=== PATIENT | female | born 1990 | race Caucasian/White ===

== ENCOUNTER 2016-10-10 16:04 | Emergency (ER) | payer SELFPAY ==
[~2016-10-10] VITALS: Ht 167.6 cm; Wt 72.6 kg
[~2016-10-10 16:04] MED LIST: ALBU17AE23 IH; ALBU8.5H2 IH; ALBU8.5H4 IH; AMOX500C2; AMX250CIP; AZTH250C PO; BUSP5TAB59; BUTA1CAP45 PO; CEFA500C82 PO; CEFD300C3 PO; CITA20TA7 PO; CLIN300C3 PO; CODE-54 PO; CPR500T PO; DCS100C PO; HYDR-3454 PO; HYDR-3720 PO; IBP600T1; Ibuprofen PO; LEVO75TA6 PO; NAPR-243 PO; NAPR500T3 PO; NITR-65 PO; NITR100C44 PO; ONDA-42 SL; ONDA4TAB8 PO; ONDA8TAB13 PO; ONDA8TAB9 PO; PHEN200T27 PO; PNV51CAP PO; PRCD5U; PRD50T PO; PREN1TAB19 PO; PRM25T PO; SULF-222 PO; TRAM-21 PO; TRAM50TA2 PO; TRM50T PO; [UNRECOGNIZED DRUG - REMARK]
--- OUTSIDE RECORDS SUMMARY | 2016-10-10 16:10 | XMS REPORT | Continuity of Care Document ---
Author Author [facility] Organization [facility] Address Unknown Phone Unavailable Care Team Providers Care V Belt Builder Name Role Phone [facility] PCP Insurance Providers Payer Name Policy Number Subscriber Name Relationship [facility] [id number] Makayla Ramon 18 Self / Same As Patient Advance Directives Directive Response Recorded Date/Time Advance Directives No 06/01/16 4:53am Health Care Power of Maintenance Of Way Foreman No 06/01/16 4:53am Organ Donor No 06/01/16 4:53am Resuscitation Status Full Code 06/01/16 4:53am Chief Complaint and Reason for Visit Chief Complaint Eye Problems Reason for Visit [id number] Problems Active Problems Medical Problem Onset Date Status Abdominal pain Unknown Acute Abdominal pain in Unknown Acute Abdominal wall pain Unknown Acute Acute sinusitis Unknown Acute Corneal abrasion Unknown Acute Corneal abrasion, left Unknown Acute Flank pain Unknown Acute Headache Unknown Acute Impacted tooth Unknown Acute Impacted tooth Unknown Acute Ovarian cyst Unknown Acute Pain, dental Unknown Acute Pleuritic chest pain Unknown Acute Urinary tract infection Unknown Acute Urinary tract infection Unknown Acute Urinary tract infection Unknown Acute Urinary tract infectious disease Unknown Acute hyperemesis gravidarum Unknown Acute Medications Current Home Medications Medication Dose Units Route Directions Days/Qty Instructions Start Date Levothyroxine Sodium 75 Mcg 75 Mcg Oral Daily 06/01/16 Citalopram Hydrobromide 20 Mg 20 Mg Oral Daily 06/01/16 Past Home Medications Medication Directions Ordered Status Albuterol 17 Gm Aerosol, 2 Puff Inhalation As Needed 03/02/09 Discontinued Amoxicillin 500 Mg Capsule, 03/02/09 Discontinued Ibuprofen 600 Mg Tab, 03/02/09 Discontinued Ciprofloxacin 500 Mg Tablet, 1 Tab Oral Twice A Day 03/03/09 Discontinued Albuterol 8.5 Gm Hfa.aer.ad, 8.5 Gm Inhalation Every 4HRS as needed 02/16/10 Discontinued Prednisone 50 Mg Tab, 50 Mg Oral Daily 02/16/10 Discontinued Naproxen 500 Mg Tablet, 1 Each Oral Three Times A Day And Prn 10/23/11 Discontinued Cefaclor 500 Mg Capsule, 1 Each Oral Three Times A Day 03/29/12 Discontinued Azithromycin 250 Mg Tablet, 250 Mg Oral Daily 11/25/12 Discontinued Promethazine/Codeine 5 Ml Syrp, 5 Ml Every 6 Hours as needed 11/25/12 Discontinued Naproxen 500 Mg Tablet, 1 Each Oral Three Times A Day And Prn 11/25/12 Discontinued Tramadol Hcl 50 Mg Tab, 50 Mg Oral Q4-6HOURS as needed 11/25/12 Discontinued Ondansetron 4 Mg/Udtablet Tab.rapdis, 4 Mg Oral As Needed 08/23/13 Discontinued Pnv51/Iron Fum/Fa/Om-3/Dha/Epa 1 Each Capsule, 1 Each Oral Daily 08/23/13 Discontinued Acetaminophen/Codeine Phosphate 1 Tab Tablet, 1-2 Tab Oral Q 4-6 Hours as needed for Pain 08/23/13 Discontinued Nitrofurantoin Macrocrystals 100 Mg Capsule, 1 Each Oral Twice A Day Discontinued Ondansetron Hcl 4 Mg Tab, 4 Mg Sublingual Every 4HRS as needed for Nausea/ Vomiting 10/03/13 Discontinued Promethazine Hcl 25 Mg Tab, 1 Tab Oral Every 6 Hours as needed for Nausea/ Vomiting 10/03/13 Discontinued Nitrofurantoin Macrocrystals 100 Mg Capsule, 1 Each Oral Twice A Day Discontinued Vit/Fe Fumarate/Fa 1 Each Tablet, 1 Each Oral Daily 11/04/13 Discontinued Ondansetron Hcl 8 Mg/Tab Tab.rapdis, 8 Mg Oral Q4-6 Hours for Nausea Discontinued Albuterol 8.5 Gm Hfa.aer.ad, 2 Puff Inhalation Daily for Shortness Of Breath 11/04/13 Discontinued Nitrofurantoin/Nitrofuran Mac 100 Mg Capsule, 100 Mg Oral Daily 03/07/14 Discontinued [Ibuprofen] 800 Mg Tab, 800 Mg Oral Every 6 Hours 03/15/14 Discontinued Docusate Sodium 100 Mg Capsule, 1 Cap Oral Daily as needed for Constipation 03/15/14 Discontinued Acetaminophen/Hydrocodone Bitart ([place]) 1 Each Tablet, 1-2 Tab Oral Every 3 Hours as needed for Pain 03/15/14 Discontinued Phenazopyridine Hcl 200 Mg Tablet, 1 Each Oral Three Times A Day And Prn as needed for Pain 12/04/14 Discontinued Nitrofurantoin Macrocrystals 100 Mg Capsule, 1 Each Oral Twice A Day Discontinued Ondansetron 8 Mg Tab.rapdis, 8 Mg Oral Every 6 Hours as needed for Nausea/ Vomiting 12/04/14 Discontinued Tramadol Hcl 50 Mg Tablet, 50 Mg Oral Every 4HRS as needed for Pain 12/04/14 Discontinued Naproxen 500 Mg Tablet, 1 Each Oral Twice A Day as needed for Pain 01/27/15 Discontinued Trimethoprim/Sulfamethoxazole 1 Ea Tablet, 1 Ea Oral Twice A Day 01/27/15 Discontinued Clindamycin Hcl 300 Mg Capsule, 1 Each Oral Four Times Daily 03/09/15 Discontinued Tramadol Hcl 50 Mg Tablet, 50 Mg Oral Every 4HRS as needed for Pain 03/09/15 Discontinued [?Eye Ointment] , Every 4HRS 07/12/15 Discontinued Hydrocodone/Acetaminophen 1 Each Tablet, 1 Each Oral Every 4HRS as needed for Pain 07/12/15 Discontinued Cefdinir (Omnicef) 300 Mg Capsule, 300 Mg Oral Twice A Day for For Infection 07/20/15 Discontinued Naproxen 500 Mg Tablet, 500 Mg Oral Twice A Day 07/20/15 Discontinued Butalb/Acetaminophen/Caffeine 1 Each Capsule, 1-2 Each Oral Every 6 Hours as needed for Headache 07/20/15 Discontinued Buspirone Hcl 5 Mg Tablet, 04/09/16 Discontinued Levothyroxine Sodium 75 Mcg Tablet, 75 Mcg Oral 06/01/16 Discontinued Social History Social History Problem Response Recorded Date/Time Alcohol Use Occasionally Uses 01/05/2016 12:58am Recreational Drug Use No 01/05/2016 12:58am Recent Foreign Travel No 04/01/2014 10:46pm Recent Infectious Disease Exposure No 04/01/2014 10:46pm Hospitalization with Isolation Denies 04/01/2014 10:46pm Smoking Status Never a Smoker 06/01/2016 4:53am Do you dip or chew tobacco? No 01/05/2016 12:58am Recent Hopitalizations No 06/01/2016 4:53am Hospitalization with Isolation Denies 04/01/2014 10:46pm Query Response Start Date Stop Date Smoking Status Never a Smoker Hospital Discharge Instructions No hospital discharge instructions. Plan of Care Discharge Date 06/01/16 5:32am Disposition 01 HOME, SELF-CARE Condition at Discharge Improved Instructions/Education Provided Corneal Abrasion (ED) Prescriptions See Medication Section Referrals [facility] - Primary Care Physician Additional Instructions/Education Use the gentamicin ointment 1/2 inch ribbon placed on the inner lower eyelid every 6-8 hours. Keep your appointment with the eye doctor later today. All discharge instructions reviewed with patient and/or family. Voiced understanding. Functional Status No functional status results. Allergies, Adverse Reactions, Alerts Allergen Type Severity Reaction Status Last Updated Penicillins ([id number]) Allergy Unknown Active 12/04/14 Immunizations No immunization records. Vital Signs Acute Vital Signs Vital Response Date/Time Temperature (Fahrenheit) 97.6 degrees F (97.6 - 99.5) 06/01/2016 4:53am Temperature (Calculated Celsius) 36.95836 degrees C (36.4 - 37.5) 06/01/2016 4:53am Temperature Source Temporal 06/01/2016 4:53am Pulse Rate (adult) 76 bpm (60 - 90) 06/01/2016 4:53am Respiratory Rate 16 bpm (12 - 24) 06/01/2016 4:53am O2 Sat by Pulse Oximetry 96 % (88 - 100) 06/01/2016 4:53am Blood Pressure 117/70 mm Hg 06/01/2016 4:53am Blood Pressure Mean 86 mm Hg 06/01/2016 4:53am Pain Numeric Pain Scale 10-Worst Possible Pain 06/01/2016 4:53am Height (Feet) 5 feet 06/01/2016 4:53am Height (Inches) 6 inches 06/01/2016 4:53am Height (Calculated Centimeters) 167.871850 cm 06/01/2016 4:53am Weight (Pounds) 145 pounds 06/01/2016 4:53am Weight (Calculated Kilograms) 65.388954 kilograms 06/01/2016 4:53am Capillary Refill Capillary Refill Less Than 3 Seconds 06/01/2016 4:53am Height 5 ft 6 in Weight 145 lb Body Mass Index 23.4 kg/m^2 Results No known relevant diagnostic tests, laboratory data and/or discharge summary. Procedures No known history of procedures. Encounters Encounter Location Arrival/Admit Date Discharge/Depart Date Attending Provider Departed Emergency Room [facility] 06/01/16 4:47am 06/01 5:32am ARIK KELLY MD Recent Diagnosis
[2016-10-10 17:05] LABS: BASOPHILS % (AUTO) 0 % (0-10); EOSINOPHILS # (AUTO) 0.1 10^3/uL (0.0-0.3); EOSINOPHILS % (AUTO) 2 % (0-10); LYMPHOCYTES # (AUTO) 1.6 X 10^3 (1.0-4.0); LYMPHOCYTES % (AUTO) 20 % (12-44); MEAN CORPUSCULAR HEMOGLOBIN 30 PG (25-34); MEAN CORPUSCULAR HGB CONC 35 G/DL (32-36); MEAN CORPUSCULAR VOLUME 87 FL (80-99); MEAN PLATELET VOLUME 11.3 FL (7.4-10.4); MONOCYTES # (AUTO) 0.4 X 10^3 (0.0-1.0); MONOCYTES % (AUTO) 5 % (0-12); NEUTROPHILS # (AUTO) 5.9 X 10^3 (1.8-7.8); NEUTROPHILS % (AUTO) 73 % (42-75); PLATELET COUNT 196 10^3/uL (130-400); RED BLOOD COUNT 4.36 10^6/uL (4.35-5.85); RED CELL DISTRIBUTION WIDTH 12.3 % (10.0-14.5)
--- NOTE | 2016-10-10 17:23 | Diagnostic Imaging Report ---
Indication: Severe anterior chest pain for 3 days, worsening today. Discussion: Two views of the chest were obtained, comparison 03/02/2010. No adverse interval change. The heart and lungs remain normal. No osseous abnormality. Impression: Stable negative chest. Dictated by: Dictated on workstation # [id number]
--- NOTE | 2016-10-10 17:34 | ED Chest Pain ---
General Chief Complaint: Respiratory Problems Stated Complaint: SOB/CHEST PAIN Nursing Triage Note: PT STATES SHE HAS BEEN SOA SINCE MONDAY, STATES MIDSTERNAL CHEST PAIN. INTERMITTENT COUGH. Nursing Sepsis Screen: No Definite Risk Source: patient Exam Limitations: no limitations History of Present Illness Time seen by provider: 17:32 Initial Comments To ER with reports of central chest pain described as a heaviness worsened with deep breathing and laying flat. This is been present for 3 days. No fevers. Intermittent and inconsistent nonproductive cough. She has taken her inhaler at home without any improvement in symptoms. She has not tried any other medications. Timing/Duration: 2-3 days Severity/Quality: dull Location: central Radiation: no radiation Activities at Onset: none ASA po DESIGN STUDIO CONSULTANT: No NTG SL DESIGN STUDIO CONSULTANT: No Associated Symptoms: No fatigue, No fever/chills, No heartburn, No nausea/ vomiting Allergies and Home Medications Allergies Coded Allergies: Penicillins (Unverified Allergy, Unknown, 12/04/14) Home Medications Citalopram Hydrobromide 20 Mg Tablet 20 MG PO DAILY (Reported) Levothyroxine Sodium 75 Mcg Tablet 75 MCG PO DAILY (Reported) Review of Systems Constitutional: see HPI EENTM: No Symptoms Reported Respiratory: See HPI Cough Cardiovascular: See HPI Chest Pain Gastrointestinal: No Symptoms Reported Genitourinary: No Symptoms Reported Musculoskeletal: no symptoms reported Skin: no symptoms reported Psychiatric/Neurological: No Symptoms Reported Endocrine: No Symptoms Reported Hematologic/Lymphatic: No Symptoms Reported Past Jwsqsaa-Gjjrgx-Jqesje Hx Patient Social History Alcohol Use: Denies Use Recreational Drug Use: No Smoking Status: Never a Smoker 2nd Hand Smoke Exposure: No Recent Foreign Travel: No Contact w/Someone Who Travel: No Recent Infectious Disease Expo: No Recent Hopitalizations: No Immunizations Up To Date Tetanus Booster (TDap): Less than 5yrs Date of Influenza Vaccine: May 21, 2016 Seasonal Allergies Seasonal Allergies: No Surgeries HX Surgeries: Yes (LITHOTRIPSY AND STONE BASKET REMOVAL) Surgeries: Section, Renal Respiratory Hx Respiratory Disorders: Yes Respiratory Disorders: Asthma Cardiovascular Hx Cardiac Disorders: No Neurological Hx Neurological Disorders: No Reproductive System Hx Reproductive Disorders: No Female Reproductive Disorders: Denies Genitourinary Hx Genitourinary Disorders: Yes Genitourinary Disorders: Kidney Stones Gastrointestinal Hx Gastrointestinal Disorders: No Musculoskeletal Hx Musculoskeletal Disorders: No Endocrine Hx Endocrine Disorders: No HEENT HX ENT Disorders: No Cancer Hx Cancer: No Psychosocial Hx Psychiatric Problems: No Integumentary HX Skin/Integumentary Disorder: No Blood Transfusions Hx Blood Disorders: No Adverse Reaction to a Blood Tr: No Physical Exam Vital Signs Vital Sign - Last 12Hours 10/10/16 16:31 Temp 98.5 Pulse 89 Resp 18 B/P 123/69 Capillary Refill : Less Than 3 Seconds General Appearance: No Apparent Distress WD/WN HEENT: PERRL/EOMI TMs Normal Neck: Full Range of Motion Normal Inspection Respiratory: Chest Non Tender Lungs Clear Normal Breath Sounds No Accessory Muscle Use No Respiratory Distress Cardiovascular: Regular Rate, Rhythm No Edema Normal Peripheral Pulses Gastrointestinal: Non Tender Soft Extremity: Normal Capillary Refill Normal Inspection Neurologic/Psychiatric: Alert Oriented x3 No Motor/Sensory Deficits Skin: Normal Color Warm/Dry Progress/Results/Core Measures Results/Orders Lab Results Laboratory Tests Test 10/10/16 16:56 Range/Units Basophils # (Auto) 0.0 0.0-0.1 10^3/uL Basophils (%) (Auto) 0 0-10 % D-Dimer 0.39 0.00-0.49 UG/ML Eosinophils # (Auto) 0.1 0.0-0.3 10^3/uL Eosinophils (%) (Auto) 2 0-10 % Hematocrit 38 35-52 % Hemoglobin 13.1 11.5-16.0 G/DL Lymphocytes # (Auto) 1.6 1.0-4.0 X 10^3 Lymphocytes (%) (Auto) 20 12-44 % Mean Corpuscular Hemoglobin 30 25-34 PG Mean Corpuscular Hemoglobin Concent 35 32-36 G/DL Mean Corpuscular Volume 87 80-99 FL Mean Platelet Volume 11.3 H 7.4-10.4 FL Monocytes # (Auto) 0.4 0.0-1.0 X 10^3 Monocytes (%) (Auto) 5 0-12 % Neutrophils # (Auto) 5.9 1.8-7.8 X 10^3 Neutrophils (%) (Auto) 73 42-75 % Platelet Count 196 130-400 10^3/uL Red Blood Count 4.36 4.35-5.85 10^6/uL Red Cell Distribution Width 12.3 10.0-14.5 % White Blood Count 8.0 4.3-11.0 10^3/uL My Orders Orders-FABIO PENDLETON APRN Cbc With Automated Diff (10/10/16 16:35) Fibrin Degradation Products (10/10/16 16:35) Chest Pa/Lat (2 View) (10/10/16 16:35) Ekg Tracing (10/10/16 16:35) Vital Signs/I&O Vital Sign - Last 12Hours 10/10/16 16:31 Temp 98.5 Pulse 89 Resp 18 B/P 123/69 Blood Pressure Mean: 87 Departure Impression Impression: Primary Impression: Pleuritic chest pain Disposition: HOME, SELF-CARE Condition: Stable Departure-Patient Inst. Decision time for Depature: 17:50 Referrals: [facility] (PCP/Family) Primary Care Physician Patient Instructions: Pleuritic Chest Pain Add. Discharge Instructions: 1. Tylenol and Motrin for pain 2. Return to ER for any concerns 3. All discharge instructions reviewed with patient and/or family. Voiced understanding. FABIO PENDLETON APRN Oct 10, 2016 17:33
[2016-10-10 17:57] VITALS: BP 129/67
== END 2016-10-10 17:59 | disposition home or self-care (01) ==
LOC: EDUNIT# 16:04 → ER 16:06
DX: R07.81 Pleurodynia (principal)
CPT/HCPCS: 36415; 71020; 85025; 85379; 93005

== ENCOUNTER 2017-03-13 05:29 | Outpatient (CLI) | payer OTHER ==
[~2017-03-13] VITALS: Ht 167.6 cm; Wt 72.6 kg
[2017-03-13] MEDS ORDERED: BUPR300T43 PO (15:09)
== END 2017-03-13 15:13 ==
LOC: PREOP 05:29
PROVIDERS: ATTEND Obstetrics & Gynecology
DX: Z01.818 Encounter for other preprocedural examination (principal); N93.8 Other specified abnormal uterine and vaginal bleeding; R10.2 Pelvic and perineal pain

== ENCOUNTER 2017-03-17 10:40 | Day surgery (SDC) | payer OTHER ==
[~2017-03-17] VITALS: Ht 167.6 cm; Wt 72.6 kg
[~2017-03-17 10:40] MED LIST changes: +BUPR300T43 PO
--- OUTSIDE RECORDS SUMMARY | 2017-03-17 10:44 | XMS REPORT ---
Author HAYLIE Pitt Organization [employer] Address Unknown Phone Unavailable Care Team Providers Care Clipper Operator Name Role Phone HAYLIE BELCHER CP Unavailable Allergies, Adverse Reactions, Alerts Substance Reaction Event Type Amoxicillin Info Not Available Drug Allergy Problems Problem Type Condition Code Onset Dates Condition Status Problem Acute pharyngitis 462 Active Problem examination or test, positive result V72.42 Active Problem Supervision of normal first V22.0 Active Problem Dysuria 788.1 Active Problem Flank pain, acute 789.09 Active Problem Counseling for control, oral contraceptives V25.01 Active Problem Postnasal drip 784.91 Active Problem Other bursitis disorders 727.3 Active Problem Pure hyperglyceridemia 272.1 Active Problem Family history of diabetes mellitus V18.0 Active Assessment Serous otitis media H65.90 Active Problem Pain in joint, lower leg 719.46 Active Problem Acute upper respiratory infections of unspecified site 465.9 Active Assessment Dizziness R42 Active Problem Need for prophylactic vaccination and inoculation, Influenza V04.81 Active Medications Medication Code System Code Instructions Start Date End Date Status Dosage Zyrtec Allergy [facility] [address]-55 10 MG Orally Aug 24, 2015 as directed Meclizine HCl [facility] [address]-90 25 MG Orally 3 times a day Aug 24, 2015 1 tablet as needed Ortho-Cyclen (28) [facility] [address]-77 0.25-35 MG-MCG Orally Once a day May 04, 2015 1 tablet Procedures Procedure Coding System Code Date Office Visit, Est Pt., Level 3 CPT-4 98942 Aug 24, 2015 Vital Signs Date/Time: Aug 24, 2015 Temperature 96.3 F Weight 136.3 lbs Height 65 in BMI 22.68 Index Blood Pressure Diastolic 60 mmHg Blood Pressure Systolic 110 mmHg Cardiac Monitoring Heart Rate 72 bpm Results No Known Results Summary Purpose [employer] Submission
--- OUTSIDE RECORDS SUMMARY | 2017-03-17 10:45 | XMS REPORT ---
Author HAYLIE Pitt [facility] [employer] Address Unknown Phone Unavailable Care Team Providers Care Manual Arts Teacher Name Role Phone HAYLIE BELCHER CP Unavailable Allergies No Known Allergies Problems Problem Type Condition Code Onset Dates Condition Status Problem Counseling for control, oral contraceptives V25.01 Active Medications No Known Medications Results No Known Results Summary Purpose [employer] Submission
[2017-03-17] MEDS ORDERED: BUP/EPI 0.5% 1:200,000 (MARCAINE) 10ML VIAL IJ ONE (11:12)
[2017-03-17] MEDS ORDERED: ATRACURIUM 50 MG/5 ML (TRACRIUM) IV ONE (11:15)
[2017-03-17 11:20] LABS: BASOPHILS % (AUTO) 0 % (0-10); EOSINOPHILS # (AUTO) 0.1 10^3/uL (0.0-0.3); EOSINOPHILS % (AUTO) 1 % (0-10); LYMPHOCYTES # (AUTO) 1.4 X 10^3 (1.0-4.0); LYMPHOCYTES % (AUTO) 24 % (12-44); MEAN CORPUSCULAR HEMOGLOBIN 29 PG (25-34); MEAN CORPUSCULAR HGB CONC 34 G/DL (32-36); MEAN CORPUSCULAR VOLUME 86 FL (80-99); MEAN PLATELET VOLUME 11.6 FL (7.4-10.4); MONOCYTES # (AUTO) 0.3 X 10^3 (0.0-1.0); MONOCYTES % (AUTO) 6 % (0-12); NEUTROPHILS # (AUTO) 3.9 X 10^3 (1.8-7.8); NEUTROPHILS % (AUTO) 69 % (42-75); PLATELET COUNT 197 10^3/uL (130-400); RED BLOOD COUNT 4.94 10^6/uL (4.35-5.85); WHITE BLOOD COUNT 5.6 10^3/uL (4.3-11.0)
[2017-03-17] MEDS ORDERED: proPOfol 200 MG/20 ML (DIPRIVAN) VIAL IV ONE (11:20)
[2017-03-17] MEDS ORDERED: LIDOCAINE PF 2% 5 ML (XYLOCAINE) VIAL ONE (11:20)
[2017-03-17] MEDS ORDERED: LACTATED RINGERS 1,000 ML IV ONE (11:20)
[2017-03-17] MEDS ORDERED: SEVOFLURANE (ULTANE) 15 ML INHAL SOLN ONE ×8 (11:20→15:07)
[2017-03-17] MEDS ORDERED: DEXAMETHASONE PF 10 MG/ML (DECADRON) VIAL ONE (11:20)
[2017-03-17] MEDS ORDERED: HURRICAINE EXT TUBE (BENZOCAINE) ONE (11:20)
[2017-03-17] MEDS ORDERED: fentaNYL INJECTION 100 MCG/2 ML AMP ONE ×2 (11:21→14:57)
[2017-03-17] MEDS ORDERED: MIDAZOLAM 2 MG/2 ML (VERSED) VIAL ONE (11:21)
[2017-03-17 11:24] VITALS: BP 110/83
[2017-03-17] MEDS: LACTATED RINGERS 1,000 ML IV PRN ×2 (11:33→14:20)
[2017-03-17] MEDS ORDERED: ceFAZolin 1,000 MG (ANCEF) VIAL ONE (12:44)
[2017-03-17] MEDS ORDERED: NS (IVPB) 50 ML ONE (12:45)
[2017-03-17] MEDS ORDERED: ceFAZolin 1 GM/NS 50 ML IVPB IV ONE ×2 (13:00)
--- NOTE | 2017-03-17 13:01 | Progress Note-Pre Operative ---
Pre-Operative Progress Note H&P Reviewed The H&P was reviewed, patient examined and no changes noted. Date Seen by Provider: Mar 17, 2017 Time Seen by Provider: 13:00 Date H&P Reviewed: Mar 17, 2017 Time H&P Reviewed: 13:00 Pre-Operative Diagnosis: CPP/DUB/Menorrhagia/Dysmenorrhea JAXON DUNLAP MD Mar 17, 2017 1:01 pm
[2017-03-17] MEDS ORDERED: D5 LR IV SOLUTION 1,000 ML IV SCH (13:02)
--- NOTE | 2017-03-17 13:02 | Progress Note-Post Operative ---
Post-Operative Progess Note Surgeon (s)/Contact Lens Polisher (s) Surgeon JAXON DUNLAP MD Contact Lens Polisher: Mignon Sanchez Pre-Operative Diagnosis CPP/DUB/Menorrhagia/Dysmenorrhea Post-Operative Diagnosis same with endometriosis and with likely appendicitis and with pathology pending Procedure & Operative Findings Date of Procedure 03/17/17 Procedure Performed/Findings hysteroscopy with directed biopsy and D&C Operative laparoscopy with destruction of endometriosis ovarian cyst aspiration bilaterally, and appendectomy Anesthesia Type GETA Estimated Blood Loss Estimated blood loss (mL): minimal Specimens/Packing Specimens Removed endometrial curettings Packing: none JAXON DUNLAP MD Mar 17, 2017 13:02
[2017-03-17] MEDS ORDERED: OXYC-202 PO (13:04)
--- NOTE | 2017-03-17 13:06 | Discharge Instructions ---
Discharge Instructions Discharge Medications New, Converted or Re-Newed RX: RX on Chart Patient Instructions Patient Instructions: as directed Return to The Hospital For: as directed Activity & Diet Discharge Diet: No Restrictions Activity as Tolerated: No Orders-Post D/C & Referrals Follow Up Appt: return to clinic 1 week for suture removal. Activity: Rest for 24 hours, than as tolerated. Wound Care: May remove Band-Aid tomorrow. Replace as desired. Keep incisions clean and dry. Wash daily with soap and water. Diet: As tolerated-Clear Liquids only if nauseated. Tomorrow, may shower or tub bathe as desired. No driving for 24 hours, no alcoholic beverages for 24 hours, and nothing per vagina (no tampons, douching, or intercourse) for 2 weeks. Patient to return to the clinic as soon as possible for: Temperature greater than 101F, Severe Pain, Foul discharge from incision or vagina, Excessive Bleeding (more than a period). JAXON DUNLAP MD Mar 17, 2017 1:06 pm
[2017-03-17] MEDS ORDERED: ESTROGENS CONJ IV 25 MG/5 ML (PREMARIN) VIAL IVP ONE (13:15)
[2017-03-17] MEDS ORDERED: KETOROLAC 30 MG/ML VIAL IVP ONE ×2 (13:15→15:30)
[2017-03-17] MEDS ORDERED: oxyCODONE/APAP 10/325MG (PERCOCET 10) TABLET PO PRN (13:15)
[2017-03-17] MEDS ORDERED: PROMETHAZINE INJ 25 MG/ML (PHENERGAN) AMP IM ONE (13:15)
[2017-03-17] MEDS ORDERED: ONDANSETRON 4 MG/2 ML (SDV) Z0FRAN IVP PRN ×2 (13:15→15:30)
[2017-03-17] MEDS ORDERED: MEPERIDINE (DEMEROL) INJ 100 MG/ML IM ONE (13:15)
[2017-03-17] MEDS: METHYLENE BLUE 1% INJ 1 ML AMP ONE ×2 (13:30→14:30)
[2017-03-17] MEDS ORDERED: WATER (STERILE) FOR INJECTION 10 ML ONE (14:22)
[2017-03-17] MEDS ORDERED: morphine INJ 10 MG/ML 1ML (SYR OR VIAL) ONE (14:22)
[2017-03-17] MEDS ORDERED: ESTROGENS CONJ IV 25 MG/5 ML (PREMARIN) VIAL ONE (14:23)
[2017-03-17] MEDS ORDERED: NEOSTIGMINE (BLOXIVERZ ) 1 MG/1ML 10 ML VIAL ONE (15:08)
[2017-03-17] MEDS ORDERED: ONDANSETRON 4 MG/2 ML (SDV) Z0FRAN ONE (15:08)
[2017-03-17] MEDS ORDERED: GLYCOPYRROLATE 0.2 MG/ML (ROBINUL) 2 ML VIAL ONE (15:08)
[2017-03-17] MEDS ORDERED: HYDROmorphone (DILAUDID) 2 MG/ML VIAL IVP PRN (15:30)
[2017-03-17] MEDS: morphine INJ 10 MG/ML 1ML (SYR OR VIAL) IVP PRN ×2 (15:35→15:40)
[2017-03-17 16:05] VITALS: BP 117/79
[2017-03-17 16:35] VITALS: BP 118/75
[2017-03-17 17:05] VITALS: BP 113/71
[2017-03-17 18:05] VITALS: BP 118/74
[2017-03-17 18:30] VITALS: BP 118/74
--- NOTE | 2017-03-18 02:51 | OPERATIVE REPORT ---
DATE OF SERVICE: 03/17/2017 PREOPERATIVE DIAGNOSES: Chronic pelvic pain, dysfunctional uterine bleeding, menorrhagia, and dysmenorrhea. POSTOPERATIVE DIAGNOSES: [place] endometrial polyp with pathology pending as well as extensive abdominopelvic adhesions, endometriosis, multiple ovarian cysts, appendiceal adhesions and likely appendicitis with pathology pending. OPERATIVE PROCEDURES: Hysteroscopy with directed biopsy and D and C followed by a laparoscopy for extensive adhesiolysis, aspiration of multiple ovarian cysts, destruction of endometriosis implants, and laparoscopic appendectomy as well as chromopertubation. OPERATIVE DESCRIPTION: With the patient in the supine position under satisfactory general anesthesia, she was repositioned in the dorsal lithotomy position in the [facility] and prepped and draped in the usual fashion for abdominal and vaginal surgery. Urinary bladder was drained with the straight catheter. A weighted speculum was placed in the posterior fornix of the vagina and the cervix exposed and grasped anteriorly with single tooth tenaculum. The uterus was sounded to 9 cm with a uterine sound. The cervix was then serially dilated with Juan Alberto dilators to accommodate a hysteroscope, which was introduced and the endometrial cavity was examined. There were polypoid masses emanating primarily from the posterior surface. A airport representative biopsy was taken and then the endometrial cavity was sharply curettaged in all four quadrants to a good uterine cry, removing notable amount of endometrial tissue as well as more polypoid appearing tissue. A uterine manipulator was then placed and the bulb filled with 4 mL of saline. Patient was brought in low dorsal lithotomy position after the speculum and tenaculum were removed. A 5 mm incision was made in the patient's left upper quadrant and a stab wound at the Urbano's point. Veress needle was placed through the stab wound and into the abdominal cavity. Correct placement was confirmed with a water drop test. The abdomen was insufflated with 2.4 liters of carbon dioxide. Then, the Veress needle was removed and a 5 mm Optiview laparoscopic port placed through the left upper quadrant incision. Patient was placed in Trendelenburg allowing the bowel to spill up out of the pelvis. The bowel remained partially in the pelvis particularly due to the adhesions on the left side of the pelvis. The abdominal wall was transilluminated. A 12 mm port was placed through an incision of that size in the umbilicus and a 5 mm port placed on the surface of the Pfannenstiel incisional scar in the midline. All three incision sites have been infiltrated with 0.25% Marcaine with epinephrine prior to the incision. The pelvis was examined. Both ovaries were densely adherent to the ovarian fossae. Both ovaries were densely involved in filmy fibrotic adhesions. There were adhesions from the bowel to the lower uterine segment obliterating most of the cul-de-sac. There was an Hosea-Masters window in the right cul-de-sac. The anterior lower uterine segment of the peritoneum showed a scar from the previous . The ovaries were not fully examined until this point due to the adhesions. Both fallopian tubes were adherent over the ovaries and into the cul-de-sac, neither fimbriated end could be identified. There were adhesions of the sigmoid to the left pelvic brim. Some of these were dense and fibrotic adhesions. Laparoscope was rotated. The appendix was seen with some difficulty, was semi-retrocecal. The terminal ileum was indurated and erythematous and injected, consistent with some degree of infection. There were extensive adhesions along the appendix. The laparoscope was brought back to the pelvis. The adhesions of the ovaries to the ovarian fossae on each side were very carefully and meticulously dissected free to allow the ovary to resume a normal freedom and mobility and position in the pelvis. With that done and both ovarian fossae implants, those implants were destroyed with electrocautery. Both ovaries had numerous follicular cysts. These follicular cysts were drilled with electrocautery to allow release of straw-colored fluid, which was aspirated out. The fallopian tubes were dissected free. When that was done, the fimbriated end actually looked more normal. The right fallopian tube appeared to have some degree of hydrosalpinx in its distal third, but this was resolved after dissecting the tube free and allowing fluid to spill. The endometriosis implants and adhesions in the cul-de-sac were destroyed. The adhesions of the sigmoid to the left pelvic brim and left pericolic gutter were taken free allowing the sigmoid free mobility and allowing it up out of the way to accomplish the dissection that had been performed now on the left. Both ureters were seen to peristalse before and during and after all the dissections were well out of the way. The pelvis was irrigated and examined for hemostasis which was complete and with all the pathology of the adhesions and the cysts and the endometriosis dealt with, the attention was then turned to the appendix. The appendix was mobilized by rotating the cecum, grasping the appendix, and working along its length to examine it. The distal third was indurated and injected again consistent with some degree of infection or inflammation, the distal end was very firm and nodular. The base of the appendix was elevated. The mesoappendix was perforated with electrocautery and then Endo SISI was placed across the base of the appendix and fired. The mesoappendix was then dissected free starting from the base and continuing to approximately the middle third and then from the distally and back to the middle third, where an Endo SISI was then placed across the balance of the mesoappendix and fired the appendix from its attachment. The appendix was placed in an endobag and brought out through the umbilical incision. The stump of the appendix was copiously irrigated and then treated with several drops of Betadine solution. There was no bleeding from this area. The pelvis was irrigated again, examined for hemostasis, which was complete. There was no further abnormal pathology remaining. The uterus was free and mobile as were the fallopian tubes and ovaries. The all irrigant was aspirated out. Chromopertubation was performed by placing the dilute solution of methylene blue and saline through the fallopian tubes, easy spill was noted bilaterally. With the procedure complete, again, all irrigant was aspirated out. There was no bleeding. There was no remaining abnormal pathology. The procedure was terminated. The operative instruments were removed under direct vision as were the ports. There was no bleeding from the port sites and the abdomen was evacuated of the insufflating gas in the process of removing the ports. The skin incisions were closed with nylon sutures. The fascia at the umbilical incision was closed with [id number] suture of 2-0 Vicryl. The uterine manipulator was drained. It was removed from the uterus and then speculum replaced in the vagina. The cervix was examined. There was some bleeding from one of puncture sites from the tenaculum. This was touched with silver nitrate to affect hemostasis. There was minimal oozing from the cervical os. Sponge and needle counts were correct at the end of the procedure. Estimated blood loss for the procedure was minimal. The patient tolerated the procedure well and was uneventfully awakened from the general anesthesia and transferred to the recovery room in stable condition. Job ID: [id number] DocumentID: [id number] Dictated Date: 03/17/2017 15:59:12 Shield Operator Date: 03/17/2017 18:40:34 Dictated By: JAXON DUNLAP MD
== END 2017-03-17 18:35 | disposition home or self-care (01) ==
LOC: SDC 10:40
PROVIDERS: ATTEND Obstetrics & Gynecology
DX: R10.2 Pelvic and perineal pain (principal); N93.8 Other specified abnormal uterine and vaginal bleeding; N92.0 Excessive and frequent menstruation with regular cycle; N94.6 Dysmenorrhea, unspecified; N73.6 Female pelvic peritoneal adhesions (postinfective); N84.0 Polyp of corpus uteri; N83.8 Other noninflammatory disorders of ovary, fallopian tube and broad ligament; N83.01 Follicular cyst of right ovary; N83.02 Follicular cyst of left ovary; N70.11 Chronic salpingitis; N80.3 Endometriosis of pelvic peritoneum; K38.8 Other specified diseases of appendix
CPT/HCPCS: 36415; 84703; 85025; 87081

== ENCOUNTER → 2017-07-28 | Outpatient (CLI) | payer OTHER ==
[~2017-07-28] MED LIST changes: +CATHETER FLUSH 10 ML SYR IV PRN; +IOHEXOL 350 MG/ML 100 ML (OMNIPAQUE 350) VIAL IV ONE; -NAPR500T3 PO; +NAPR500T4 PO; +NS 100 ML (IVPB) BAG IV ONE; +OXYC-202 PO
--- NOTE | 2017-07-28 11:25 | Diagnostic Imaging Report ---
PROCEDURE: CT head with and without contrast. TECHNIQUE: Multiple contiguous axial images were obtained through the brain before and after the administration of intravenous contrast. INDICATION: New onset of seizures. Headache. 80 mL of Omnipaque 350 is administered intravenously FINDINGS: There is no intracranial hemorrhage, edema or mass effect. The brain parenchyma and sow-white matter differentiation appear preserved. Postcontrast images demonstrate no enhancing mass. No hydrocephalus. No extra-axial fluid collection is seen. The calvarium, the paranasal sinuses and orbits appear grossly unremarkable. IMPRESSION: Unremarkable exam. No enhancing mass. If symptoms persist, consider evaluation with MRI Dictated by: Dictated on workstation # [id number]
[2017-07-28 11:33] LABS: ALANINE AMINOTRANSFERASE 16 U/L (0-55); ALBUMIN 4.4 GM/DL (3.2-4.5); ANION GAP 10 MMOL/L (5-14); ASPARTATE AMINO TRANSFERASE 17 U/L (5-34); BILIRUBIN,TOTAL 0.6 MG/DL (0.1-1.0); BLOOD UREA NITROGEN 12 MG/DL (7-18); BUN/CREATININE RATIO 16; CALCIUM 9.3 MG/DL (8.5-10.1); CARBON DIOXIDE 25 MMOL/L (21-32); CHLORIDE 107 MMOL/L (98-107); CREATININE SERUM 0.73 MG/DL (0.60-1.30); GFR ESTIMATED > 60; GLUCOSE 73 MG/DL (70-105); POTASSIUM 3.6 MMOL/L (3.6-5.0); SODIUM 142 MMOL/L (135-145); TOTAL PROTEIN 6.7 GM/DL (6.4-8.2)
== END ==
LOC: RAD 10:48
PROVIDERS: ATTEND Internal Medicine
DX: R56.9 Unspecified convulsions (principal); R51 Headache
CPT/HCPCS: 36415; 70470; 80053

== ENCOUNTER 2017-10-18 20:09 | Emergency (ER) | payer OTHER ==
[~2017-10-18] VITALS: Ht 167.6 cm; Wt 71.7 kg
[~2017-10-18 20:09] MED LIST changes: -CATHETER FLUSH 10 ML SYR IV PRN; -IOHEXOL 350 MG/ML 100 ML (OMNIPAQUE 350) VIAL IV ONE; +NAPR-915 PO; -NAPR500T4 PO; -NS 100 ML (IVPB) BAG IV ONE
--- NOTE | 2017-10-18 20:50 | Diagnostic Imaging Report ---
INDICATION: [place] a pop in the right knee yesterday while bending down at work, right knee pain. FINDINGS: 3 views of the right knee demonstrate normal ossification. No fracture, dislocation or joint effusion is seen. IMPRESSION: Normal right knee. Dictated by: Dictated on workstation # [id number]
--- NOTE | 2017-10-18 21:09 | ED Lower Extremity ---
General Chief Complaint: Lower Extremity Stated Complaint: RIGHT KNEE PAIN Nursing Triage Note: Pt presents to ED after she heard her right knee pop yesterday while bending down at work. Nursing Sepsis Screen: No Definite Risk Source: patient Exam Limitations: no limitations History of Present Illness Date Seen by Provider: Oct 18, 2017 Time Seen by Provider: 21:09 Initial Comments 27-year-old female patient presents to the emergency department complains of right knee pain after feeling a pop in the knee yesterday when she was bending down at work. Patient now reports swelling and pain to the right knee. Location Injury Occurred: work Onset: yesterday Pain/Injury Location: right knee Method of Injury: other (kneeling down at work) Modifying Factors: Worse With Movement, Worse With Other (worse with palpation and ambulation) Allergies and Home Medications Allergies Coded Allergies: Penicillins (Unverified Allergy, Unknown, 12/04/14) Home Medications Bupropion HCl 300 Mg Tab.er.24h, 300 MG PO DAILY, (Reported) Oxycodone HCl/Acetaminophen 1 Each Tablet, 1-2 TAB PO Q4H PRN for PAIN Prescribed by: JAXON HARDY on 03/17/17 1304 Constitutional: no symptoms reported Musculoskeletal: see HPI, joint pain (right knee pain), joint swelling (right knee swelling) Skin: No change in color, No lumps Psychiatric/Neurological: Denies Numbness, Denies Paresthesia, Denies Tingling , Denies Weakness All Other Systems Reviewed Negative Unless Noted: Yes (Negative excepted noted.) Past Laqnzlk-Bnmcdr-Lgezia Hx Patient Social History Alcohol Use: Occasionally Uses Number of Drinks Today: AA Alcohol Beverage of Choice: Beer Recreational Drug Use: No Smoking Status: Never a Smoker 2nd Hand Smoke Exposure: No Recent Foreign Travel: No Contact w/Someone Who Travel: No Recent Infectious Disease Expo: No Recent Hopitalizations: No Physical Abuse: No Sexual Abuse: No Mistreated: No Fear: No Immunizations Up To Date Tetanus Booster (TDap): Less than 5yrs Date of Influenza Vaccine: May 21, 2016 Seasonal Allergies Seasonal Allergies: Yes Surgeries History of Surgeries: Yes (LITHOTRIPSY AND STONE BASKET REMOVAL) Surgeries: Section, Renal Respiratory History of Respiratory Disorde: Yes Respiratory Disorders: Asthma Currently Using CPAP: No Currently Using BIPAP: No Cardiovascular History of Cardiac Disorders: No Neurological History of Neurological Disord: No Reproductive System Hx Reproductive Disorders: Yes (DUB) Female Reproductive Disorders: Denies Genitourinary Genitourinary Disorders: Kidney Stones Gastrointestinal History of Gastrointestinal Di: No Musculoskeletal History of Musculoskeletal Dis: No Endocrine History of Endocrine Disorders: No HEENT Loss of Vision: Denies Hearing Impairment: Denies Cancer History of Cancer: No Psychosocial History of Psychiatric Problem: Yes Behavioral Health Disorders: Depression Suicide Risk Score: 1 Integumentary History of Skin or Integumenta: No Blood Transfusions History of Blood Disorders: No Adverse Reaction to a Blood Tr: No Reviewed Nursing Assessment Reviewed/Agree w Nursing PMH: Yes Family Medical History Significant Family History: No Pertinent Family Hx Family Medial History: Physical Exam Vital Signs Vital Signs - First Documented 10/18/17 20:10 Temp 97.0 Pulse 77 Resp 18 B/P (MAP) 116/71 (86) Pulse Ox 97 O2 Delivery Room Air Capillary Refill : Less Than 3 Seconds General Appearance: WD/WN, no apparent distress Cardiovascular: normal peripheral pulses, no edema Hips: bilateral hip non-tender, bilateral hip normal inspection, bilateral hip normal range of motion, bilateral hip no evidence of injury Legs: left leg non-tender, bilateral leg normal inspection, bilateral leg normal range of motion, bilateral leg no evidence of injury, right leg soft tissue tenderness (right quadricep tenderness) Knees: left knee non-tender, left knee normal inspection, left knee normal range of motion, bilateral knee no evidence of injury, right knee bone tenderness (anterior right knee tenderness to palpation), right knee joint effusion, right knee pain, right knee soft tissue tenderness, right knee swelling (mild generalized knee swelling) Ankles: bilateral ankle non-tender, bilateral ankle normal inspection, bilateral ankle normal range of motion, bilateral ankle no evidence of injury Feet: bilateral foot non-tender, bilateral foot normal inspection, bilateral foot normal range of motion, bilateral foot no evidence of injury Neurologic/Tendon: normal sensation, normal motor functions, normal tendon functions, responds to pain, no evidence tendon injury Neurologic/Psychiatric: no motor/sensory deficits, alert, normal mood/affect, oriented x 3 Skin: normal color, warm/dry, No ecchymosis Progress/Results/Core Measures Results/Orders My Orders Orders - SCAR CORDERO Knee, Right, 3 Views (10/18/17 20:13) Knee Immobilizer (10/18/17 21:31) Hydrocodone/Apap 5/325 Tablet (Lortab 5 (10/18/17 21:32) Vital Signs/I&O Vital Sign - Last 12Hours 10/18/17 20:10 Temp 97.0 Pulse 77 Resp 18 B/P (MAP) 116/71 (86) Pulse Ox 97 O2 Delivery Room Air Blood Pressure Mean: 86 Diagnostic Imaging Diagonstic Imaging: Xray Plain Films/CT/US/NM/MRI: knee Comments INDICATION: [place] a pop in the right knee yesterday while bending down at work, right knee pain. FINDINGS: 3 views of the right knee demonstrate normal ossification. No fracture, dislocation or joint effusion is seen. IMPRESSION: Normal right knee. Dictated by: Dictated on workstation # [id number] Reviewed: Reviewed by Me (radiology report reviewed by me) Departure Impression Impression: Primary Impression: Strain of right quadriceps muscle Additional Impression: Right knee pain Disposition: 01 HOME, SELF-CARE Condition: Improved Departure-Patient Inst. Decision time for Depature: 21:43 Referrals: [facility] (PCP/Family) Primary Care Physician Patient Instructions: Knee Pain (DC) Add. Discharge Instructions: All discharge instructions reviewed with patient and/or family. Voiced understanding. Medications as directed. Tylenol over the counter as directed for pain. Elevate the right knee on pillows. Ice pack for 20 minute intervals for 2-3 days to help with pain and swelling. Knee immobilizer as instructed. Avoid bending, squatting, and stairs for 5-7 days. Follow-up with Dr. Story as an outpatient for a recheck and possible need for outpatient MRI of the right knee. Call for appointment time. Return to the emergency department for worsened symptoms or any other concerns. Scripts Meloxicam (Meloxicam) 15 Mg Tablet 15 MG PO DAILY Y for pain, #14 TAB 0 Refills Prov: SCAR CORDERO 10/18/17 SCAR CORDERO Oct 18, 2017 21:09
--- OUTSIDE RECORDS SUMMARY | 2017-10-18 21:12 | XMS REPORT ---
Author Author HAYLIE BELCHER [facility] Address [address] [place] [address] Care Team Providers Care Natural Resource Technician Name Role Phone HAYLIE BELCHER Unavailable PROBLEMS Type Condition ICD9-CM Code [id number] Code Onset Dates Condition Status SNOMED Code Problem Counseling for control, oral contraceptives V25.01 Active [id number] ALLERGIES No Information SOCIAL HISTORY Never Assessed PLAN OF CARE VITAL SIGNS MEDICATIONS No Known Medications RESULTS No Results PROCEDURES No Known procedures IMMUNIZATIONS No Known Immunizations MEDICAL (GENERAL) HISTORY Type Description Date Medical History kidney stones Medical History asthma Surgical History lithotripsy 2006 Surgical History Hospitalization History surgery
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
[2017-10-18] MEDS ORDERED: HYDROcodone/APAP 5 MG/325 MG (LORTAB) TAB PO STA (21:32)
[2017-10-18] MEDS ORDERED: MELO15TA39 PO (21:46)
[2017-10-18 22:10] VITALS: BP 111/68
== END 2017-10-18 22:10 | disposition home or self-care (01) ==
LOC: EDUNIT# 20:09 → ER 20:10
DX: S76.111A Strain of right quadriceps muscle, fascia and tendon, initial encounter (principal); J45.909 Unspecified asthma, uncomplicated; F32.9 Major depressive disorder, single episode, unspecified; Z88.0 Allergy status to penicillin; Z87.442 Personal history of urinary calculi; Z87.59 Personal history of other complications of pregnancy, childbirth and the puerperium; X50.0XXA Overexertion from strenuous movement or load, initial encounter; Y92.89 Other specified places as the place of occurrence of the external cause
CPT/HCPCS: 73562

== ENCOUNTER 2017-11-11 11:36 | Emergency (ER) | payer OTHER ==
[~2017-11-11] VITALS: Ht 167.6 cm; Wt 72.6 kg
[~2017-11-11 11:36] MED LIST changes: +MELO15TA39 PO
--- OUTSIDE RECORDS SUMMARY | 2017-11-11 11:44 | XMS REPORT | Continuity of Care Document ---
Author Author [facility] Address Unknown Phone Unavailable Allergies Active Description Code Type Severity Reaction Onset Reported/Identified Relationship to Patient Clinical Status Yes Penicillins Drug Allergy 11/01/2010 Yes Penicillins Drug Allergy N/A N/A 11/01/2010 Yes Amoxicillin Drug Allergy N/A N/A 03/13/2013 Yes amoxicillin [id number] Drug Allergy Unknown N/A 12/04/2014 Yes Penicillins [id number] Drug Allergy Unknown N/A 12/04/2014 Medications There [...] ACUTE 11/24/2012 462 PHARYNGITIS ACUTE 11/24/2012 GARY FARIAS MD 462 PHARYNGITIS ACUTE 11/25/2012 Ot 520.6 [...] STREPTOCOCCUS 03/15/2014 JAXON DUNLAP MD, Ot V06.1 [id number]-[id number]-MGNPTPUAL, COMBINED [ 03/15/2014 JAXON DUNLAP MD, Ot V27.0 DELIVER-SINGLE LIVEBORN 04/02/2014 ROBIN NOBLES, AIRK Anthony Ot 648.94 OTH CURR COND- 04/02/2014 ROBIN NOBLES, ARIK Anthony Ot 789.00 ABDOMINAL PAIN, UNSPECIFIED SITE 12/04/2014 DARLEEN MONTEZ BANKING OFFICER Ot 649.53 12/04/2014 DARLEEN MONTEZ APRN Ot [...] JAXON Johnson Ot V72.84 01/27/2015 FABIO PENDLETON BANKING OFFICER Ot 599.0 URIN TRACT INFECTION NOS 01/27/2015 FABIO PENDLETON BANKING OFFICER Ot 786.50 CHEST PAIN NOS 01/27/2015 FABIO PENDLETON BANKING OFFICER Ot 786.52 PAINFUL RESPIRATION 01/27/2015 DARLEEN MONTEZ BANKING OFFICER Ot 649.53 01/27/2015 DARLEEN MONTEZ BANKING OFFICER Ot V89.03 01/27/2015 FABI NOBLES, JAXON Johnson [...] V72.84 EXAM PRE-OPERATIVE NOS 01/05/2016 YOSEPH NOBLES, INKOLE Cox Ot R51 HEADACHE 01/07/2016 YOSEPH NOBLES, [...] KELLY MD Ot Y92.[address] IN [facility] (PRIVATE 06/01/2016 ARIK KELLY MD Ot Y93.83 [...] OTHER EXTERNAL CAUSE STATUS 10/10/2016 FABIO PENDLETON BANKING OFFICER Ot R06.02 SHORTNESS OF BREATH 10/10/2016 FABIO PENDLETON BANKING OFFICER Ot R07.81 PLEURODYNIA 10/11/2016 FABIO PENDLETON BANKING OFFICER Ot R06.02 SHORTNESS OF BREATH 10/11/2016 FABIO PENDLETON BANKING OFFICER Ot R07.81 PLEURODYNIA 10/13/2016 FABIO PENDLETON BANKING OFFICER Ot R06.02 SHORTNESS OF BREATH 10/13/2016 FABIO PENDLETON BANKING OFFICER Ot R07.81 PLEURODYNIA 03/13/2017 JAXON DUNLAP MD, [...] PELVIC AND PERINEAL PAIN 08/01/2017 TRISTA MARTINS MD Ot R51 HEADACHE 08/01/2017 TRISTA MARTINS MD Ot R56.9 UNSPECIFIED CONVULSIONS 08/10/2017 TRISTA MARTINS MD Ot R51 HEADACHE 08/10/2017 TRISTA MARTINS MD Ot R56.9 UNSPECIFIED CONVULSIONS 10/18/2017 SCAR MEMBRENO Ot F32.9 MAJOR DEPRESSIVE DISORDER, SINGLE EPISOD 10/18/2017 SCAR MEMBRENO Ot J45.909 UNSPECIFIED ASTHMA, UNCOMPLICATED 10/18/2017 SCAR MEMBRENO Ot M25.561 PAIN IN RIGHT KNEE 10/18/2017 SCAR MEMBRENO Ot S76.111A STRAIN OF RIGHT QUADRICEPS MUSCLE, FASCI 10/18/2017 SCAR MEMBRENO Ot X50.0XXA OVEREXERTION FROM STRENUOUS MOVEMENT OR 10/18/2017 SCAR MEMBRENO Ot Y92.[address] OF OCCURRENCE OF 10/18/2017 SCAR MEMBRENO Ot Z87.442 PERSONAL HISTORY OF URINARY CALCULI 10/18/2017 SCAR MEMBRENO Ot Z87.59 PERSONAL HISTORY OF COMP OF PREG, CHLDBR 10/18/2017 SCAR MEMBRENO Ot Z88.0 ALLERGY STATUS TO PENICILLIN 10/20/2017 SCAR MEMBRENO Ot F32.9 MAJOR DEPRESSIVE DISORDER, SINGLE EPISOD 10/20/2017 SCAR MEMBRENO Ot J45.909 UNSPECIFIED ASTHMA, UNCOMPLICATED 10/20/2017 SCAR MEMBRENO Ot M25.561 PAIN IN RIGHT KNEE 10/20/2017 SCAR MEMBRENO Ot S76.111A STRAIN OF RIGHT QUADRICEPS MUSCLE, FASCI 10/20/2017 SCAR MEMBRENO Ot X50.0XXA OVEREXERTION FROM STRENUOUS MOVEMENT OR 10/20/2017 SCAR MEMBRENO Ot Y92.[address] OF OCCURRENCE OF 10/20/2017 SCAR MEMBRENO Ot Z87.442 PERSONAL HISTORY OF URINARY CALCULI 10/20/2017 SCAR MEMBRENO Ot Z87.59 PERSONAL HISTORY OF COMP OF PREG, CHLDBR 10/20/2017 SCAR MEMBRENO Ot Z88.0 ALLERGY STATUS TO PENICILLIN 10/24/2017 SCAR MEMBRENO Ot F32.9 MAJOR DEPRESSIVE DISORDER, SINGLE EPISOD 10/24/2017 SCAR MEMBRENO Ot J45.909 UNSPECIFIED ASTHMA, UNCOMPLICATED 10/24/2017 SCAR MEMBRENO Ot M25.561 PAIN IN RIGHT KNEE 10/24/2017 SCAR MEMBRENO Ot S76.111A STRAIN OF RIGHT QUADRICEPS MUSCLE, FASCI 10/24/2017 SCAR MEMBRENO Ot X50.0XXA OVEREXERTION FROM STRENUOUS MOVEMENT OR 10/24/2017 SCAR MEMBRENO Ot Y92.[address] OF OCCURRENCE OF 10/24/2017 SCAR MEMBRENO Ot Z87.442 PERSONAL HISTORY OF URINARY CALCULI 10/24/2017 SCAR MEMBRENO Ot Z87.59 PERSONAL HISTORY OF COMP OF PREG, CHLDBR 10/24/2017 SCAR MEMBRENO Ot Z88.0 ALLERGY STATUS TO PENICILLIN Procedures Code [place] [address] TRIGGER POINT INJ/1-2 MUS 06/06/2012 71685 STREP A (IN-HOUSE) 11/24/2012 82609 URINE TEST (IN- HOUSE) 07/25/2013 14903 OB - EARLY <14 WEEKS 08/01/2013 45656 PERTUSSIS-STATE LAB 09/05/2013 72.9 03/13/2014 74.1 03/13/2014 [...] resistant Staphylococcus aureus (MRSA) screening culture NEG [facility] Complete blood count (CBC) with automated white [...] human chorionic gonadotropin (hCG) measurement NEGATIVE NEGATIVE CULTURE, GENITAL - 07/18/17 09:58 CULTURE, GENITAL SEE NOTE [facility] Comprehensive metabolic panel - 07/28/17 11:07 Serum [...] Status Pt. Type Provider Facility Loc./Unit Complaint [id number] 09/05/2013 14:05:00 09/05/2013 23:59:59 CLS Outpatient GARY FARIAS MD [id number] 08/01/2013 06:22:00 08/01/2013 23:59:59 CLS Outpatient [id number] 06/11/2013 09:48:00 06/11/2013 23:59:59 CLS Outpatient ARYAN CLAYTON APRN [id number] 06/06/2012 15:57:00 06/06/2012 23:59:59 CLS Outpatient TRISTA MARTINS MD [id number] 11/24/2012 12:41:00 Document Registration [id number] 10/18/2017 20:10:00 10/18/2017 22:10:00 DIS Emergency SCAR MEMBRENO Via [facility] ER RIGHT KNEE PAIN [id number] 07/28/2017 10:48:00 07/28/2017 23:59:59 CLS Outpatient TRISTA MARTINS MD Via [facility] RAD NEW ONSET SEIZURE [id number] 03/17/2017 10:40:00 03/17/2017 18:35:00 DIS Outpatient JAXON DUNLAP MD Via [facility] SDC DYSFUNCTIONAL UTERINE BLEEDING, CHRONIC PELVIC RYAN [id number] 03/13/2017 05:29:00 03/13/2017 15:13:00 DIS Outpatient JAXON DUNLAP MD Via [facility] PREOP DYSFUNCTIONAL UTERINE BLEEDING, CHRONIC PELVIC RYAN [id number] 10/10/2016 16:06:00 10/10/2016 17:59:00 DIS Emergency FABIO PENDLETON APRN Via [facility] ER SOB/CHEST PAIN [id number] 06/01/2016 04:47:00 06/01/2016 05:32:00 DIS Emergency ROBIN NOBLES, ARIK Anthony Via [facility] ER LEFT EYE INJURY [id number] 04/09/2016 00:16:00 04/09/2016 01:10:00 DIS Emergency ROSIE REAGAN DO [facility] ER RT HAND PAIN [id number] 01/05/2016 00:56:00 01/05/2016 01:44:00 DIS Emergency NIKLOE HAMEED MD [facility] ER MIGRAINE [id number] 07/20/2015 06:12:00 07/20/2015 07:15:00 DIS Emergency JENNIFER COLLINS DO Via [facility] ER [id number] 07/12/2015 14:13:00 07/12/2015 15:26:00 DIS Emergency SOWMYA SCHNEIDER MD [facility] ER [id number] 07/11/2015 17:35:00 07/11/2015 18:03:00 DIS Emergency JENNIFER COLLINS DO Via [facility] ER [id number] 03/09/2015 18:33:00 03/09/2015 19:05:00 DIS Emergency ARIK KELLY MD [facility] ER [id number] 01/27/2015 20:45:00 01/27/2015 21:39:00 DIS Emergency FABIO PENDLETON APRN [facility] ER [id number] 12/04/2014 14:22:00 12/04/2014 17:26:00 DIS Emergency SCAR MEMBRENO Via [facility] ER [id number] 04/01/2014 22:28:00 04/02/2014 00:09:00 DIS Emergency ROBIN NOBLES, ARIK Anthony [facility] ER [id number] 03/13/2014 10:09:00 03/15/2014 13:20:00 DIS Inpatient JAXON DUNLAP MD Via [facility] [id number] 03/07/2014 10:46:00 03/07/2014 23:59:59 CLS Outpatient JAXON DUNLAP MD [facility] PREOP [id number] 11/04/2013 15:04:00 11/04/2013 17:51:00 DIS Outpatient JAXON DUNLAP MD Via [facility] [id number] 10/03/2013 15:15:00 10/03/2013 18:00:00 DIS Outpatient JAXON DUNLAP MD Via [facility] [id number] 10/03/2013 02:10:00 10/03/2013 04:15:00 DIS Emergency ARIK KELLY MD [facility] ER [id number] 08/23/2013 18:32:00 08/23/2013 20:54:00 DIS Emergency FABIO PENDLETON APRN [facility] ER [id number] 08/14/2013 13:48:00 08/14/2013 23:59:59 CLS Outpatient DARLEEN MONTEZ APRN [facility] RAD [id number] 08/05/2013 13:38:00 08/05/2013 23:59:59 CLS Outpatient DARLEEN MONTEZ APRN [facility] RAD [id number] 11/11/2017 11:38:00 ACT Emergency ROBIN NOBLES, ARIK Anthony Via [facility] ER ABD PAIN,SPOTTING [id number] 06/05/2015 09:14:00 Document Registration [id number] 06/05/2015 09:14:00 Document Registration [id number] 06/05/2015 09:14:00 Document Registration [id number] 06/05/2015 09:14:00 Document Registration [id number] 06/05/2015 09:14:00 Document Registration [id number] 06/05/2015 09:14:00 Document Registration [id number] 06/05/2015 09:14:00 Document Registration [id number] 06/05/2015 09:14:00 Document Registration [id number] 06/05/2015 09:14:00 Document Registration [id number] 11/25/2012 11:03:00 Document Registration [id number] 03/29/2012 02:54:00 Document Registration [id number] 10/23/2011 22:38:00 Document Registration [id number] 03/02/2010 17:41:00 Document Registration [id number] 03/02/2010 17:36:00 Document Registration [id number] 02/16/2010 12:32:00 Document Registration [id number] 10/13/2006 12:26:00 Document Registration [id number] 10/23/2017 13:20:00 10/23/2017 23:59:59 CLS Outpatient [facility]AKSHMI NOBLES[facility] [id number] 07/18/2017 16:40:00 Document Registration
[2017-11-11 11:58] LABS: BILIRUBIN,URINE NEGATIVE (NEGATIVE); CLARITY,URINE CLEAR; COLOR,URINE YELLOW; GLUCOSE, URINE (UA) NEGATIVE (NEGATIVE); KETONES,URINE NEGATIVE (NEGATIVE); LEUKOCYTE ESTERASE ,URINE 1+ (NEGATIVE); NITRITE,URINE NEGATIVE (NEGATIVE); PH,URINE 6 (5-9); PROTEIN,URINE NEGATIVE (NEGATIVE); UROBILINOGEN,URINE NORMAL (NORMAL)
[2017-11-11 12:07] LABS: BASOPHILS % (AUTO) 0 % (0-10); EOSINOPHILS # (AUTO) 0.2 10^3/uL (0.0-0.3); EOSINOPHILS % (AUTO) 2 % (0-10); HEMATOCRIT 37 % (35-52); HEMOGLOBIN 12.8 G/DL (11.5-16.0); LYMPHOCYTES # (AUTO) 1.8 X 10^3 (1.0-4.0); LYMPHOCYTES % (AUTO) 20 % (12-44); MEAN CORPUSCULAR HEMOGLOBIN 30 PG (25-34); MEAN CORPUSCULAR HGB CONC 35 G/DL (32-36); MEAN CORPUSCULAR VOLUME 88 FL (80-99); MEAN PLATELET VOLUME 10.8 FL (7.4-10.4); MONOCYTES # (AUTO) 0.4 X 10^3 (0.0-1.0); MONOCYTES % (AUTO) 5 % (0-12); NEUTROPHILS # (AUTO) 6.7 X 10^3 (1.8-7.8); NEUTROPHILS % (AUTO) 73 % (42-75); PLATELET COUNT 251 10^3/uL (130-400); RED BLOOD COUNT 4.23 10^6/uL (4.35-5.85); RED CELL DISTRIBUTION WIDTH 11.8 % (10.0-14.5); WHITE BLOOD COUNT 9.1 10^3/uL (4.3-11.0)
[2017-11-11 12:12] LABS: BACTERIA,URINE MODERATE /HPF
--- NOTE | 2017-11-11 12:32 | ED GU-Female ---
General Chief Complaint: -Female Stated Complaint: ABD PAIN,SPOTTING Nursing Triage Note: Patient advises she has been experiencing abdominal pain with cramping and back pain. She advises she had a positive test and has begun to experience light spotting. Nursing Sepsis Screen: No Definite Risk Source: patient Exam Limitations: no limitations History of Present Illness Date Seen by Provider: Nov 11, 2017 Time Seen by Provider: 12:32 Initial Comments 27-year-old female patient presents to the emergency department complaints of vaginal spotting and lower abdominal cramping x2 days. Patient reports her LMP was September 15, 2017, but states she can't remember if she had a period in October. Timing/Duration: intermittent Severity/Quality: cramping Location: suprapubic Radiation: back Activities at Onset: none Prior Genitourinary Problems: none Sexual [place] History: less than 2 months ago, single partner Allergies and Home Medications Allergies Coded Allergies: Penicillins (Unverified Allergy, Unknown, 11/11/17) Home Medications Bupropion HCl 300 Mg Tab.er.24h, 300 MG PO DAILY, (Reported) Meloxicam 15 Mg Tablet, 15 MG PO DAILY PRN for pain Prescribed by: SCAR CORDERO on 10/18/17 2146 Nitrofurantoin Monohyd/M-Cryst 100 Mg Capsule, 1 CAP PO BID Prescribed by: SCAR CORDERO on 11/11/17 1309 Oxycodone HCl/Acetaminophen 1 Each Tablet, 1-2 TAB PO Q4H PRN for PAIN Prescribed by: JAXON HARDY on 03/17/17 1304 Patient Home Medication List Home Medication List Reviewed: Yes Review of Systems Constitutional: no symptoms reported EENTM: no symptoms reported Respiratory: No cough, No phlegm, No short of breath Cardiovascular: No chest pain, No edema, No palpitations, No syncope Gastrointestinal: see HPI, abdominal pain (suprapubic cramping), No constipation, No diarrhea, No loss of appetite, No nausea, No vomiting Genitourinary: see HPI, denies dysuria, denies frequency, denies flank pain : Yes Expected Date of Delivery: Jun 22, 2018 LMP: Sep 15, 2017 Musculoskeletal: see HPI, back pain (mild low back pain) Skin: no symptoms reported Psychiatric/Neurological: No Symptoms Reported All Other Systemes Reviewed Negative Unless Noted: Yes (Negative excepted noted.) Past Dechyyj-Fshhdb-Vvbuni Hx Patient Social History Alcohol Use: Denies Use Number of Drinks Today: AA Alcohol Beverage of Choice: Beer Recreational Drug Use: No Smoking Status: Never a Smoker 2nd Hand Smoke Exposure: No Recent Foreign Travel: No Contact w/Someone Who Travel: No Recent Infectious Disease Expo: No Recent Hopitalizations: No Physical Abuse: No Sexual Abuse: No Immunizations Up To Date Tetanus Booster (TDap): Less than 5yrs Date of Influenza Vaccine: May 21, 2016 Seasonal Allergies Seasonal Allergies: Yes Past Medical History Surgeries: Yes (LITHOTRIPSY AND STONE BASKET REMOVAL) Section, Renal Respiratory: Yes Asthma Currently Using CPAP: No Currently Using BIPAP: No Cardiac: No Neurological: No : Yes Expected Date of Delivery: Jun 22, 2018 Last Menstrual Period: Sep 15, 2017 Hx : 2 Hx Para: 1 Hx Total # of Abortions (Sp): 0 Reproductive Disorders: Yes (DUB ) Female Reproductive Disorders: Endometriosis, Polycystic Ovarian Dis Genitourinary: No Kidney Stones Gastrointestinal: No Musculoskeletal: No Endocrine: No Loss of Vision: Denies Hearing Impairment: Denies Cancer: No Psychosocial: Yes Depression Nursing Suicide Risk Score: 0 Integumentary: No Blood Disorders: No Adverse Reaction/Blood Tranf: No Family Medical History Reviewed and Corrections made No Pertinent Family Hx Physical Exam Vital Signs Vital Signs - First Documented 11/11/17 11:59 Temp 98.6 Pulse 80 Resp 14 B/P (MAP) 122/74 (90) Pulse Ox 98 O2 Delivery Room Air Capillary Refill : Less Than 3 Seconds General Appearance: WD/WN, no apparent distress HEENT: PERRL/EOMI, pharynx normal Neck: supple, normal inspection Cardiovascular: normal peripheral pulses, regular rate, rhythm, no edema, no murmur Respiratory: lungs clear, normal breath sounds, no respiratory distress, no accessory muscle use Gastrointestinal: normal bowel sounds, non tender, soft, no organomegaly, No distended Back: normal inspection, no CVA tenderness Extremities: no pedal edema, no calf tenderness, normal capillary refill Neurologic/Psychiatric: alert, normal mood/affect, oriented x 3 Skin: normal color, warm/dry Progress/Results/Core Measures Suspected Sepsis Recent Fever Within 48 Hours: No Infection Criteria Present: None New/Unexplained Altered Menta: No Sepsis Screen: No Definite Risk Sepsis Diagnosis: SIRS Temperature:98.6 Pulse: 80 Respiratory Rate: 14 Laboratory Tests 11/11/17 12:00: White Blood Count 9.1 Blood Pressure 122 /74 Mean: 90 Laboratory Tests 11/11/17 12:00: Platelet Count 251 Results/Orders Lab Results Laboratory Tests Test 11/11/17 11:40 11/11/17 12:00 Range/Units Urine Color YELLOW Urine Clarity CLEAR Urine pH 6 5-9 Urine Specific [place] 1.025 H 1.016-1.022 Urine Protein NEGATIVE NEGATIVE Urine Glucose (UA) NEGATIVE NEGATIVE Urine Ketones NEGATIVE NEGATIVE Urine Nitrite NEGATIVE NEGATIVE Urine Bilirubin NEGATIVE NEGATIVE Urine Urobilinogen NORMAL NORMAL MG/DL Urine Leukocyte Esterase 1+ H NEGATIVE Urine RBC (Auto) NEGATIVE NEGATIVE Urine RBC NONE /HPF Urine WBC NONE /HPF Urine Squamous Epithelial Cells 2-5 /HPF Urine Crystals NONE /LPF Urine Bacteria MODERATE H /HPF Urine Casts NONE /LPF Urine Mucus NEGATIVE /LPF Urine Culture Indicated NO White Blood Count 9.1 4.3-11.0 10^3/uL Red Blood Count 4.23 L 4.35-5.85 10^6/uL Hemoglobin 12.8 11.5-16.0 G/DL Hematocrit 37 35-52 % Mean Corpuscular Volume 88 80-99 FL Mean Corpuscular Hemoglobin 30 25-34 PG Mean Corpuscular Hemoglobin Concent 35 32-36 G/DL Red Cell Distribution Width 11.8 10.0-14.5 % Platelet Count 251 130-400 10^3/uL Mean Platelet Volume 10.8 H 7.4-10.4 FL Neutrophils (%) (Auto) 73 42-75 % Lymphocytes (%) (Auto) 20 12-44 % Monocytes (%) (Auto) 5 0-12 % Eosinophils (%) (Auto) 2 0-10 % Basophils (%) (Auto) 0 0-10 % Neutrophils # (Auto) 6.7 1.8-7.8 X 10^3 Lymphocytes # (Auto) 1.8 1.0-4.0 X 10^3 Monocytes # (Auto) 0.4 0.0-1.0 X 10^3 Eosinophils # (Auto) 0.2 0.0-0.3 10^3/uL Basophils # (Auto) 0.0 0.0-0.1 10^3/uL Human Chorionic Gonadotropin, Quant 338 H <5 MIU/ML My Orders Orders - SCAR CORDERO Cbc With Automated Diff (11/11/17 11:49) Hcg,Quantitative (11/11/17 11:49) Ua Culture If Indicated (11/11/17 11:49) Urine Bedside (11/11/17 11:49) Us Ob<14 Wks Sngle W/Transvag (11/11/17 11:49) Vital Signs/I&O 11/11/17 11:59 Temp 98.6 Pulse 80 Resp 14 B/P (MAP) 122/74 (90) Pulse Ox 98 O2 Delivery Room Air Capillary Refill : Less Than 3 Seconds Blood Pressure Mean: 90 Point of Care Testing Urine -Bedside: Positive Diagnostic Imaging Diagonstic Imaging: Ultrasound Plain Films/CT/US/NM/MRI: pelvis Comments FINDINGS: There is thickening demonstrated of the endometrium but there is no sonographic demonstration of intrauterine gestational sac or intrauterine . The right ovary contains a apparent involuting corpus luteal cyst. This has some slight irregularity along its margins but is centrally anechoic with no surrounding hypervascularity. There is appropriate Doppler flow within the right ovary. The left ovary demonstrates small follicles and is unremarkable. No extrauterine gestation or free fluid evident. IMPRESSION: 1. There is no sonographic demonstration of an intrauterine or an extrauterine gestation. This may reflect a missed spontaneous though early , and ectopic are not yet excluded. Continued correlation with serial quantitative beta hCGs is recommended. Repeat ultrasound imaging can also be performed as clinically warranted. Dictated by: Dictated on workstation # [id number] Reviewed: Reviewed by Me (radiology report reviewed by me) Departure Communication (Admissions) Laboratory and diagnostic findings discussed with the patient. Patient again states she is not sure if she had a period in October, but may have. HCG level and ultrasound findings may be related to a very early . Patient instructed to follow-up with Dr. Peraza or [facility] for rec[facility]ck, repeat labs, and scheduling a repeat outpatient ultrasound. Patient to repeat HCG Quant in 3 days (11/14/17). Patient case discussed with Dr. Matt. Impression Primary Impression: Threatened miscarriage in early Disposition: HOME, SELF-CARE Condition: Improved Departure-Patient Inst. Decision time for Depature: 13:05 Referrals: [facility] (PCP/Family) Primary Care Physician JAXON PERAZA MD Patient Instructions: Bleeding With (DC), Threatened Miscarriage (DC) Add. Discharge Instructions: All discharge instructions reviewed with patient and/or family. Voiced understanding. Medications as directed. Tylenol over the counter for pain if needed. No intercourse, strenuous activities, tampons, or douching. Follow-up with Dr. Peraza recheck this week, call first thing Monday morning for appointment time. Return to the emergency department for worsened symptoms, pain, vaginal bleeding greater than 2 pads per hour for greater than 2 hours, vaginal discharge, fever, or any other concerns. Scripts Nitrofurantoin Monohyd/M-Cryst (Macrobid 100 mg Capsule) 100 Mg Capsule 1 CAP PO BID, #10 CAP 0 Refills Prov: SCAR CORDERO 11/11/17 SCAR CORDERO Nov 11, 2017 12:32
--- NOTE | 2017-11-11 12:39 | Diagnostic Imaging Report ---
EXAMINATION: Obstetrical sonogram INDICATION: Positive test, cramping. FINDINGS: There is thickening demonstrated of the endometrium but there is no sonographic demonstration of intrauterine gestational sac or intrauterine . The right ovary contains a apparent involuting corpus luteal cyst. This has some slight irregularity along its margins but is centrally anechoic with no surrounding hypervascularity. There is appropriate Doppler flow within the right ovary. The left ovary demonstrates small follicles and is unremarkable. No extrauterine gestation or free fluid evident. IMPRESSION: 1. There is no sonographic demonstration of an intrauterine or an extrauterine gestation. This may reflect a missed spontaneous though early , and ectopic are not yet excluded. Continued correlation with serial quantitative beta hCGs is recommended. Repeat ultrasound imaging can also be performed as clinically warranted. Dictated by: Dictated on workstation # [id number]
[2017-11-11] MEDS ORDERED: NITR-65 PO (13:09)
[2017-11-11 13:26] VITALS: BP 122/74
== END 2017-11-11 13:25 | disposition home or self-care (01) ==
LOC: EDUNIT# 11:36 → ER 11:38
DX: O20.0 Threatened abortion (principal); O99.341 Other mental disorders complicating pregnancy, first trimester; F32.9 Major depressive disorder, single episode, unspecified; O99.511 Diseases of the respiratory system complicating pregnancy, first trimester; J45.909 Unspecified asthma, uncomplicated; Z87.442 Personal history of urinary calculi; Z87.42 Personal history of other diseases of the female genital tract; Z87.59 Personal history of other complications of pregnancy, childbirth and the puerperium; Z88.0 Allergy status to penicillin; Z3A.00 Weeks of gestation of pregnancy not specified
CPT/HCPCS: 36415; 76801; 76817; 81000; 84702; 84703; 85025

== ENCOUNTER 2018-02-22 10:16 | Emergency (ER) | payer SELFPAY ==
[~2018-02-22] VITALS: Ht 167.6 cm; Wt 73.5 kg
[~2018-02-22 10:16] MED LIST changes: -CITA20TA7 PO; +CITA20TA9 PO
[2018-02-22 10:40] LABS: BILIRUBIN,URINE NEGATIVE (NEGATIVE); CLARITY,URINE CLEAR; COLOR,URINE YELLOW; GLUCOSE, URINE (UA) NEGATIVE (NEGATIVE); KETONES,URINE NEGATIVE (NEGATIVE); LEUKOCYTE ESTERASE ,URINE 3+ (NEGATIVE); NITRITE,URINE NEGATIVE (NEGATIVE); PH,URINE 6 (5-9); PROTEIN,URINE NEGATIVE (NEGATIVE); UROBILINOGEN,URINE NORMAL (NORMAL)
[2018-02-22 10:50] LABS: BACTERIA,URINE FEW /HPF; SQUAMOUS EPITHELIAL CELL,UR 25-50 /HPF
[2018-02-22 10:51] LABS: YEAST,URINE FEW /HPF
--- NOTE | 2018-02-22 10:55 | ED GU-Female ---
General Chief Complaint: -Female Stated Complaint: ABD CRAMPING,19 WEEKS PG Nursing Triage Note: PATIENT STATES THAT SHE IS HERE FOR ABDOMINAL CRAMPING X2 DAYS. SHE IS 19 WEEKS AND HAS NOT CONTACTED HER OB BECAUSE PATIENT HAS "BEEN BUSY." SHE DENIES ANY ABNORMAL BLEEDING. SHE STATES SHE HAS HAD SOME LIGHTHEADEDNESS WITH THE CRAMPING. PATIENT ALSO STATES THAT SHE HAD AN US 3 WEEKS AGO IN [facility] SHE WAS TOLD HER HAD A CYST ON HER LEFT OVARY WHICH IS ALSO WHERE SHE IS FEELING THE PAIN. Nursing Sepsis Screen: No Definite Risk Source: patient Exam Limitations: no limitations History of Present Illness Date Seen by Provider: Feb 22, 2018 Time Seen by Provider: 10:50 Initial Comments to ER with reports of left lower abdominal cramping for the pas 2 days. She is about 19 weeks . Denies any vaginal bleeding or vaginal discharge. No bowel changes. She was here on December 05 and had a outpatient ultrasound done showing a single live intrauterine at 7 weeks 6 days and a 2.5 cm right ovarian cyst, (not left-sided as she believed). She has not contacted primary care for the symptoms. Timing/Duration: yesterday Severity/Quality: moderate Location: LLQ Radiation: none Activities at Onset: none Prior Genitourinary Problems: none Associated Symptoms: denies symptoms Allergies and Home Medications Allergies Coded Allergies: Penicillins (Unverified Allergy, Unknown, 11/11/17) Home Medications Bupropion HCl 300 Mg Tab.er.24h, 300 MG PO DAILY, (Reported) Cephalexin 500 Mg Capsule, 500 MG PO TID Prescribed by: FABIO PENDLETON on 02/22/18 1057 Meloxicam 15 Mg Tablet, 15 MG PO DAILY PRN for pain Prescribed by: SCAR CORDERO on 10/18/17 2146 Nitrofurantoin Monohyd/M-Cryst 100 Mg Capsule, 1 CAP PO BID Prescribed by: SCAR CORDERO on 11/11/17 1309 Oxycodone HCl/Acetaminophen 1 Each Tablet, 1-2 TAB PO Q4H PRN for PAIN Prescribed by: JAXON HARDY on 03/17/17 1304 Patient Home Medication List Home Medication List Reviewed: Yes Review of Systems Constitutional: see HPI EENTM: see HPI Respiratory: no symptoms reported Cardiovascular: no symptoms reported Gastrointestinal: abdominal pain Genitourinary: no symptoms reported Musculoskeletal: no symptoms reported Skin: no symptoms reported Psychiatric/Neurological: No Symptoms Reported Endocrine: No Symptoms Reported Past Ogcxofj-Ulshiu-Jcfzsa Hx Patient Social History Alcohol Use: Denies Use Number of Drinks Today: AA Alcohol Beverage of Choice: Beer Recreational Drug Use: No Smoking Status: Never a Smoker 2nd Hand Smoke Exposure: No Recent Foreign Travel: No Contact w/Someone Who Travel: No Recent Infectious Disease Expo: No Recent Hopitalizations: No Physical Abuse: No Sexual Abuse: No Immunizations Up To Date Tetanus Booster (TDap): Less than 5yrs Date of Influenza Vaccine: May 21, 2016 Seasonal Allergies Seasonal Allergies: Yes Past Medical History Surgeries: Yes (LITHOTRIPSY AND STONE BASKET REMOVAL) Section, Renal Respiratory: Yes Asthma Currently Using CPAP: No Currently Using BIPAP: No Cardiac: No Neurological: No Reproductive Disorders: Yes (DUB ) Female Reproductive Disorders: Endometriosis, Polycystic Ovarian Dis Genitourinary: No Kidney Stones Gastrointestinal: No Musculoskeletal: No Endocrine: No Loss of Vision: Denies Hearing Impairment: Denies Cancer: No Psychosocial: Yes Depression Nursing Suicide Risk Score: 0 Integumentary: No Blood Disorders: No Adverse Reaction/Blood Tranf: No Family Medical History No Pertinent Family Hx Physical Exam Vital Signs Vital Signs - First Documented 02/22/18 10:35 Temp 97.9 Pulse 90 Resp 18 B/P (MAP) 106/71 (83) Pulse Ox 97 Capillary Refill : Less Than 3 Seconds Height, Weight, BMI Height: 5'6.00" Weight: 162lbs. 0oz. 73.321060la; 25.8 BMI Method:Stated General Appearance: WD/WN, no apparent distress HEENT: PERRL/EOMI, normal ENT inspection Cardiovascular: regular rate, rhythm, no murmur Respiratory: normal breath sounds, no respiratory distress, no accessory muscle use Gastrointestinal: normal bowel sounds, tenderness (left lower quadrant) Extremities: normal range of motion, non-tender Neurologic/Psychiatric: alert, normal mood/affect, oriented x 3 Skin: normal color, warm/dry Progress/Results/Core Measures Suspected Sepsis Recent Fever Within 48 Hours: No Infection Criteria Present: None New/Unexplained Altered Menta: No Sepsis Screen: No Definite Risk SIRS Temperature:97.9 Pulse: 90 Respiratory Rate: 18 Laboratory Tests 02/22/18 11:05: White Blood Count 10.7 Blood Pressure 106 /71 Mean: 83 Laboratory Tests 02/22/18 11:05: Creatinine 0.60, Platelet Count 179, Total Bilirubin 0.5 Results/Orders Lab Results Laboratory Tests Test 02/22/18 10:30 02/22/18 11:05 Range/Units Urine Color YELLOW Urine Clarity CLEAR Urine pH 6 5-9 Urine Specific [place] 1.015 L 1.016-1.022 Urine Protein NEGATIVE NEGATIVE Urine Glucose (UA) NEGATIVE NEGATIVE Urine Ketones NEGATIVE NEGATIVE Urine Nitrite NEGATIVE NEGATIVE Urine Bilirubin NEGATIVE NEGATIVE Urine Urobilinogen NORMAL NORMAL MG/DL Urine Leukocyte Esterase 3+ H NEGATIVE Urine RBC (Auto) NEGATIVE NEGATIVE Urine RBC 2-5 H /HPF Urine WBC 10-25 H /HPF Urine Squamous Epithelial Cells 25-50 H /HPF Urine Crystals NONE /LPF Urine Bacteria FEW H /HPF Urine Casts NONE /LPF Urine Mucus NEGATIVE /LPF Urine Yeast FEW H /HPF Urine Culture Indicated YES White Blood Count 10.7 4.3-11.0 10^3/uL Red Blood Count 3.53 L 4.35-5.85 10^6/uL Hemoglobin 10.6 L 11.5-16.0 G/DL Hematocrit 31 L 35-52 % Mean Corpuscular Volume 87 80-99 FL Mean Corpuscular Hemoglobin 30 25-34 PG Mean Corpuscular Hemoglobin Concent 34 32-36 G/DL Red Cell Distribution Width 12.4 10.0-14.5 % Platelet Count 179 130-400 10^3/uL Mean Platelet Volume 10.7 H 7.4-10.4 FL Neutrophils (%) (Auto) 82 H 42-75 % Lymphocytes (%) (Auto) 14 12-44 % Monocytes (%) (Auto) 4 0-12 % Eosinophils (%) (Auto) 1 0-10 % Basophils (%) (Auto) 0 0-10 % Neutrophils # (Auto) 8.8 H 1.8-7.8 X 10^3 Lymphocytes # (Auto) 1.5 1.0-4.0 X 10^3 Monocytes # (Auto) 0.4 0.0-1.0 X 10^3 Eosinophils # (Auto) 0.1 0.0-0.3 10^3/uL Basophils # (Auto) 0.0 0.0-0.1 10^3/uL Sodium Level 136 135-145 MMOL/L Potassium Level 3.6 3.6-5.0 MMOL/L Chloride Level 108 H 98-107 MMOL/L Carbon Dioxide Level 23 21-32 MMOL/L Anion Gap 5 5-14 MMOL/L Blood Urea Nitrogen 5 L 7-18 MG/DL Creatinine 0.60 0.60-1.30 MG/DL Estimat Glomerular Filtration Rate > 60 BUN/Creatinine Ratio 8 Glucose Level 81 70-105 MG/DL Calcium Level 8.9 8.5-10.1 MG/DL Total Bilirubin 0.5 0.1-1.0 MG/DL Aspartate Amino Transf (AST/SGOT) 14 5-34 U/L Alanine Aminotransferase (ALT/SGPT) 11 0-55 U/L Alkaline Phosphatase 65 40-136 U/L Total Protein 6.2 L 6.4-8.2 GM/DL Albumin 3.7 3.2-4.5 GM/DL My Orders Orders - FABIO PENDLETON APRN Cbc With Automated Diff (02/22/18 10:45) Comprehensive Metabolic Panel (02/22/18 10:45) Limited [id number] (02/22/18 10:50) Vital Signs/I&O 02/22/18 10:35 Temp 97.9 Pulse 90 Resp 18 B/P (MAP) 106/71 (83) Pulse Ox 97 Capillary Refill : Less Than 3 Seconds Blood Pressure Mean: 83 Departure Impression Primary Impression: Abdominal pain in Additional Impression: Urinary tract infectious disease Disposition: 01 HOME, SELF-CARE Condition: Stable Departure-Patient Inst. Decision time for Depature: 10:53 Referrals: GARY FARIAS MD (PCP/Family) Primary Care Physician Patient Instructions: Acute Abdomen (Belly Pain), Adult (DC), Urinary Tract Infection, Adult (DC) Add. Discharge Instructions: 1. Follow up with Dr Farias later this week or next week 2. Tylenol for the pain 3. Antibiotics as directed All discharge instructions reviewed with patient and/or family. Voiced understanding. Scripts Cephalexin (Keflex) 500 Mg Capsule 500 MG PO TID, #15 CAP Prov: FABIO PENDLETON APRN 02/22/18 Work/School Note: Work Release Form Date Seen in the Emergency Department: Feb 22, 2018 Return to Work: Feb 24, 2018 FABIO PENDLETON APRN Feb 22, 2018 10:55
[2018-02-22] MEDS ORDERED: CEPH-507 PO (10:57)
[2018-02-22 11:12] LABS: BASOPHILS % (AUTO) 0 % (0-10); EOSINOPHILS # (AUTO) 0.1 10^3/uL (0.0-0.3); EOSINOPHILS % (AUTO) 1 % (0-10); HEMATOCRIT 31 % (35-52); HEMOGLOBIN 10.6 G/DL (11.5-16.0); LYMPHOCYTES # (AUTO) 1.5 X 10^3 (1.0-4.0); LYMPHOCYTES % (AUTO) 14 % (12-44); MEAN CORPUSCULAR HEMOGLOBIN 30 PG (25-34); MEAN CORPUSCULAR HGB CONC 34 G/DL (32-36); MEAN CORPUSCULAR VOLUME 87 FL (80-99); MEAN PLATELET VOLUME 10.7 FL (7.4-10.4); MONOCYTES # (AUTO) 0.4 X 10^3 (0.0-1.0); MONOCYTES % (AUTO) 4 % (0-12); NEUTROPHILS # (AUTO) 8.8 X 10^3 (1.8-7.8); NEUTROPHILS % (AUTO) 82 % (42-75); PLATELET COUNT 179 10^3/uL (130-400); RED BLOOD COUNT 3.53 10^6/uL (4.35-5.85); RED CELL DISTRIBUTION WIDTH 12.4 % (10.0-14.5); WHITE BLOOD COUNT 10.7 10^3/uL (4.3-11.0)
[2018-02-22 11:29] LABS: ALANINE AMINOTRANSFERASE 11 U/L (0-55); ALBUMIN 3.7 GM/DL (3.2-4.5); ALKALINE PHOSPHATASE 65 U/L (40-136); BILIRUBIN,TOTAL 0.5 MG/DL (0.1-1.0); BUN/CREATININE RATIO 8; CALCIUM 8.9 MG/DL (8.5-10.1); CARBON DIOXIDE 23 MMOL/L (21-32); CHLORIDE 108 MMOL/L (98-107); GFR ESTIMATED > 60; GLUCOSE 81 MG/DL (70-105); POTASSIUM 3.6 MMOL/L (3.6-5.0); SODIUM 136 MMOL/L (135-145); TOTAL PROTEIN 6.2 GM/DL (6.4-8.2)
--- NOTE | 2018-02-22 11:39 | Diagnostic Imaging Report ---
Indication: Left-sided abdominal cramping. There is a single live fetus in a variable presentation. heart rate was recorded at 149 beats per minute. The placenta is anterior and low lying. No retroplacental fluid collection or evidence of abruption is seen. Amniotic fluid alignment appears appropriate. The left adnexa was evaluated. No abnormality is seen. Impression: Unremarkable limited obstetrical ultrasound. No complicating features are detected. Dictated by: Dictated on workstation # [id number]
[2018-02-22 11:41] VITALS: BP 106/71
== END 2018-02-22 11:50 | disposition home or self-care (01) ==
LOC: EDUNIT# 10:16 → ER 10:18
DX: O23.42 Unspecified infection of urinary tract in pregnancy, second trimester (principal); O99.512 Diseases of the respiratory system complicating pregnancy, second trimester; J45.909 Unspecified asthma, uncomplicated; O99.342 Other mental disorders complicating pregnancy, second trimester; F32.9 Major depressive disorder, single episode, unspecified; Z87.448 Personal history of other diseases of urinary system; Z87.442 Personal history of urinary calculi; Z3A.19 19 weeks gestation of pregnancy; Z88.0 Allergy status to penicillin; Z87.59 Personal history of other complications of pregnancy, childbirth and the puerperium
CPT/HCPCS: 36415; 76815; 80053; 81000; 85025; 87088

== ENCOUNTER → 2018-03-16 | Outpatient (CLI) | payer MEDICAID ==
[~2018-03-16] MED LIST changes: +CEPH-507 PO
--- NOTE | 2018-03-16 14:34 | Diagnostic Imaging Report ---
INDICATION: survey. TECHNIQUE: Multiple real-time grayscale images were obtained over the gravid uterus. COMPARISON: 02/22/2018. FINDINGS: There is a single live fetus in a cephalic presentation. heart rate was recorded at 138 beats per minute. The placenta is anterior. The amniotic fluid volume is normal. survey demonstrates kidneys, bladder and stomach to be unremarkable apart from very slight prominence of the renal pelves bilaterally. The brain is unremarkable. There is a four-chamber heart. There is a three-vessel cord with normal insertion. The spine is unremarkable. Biometrical measurements are as follows: Biparietal 5.17 cm, age 21 weeks 5 days. Head circumference 19.66 cm, age 21 weeks 6 days. Abdominal circumference 16.85 cm, age 21 weeks 6 days. Femur length 3.76 cm, age 22 weeks 1 days. Sonographic estimate age: 22 weeks 0 days. Sonographic estimated date of delivery: 07/20/18. Estimated Weight: 460 gm (+/- 67 gm). LMP percentile: 26%. heart rate: 138 beats per minute. number: 1 of 1. IMPRESSION: Single live IUP approximately 22 weeks gestational age demonstrating normal interval growth when compared with prior ultrasounds. No complicating features are seen. Dictated by: Dictated on workstation # [id number]
== END ==
LOC: RAD 11:57
PROVIDERS: ATTEND Family Medicine
DX: Z36.89 Encounter for other specified antenatal screening (principal); Z3A.22 22 weeks gestation of pregnancy
CPT/HCPCS: 76805

== ENCOUNTER 2018-04-09 06:20 | Emergency (ER) | payer MEDICAID ==
[~2018-04-09] VITALS: Ht 167.6 cm; Wt 78.0 kg
[~2018-04-09 06:20] MED LIST changes: -OXYC-202 PO; +OXYC1TAB12 PO
--- OUTSIDE RECORDS SUMMARY | 2018-04-09 06:25 | XMS REPORT ---
Author Author GARY FARIAS [facility] Address [address] [place] [address] Care Team Providers Care Quality Assurance Analyst Name Role Phone JARRETTAGUSTINA HARTHANY Unavailable PROBLEMS Type Condition ICD9-CM Code [id number] Code Onset Dates Condition Status SNOMED Code Problem Second trimester Z34.92 Active 16227177 Problem Endometriosis N80.9 Active 975439481 Problem Anxiety F41.9 Active 59492631 Problem Recurrent major depressive disorder, in full remission F33.42 Active 769713661 Problem Missed period N92.6 Active [id number] ALLERGIES No Information ENCOUNTERS Encounter Location Date Diagnosis [place] [id number] [place] [address] 39027- 7394 Apr, [place] [id number] [place] [address] 45524- 7661 Mar, Second trimester Z34.92 and 22 weeks gestation of Z3A.22 [place] [id number] [place] [address] 71424- 2408 Feb, care, subsequent in second trimester Z34.82 [place] [id number] [place] [address] 74229- 7911 Feb, [place] [id number] [place] [address] 18436- 3780 Feb, [place] [id number] [place] [address] 34009- 6763 Feb, Second trimester Z33.1 and 17 weeks gestation of Z3A.17 [place] [id number] [place] [address] 95549- 5861 05 Feb, 2018 care, subsequent in second trimester Z34.82 [place] [id number] [address] 15 Jan, 2018 [facility] [id number] [place] [address] 66191- 1229 Jan, [facility] [id number] [place] [address] 47683- 6620 Jan, 12 weeks gestation of Z3A.12 and care, subsequent in first trimester Z34.81 [facility] [id number] [place] [address] 11574- 9185 Jan, [facility] [id number] [place] [address] 27049- 6303 December, [facility] [id number] [place] [address] 54458- 7418 December, Dysuria R30.0 [facility] [id number] [place] [address] 66072- 0395 December, [facility] [id number] [place] [address] 65983- 8014 Nov, care, subsequent in first trimester Z34.81 ; 6 weeks gestation of Z3A.01 and Recurrent major depressive disorder, in full remission F33.42 [facility] [id number] [place] [address] 97442- 6677 Nov, [facility] [id number] [place] [address] 89605- 9447 Nov, [facility] [id number] [place] [address] 10814 -0208 Nov, Missed period N92.6 [facility] [id number] [place] [address] 26241- 5208 Oct, Acute pain of right knee M25.561 and Anxiety F41.9 [facility] [id number] [place] [address] 95268- 6496 Aug, [facility] [id number] [place] [address] 19977- 3680 Jul, Anxiety F41.9 [facility] [address] [address]33- 9221 Jul, New onset seizure R56.9 [facility] [address] 28448- 7993 Jul, Pelvic pain R10.2 [facility] [address] 15801- 0019 Apr, Dental abscess K04.7 [place] [address] 01493- 7307 Oct, [facility] [address] 35807- 9553 Nov, [facility] [address] 70808- 3711 Oct, Knee pain M25.569 and Nausea & vomiting R11.2 [facility] [address] 59569- 7364 Aug, Serous otitis media H65.90 and Dizziness R42 [facility] [id number] [place] [address] 01514- 4402 Apr, Counseling for control, oral contraceptives V25.01 [facility] [address] 99507- 4550 Mar, Dysuria 788.1 and Flank pain, acute 789.09 [facility] [address] 31580- 4375 14 Nov, 2014 [facility] [address] 50249- 1889 Nov, [facility] [address] 53352- 8723 Aug, [facility] [address] [place] [address] 5379 Aug, [facility] [address] [id number] [place] [address] 1175 Aug, [facility] [address] [id number] [place] [address]- 1059 Sep, [facility] [address] [id number] [place] [address]- 0285 Sep, [facility] [place] [facility] [address] [id number] [place] [address]- 9101 Aug, [facility] [address] [id number] [place] [address]- 3785 Aug, [facility] [address] [id number] [place] [address]- 3157 Aug, [facility] [address] [id number] [place] [address]- 3057 Aug, [facility] [address] [id number] [place] [address]- 8145 Aug, [facility] [place] [facility] [address] [id number] [place] [address]- 8998 Aug, [facility] [address] [id number] [place] [address]- 5799 Aug, [facility] [address] [id number] [place] [address]- 9097 Aug, [facility] [place] [place] [facility] [address] [id number] [place] [address]- 1319 Jul, [facility] [place] [facility] [address] [id number] [place] [address]- 8228 Jul, [facility] [place] [facility] [address] [id number] [place] [address]- 7941 Jul, [facility] [place] [facility] [address] [id number] [place] [address]- 8905 Jul, [facility] [place] [facility] [address] [id number] [place] [address]- 1920 Jun, [facility] [place] [facility] [address] [id number] [place] [address]- 8638 Jun, [facility] [place] [facility] [address] [id number] [place] [address]- 0637 Jun, [facility] [place] [facility] [address] [id number] [place] [address]- 0159 Jun, [facility] [place] [facility] [address] [id number] [place] [address]- 6839 Mar, [facility] [place] [facility] [address] [id number] [place] [address]- 2195 Nov, [facility] [place] [facility] [address] [id number] [place] [address]- 3362 Jun, [facility] [place] [facility] [address] [id number] [place] [address]- 6661 Jun, [facility] [place] [facility] [address] [id number] [place] [address]- 2311 May, [facility] [place] [facility] [address] [id number] [place] [address]- 3337 May, [facility] [place] [facility] [address] [id number] [place] [address]- 8031 May, [facility] [place] [facility] [address] [id number] [address] 7051 May, [facility] [place] [facility] [address] [id number] [place] [address] May, [facility] [place] [facility] [address] [id number] [place] [address] May, [facility] [place] [facility] [address] [id number] [place] [address]- 1282 16 May, 2012 [facility] [place] [facility] [address] [id number] [address]- 2546 May, IMMUNIZATIONS No Known Immunizations SOCIAL HISTORY Never Assessed REASON FOR VISIT PLAN OF CARE VITAL SIGNS MEDICATIONS Unknown Medications RESULTS No Results PROCEDURES No Known procedures INSTRUCTIONS MEDICATIONS ADMINISTERED No Known Medications MEDICAL (GENERAL) HISTORY Type Description Date Medical History Kidney Stones Medical History Asthma Medical History Endometriosis Medical History PCOS Surgical History lithotripsy 2006 Surgical History 2013 Surgical History laparotomy with appendectomy & dilatation and curettage 03/17 Hospitalization History surgery Hospitalization History childbirth
--- OUTSIDE RECORDS SUMMARY | 2018-04-09 06:25 | XMS REPORT ---
Author Author GARY FARIAS [facility] Address [address] [place] [address] Care Team Providers Care Backup Engineer Name Role Phone JARRETTAGUSTINA HARTHANY Unavailable PROBLEMS Type Condition ICD9-CM Code AOS83-IO Code Onset Dates Condition Status SNOMED Code Problem Second trimester Z34.92 Active 54427606 Problem Endometriosis N80.9 Active 971437692 Problem Anxiety F41.9 Active 60456227 Problem Recurrent major depressive disorder, in full remission F33.42 Active 845448817 Problem Missed period N92.6 Active 59072683 ALLERGIES Substance Reaction Event Type Date Status Tramadol HCl seizure Drug Allergy Jan, Active Penicillin V Potassium anaphylaxis Drug Allergy Jan, Active ENCOUNTERS Encounter Location Date Diagnosis [place] [id number] [place] [address] 08583- 9965 Apr, [place] [address] 82004- 5918 Mar, Second trimester Z34.92 and 22 weeks gestation of Z3A.22 [place] [id number] [place] [address] 14191- 1290 Feb, care, subsequent in second trimester Z34.82 [place] [id number] [place] [address] 81434- 2452 Feb, [place] [id number] [place] [address] 93622- 9633 Feb, [place] [id number] [place] [address] 53554- 7965 Feb, Second trimester Z33.1 and 17 weeks gestation of Z3A.17 [place] [id number] [place] [address] 52310- 6018 Feb, care, subsequent in second trimester Z34.82 [facility] [address] [address] 6810 Jan, [facility] [id number] [place] [address] 60501- 3564 Jan, [facility] [address] [place] [address] 47168- 4794 Jan, 12 weeks gestation of Z3A.12 and care, subsequent in first trimester Z34.81 [facility] [id number] [address]- 7282 Jan, [facility] [id number] [place] [address] 37051- 9754 December, [facility] [id number] [place] [address] 86945- 9749 December, Dysuria R30.0 [facility] [id number] [place] [address] 66074- 1490 December, [facility] [id number] [place] [address] 82309- 3882 Nov, care, subsequent in first trimester Z34.81 ; 6 weeks gestation of Z3A.01 and Recurrent major depressive disorder, in full remission F33.42 [facility] [address] [address]- 1674 Nov, [facility] [address] [place] [address] 90470- 0052 Nov, [facility] [address] [place] [address] 43330 -9748 Nov, Missed period N92.6 [facility] [address] [address]- 3554 Oct, Acute pain of right knee M25.561 and Anxiety F41.9 [facility] [id number] [place] [address] 44407- 7933 Aug, [facility] [address] 41815- 1539 Jul, Anxiety F41.9 [facility] [address] 56483- 3907 Jul, New onset seizure R56.9 [facility] [address] 70292- 7049 Jul, Pelvic pain R10.2 [place] [address] 91052- 0432 29 Apr, 2017 Dental abscess K04.7 [place] [address] 11575- 4605 Oct, [place] [address] 12270- 3994 Nov, [place] [address] 25929- 5683 Oct, Knee pain M25.569 and Nausea & vomiting R11.2 [place] [address] 80521- 7208 Aug, Serous otitis media H65.90 and Dizziness R42 [place] [address] 42685- 5504 28 Apr, 2015 Counseling for control, oral contraceptives V25.01 [place] [address] 37750- 8100 Mar, Dysuria 788.1 and Flank pain, acute 789.09 [place] [address] 74484- 1189 14 Nov, 2014 [place] [address] 83368- 7191 13 Nov, 2014 [place] [address] 60010- 4517 Aug, [facility] [address] [id number] [place] [address]- 3180 Aug, [facility] [place] [facility] [address] [id number] [place] [address]- 7328 Aug, [facility] [address] [id number] [place] [address]- 7789 14 Sep, 2013 [facility] [place] [facility] [address] [id number] [place] [address]- 9636 Sep, [facility] [place] [facility] [address] [id number] [place] [address]- 3629 Aug, [facility] [place] [facility] [address] [id number] [place] [address]- 4677 Aug, [facility] [address] [id number] [place] [address]- 8912 Aug, [facility] [place] [facility] [address] [id number] [place] [address]- 2803 Aug, [facility] [place] [facility] [address] [id number] [place] [address]- 4743 Aug, [facility] [place] [facility] [address] [id number] [place] [address]- 5270 Aug, [facility] [place] [facility] [address] [id number] [place] [address]- 3604 Aug, [facility] [place] [facility] [address] [id number] [place] [address]- 9599 Aug, [facility] [place] [facility] [address] [id number] [place] [address]- 4058 Jul, [facility] [place] [facility] [address] [id number] [place] [address]- 5169 Jul, [facility] [place] [facility] [address] [id number] [place] [address]- 5045 Jul, [facility] [place] [facility] [address] [id number] [place] [address]- 7756 Jul, [facility] [place] [facility] [address] [id number] [place] 2827 Jun, [facility] [place] [facility] [address] [id number] [place] [address]- 3051 Jun, [facility] [place] [facility] [address] [id number] [place] [address]- 5646 Jun, [facility] [place] [facility] [address] [id number] [place] [address]- 4437 Jun, [facility] [place] [facility] [address] [id number] [place] [address]- 2313 Mar, [facility] [place] [facility] [address] [id number] [place] [address]- 6670 Nov, [facility] [place] [facility] [address] [id number] [place] [address]- 7873 Jun, [facility] [place] [facility] [address] [id number] [place] [address]- 7991 Jun, [facility] [place] [facility] [address] [id number] [place] [address]- 9938 May, [facility] [place] [facility] [address] [id number] [place] [address]- 6634 31 May, 2012 [facility] [place] [facility] [address] [id number] [place] [address]- 2093 May, [facility] [place] [facility] [address] [id number] [place] 0364 May, [facility] [place] [facility] [address] [id number] [place] [address]- 6870 May, [facility] [place] [facility] [address] [id number] [place] [address]- 6438 17 May, 2012 [facility] [place] [facility] [address] [id number] [place] [address]- 7289 May, [facility] [address] [facility] [id number] [place] [address]- 3680 May, IMMUNIZATIONS No Known Immunizations SOCIAL HISTORY Never Assessed REASON FOR VISIT OB 4 WK F/U--tcuppettRN, --Pt is having migraine headaches daily. Has tried tylenol with no relief. PLAN OF CARE Activity Details Follow Up 4 Weeks, 4 Weeks Reason: VITAL SIGNS Height 65 in 2018-01-09 Weight 161.5 lbs 2018-01-09 Temperature 98.3 degrees Fahrenheit 2018-01-09 Heart Rate 84 bpm 2018-01-09 Respiratory Rate 20 2018-01-09 BMI 26.875 kg/m2 2018-01-09 Blood pressure systolic 104 mmHg 2018-01-09 Blood pressure diastolic 68 mmHg 2018-01-09 MEDICATIONS Medication Instructions Dosage Frequency Start Date End Date Duration Status tylenol Active Diclegis 10-10 MG Orally Once a day 2 tablets at bedtime on an empty stomach 24h December, 30 day(s) Not-Taking Vitamins - (Dis) Active RESULTS Name Result Date Reference Range UA OB DIP (IN HOUSE) 2018-01-09 Glucose negatve Protein trace PROCEDURES Procedure Date Ordered Result Body Site URINE-NO MICRO January 09, 2018 INSTRUCTIONS MEDICATIONS ADMINISTERED No Known Medications MEDICAL (GENERAL) HISTORY Type Description Date Medical History Kidney Stones Medical History Asthma Medical History Endometriosis Medical History PCOS Surgical History lithotripsy 2006 Surgical History 2013 Surgical History laparotomy with appendectomy & dilatation and curettage 03/17 Hospitalization History surgery Hospitalization History childbirth
--- OUTSIDE RECORDS SUMMARY | 2018-04-09 06:25 | XMS REPORT ---
Author Author GARY FARIAS [facility] Address [address] [place] [address] Care Team Providers Care Checkroom Chief Name Role Phone JARRETTAGUSTINA HARTHANY Unavailable PROBLEMS Type Condition ICD9-CM Code OIJ81-NB Code Onset Dates Condition Status SNOMED Code Problem Second trimester Z34.92 Active 62317938 Problem Endometriosis N80.9 Active 483168262 Problem Anxiety F41.9 Active 05867789 Problem Recurrent major depressive disorder, in full remission F33.42 Active 431072031 Problem Missed period N92.6 Active 07144495 ALLERGIES No Information ENCOUNTERS Encounter Location Date Diagnosis [place] [id number] [place] [address] 62105- 1419 Apr, [place] [id number] [place] [address] 03895- 0341 Mar, Second trimester Z34.92 and 22 weeks gestation of Z3A.22 [place] [id number] [place] [address] 50881- 1032 Feb, care, subsequent in second trimester Z34.82 [place] [id number] [place] [address] 65488- 4120 Feb, [place] [id number] [place] [address] 20825- 9047 Feb, [place] [id number] [place] [address] 05097- 1186 Feb, Second trimester Z33.1 and 17 weeks gestation of Z3A.17 [place] [id number] [place] [address] 97502- 1450 05 Feb, 2018 care, subsequent in second trimester Z34.82 [place] [id number] [address]- 3323 15 Jan, 2018 [facility] [id number] [place] [address] 74011- 3437 Jan, [facility] [id number] [place] [address] 23612- 4800 Jan, 12 weeks gestation of Z3A.12 and care, subsequent in first trimester Z34.81 [facility] [id number] [place] [address] 74807- 2316 Jan, [facility] [id number] [place] [address] 17559- 9501 December, [facility] [id number] [place] [address] 14492- 7620 December, Dysuria R30.0 [facility] [id number] [place] [address] 71122- 4351 December, [facility] [id number] [place] [address] 02003- 3350 Nov, care, subsequent in first trimester Z34.81 ; 6 weeks gestation of Z3A.01 and Recurrent major depressive disorder, in full remission F33.42 [facility] [id number] [place] [address] 06621- 8476 Nov, [facility] [id number] [place] [address] 81605- 0935 Nov, [facility] [address] [place] [address] 96105 -1196 Nov, Missed period N92.6 [facility] [id number] [place] [address] 82526- 5400 Oct, Acute pain of right knee M25.561 and Anxiety F41.9 [facility] [id number] [place] [address] 95965- 3517 Aug, [facility] [id number] [place] [address] 17461- 8325 Jul, Anxiety F41.9 [facility] [address] 78089- 7348 Jul, New onset seizure R56.9 [facility] [address] 26151- 8827 Jul, Pelvic pain R10.2 [facility] [address] 49189- 9496 Apr, Dental abscess K04.7 [place] [address] 53900- 7546 Oct, [facility] [address] 73564- 2677 Nov, [facility] [address] 21472- 1819 Oct, Knee pain M25.569 and Nausea & vomiting R11.2 [facility] [address] 76240- 8990 Aug, Serous otitis media H65.90 and Dizziness R42 [facility] [id number] [place] [address] 50443- 6883 Apr, Counseling for control, oral contraceptives V25.01 [facility] [address] 47753- 1446 Mar, Dysuria 788.1 and Flank pain, acute 789.09 [facility] [address] 05395- 3943 14 Nov, 2014 [facility] [address] 62521- 8360 Nov, [facility] [address] 24396- 6037 Aug, [facility] [address] [place] [address]- 5890 Aug, [facility] [address] [id number] [place] [address]- 4486 Aug, [facility] [address] [id number] [place] [address]- 6663 Sep, [facility] [address] [id number] [place] [address]- 5972 Sep, [facility] [place] [facility] [address] [id number] [place] [address]- 2852 Aug, [facility] [address] [id number] [place] [address]- 4212 Aug, [facility] [address] [id number] [place] [address]- 3064 Aug, [facility] [address] [id number] [place] [address]- 2972 Aug, [facility] [address] [id number] [place] [address]- 8243 Aug, [facility] [place] [facility] [address] [id number] [place] [address]- 2420 Aug, [facility] [address] [id number] [place] [address]- 7915 Aug, [facility] [address] [id number] [place] [address]- 5162 Aug, [facility] [place] [facility] [address] [id number] [place] [address]- 8645 Jul, [facility] [place] [facility] [address] [id number] [place] [address]- 7079 Jul, [facility] [place] [facility] [address] [id number] [place] [address]- 9803 Jul, [facility] [place] [facility] [address] [id number] [place] [address]- 1228 Jul, [facility] [place] [facility] [address] [id number] [place] [address]- 2115 Jun, [facility] [place] [facility] [address] [id number] [place] [address]- 9099 Jun, [facility] [place] [facility] [address] [id number] [place] [address]- 0551 Jun, [facility] [place] [facility] [address] [id number] [place] [address]- 7451 Jun, [facility] [place] [facility] [address] [id number] [place] [address]- 4038 Mar, [facility] [place] [facility] [address] [id number] [place] [address]- 6024 Nov, [facility] [place] [facility] [address] [id number] [place] [address]- 6664 Jun, [facility] [place] [facility] [address] [id number] [place] [address]- 7969 Jun, [facility] [place] [facility] [address] [id number] [place] [address]- 5327 May, [facility] [place] [facility] [address] [id number] [place] [address]- 3320 May, [facility] [place] [facility] [address] [id number] [place] [address]- 0194 May, [facility] [place] [facility] [address] [id number] [address]- 0155 May, [facility] [place] [facility] [address] [id number] [place] 3453 May, [facility] [place] [facility] [address] [id number] [place] 5310 May, [facility] [place] [facility] [address] [id number] [place] [address]- 9572 16 May, 2012 [facility] [place] [facility] [address] [id number] [address]- 2546 May, IMMUNIZATIONS No Known Immunizations SOCIAL HISTORY Never Assessed REASON FOR VISIT Returned call PLAN OF CARE VITAL SIGNS MEDICATIONS Unknown [...]
--- OUTSIDE RECORDS SUMMARY | 2018-04-09 06:25 | XMS REPORT ---
Author Author GARY FARIAS [facility] Address [address] [place] [address] Care Team Providers Care Telescope Operator Name Role Phone JARRETTAGUSTINA HARTHANY Unavailable PROBLEMS Type Condition ICD9-CM Code NFA69-YQ Code Onset Dates Condition Status SNOMED Code Problem Second trimester Z34.92 Active 08213814 Problem Endometriosis N80.9 Active 436282884 Problem Anxiety F41.9 Active 65672926 Problem Recurrent major depressive disorder, in full remission F33.42 Active 391294075 Problem Missed period N92.6 Active 33608957 ALLERGIES No Information ENCOUNTERS Encounter Location Date Diagnosis [place] [id number] [place] [address] 22360- 7710 Apr, [place] [id number] [place] [address] 68768- 2265 Mar, Second trimester Z34.92 and 22 weeks gestation of Z3A.22 [place] [id number] [place] [address] 44441- 0418 Feb, care, subsequent in second trimester Z34.82 [place] [id number] [place] [address] 58360- 9312 Feb, [place] [id number] [place] [address] 17057- 6919 Feb, [place] [id number] [place] [address] 76337- 8249 Feb, Second trimester Z33.1 and 17 weeks gestation of Z3A.17 [place] [id number] [place] [address] 58837- 2784 05 Feb, 2018 care, subsequent in second trimester Z34.82 [place] [id number] [address]- 0819 15 Jan, 2018 [facility] [id number] [place] [address] 54510- 5014 Jan, [facility] [id number] [place] [address] 40315- 7947 Jan, 12 weeks gestation of Z3A.12 and care, subsequent in first trimester Z34.81 [facility] [id number] [place] [address] 84044- 2567 Jan, [facility] [id number] [place] [address] 39101- 6569 December, [facility] [id number] [place] [address] 58868- 6817 December, Dysuria R30.0 [facility] [id number] [place] [address] 82538- 6164 December, [facility] [id number] [place] [address] 27470- 9786 Nov, care, subsequent in first trimester Z34.81 ; 6 weeks gestation of Z3A.01 and Recurrent major depressive disorder, in full remission F33.42 [facility] [id number] [place] [address] 79020- 0424 Nov, [facility] [id number] [place] [address] 15647- 1614 Nov, [facility] [address] [place] [address] 71115 -8638 Nov, Missed period N92.6 [facility] [id number] [place] [address] 56227- 3704 Oct, Acute pain of right knee M25.561 and Anxiety F41.9 [facility] [id number] [place] [address] 08331- 9015 Aug, [facility] [id number] [place] [address] 02375- 5588 Jul, Anxiety F41.9 [facility] [address] 43554- 6327 Jul, New onset seizure R56.9 [facility] [address] 78729- 3044 Jul, Pelvic pain R10.2 [facility] [address] 60346- 3131 Apr, Dental abscess K04.7 [place] [address] 56858- 7936 Oct, [facility] [address] 23511- 9826 Nov, [facility] [address] 70946- 9968 Oct, Knee pain M25.569 and Nausea & vomiting R11.2 [facility] [address] 77901- 6249 Aug, Serous otitis media H65.90 and Dizziness R42 [facility] [id number] [place] [address] 35952- 8809 Apr, Counseling for control, oral contraceptives V25.01 [facility] [address] 23975- 7409 Mar, Dysuria 788.1 and Flank pain, acute 789.09 [facility] [address] 29674- 9899 14 Nov, 2014 [facility] [address] 57233- 9443 Nov, [facility] [address] 65860- 9639 Aug, [facility] [address] [place] [address]- 3109 Aug, [facility] [address] [id number] [place] [address]- 7630 Aug, [facility] [address] [id number] [place] [address]- 6660 Sep, [facility] [address] [id number] [place] [address]- 1238 Sep, [facility] [place] [facility] [address] [id number] [place] [address] Aug, [facility] [address] [id number] [place] [address] Aug, [facility] [address] [id number] [place] [address] Aug, [facility] [address] [id number] [place] [address] Aug, [facility] [address] [id number] [place] [address] Aug, [facility] [place] [facility] [address] [id number] [place] [address] Aug, [facility] [address] [id number] [place] [address] Aug, [facility] [address] [id number] [place] [address] Aug, [facility] [place] [facility] [address] [id number] [place] [address] Jul, [facility] [place] [facility] [address] [id number] [place] [address] Jul, [facility] [place] [facility] [address] [id number] [place] [address] Jul, [facility] [place] [facility] [address] [id number] [place] [address] Jul, [facility] [place] [facility] [address] [id number] [place] [address] Jun, [facility] [place] [facility] [address] [id number] [place] [address] Jun, [facility] [place] [facility] [address] [id number] [place] [address] Jun, [facility] [place] [facility] [address] [id number] [place] [address] Jun, [facility] [place] [facility] [address] [id number] [place] [address] Mar, [facility] [place] [facility] [address] [id number] [place] [address] Nov, [facility] [place] [facility] [address] [id number] [place] [address] Jun, [facility] [place] [facility] [address] [id number] [place] [address] Jun, [facility] [place] [facility] [address] [id number] [place] [address] May, [facility] [place] [facility] [address] [id number] [place] [address] May, [facility] [place] [facility] [address] [id number] [place] [address] May, [facility] [place] [facility] [address] [id number] [address] May, [facility] [place] [facility] [address] [id number] [place] [address] [address] May, [facility] [place] [facility] [address] [id number] [place] [address] May, [facility] [place] [facility] [address] [id number] [place] [address] May, 2012 [facility] [place] [facility] [address] [id number], [place] [address] May, IMMUNIZATIONS No Known Immunizations SOCIAL HISTORY Never Assessed REASON FOR VISIT Patient call PLAN OF CARE VITAL SIGNS MEDICATIONS [...]
--- OUTSIDE RECORDS SUMMARY | 2018-04-09 06:25 | XMS REPORT ---
Author Author GARY FARIAS [facility] Address [address] [place] [address] Care Team Providers Care Cumulative Effects Analyst Name Role Phone JARRETTAGUSTINA HARTHANY Unavailable PROBLEMS Type Condition ICD9-CM Code VSM23-RO Code Onset Dates Condition Status SNOMED Code Problem Second trimester Z34.92 Active 68189262 Problem Endometriosis N80.9 Active 995750793 Problem Anxiety F41.9 Active 64606825 Problem Recurrent major depressive disorder, in full remission F33.42 Active 184936907 Problem Missed period N92.6 Active 23968084 ALLERGIES No Information ENCOUNTERS Encounter Location Date Diagnosis [place] [id number] [place] [address] 40074- 4532 Apr, [place] [id number] [place] [address] 10128- 9266 Mar, Second trimester Z34.92 and 22 weeks gestation of Z3A.22 [place] [id number] [place] [address] 72299- 8920 Feb, care, subsequent in second trimester Z34.82 [place] [id number] [place] [address] 60043- 7702 Feb, [place] [id number] [place] [address] 76228- 9606 Feb, [place] [id number] [place] [address] 52928- 8501 Feb, Second trimester Z33.1 and 17 weeks gestation of Z3A.17 [place] [id number] [place] [address] 26934- 1575 05 Feb, 2018 care, subsequent in second trimester Z34.82 [place] [id number] [address] 9233 15 Jan, 2018 [facility] [id number] [place] [address] 02295- 4989 Jan, [facility] [id number] [place] [address] 75820- 6065 Jan, 12 weeks gestation of Z3A.12 and care, subsequent in first trimester Z34.81 [facility] [id number] [place] [address] 31043- 7523 Jan, [facility] [id number] [place] [address] 87835- 0005 December, [facility] [id number] [place] [address] 08277- 4948 December, Dysuria R30.0 [facility] [id number] [place] [address] 21845- 3775 December, [facility] [id number] [place] [address] 16616- 2292 Nov, care, subsequent in first trimester Z34.81 ; 6 weeks gestation of Z3A.01 and Recurrent major depressive disorder, in full remission F33.42 [facility] [id number] [place] [address] 04713- 7434 Nov, [facility] [id number] [place] [address] 76051- 6221 Nov, [facility] [id number] [place] [address] 23764 -9926 Nov, Missed period N92.6 [facility] [id number] [place] [address] 11563- 1525 Oct, Acute pain of right knee M25.561 and Anxiety F41.9 [facility] [id number] [place] [address] 63816- 9541 Aug, [facility] [id number] [place] [address] 27825- 5714 Jul, Anxiety F41.9 [facility] [address] 66851- 4589 Jul, New onset seizure R56.9 [facility] [address] 95448- 8443 Jul, Pelvic pain R10.2 [facility] [address] 07329- 8816 Apr, Dental abscess K04.7 [place] [address] 48965- 7190 Oct, [facility] [address] 24872- 1930 Nov, [facility] [address] 07884- 3791 Oct, Knee pain M25.569 and Nausea & vomiting R11.2 [facility] [address] 61030- 5314 Aug, Serous otitis media H65.90 and Dizziness R42 [facility] [id number] [place] [address] 83122- 5621 Apr, Counseling for control, oral contraceptives V25.01 [facility] [address] 89014- 0521 Mar, Dysuria 788.1 and Flank pain, acute 789.09 [facility] [address] 80493- 1630 14 Nov, 2014 [facility] [address] 02676- 0169 Nov, [facility] [address] 82098- 6131 Aug, [facility] [address] [place] [address]- 6080 Aug, [facility] [address] [id number] [place] [address]- 8222 Aug, [facility] [address] [id number] [place] [address]- 4099 Sep, [facility] [address] [id number] [place] [address]- 5696 Sep, [facility] [place] [facility] [address] [id number] [place] [address]- 4720 Aug, [facility] [address] [id number] [place] [address]- 1619 Aug, [facility] [address] [id number] [place] [address]- 5380 Aug, [facility] [address] [id number] [place] [address]- 3773 Aug, [facility] [address] [id number] [place] [address]- 8223 Aug, [facility] [place] [facility] [address] [id number] [place] [address]- 4508 Aug, [facility] [address] [id number] [place] [address]- 5649 Aug, [facility] [address] [id number] [place] [address]- 0696 Aug, [facility] [place] [facility] [address] [id number] [place] [address]- 8554 Jul, [facility] [place] [facility] [address] [id number] [place] [address]- 2142 Jul, [facility] [place] [facility] [address] [id number] [place] [address]- 5583 Jul, [facility] [place] [facility] [address] [id number] [place] [address]- 9276 Jul, [facility] [place] [facility] [address] [id number] [place] [address]- 5664 Jun, [facility] [place] [facility] [address] [id number] [place] [address]- 7305 Jun, [facility] [place] [facility] [address] [id number] [place] [address]- 7661 Jun, [facility] [place] [facility] [address] [id number] [place] [address]- 4551 Jun, [facility] [place] [facility] [address] [id number] [place] [address]- 2574 Mar, [facility] [place] [facility] [address] [id number] [place] [address]- 4633 Nov, [facility] [place] [facility] [address] [id number] [place] [address]- 3279 Jun, [facility] [place] [facility] [address] [id number] [place] [address]- 8687 Jun, [facility] [place] [facility] [address] [id number] [place] [address]- 9879 May, [facility] [place] [facility] [address] [id number] [place] [address]- 4494 May, [facility] [place] [facility] [address] [id number] [place] [address]- 7798 May, [facility] [place] [facility] [address] [id number], [place] [address]- 9749 May, [facility] [place] [facility] [address] [id number] [place] 1964 May, [facility] [place] [facility] [address] [id number] [place] 1683 May, [facility] [place] [facility] [address] [id number] [place] [address]- 1802 16 May, 2012 [facility] [place] [facility] [address] [id number], [place] [address]- 9426 May, IMMUNIZATIONS No Known Immunizations SOCIAL HISTORY Never Assessed REASON FOR VISIT Lab (walk-in)--tcuppettRN PLAN OF CARE VITAL SIGNS MEDICATIONS Unknown Medications RESULTS No Results PROCEDURES Procedure Date Ordered Result Body Site URINALYSIS, AUTO, W/O SCOPE December 28, 2017 URINE CULTURE/COLONY COUNT December 28, 2017 INSTRUCTIONS MEDICATIONS ADMINISTERED No Known Medications MEDICAL (GENERAL) HISTORY Type Description Date Medical History Kidney Stones Medical History Asthma Medical History Endometriosis Medical History PCOS Surgical History lithotripsy 2006 Surgical History 2013 Surgical History laparotomy with appendectomy & dilatation and curettage 03/17 Hospitalization History surgery Hospitalization History childbirth
--- OUTSIDE RECORDS SUMMARY | 2018-04-09 06:26 | XMS REPORT ---
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 Name Role Phone JARRETTAGUSTINA HARTHANY Unavailable PROBLEMS Type Condition ICD9-CM Code IBE80-PP Code Onset Dates Condition Status SNOMED Code Problem Endometriosis N80.9 Active 000456528 Problem Recurrent major depressive disorder, in full remission F33.42 Active 615005562 Problem Missed period N92.6 Active 95774499 Problem Anxiety F41.9 Active 03036194 ALLERGIES No Information ENCOUNTERS Encounter Location Date Diagnosis [place] [id number] [place] [address] 11511- 3203 Mar, [place] [id number] [place] [address] 97325- 7632 Feb, care, subsequent in second trimester Z34.82 [place] [id number] [place] [address] 88270- 1801 Feb, [place] [id number] [place] [address] 21517- 4346 Feb, [place] [id number] [place] [address] 58785- 0800 Feb, Second trimester Z33.1 and 17 weeks gestation of Z3A.17 [place] [address] 53975- 7171 Feb, care, subsequent in second trimester Z34.82 [facility] [id number] [place] [address] 41742- 1931 Jan, [place] [address] 48430- 0212 Jan, [place] [address] [address]- 2077 Jan, 12 weeks gestation of Z3A.12 and care, subsequent in first trimester Z34.81 [facility] [address] [address]- 4634 Jan, [facility] [id number] [place] [address] 66755- 9181 December, [facility] [id number] [place] [address] 41921- 8913 December, Dysuria R30.0 [facility] [id number] [place] [address] 96314- 9255 December, [facility] [id number] [place] [address] 02424- 0802 Nov, care, subsequent in first trimester Z34.81 ; 6 weeks gestation of Z3A.01 and Recurrent major depressive disorder, in full remission F33.42 [facility] [id number] [place] [address] 52404- 0928 Nov, [facility] [id number] [place] [address] 75082- 3355 Nov, [facility] [id number] [place] [address] 89505 -9123 Nov, Missed period N92.6 [facility] [id number] [place] [address] 91478- 0512 Oct, Acute pain of right knee M25.561 and Anxiety F41.9 [facility] [id number] [place] [address] 85334- 8610 Aug, [facility] [id number] [place] [address] 00567- 0939 Jul, Anxiety F41.9 [facility] [id number] [place] [address] 30885- 2267 Jul, New onset seizure R56.9 [facility] [id number] [place] [address] 08021- 4142 Jul, Pelvic pain R10.2 [facility] [id number] [place] [address] 18758- 8120 Apr, Dental abscess K04.7 [facility] [address] 86695- 0316 Oct, [facility] [address] 85678- 3558 Nov, [facility] [address] 13740- 1111 Oct, Knee pain M25.569 and Nausea & vomiting R11.2 [place] [address] 97684- 3037 Aug, Serous otitis media H65.90 and Dizziness R42 [facility] [id number] [place] [address] 82612- 2853 Apr, Counseling for control, oral contraceptives V25.01 [facility] [id number] [place] [address] 83154- 1303 Mar, Dysuria 788.1 and Flank pain, acute 789.09 [place] [id number] [place] [address] 78684- 4908 Nov, [facility] [address] 02122- 1973 Nov, [facility] [id number] [place] [address] 84150- 6697 Aug, [facility] [id number] [place] [address] 37950- 9832 Aug, [facility] [id number] [place] [address] 18008- 4401 Aug, [facility] [id number] [place] [address]- 5007 14 Sep, 2013 [facility] [address] [id number] [place] [address]- 7053 14 Sep, 2013 [facility] [address] [id number] [place] [address]- 0684 Aug, [facility] [address] [id number] [place] [address]- 6847 Aug, [facility] [address] [id number] [place] [address]- 2121 Aug, [facility] [address] [id number] [place] [address]- 0629 Aug, [facility] [address] [id number] [place] [address]- 5720 Aug, [facility] [address] [id number] [place] [address]- 3230 Aug, [facility] [address] [id number] [place] [address]- 6798 Aug, [facility] [address] [id number] [place] [address]- 3152 Aug, [facility] [address] [id number] [place] [address]- 6548 Jul, [facility] [address] [id number] [place] [address]- 2843 Jul, [facility] [address] [id number] [place] [address]- 0962 Jul, [facility] [place] [facility] [address] [id number] [place] [address]- 6179 Jul, [facility] [address] [id number] [place] [address]- 6512 Jun, [facility] [address] [id number] [place] 8363 Jun, [facility] [address] [place] [address]- 1187 Jun, [facility] [address] [place] [address]- 9565 Jun, [facility] [address] [place] [address]- 6169 Mar, [facility] [address] [place] [address]- 1522 Nov, [facility] [address] [place] [address]- 1470 Jun, [facility] [address] [place] [address] 62405- 0699 Jun, [facility] [address], [place] [address]- 5578 May, [facility] [address] [place] [address]- 7985 May, [facility] [address] [place] [address]- 0043 May, [facility] [address] [place] [address]- 6712 May, [facility] [address] [place] [address]- 2753 May, [facility] [address] [place] [address]- 7557 May, [facility] [id number] [address]- 8389 May, [facility] [address] [place] [address]- 2160 May, IMMUNIZATIONS No Known Immunizations SOCIAL HISTORY Never Assessed REASON FOR VISIT Medication concerns PLAN OF CARE VITAL SIGNS MEDICATIONS Unknown [...]
--- OUTSIDE RECORDS SUMMARY | 2018-04-09 06:26 | XMS REPORT ---
Author Author JARRETT GAYR [facility] Address [address] [place] [address] Care Team Providers Care Home Attendant Name Role Phone GARY FARIAS Unavailable PROBLEMS Type Condition ICD9-CM Code [id number] Code Onset Dates Condition Status SNOMED Code Problem Endometriosis N80.9 Active 435168066 Problem Recurrent major depressive disorder, in full remission F33.42 Active 158469470 Problem Missed period N92.6 Active 75418783 Problem Anxiety F41.9 Active 84574763 ALLERGIES Substance Reaction Event Type Date Status Tramadol HCl seizure Drug Allergy Nov, Active Penicillin V Potassium anaphylaxis Drug Allergy Nov, Active ENCOUNTERS Encounter Location Date Diagnosis [place] [id number] [place] [address] 22321- 6879 Mar, [place] [address] [place] [id number] [place] [address] 71063- 8343 Feb, care, subsequent in second trimester Z34.82 [place] [id number] [place] [address] 46350- 9148 Feb, [place] [id number] [place] [address] 27750- 9085 Feb, [place] [address] [place] [id number] [place] [address] 78562- 8780 Feb, Second trimester Z33.1 and 17 weeks gestation of Z3A.17 [place] [address] [place] [id number] [place] [address] 24112- 6337 Feb, care, subsequent in second trimester Z34.82 [place] [address] [place] [address] [id number] [place] [address] 80594- 7123 Jan, [place] [address] [id number] [address] 6533 Jan, [facility] [id number] [place] [address] 99380- 5959 Jan, 12 weeks gestation of Z3A.12 and care, subsequent in first trimester Z34.81 [facility] [id number] [place] [address] 45667- 2566 Jan, [facility] [address] [place] [address] [id number] [place] [address] 27184- 6388 December, [facility] [address] [id number] [place] [address] 49555- 0779 December, Dysuria R30.0 [facility] [address] [place] [id number] [place] [address] 53096- 4259 December, [facility] [address] [place] [id number] [place] [address] 21737- 9009 Nov, care, subsequent in first trimester Z34.81 ; 6 weeks gestation of Z3A.01 and Recurrent major depressive disorder, in full remission F33.42 [facility] [address] [place] [id number] [place] [address] 56997- 7375 Nov, [facility] [id number] [place] [address] 32329- 5146 Nov, [facility] [id number] [place] [address] 71757 -1553 Nov, Missed period N92.6 [facility] [address] [place] [address] [id number] [place] [address] 02376- 5890 Oct, Acute pain of right knee M25.561 and Anxiety F41.9 [facility] [address] [place] [address] 74932- 8305 Aug, [facility] [id number] [place] [address] 53908- 7343 Jul, Anxiety F41.9 [facility] [address] [place] [address] [id number] [place] [address] 05438- 2065 Jul, New onset seizure R56.9 [facility] [address] [place] [address] [id number] [place] [address] 24177- 8418 Jul, Pelvic pain R10.2 [facility] [address] [place] [address] [id number] [place] [address] 66875- 8109 29 Apr, 2017 Dental abscess K04.7 [facility] [address] 38455- 0282 Oct, [facility] [address] 42339- 3382 Nov, [facility] [address] 75832- 0705 Oct, Knee pain M25.569 and Nausea & vomiting R11.2 [facility] [address] 23551- 0153 Aug, Serous otitis media H65.90 and Dizziness R42 [facility] [address] [place] [id number] [place] [address] 96934- 8576 Apr, Counseling for control, oral contraceptives V25.01 [facility] [address] [place] [id number] [place] [address] 68974- 0510 Mar, Dysuria 788.1 and Flank pain, acute 789.09 [facility] [address] [place] [id number] [place] [address] 53606- 4177 14 Nov, 2014 [facility] [address] [place] [id number] [place] [address] 90166- 3652 Nov, [facility] [address] [place] [id number] [place] [address] 17968- 3444 Aug, [facility] [address] [place] [address] [id number] [place] [address] 58829- 0305 Aug, [facility] [address] 46671- 2680 Aug, [facility] [address] [id number] [place] [address]- 4965 Sep, [facility] [place] [facility] [address] [id number] [place] [address]- 1002 Sep, [facility] [place] [facility] [address] [id number] [place] [address]- 4123 Aug, [facility] [place] [facility] [address] [id number] [place] [address]- 7684 Aug, [facility] [address] [id number] [place] [address]- 1038 Aug, [facility] [place] [facility] [address] [id number] [place] [address]- 5500 Aug, [facility] [address] [id number] [place] [address]- 5611 Aug, [facility] [place] [facility] [address] [id number] [place] [address]- 5267 Aug, [facility] [address] [id number] [place] [address]- 8440 Aug, [facility] [address] [facility] [id number] [place] [address]- 7797 Aug, [facility] [place] [facility] [address] [id number] [place] [address]- 3118 Jul, [facility] [place] [facility] [address] [id number] [address]- 3885 Jul, [facility] [place] [facility] [address] [id number] [place] [address]- 2883 Jul, [facility] [place] [facility] [address] [id number] [place] [address]- 7222 Jul, [facility] [place] [facility] [address] [id number] [place] [address]- 8691 Jun, [facility] [place] [facility] [address] [id number] [address]- 6459 Jun, [facility] [address] [id number] [place] [address]68 Jun, [facility] [address] [facility] [id number] [place] [address]- 6076 Jun, [facility] [address] [facility] [id number] [place] Mar, [facility] [address] [id number] [place] [address]- 1973 Nov, [facility] [address] [facility] [id number] [place] [address]- 9994 Jun, [facility] [address] [facility] [id number] [place] [address]- 8717 Jun, [facility] [address] [facility] [id number] [address]- 0604 May, [facility] [address] [facility] [id number] [address]- 3450 May, [facility] [address] [facility] [id number] [address]- 5557 May, [facility] [address] [facility] [id number] [address]- 6786 May, [facility] [address] [facility] [id number] [address]- 3837 May, [facility] [address] [facility] [id number] [place] 0626 May, [facility] [address] [facility] [id number] [place] [address] May, [facility] [address] [facility] [id number] [place] [address]657 May, IMMUNIZATIONS No Known Immunizations SOCIAL HISTORY Never Assessed REASON FOR VISIT OB-intake PLAN OF CARE Activity Details Follow Up 4W, 4 Weeks Reason: VITAL SIGNS Height 65 in 2017-11-30 Weight 148.0 lbs 2017-11-30 Temperature 98.7 degrees Fahrenheit 2017-11-30 BMI 24.628 kg/m2 2017-11-30 Blood pressure systolic 112 mmHg 2017-11-30 Blood pressure diastolic 68 mmHg 2017-11-30 MEDICATIONS Medication Instructions Dosage Frequency Start Date End Date Duration Status Vitamins - (Dis) Active RESULTS No Results PROCEDURES Procedure Date Ordered Result Body Site RUBELLA ANTIBODY November 30, 2017 VENIPUNCT, ROUTINE* November 30, 2017 No Charge November 30, 2017 URINALYSIS, AUTO, W/O SCOPE November 30, 2017 TRICHOMONAS ASSAY W/OPTIC November 30, 2017 CULTURE, BACTERIA, OTHER November 30, 2017 COMPLETE CBC W/AUTO DIFF WBC November 30, 2017 ASSAY THYROID STIM HORMONE November 30, 2017 URINE CULTURE/COLONY COUNT November 30, 2017 RBC ANTIBODY SCREEN November 30, 2017 BLOOD TYPING, ABO November 30, 2017 BLOOD TYPING, RH (D) November 30, 2017 INSTRUCTIONS MEDICATIONS ADMINISTERED No Known Medications MEDICAL (GENERAL) HISTORY Type Description Date Medical History Kidney Stones Medical History Asthma Medical History Endometriosis Medical History PCOS Surgical History lithotripsy 2006 Surgical History 2013 Surgical History laparotomy with appendectomy & dilatation and curettage 03/17 Hospitalization History surgery Hospitalization History childbirth
--- OUTSIDE RECORDS SUMMARY | 2018-04-09 06:26 | XMS REPORT ---
Author Author GARY FARIAS [facility] Address [address] [place] [address] Care Team Providers Care Biometric Technician Name Role Phone JARRETTAGUSTINA HARTHANY Unavailable PROBLEMS Type Condition ICD9-CM Code [id number] Code Onset Dates Condition Status SNOMED Code Problem Second trimester Z34.92 Active 80554575 Problem Endometriosis N80.9 Active 439021403 Problem Anxiety F41.9 Active 44618410 Problem Recurrent major depressive disorder, in full remission F33.42 Active 244435548 Problem Missed period N92.6 Active 86488795 ALLERGIES No Information ENCOUNTERS Encounter Location Date Diagnosis [place] [address] [place] [id number] [place] [address] 01769- 6244 Apr, [place] [address] [place] [id number] [place] [address] 64289- 9553 Mar, Second trimester Z34.92 and 22 weeks gestation of Z3A.22 [place] [address] [place] [id number] [place] [address] 21986- 7700 Feb, care, subsequent in second trimester Z34.82 [place] [address] [place] [id number] [place] [address] 15500- 0453 Feb, [place] [address] [place] [id number] [place] [address] 00602- 9963 Feb, [place] [address] [place] [id number] [place] [address] 12640- 0830 Feb, Second trimester Z33.1 and 17 weeks gestation of Z3A.17 [place] [address] [place] [id number] [place] [address] 68046- 8728 05 Feb, 2018 care, subsequent in second trimester Z34.82 [place] [address] [id number] [address]- 5264 15 Jan, 2018 [facility] [address] [place] [id number] [place] [address] 21931- 5318 Jan, [facility] [address] [place] [id number] [place] [address] 02756- 7390 Jan, 12 weeks gestation of Z3A.12 and care, subsequent in first trimester Z34.81 [facility] [address] [place] [id number] [place] [address] 47404- 8324 Jan, [facility] [address] [place] [id number] [place] [address] 16161- 6946 December, [facility] [address] [place] [id number] [place] [address] 09903- 1403 December, Dysuria R30.0 [facility] [address] [place] [id number] [place] [address] 74023- 8433 December, [facility] [address] [place] [id number] [place] [address] 31201- 3368 Nov, care, subsequent in first trimester Z34.81 ; 6 weeks gestation of Z3A.01 and Recurrent major depressive disorder, in full remission F33.42 [facility] [address] [place] [id number] [place] [address] 17946- 2229 Nov, [facility] [address] [place] [id number] [place] [address] 93357- 0240 Nov, [facility] [id number] [place] [address] 86240 -0114 Nov, Missed period N92.6 [facility] [address] [place] [id number] [place] [address] 39445- 0179 Oct, Acute pain of right knee M25.561 and Anxiety F41.9 [facility] [address] [place] [id number] [place] [address] 37799- 8493 Aug, [facility] [address] [place] [id number] [place] [address] 89603- 1632 Jul, Anxiety F41.9 [facility] [address] 16429- 7774 Jul, New onset seizure R56.9 [facility] [address] 43818- 8861 Jul, Pelvic pain R10.2 [facility] [address] 37141- 9305 Apr, Dental abscess K04.7 [place] [address] 12173- 7441 Oct, [facility] [address] 57708- 1819 Nov, [facility] [address] 56702- 4287 Oct, Knee pain M25.569 and Nausea & vomiting R11.2 [facility] [address] 81436- 7104 Aug, Serous otitis media H65.90 and Dizziness R42 [facility] [address] [place] [id number] [place] [address] 02911- 3447 Apr, Counseling for control, oral contraceptives V25.01 [facility] [address] 03534- 4457 Mar, Dysuria 788.1 and Flank pain, acute 789.09 [facility] [address] 92090- 2324 14 Nov, 2014 [facility] [address] 71775- 8701 Nov, [facility] [address] 77258- 9898 Aug, [facility] [address] [place] [address]- 2802 Aug, [facility] [address] [id number] [place] [address]- 7891 Aug, [facility] [address] [id number] [place] [address]- 0231 Sep, [facility] [address] [id number] [place] [address]- 1260 Sep, [facility] [place] [facility] [address] [id number] [place] [address]- 8688 Aug, [facility] [address] [id number] [place] [address]- 0526 Aug, [facility] [address] [id number] [place] [address]- 4217 Aug, [facility] [address] [id number] [place] [address]- 7984 Aug, [facility] [address] [id number] [place] [address]- 6122 Aug, [facility] [place] [facility] [address] [id number] [place] [address]- 6861 Aug, [facility] [address] [id number] [place] [address]- 1307 Aug, [facility] [address] [id number] [place] [address]- 8755 Aug, [facility] [place] [facility] [address] [id number] [place] [address]- 0063 Jul, [facility] [place] [facility] [address] [id number] [place] [address]- 6422 Jul, [facility] [place] [facility] [address] [id number] [place] [address]- 8286 Jul, [facility] [place] [facility] [address] [id number] [place] [address]- 0861 Jul, [facility] [place] [facility] [address] [id number] [place] [address]- 7564 Jun, [facility] [place] [facility] [address] [id number] [place] [address]- 1778 Jun, [facility] [place] [facility] [address] [id number] [place] [address]- 2692 Jun, [facility] [place] [facility] [address] [id number] [place] [address]- 8621 Jun, [facility] [place] [facility] [address] [id number] [place] [address]- 2497 Mar, [facility] [place] [facility] [address] [id number] [place] [address]- 6071 Nov, [facility] [place] [facility] [address] [id number] [place] [address]- 4747 Jun, [facility] [place] [facility] [address] [id number] [place] [address]- 2415 Jun, [facility] [place] [facility] [address] [id number] [place] [address]- 5323 May, [facility] [place] [facility] [address] [id number] [place] [address]- 9173 May, [facility] [place] [facility] [address] [id number] [place] [address]- 1528 May, [facility] [place] [facility] [address] [id number] [address]- 5149 May, [facility] [place] [facility] [address] [id number] [place] 1783 May, [facility] [place] [facility] [address] [id number] [place] 6451 May, [facility] [place] [facility] [address] [id number] [place] [address]- 7538 16 May, 2012 [facility] [place] [facility] [address] [id number], [place] [address]- 2546 May, IMMUNIZATIONS No Known Immunizations SOCIAL [...]
--- OUTSIDE RECORDS SUMMARY | 2018-04-09 06:26 | XMS REPORT ---
Author Author JARRETT GARY [facility] Address [address] [place] [address] Care Team Providers Care Car Spotter Name Role Phone GARY FARIAS Unavailable PROBLEMS Type Condition ICD9-CM Code CKY03-LY Code Onset Dates Condition Status SNOMED Code Problem Endometriosis N80.9 Active 282514187 Problem Recurrent major depressive disorder, in full remission F33.42 Active 732737111 Problem Missed period N92.6 Active 45135408 Problem Anxiety F41.9 Active 56241843 ALLERGIES Substance Reaction Event Type Date Status Tramadol HCl seizure Drug Allergy Nov, Active Penicillin V Potassium anaphylaxis Drug Allergy Nov, Active ENCOUNTERS Encounter Location Date Diagnosis [place] [id number] [place] [address] 47493- 8060 Mar, [place] [address] [place] [id number] [place] [address] 14457- 8903 Feb, care, subsequent in second trimester Z34.82 [place] [id number] [place] [address] 45401- 6240 Feb, [place] [address] [place] [address] 16718- 3436 Feb, [place] [address] [place] [id number] [place] [address] 81035- 6649 Feb, Second trimester Z33.1 and 17 weeks gestation of Z3A.17 [place] [address] [place] [id number] [place] [address] 29186- 5212 05 Feb, 2018 care, subsequent in second trimester Z34.82 [place] [address] [place] [id number] [place] [address] 02589- 8860 Jan, [place] [address] [place] [id number] [address] 2841 Jan, [facility] [address] [place] [address] 18465- 4880 Jan, 12 weeks gestation of Z3A.12 and care, subsequent in first trimester Z34.81 [facility] [address] [place] [address] 50232- 1875 Jan, [facility] [address] [id number] [place] [address] 72143- 8827 December, [facility] [address] [address] [id number] [place] [address] 84804- 2607 December, Dysuria R30.0 [facility] [address] [place] [address] [id number] [place] [address] 56285- 5250 December, [facility] [address] [place] [address] [id number] [place] [address] 83552- 0763 Nov, care, subsequent in first trimester Z34.81 ; 6 weeks gestation of Z3A.01 and Recurrent major depressive disorder, in full remission F33.42 [facility] [address] [address] [id number] [place] [address] 37540- 3975 Nov, [facility] [address] [place] [address] 42839- 5052 Nov, [facility] [address] [place] [address] 58816 -4921 Nov, Missed period N92.6 [facility] [address] [place] [address] [id number] [place] [address] 78941- 0402 Oct, Acute pain of right knee M25.561 and Anxiety F41.9 [facility] [address] [place] [address] 88451- 5003 Aug, [facility] [address] [place] [address] 94901- 3464 Jul, Anxiety F41.9 [facility] [address] [id number] [place] [address] 38326- 7222 Jul, New onset seizure R56.9 [facility] [address] [id number] [place] [address] 97362- 1040 Jul, Pelvic pain R10.2 [facility] [address] [place] [address] [id number] [place] [address] 68869- 1785 29 Apr, 2017 Dental abscess K04.7 [facility] [address] 55511- 8686 Oct, [facility] [address] 56063- 8421 Nov, [facility] [address] 78657- 8375 Oct, Knee pain M25.569 and Nausea & vomiting R11.2 [facility] [address] 61669- 2157 Aug, Serous otitis media H65.90 and Dizziness R42 [facility] [address] [place] [id number] [place] [address] 55785- 1036 Apr, Counseling for control, oral contraceptives V25.01 [facility] [address] [place] [address] [id number] [place] [address] 38700- 7592 Mar, Dysuria 788.1 and Flank pain, acute 789.09 [facility] [address] [place] [id number] [place] [address] 98548- 4302 14 Nov, 2014 [facility] [address] [place] [address] [id number] [place] [address] 05965- 8075 Nov, [facility] [address] [address] [id number] [place] [address] 68311- 5227 Aug, [facility] [address] [address] [id number] [place] [address] 21201- 6412 Aug, [facility] [address] 23432- 9021 Aug, [facility] [address] [id number] [place] [address]- 1425 Sep, [facility] [place] [facility] [address] [id number] [place] [address]- 2791 Sep, [facility] [place] [facility] [address] [id number] [place] [address]- 4597 Aug, [facility] [place] [facility] [address] [id number] [place] [address]- 2713 Aug, [facility] [address] [id number] [place] [address]- 5081 Aug, [facility] [place] [facility] [address] [id number] [place] [address]- 1740 Aug, [facility] [address] [id number] [place] [address]- 7791 Aug, [facility] [place] [facility] [address] [id number] [place] [address]- 1497 Aug, [facility] [address] [id number] [place] [address]- 4749 Aug, [facility] [address] [facility] [id number] [place] [address]- 2035 Aug, [facility] [place] [facility] [address] [id number] [place] [address]- 8518 Jul, [facility] [place] [facility] [address] [id number], [place] [address]- 1266 Jul, [facility] [place] [facility] [address] [id number] [place] [address]- 1811 Jul, [facility] [place] [facility] [address] [id number] [place] [address]- 5857 Jul, [facility] [place] [facility] [address] [id number] [place] [address]- 0272 Jun, [facility] [place] [facility] [address] [facility] [id number], [place] [address]- 4608 Jun, [facility] [address] [facility] [id number] 7633 Jun, [facility] [address] [facility] [id number], [place] [address]- 7961 Jun, [facility] [address] [facility] [id number] [place] [address] 42542- 6577 Mar, [facility] [address] [facility] [id number], [place] [address]- 4794 Nov, [facility] [address] [facility] [id number] [place] [address] 64076- 3111 Jun, [facility] [address] [facility] [id number], [place] [address]- 4589 Jun, [facility] [address] [address]- 8278 May, [facility] [address] [address]- 3802 May, [facility] [address] [address]- 1428 May, [facility] [address], [place] [address]- 3872 May, [facility] [address], [place] [address]- 7619 May, [facility] [address] [place] [id number] 9469 May, [facility] [address] 7867 May, [facility] [address] [facility] [id number] 3847 May, IMMUNIZATIONS No Known Immunizations SOCIAL HISTORY Never Assessed REASON FOR VISIT OB Flowsheet PLAN OF CARE VITAL SIGNS MEDICATIONS Medication Instructions Dosage Frequency Start Date End Date Duration Status Naprosyn 500 mg Orally 2 times a day, pc 1 tab 28 Oct, 2015 Not- Taking BusPIRone HCl 10 mg Orally Twice a day 1 tablet 12h Jul, 21 days Not-Taking Tramadol HCl 50 MG Orally every 6 hrs 1 tablet as needed 6h Not- Taking Complete 14-0.4 MG Orally Once a day 1 tablet 24h Active BuPROPion HCl 75 MG Orally twice a day 1 tablet 12h Oct, 30 day (s) Not-Taking RESULTS No Results PROCEDURES No Known procedures INSTRUCTIONS MEDICATIONS ADMINISTERED No Known Medications MEDICAL (GENERAL) HISTORY Type Description Date Medical History Kidney Stones Medical History Asthma Medical History Endometriosis Medical History PCOS Surgical History lithotripsy 2006 Surgical History 2013 Surgical History laparotomy with appendectomy & dilatation and curettage 03/17 Hospitalization History surgery Hospitalization History childbirth
--- OUTSIDE RECORDS SUMMARY | 2018-04-09 06:26 | XMS REPORT ---
Author Author TRISTA MARTINS [facility] Address [address] [place] [address] Care Team Providers Care Equipment Maintenance Tech Name Role Phone TRISTA MARTINS Unavailable PROBLEMS Type Condition ICD9-CM Code XHR63-KE Code Onset Dates Condition Status SNOMED Code Problem Endometriosis N80.9 Active 088336878 Problem Recurrent major depressive disorder, in full remission F33.42 Active 379325239 Problem Missed period N92.6 Active 64058342 Problem Anxiety F41.9 Active 91127140 ALLERGIES Substance Reaction Event Type Date Status Tramadol HCl seizer Drug Allergy Oct, Active Penicillin V Potassium anaphylaxis Drug Allergy Oct, Active Amoxicillin anaphylaxis Drug Allergy Oct, Active ENCOUNTERS Encounter Location Date Diagnosis [place] [address] [place] [address] 45830- 9794 Mar, [place] [address] [place] [id number] [place] [address] 58204- 8316 Feb, Second trimester Z33.1 and 17 weeks gestation of Z3A.17 [place] [address] [place] [id number] [place] [address] 64941- 1401 Feb, care, subsequent in second trimester Z34.82 [place] [address] [place] [address] 63405- 7057 Jan, [place] [address] [place] [id number] [place] [address] 22599- 7115 Jan, [place] [address] [place] [id number] [place] [address] 32394- 7670 Jan, 12 weeks gestation of Z3A.12 and care, subsequent in first trimester Z34.81 [place] [address] [place] [id number] [place] [address] 46812- 3889 Jan, [facility] [address] [place] [id number] [place] [address] 93979- 0199 December, [facility] [address] [place] [id number] [place] [address] 18750- 2690 December, Dysuria R30.0 [facility] [address] [place] [id number] [place] [address] 59437- 4519 December, [facility] [address] 12438- 3737 Nov, care, subsequent in first trimester Z34.81 ; 6 weeks gestation of Z3A.01 and Recurrent major depressive disorder, in full remission F33.42 [facility] [address] [place] [id number] [place] [address] 42005- 7988 Nov, [facility] [address] [place] [id number] [place] [address] 68838- 7828 Nov, [facility] [address] [place] [id number] [place] [address] 72439 -7692 Nov, Missed period N92.6 [facility] [address] [place] [id number] [place] [address] 47894- 3813 Oct, Acute pain of right knee M25.561 and Anxiety F41.9 [facility] [address] [place] [id number] [place] [address] 31624- 3729 Aug, [facility] [address] [place] [id number] [place] [address] 04893- 7923 Jul, Anxiety F41.9 [facility] [address] [place] [id number] [place] [address] 61173- 1197 Jul, New onset seizure R56.9 [facility] [address] [place] [id number] [place] [address] 34160- 5746 Jul, Pelvic pain R10.2 [facility] [address] [place] [id number] [place] [address] 28744- 2418 Apr, Dental abscess K04.7 [facility] [address] [place] [id number] [place] [address] 51640- 4422 Oct, [facility] [address] [place] [id number] [place] [address] 87852- 4932 Nov, [facility] [address] [place] [id number] [place] [address] 07272- 6462 Oct, Knee pain M25.569 and Nausea & vomiting R11.2 [facility] [address] [place] [id number] [place] [address] 78186- 9210 18 Aug, 2015 Serous otitis media H65.90 and Dizziness R42 [facility] [address] [place] [id number] [place] [address] 44884- 6874 Apr, Counseling for control, oral contraceptives V25.01 [facility] [address] [place] [id number] [place] [address] 87094- 1856 Mar, Dysuria 788.1 and Flank pain, acute 789.09 [facility] [address] [place] [id number] [place] [address] 42538- 1001 Nov, [facility] [address] [place] [id number] [place] [address] 57251- 8313 Nov, [facility] [address] [place] [id number] [place] [address] 34403- 5448 Aug, [facility] [address] [place] [id number] [place] [address] 77023- 7918 Aug, [facility] [address] [place] [id number] [place] [address] 90429- 6809 Aug, [facility] [address] [place] [id number] [place] [address] 88601- 4248 Sep, [facility] [address] [place] [id number] [place] [address] 604715- 2207 Sep, [facility] [address] [place] [id number] [place] [address] 85779- 5183 Aug, [facility] [place] [facility] [address] [id number] [place] [address]- 5520 Aug, [facility] [place] [facility] [address] [id number] [place] [address]- 8261 Aug, [facility] [place] [facility] [address] [id number] [place] [address]- 5436 Aug, [facility] [place] [facility] [address] [id number] [place] [address]- 3720 Aug, [facility] [place] [facility] [address] [id number] [place] [address]- 7260 Aug, [facility] [place] [facility] [address] [id number] [place] [address]- 3882 Aug, [facility] [place] [facility] [address] [id number] [place] [address]- 1735 Aug, [facility] [place] [facility] [address] [id number] [place] [address]- 2691 Jul, [facility] [place] [facility] [address] [id number] [place] [address]- 8157 Jul, [facility] [place] [facility] [address] [id number] [place] [address]- 0484 Jul, [facility] [place] [facility] [address] [id number] [place] [address]- 2712 Jul, [facility] [place] [facility] [address] [id number], [place] [address]- 7214 Jun, [facility] [place] [facility] [address] [id number] [place] [address]- 7805 Jun, [facility] [place] [facility] [address] [id number] [place] [address]- 3726 Jun, [facility] [place] [facility] [address] [id number] [place] [address]- 1853 Jun, [facility] [place] [facility] [address] [address]- 6753 Mar, [facility] [address] 5872 Nov, [facility] [address]- 5491 Jun, [facility] [address] [address]- 1789 Jun, [facility] [address] [facility] [id number] 7556 May, [facility] [address] [place] [id number] [place] [address] 772932- 1149 May, [facility] [address] [place] [address] 141073- 8761 May, [facility] [address] [place] [id number] [place] [address] 524019- 6658 May, [facility] [address] [place] [address] 13808- 6627 May, [facility] [address] 7516 May, [facility] [address] 2831 May, [facility] [address] [address]- 6308 May, IMMUNIZATIONS No Known Immunizations SOCIAL HISTORY Never Assessed REASON FOR VISIT Knee pain/ requesting xray/MRI. PT hasa right knee pain with no direct injury, just pain-[place] JOAQUIM, PT was seen in the ER last week possible the PLAN OF CARE Activity Details Follow Up prn Reason: VITAL SIGNS Height 65 in 2017-10-23 Weight 157.9 lbs 2017-10-23 Temperature 98.7 degrees Fahrenheit 2017-10-23 Heart Rate 78 bpm 2017-10-23 Respiratory Rate 18 2017-10-23 BMI 26.27 kg/m2 2017-10-23 Blood pressure systolic 108 mmHg 2017-10-23 Blood pressure diastolic 68 mmHg 2017-10-23 MEDICATIONS Medication Instructions Dosage Frequency Start Date End Date Duration Status BusPIRone HCl 10 mg Orally Twice a day 1 tablet 12h Jul, 21 days Not-Taking Tramadol HCl 50 MG Orally every 6 hrs 1 tablet as needed 6h Not- Taking Naprosyn 500 mg Orally 2 times a day, pc 1 tab Oct, Active BuPROPion HCl 75 MG Orally twice a day 1 tablet 12h Oct, 30 day (s) Active RESULTS No Results PROCEDURES No Known procedures INSTRUCTIONS MEDICATIONS ADMINISTERED No Known Medications MEDICAL (GENERAL) HISTORY Type Description Date Medical History Kidney Stones Medical History Asthma Medical History Endometriosis Medical History PCOS Surgical History lithotripsy 2006 Surgical History 2013 Surgical History laparotomy with appendectomy & dilatation and curettage 03/17 Hospitalization History surgery Hospitalization History childbirth
--- OUTSIDE RECORDS SUMMARY | 2018-04-09 06:26 | XMS REPORT ---
Author Author NATE AVILA [facility] Address [address] [place] [address] Care Team Providers Care Beef Grinder Name Role Phone AVILANATE Unavailable PROBLEMS Type Condition ICD9-CM Code [id number] Code Onset Dates Condition Status SNOMED Code Problem Endometriosis N80.9 Active 853584891 Problem Recurrent major depressive disorder, in full remission F33.42 Active 187003899 Problem Missed period N92.6 Active 20595626 Problem Anxiety F41.9 Active 03839082 ALLERGIES Substance Reaction Event Type Date Status Tramadol HCl seizer Drug Allergy Nov, Active Penicillin V Potassium anaphylaxis Drug Allergy Nov, Active ENCOUNTERS Encounter Location Date Diagnosis [place] [id number] [place] [address] 75982- 0489 Mar, [place] [id number] [place] [address] 07577- 5531 Feb, care, subsequent in second trimester Z34.82 [place] [id number] [place] [address] 47339- 9704 Feb, [place] [id number] [place] [address] 83077- 1380 Feb, [place] [id number] [place] [address] 38113- 5678 Feb, Second trimester Z33.1 and 17 weeks gestation of Z3A.17 [place] [id number] [place] [address] 64839- 1417 Feb, care, subsequent in second trimester Z34.82 [place] [id number] [place] [address] 66083- 6969 Jan, [place] [address] [place] [address]- 2837 Jan, [facility] [address], [place] [address] 23[address] Jan, 12 weeks gestation of Z3A.12 and care, subsequent in first trimester Z34.81 [facility] [address], [place] [address] 2849 Jan, [facility] [id number] [place] [address] 32058- 0793 December, [facility] [id number] [place] [address] 74525- 5582 December, Dysuria R30.0 [facility] [id number] [place] [address] 42554- 5886 December, [facility] [id number] [place] [address] 11472- 7003 Nov, care, subsequent in first trimester Z34.81 ; 6 weeks gestation of Z3A.01 and Recurrent major depressive disorder, in full remission F33.42 [facility] [id number] [place] [address] 88413- 2601 Nov, [facility] [id number] [place] [address] 59001- 0971 Nov, [facility] [id number] [place] [address] 39202 -5091 Nov, Missed period N92.6 [facility] [id number] [place] [address] 22856- 8946 Oct, Acute pain of right knee M25.561 and Anxiety F41.9 [facility] [id number] [place] [address] 77717- 1565 Aug, [facility] [id number] [place] [address] 65335- 5449 Jul, Anxiety F41.9 [facility] [id number] [place] [address] 39025- 8468 Jul, New onset seizure R56.9 [facility] [address] 43459- 5683 Jul, Pelvic pain R10.2 [facility] [address] 83200- 9403 Apr, Dental abscess K04.7 [facility] [address] 00194- 7293 Oct, [facility] [address] 67828- 2303 Nov, [facility] [address] 30723- 2445 Oct, Knee pain M25.569 and Nausea & vomiting R11.2 [facility] [address] 01516- 9904 Aug, Serous otitis media H65.90 and Dizziness R42 [facility] [id number] [place] [address] 13006- 6151 Apr, Counseling for control, oral contraceptives V25.01 [facility] [id number] [place] [address] 94424- 9375 Mar, Dysuria 788.1 and Flank pain, acute 789.09 [facility] [id number] [place] [address] 51051- 9681 14 Nov, 2014 [facility] [id number] [place] [address] 36900- 8910 Nov, [facility] [address] 38956- 4552 Aug, [facility] [id number] [place] [address] 06847- 4746 Aug, [facility] [address] 74854- 7544 Aug, [facility] [address] [id number] [place] [address]- 1021 Sep, [facility] [place] [facility] [address] [id number] [place] [address]- 8961 Sep, [facility] [place] [facility] [address] [id number] [place] [address]- 9935 Aug, [facility] [place] [facility] [address] [id number] [place] [address]- 8688 Aug, [facility] [place] [facility] [address] [id number] [place] [address]- 4954 Aug, [facility] [place] [facility] [address] [id number] [place] [address]- 4715 Aug, [facility] [place] [facility] [address] [id number] [place] [address]- 5602 Aug, [facility] [place] [facility] [address] [id number] [place] [address]- 4017 Aug, [facility] [place] [facility] [address] [id number] [place] [address]- 6445 Aug, [facility] [place] [facility] [address] [id number] [place] [address]- 7675 Aug, [facility] [place] [facility] [address] [id number], [place] [address]- 4913 Jul, [facility] [place] [facility] [address] [id number], [place] [address]- 2872 Jul, [facility] [place] [facility] [address] [id number] [place] [address]- 7965 Jul, [facility] [place] [facility] [address] [id number] [place] [address]- 6516 Jul, [facility] [place] [facility] [address] [id number] [place] [address]- 6170 Jun, [facility] [place] [facility] [address] [facility] [id number] [place] [address]- 0586 Jun, [facility] [address] [facility] [id number] 6478 Jun, [facility] [address] [facility] [id number] [place] [address]- 7556 Jun, [facility] [address] [facility] [id number], [place] [address]- 3523 Mar, [facility] [address] [facility] [id number] [place] [address]- 0439 Nov, [facility] [address] [facility] [id number] [place] [address]- 1128 Jun, [facility] [address] [facility] [id number], [place] [address]- 5627 Jun, [facility] [address], [place] [address]- 4577 May, [facility] [address] [facility] [id number], [place] [address]- 8292 May, [facility] [address], [place] [address]- 4757 May, [facility] [id number], [place] [address]- 9561 May, [facility] [address], [place] [address]- 6325 May, [facility] [address] [facility] [id number] 7891 May, [facility] [address] 1573 May, [facility] [address] [facility] [id number] 0604 May, IMMUNIZATIONS No Known Immunizations SOCIAL HISTORY Never Assessed REASON FOR VISIT test per pts request. karie, last menses began 09/15/2017. EDC would be 06/21/2018. , pt wants to go to dr markham PLAN OF CARE VITAL SIGNS MEDICATIONS Medication Instructions Dosage Frequency Start Date End Date Duration Status Naprosyn 500 mg Orally 2 times a day, pc 1 tab 28 Oct, 2015 Not- Taking Tramadol HCl 50 MG Orally every 6 hrs 1 tablet as needed 6h Not- Taking BusPIRone HCl 10 mg Orally Twice a day 1 tablet 12h Jul, 21 days Not-Taking BuPROPion HCl 75 MG Orally twice a day 1 tablet 12h Oct, 30 day (s) Active RESULTS Name Result Date Reference Range TEST, URINE (IN HOUSE) 2017-11-10 RESULTS positive Lot # [id number] Control + Exp date 2018 PROCEDURES Procedure Date Ordered Result Body Site URINE TEST November 10, 2017 INSTRUCTIONS MEDICATIONS ADMINISTERED No Known Medications MEDICAL (GENERAL) HISTORY Type Description Date Medical History Kidney Stones Medical History Asthma Medical History Endometriosis Medical History PCOS Surgical History lithotripsy 2006 Surgical History 2013 Surgical History laparotomy with appendectomy & dilatation and curettage 03/17 Hospitalization History surgery Hospitalization History childbirth
--- OUTSIDE RECORDS SUMMARY | 2018-04-09 06:27 | XMS REPORT ---
Author Author HAYLIE Malloy Organization [facility] Address [address] [place] [address] Care Team Providers Care School Speech Language Pathologist Name Role Phone HAYLIE Malloy Unavailable PROBLEMS Type Condition ICD9-CM Code [id number] Code Onset Dates Condition Status SNOMED Code Problem Endometriosis N80.9 Active 054973534 Problem Recurrent major depressive disorder, in full remission F33.42 Active 288154988 Problem Missed period N92.6 Active 57109334 Problem Anxiety F41.9 Active 90864299 ALLERGIES No Information ENCOUNTERS Encounter Location Date Diagnosis [place] [id number] [place] [address] 29489- 2126 Feb, [facility] [id number] [place] [address] 62005- 6677 Jan, [facility] [address] 53197- 2830 Jan, [facility] [id number] [place] [address] 54330- 6599 Jan, 12 weeks gestation of Z3A.12 and care, subsequent in first trimester Z34.81 [facility] [id number] [place] [address] 06111- 4749 Jan, [facility] [id number] [place] [address] 47997- 1384 December, [facility] [id number] [place] [address] 36962- 4670 December, Dysuria R30.0 [facility] [id number] [place] [address] 72331- 1433 December, [facility] [id number] [place] [address] 63910- 6624 Nov, care, subsequent in first trimester Z34.81 ; 6 weeks gestation of Z3A.01 and Recurrent major depressive disorder, in full remission F33.42 [facility] [id number] [place] [address] 73516- 0812 Nov, [facility] [id number] [place] [address] 86090- 6724 Nov, [facility] [id number] [place] [address] 72798 -1579 Nov, Missed period N92.6 [place] [address] 95891- 9799 Oct, Acute pain of right knee M25.561 and Anxiety F41.9 [place] [id number] [place] [address] 64519- 5110 Aug, [facility] [id number] [place] [address] 89439- 7792 Jul, Anxiety F41.9 [place] [address] 13835- 0950 Jul, New onset seizure R56.9 [place] [id number] [place] [address] 22528- 7397 Jul, Pelvic pain R10.2 [place] [id number] [place] [address] 87913- 9436 Apr, Dental abscess K04.7 [place] [id number] [place] [address] 34019- 4363 Oct, [place] [address] 84494- 7447 Nov, [facility] [id number] [place] [address] 98235- 1889 Oct, Knee pain M25.569 and Nausea & vomiting R11.2 [facility] [id number] [address]- 6825 18 Aug, 2015 Serous otitis media H65.90 and Dizziness R42 [facility] [id number] [place] [address] 27442- 5499 28 Apr, 2015 Counseling for control, oral contraceptives V25.01 [facility] [id number] [place] [address] 77072- 5601 Mar, Dysuria 788.1 and Flank pain, acute 789.09 [facility] [id number] [place] [address] 56867- 8683 Nov, [facility] [id number] [place] [address] 79797- 8490 Nov, [facility] [id number] [place] [address] 72181- 2133 Aug, [facility] [id number] [place] [address] 35259- 0682 Aug, [facility] [id number] [place] [address] 19768- 5519 Aug, [facility] [id number] [place] [address] 09633- 0473 Sep, [facility] [address] [place] [address] 00432- 7559 Sep, [facility] [id number] [place] [address] 11309- 2948 Aug, [facility] [address] [place] [address] 16564- 1447 Aug, [facility] [id number] [place] [address] 83452- 2606 Aug, [facility] [address] [address]- 2446 Aug, [facility] [id number] [place] [address]- 9958 Aug, [facility] [address] [id number] [place] [address]- 9807 Aug, [facility] [address] [id number] [place] [address]- 0841 Aug, [facility] [address] [id number] [place] [address]- 4568 Aug, [facility] [address] [id number] [place] [address]- 7928 Jul, [facility] [address] [id number] [place] [address]- 3588 Jul, [facility] [address] [id number] [place] [address]- 6399 Jul, [facility] [address] [id number] [place] [address]- 1446 Jul, [facility] [address] [id number] [place] [address]- 1448 Jun, [facility] [address] [id number] [place] [address]- 0515 Jun, [facility] [address] [id number] [place] [address]- 6435 Jun, [facility] [address] [id number] [place] [address]- 2321 Jun, [facility] [address] [id number] [place] [address]- 4232 Mar, [facility] [address] [id number] [place] [address]- 7160 Nov, [facility] [address] [id number] [place] [address]- 5971 Jun, [facility] [address] [id number] [place] [address]- 8681 Jun, [facility] [address] [address]- 2940 May, [facility] [address] [address]- 2666 May, [facility] [address] [address]- 5333 May, [facility] [address] [place] [address] 48027- 2546 May, [facility] [address] [address]- 7989 May, [facility] [address] [address]- 0349 May, [facility] [address] [address]- 7047 May, [facility] [address] [address]- 9709 May, IMMUNIZATIONS No Known Immunizations SOCIAL HISTORY Never Assessed REASON FOR VISIT inadequate sample PLAN OF CARE VITAL SIGNS MEDICATIONS Unknown Medications RESULTS No Results PROCEDURES No Known procedures INSTRUCTIONS MEDICATIONS ADMINISTERED No Known Medications MEDICAL (GENERAL) HISTORY Type Description Date Medical History Kidney Stones Medical History Asthma Medical History Endometriosis Medical History PCOS Surgical History lithotripsy 2006 Surgical History 2014 Surgical History laparotomy with appendectomy & dilatation and curettage 03/17 Hospitalization History surgery Hospitalization History childbirth
--- OUTSIDE RECORDS SUMMARY | 2018-04-09 06:27 | XMS REPORT ---
Author Author TRISTA MARTINS [facility] Address [address] [place] [address] Care Team Providers Care Income Tax Adjuster Name Role Phone TRISTA MARTINS Unavailable PROBLEMS Type Condition ICD9-CM Code [id number] Code Onset Dates Condition Status SNOMED Code Problem Endometriosis N80.9 Active 787469090 Problem Recurrent major depressive disorder, in full remission F33.42 Active 268013482 Problem Missed period N92.6 Active 34555177 Problem Anxiety F41.9 Active 14906051 ALLERGIES No Information ENCOUNTERS Encounter Location Date Diagnosis [place] [id number] [place] [address] 79768- 7929 Feb, [place] [id number] [place] [address] 15379- 2225 Jan, [facility] [place] [address] [address]- 5794 Jan, 12 weeks gestation of Z3A.12 and care, subsequent in first trimester Z34.81 [place] [id number] [place] [address] 18399- 3694 Jan, [place] [id number] [place] [address] 02285- 4169 December, [place] [id number] [place] [address] 28659- 5565 December, Dysuria R30.0 [place] [address] 11206- 6940 December, [place] [id number] [place] [address] 36915- 2273 Nov, care, subsequent in first trimester Z34.81 ; 6 weeks gestation of Z3A.01 and Recurrent major depressive disorder, in full remission F33.42 [facility] [place] [address] 10264- 7381 Nov, [facility] [place] [address] 96642- 3273 Nov, [facility] [address] 38318 -9646 Nov, Missed period N92.6 [facility] [place] [address] 70339- 7563 Oct, Acute pain of right knee M25.561 and Anxiety F41.9 [place] [address] 64562- 1459 Aug, [place] [address] 84987- 1063 Jul, Anxiety F41.9 [facility] [place] [address] 39247- 7926 Jul, New onset seizure R56.9 [place] [address] 34504- 9207 Jul, Pelvic pain R10.2 [place] [address] 79273- 3173 Apr, Dental abscess K04.7 [place] [address] 07216- 9398 Oct, [facility] [place] [address] 99922- 8440 Nov, [facility] [place] [address] 69281- 4066 Oct, Knee pain M25.569 and Nausea & vomiting R11.2 [facility] [place] [address] 71319- 5516 Aug, Serous otitis media H65.90 and Dizziness R42 [facility] [place] [address], [place] [address] 9300 Apr, Counseling for control, oral contraceptives V25.01 [facility] [place] [id number] [place] [address] 94314- 8630 Mar, Dysuria 788.1 and Flank pain, acute 789.09 [facility] [place] [address] 41094- 8981 Nov, [facility] [place] [id number] [place] [address] 79814- 4737 Nov, [facility] [place] [id number] [place] [address] 05592- 2760 Aug, [facility] [place] [id number] [place] [address] 40109- 5665 Aug, [facility] [place] [id number] [place] [address] 39292- 2310 Aug, [facility] [place] [id number] [place] [address] 04593- 2938 Sep, [facility] [place] [id number] [place] [address] 78586- 8626 Sep, [facility] [place] [id number] [place] [address] 53589- 5776 Aug, [facility] [place] [id number] [place] [address] 81899- 8360 Aug, [facility] [place] [id number] [place] [address] 90865- 9163 Aug, [facility] [place] [id number] [place] [address] 16355- 5370 Aug, [facility] [place] [id number] [place] [address] 726276- 4519 Aug, [facility] [place] [id number] [place] [address] 86669- 6090 Aug, [facility] [address] [id number] [place] [address]- 6102 Aug, [facility] [place] [facility] [address] [id number] [place] [address]781 Aug, [facility] [place] [facility] [address] [id number] [place] [address]- 0793 Jul, [facility] [place] [facility] [address] [id number] [place] [address]- 7081 Jul, [facility] [place] [facility] [address] [id number] [place] [address]- 2021 Jul, [facility] [place] [facility] [address] [id number] [place] [address]- 4680 Jul, [facility] [place] [facility] [address] [id number] [place] [address]- 8857 Jun, [facility] [place] [facility] [address] [id number] [place] [address]- 9721 Jun, [facility] [place] [facility] [address] [id number] [place] [address]- 1849 Jun, [facility] [place] [facility] [address] [id number] [place] [address]- 0553 Jun, [facility] [place] [facility] [address] [id number], [place] [address]- 6162 Mar, [facility] [place] [facility] [address] [id number], [place] [address]- 7885 Nov, [facility] [place] [facility] [address] [id number] [place] [address]- 8656 Jun, [facility] [place] [facility] [address] [id number] [place] [address]- 3397 Jun, [facility] [place] [facility] [address] [id number] [place] [address]- 8965 May, [facility] [place] [facility] [address] [facility] [id number], [place] [address]- 6187 May, [facility] [place] [id number] 3244 May, [facility] [place] [id number], [place] [address]- 9474 May, [facility] [place] [id number], [place] [address]- 9334 May, [facility] [place] [address] 1261 May, [facility] [place] [id number] 3577 May, [facility] [place] [id number], [place] [address]- 9803 May, IMMUNIZATIONS No Known Immunizations SOCIAL HISTORY Never Assessed REASON FOR VISIT Requests return call PLAN OF CARE VITAL SIGNS MEDICATIONS Medication Instructions Dosage Frequency Start Date End Date Duration Status BusPIRone HCl 10 mg Orally Twice a day 1 tablet 12h Jul, 21 days Active RESULTS No Results PROCEDURES No Known procedures INSTRUCTIONS MEDICATIONS ADMINISTERED No Known Medications MEDICAL (GENERAL) HISTORY Type Description Date Medical History Kidney Stones Medical History Asthma Medical History Endometriosis Medical History PCOS Surgical History lithotripsy 2006 Surgical History 2013 Surgical History laparotomy with appendectomy & dilatation and curettage 03/17 Hospitalization History surgery Hospitalization History childbirth
--- OUTSIDE RECORDS SUMMARY | 2018-04-09 06:27 | XMS REPORT ---
Author Author TRISTA MARTINS [facility] Address [address] [place] [address] Care Team Providers Care Photo Cartographer Name Role Phone TRISTA MARTINS Unavailable PROBLEMS Type Condition ICD9-CM Code PNO30-IE Code Onset Dates Condition Status SNOMED Code Problem Endometriosis N80.9 Active 109612315 Problem Recurrent major depressive disorder, in full remission F33.42 Active 203039839 Problem Missed period N92.6 Active 41933986 Problem Anxiety F41.9 Active 67671554 ALLERGIES Substance Reaction Event Type Date Status Penicillin V Potassium anaphylaxis Drug Allergy Jul, Active Amoxicillin anaphylaxis Drug Allergy Jul, Active ENCOUNTERS Encounter Location Date Diagnosis [place] [id number] [place] [address] 54403- 4867 Feb, [place] [address] 05636- 3250 Jan, [place] [address] 95982- 6938 Jan, 12 weeks gestation of Z3A.12 and care, subsequent in first trimester Z34.81 [place] [id number] [place] [address] 27673- 0488 Jan, [facility] [id number] [place] [address] 09943- 9909 December, [facility] [address] 08643- 5658 December, Dysuria R30.0 [facility] [id number] [place] [address] 63328- 7306 December, [facility] [id number] [place] [address] 94376- 1975 Nov, care, subsequent in first trimester Z34.81 ; 6 weeks gestation of Z3A.01 and Recurrent major depressive disorder, in full remission F33.42 [facility] [address] 29517- 7803 Nov, [facility] [address] 28744- 0228 Nov, [facility] [address] 37515 -9205 Nov, Missed period N92.6 [facility] [address] 64713- 4199 Oct, Acute pain of right knee M25.561 and Anxiety F41.9 [facility] [address] 66661- 2520 Aug, [facility] [address] 49818- 9337 Jul, Anxiety F41.9 [facility] [address] 59247- 9335 Jul, New onset seizure R56.9 [facility] [address] 31911- 8981 Jul, Pelvic pain R10.2 [place] [address] 49397- 8261 Apr, Dental abscess K04.7 [facility] [id number] [place] [address] 58527- 9926 Oct, [facility] [address] 77408- 4283 Nov, [facility] [address] 80066- 2656 28 Oct, 2015 Knee pain M25.569 and Nausea & vomiting R11.2 [facility] [address] [place] [address]- 1049 18 Aug, 2015 Serous otitis media H65.90 and Dizziness R42 [facility] [id number] [place] [address] 835505- 1164 Apr, Counseling for control, oral contraceptives V25.01 [facility] [id number] [place] [address] 15129- 4650 Mar, Dysuria 788.1 and Flank pain, acute 789.09 [facility] [id number] [place] [address] 05942- 8707 Nov, [facility] [address] 661349- 5795 Nov, [facility] [id number] [place] [address] 34428- 2734 Aug, [facility] [address] 93628- 2234 Aug, [facility] [id number] [place] [address] 89416- 6939 Aug, [facility] [id number] [place] [address] 28070- 3102 Sep, [facility] [id number] [place] [address] 00016- 8038 Sep, [facility] [id number] [place] [address] 34897- 2237 Aug, [facility] [id number] [place] [address] 64390- 9941 Aug, [facility] [id number] [place] [address] 60246- 7383 Aug, [facility] [id number] [place] [address] 495680- 2508 Aug, [facility] [id number] [place] [address] 42079- 6997 Aug, [facility] [place] [facility] [address] [id number] [place] [address]- 1857 Aug, [facility] [place] [facility] [address] [id number] [place] [address]- 1380 Aug, [facility] [place] [facility] [address] [id number] [place] [address]- 0341 Aug, [facility] [place] [facility] [address] [id number] [place] [address]- 2722 Jul, [facility] [place] [facility] [address] [id number] [place] [address]- 5030 Jul, [facility] [place] [facility] [address] [id number] [place] [address]- 9668 Jul, [facility] [place] [facility] [address] [id number] [place] [address]- 4925 Jul, [facility] [place] [facility] [address] [id number] [place] [address]- 0315 Jun, [facility] [place] [facility] [address] [id number] [place] [address]- 1302 Jun, [facility] [place] [facility] [address] [id number] [place] [address]- 7974 Jun, [facility] [place] [facility] [address] [id number] [place] [address]- 7040 Jun, [facility] [place] [facility] [address] [id number] [place] [address]- 1799 Mar, [facility] [place] [facility] [address] [id number] [place] [address]- 6590 Nov, [facility] [place] [facility] [address] [id number] [place] [address]- 4997 Jun, [facility] [place] [facility] [address] [id number] [place] 2004 Jun, [facility] [place] [facility] [address] [id number], [place] [address]- 8012 May, [facility] [address], [place] [address]- 1615 May, [facility] [address], [place] [address]- 4280 May, [facility] [address] [place] [address]- 8236 May, [facility] [id number] 6839 May, [facility] [id number] [place] [address] 949856- 4327 May, [facility] [address] [place] [address]- 4238 May, [facility] [address], [place] [address]- 8785 May, IMMUNIZATIONS No Known Immunizations SOCIAL HISTORY Never Assessed REASON FOR VISIT Establish Care----DBennettRN, seizure for the first time yesterday PLAN OF CARE Activity Details Follow Up 3 Weeks Reason: Pending Test CT Scan : Brain w/ Contrast VITAL SIGNS Height 65 in 2017-07-28 Weight 157 lbs 2017-07-28 Temperature 98.8 degrees Fahrenheit 2017-07-28 Heart Rate 80 bpm 2017-07-28 Respiratory Rate 20 2017-07-28 BMI 26.12 kg/m2 2017-07-28 Blood pressure systolic 124 mmHg 2017-07-28 Blood pressure diastolic 80 mmHg 2017-07-28 MEDICATIONS Medication Instructions Dosage Frequency Start Date End Date Duration Status Meclizine HCl 25 MG Orally 3 times a day 1 tablet as needed 8h Aug, 30 day(s) Not-Taking Zofran 4 MG Orally 3 times a day 1 tablet 8h Oct, 05 days Not- Taking Zyrtec Allergy 10 MG as directed Aug, Not-Taking Knee Brace/Hinged L/XL 1 as directed Oct, Not-Taking Tramadol HCl 50 MG Orally every 6 hrs 1 tablet as needed 6h Active Naprosyn 500 mg Orally every 12 hrs 1 tablet with food or milk as needed 12h 12 Jul, 2017 Not-Taking Naprosyn 500 MG Orally every 12 hrs 1 tablet as needed 12h 28 Oct, 2015 Not-Taking Ortho-Cyclen (28) 0.25-35 MG-MCG Orally Once a day 1 tablet 24h 28 Not-Taking RESULTS Name Result Date Reference Range CMP (OUTSIDE LAB) PROCEDURES No Known procedures INSTRUCTIONS MEDICATIONS ADMINISTERED No Known Medications MEDICAL (GENERAL) HISTORY Type Description Date Medical History Kidney Stones Medical History Asthma Medical History Endometriosis Medical History PCOS Surgical History lithotripsy 2006 Surgical History 2013 Surgical History laparotomy with appendectomy & dilatation and curettage 03/17 Hospitalization History surgery Hospitalization History childbirth
--- OUTSIDE RECORDS SUMMARY | 2018-04-09 06:27 | XMS REPORT ---
Author Author HAYLIE Malloy Organization [facility] Address [address] [place] [address] Care Team Providers Care Tariff Compiling Clerk Name Role Phone HYALIE Malloy Unavailable PROBLEMS Type Condition ICD9-CM Code [id number] Code Onset Dates Condition Status SNOMED Code Problem Endometriosis N80.9 Active 163760451 Problem Recurrent major depressive disorder, in full remission F33.42 Active 396733117 Problem Missed period N92.6 Active 68826994 Problem Anxiety F41.9 Active 17391798 ALLERGIES Substance Reaction Event Type Date Status Penicillin V Potassium anaphylaxis Drug Allergy Jul, Active Amoxicillin anaphylaxis Drug Allergy Jul, Active ENCOUNTERS Encounter Location Date Diagnosis [place] [id number] [place] [address] 24562- 3262 Mar, [place] [id number] [place] [address] 13924- 4068 Feb, Second trimester Z33.1 and 17 weeks gestation of Z3A.17 [place] [id number] [place] [address] 48284- 4035 Feb, care, subsequent in second trimester Z34.82 [place] [id number] [place] [address] 85388- 7320 Jan, [place] [id number] [place] [address] 08402- 5986 Jan, [place] [id number] [place] [address] 69710- 8553 Jan, 12 weeks gestation of Z3A.12 and care, subsequent in first trimester Z34.81 [place] [id number] [place] [address] 25287- 2039 Jan, [facility] [id number] [place] [address] 91488- 7745 December, [facility] [id number] [place] [address] 68216- 1004 December, Dysuria R30.0 [facility] [id number] [place] [address] 64166- 1441 December, [facility] [id number] [place] [address] 41533- 4038 Nov, care, subsequent in first trimester Z34.81 ; 6 weeks gestation of Z3A.01 and Recurrent major depressive disorder, in full remission F33.42 [facility] [id number] [place] [address] 04048- 9195 Nov, [facility] [id number] [place] [address] 61787- 1187 Nov, [facility] [id number] [place] [address] 35669 -4472 Nov, Missed period N92.6 [facility] [id number] [place] [address] 08177- 4301 Oct, Acute pain of right knee M25.561 and Anxiety F41.9 [facility] [id number] [place] [address] 42680- 6040 Aug, [facility] [id number] [place] [address] 58156- 4805 Jul, Anxiety F41.9 [facility] [id number] [place] [address] 19206- 0921 Jul, New onset seizure R56.9 [facility] [id number] [place] [address] 32320- 0727 Jul, Pelvic pain R10.2 [facility] [id number] [place] [address] 83303- 9944 Apr, Dental abscess K04.7 [facility] [id number] [place] [address] 80751- 3436 Oct, [facility] [id number] [place] [address] 19616- 0076 Nov, [facility] [address] 22234- 8002 Oct, Knee pain M25.569 and Nausea & vomiting R11.2 [facility] [address] 83477- 6917 18 Aug, 2015 Serous otitis media H65.90 and Dizziness R42 [facility] [address] 64398- 9282 Apr, Counseling for control, oral contraceptives V25.01 [facility] [address] 20804- 5862 Mar, Dysuria 788.1 and Flank pain, acute 789.09 [facility] [id number] [place] [address] 54920- 6930 Nov, [facility] [id number] [place] [address] 37391- 5661 Nov, [facility] [id number] [place] [address] 09241- 8595 Aug, [facility] [id number] [place] [address] 42320- 4520 Aug, [facility] [id number] [place] [address] 04277- 1141 Aug, [facility] [address] 53661- 8878 Sep, [facility] [id number] [place] [address] 59563- 0004 14 Sep, 2013 [facility] [address] 24346- 9006 Aug, [facility] [place] [facility] [address] [id number] [place] [address]- 1687 Aug, [facility] [place] [facility] [address] [id number] [place] [address]- 9327 Aug, [facility] [place] [facility] [address] [id number] [place] [address]- 0971 Aug, [facility] [place] [facility] [address] [id number] [place] [address]- 7563 Aug, [facility] [place] [facility] [address] [id number] [place] [address]- 0325 Aug, [facility] [place] [facility] [address] [id number] [place] [address]- 7652 Aug, [facility] [place] [facility] [address] [id number] [place] [address]- 9808 Aug, [facility] [place] [facility] [address] [id number] [place] [address]- 8979 Jul, [facility] [place] [facility] [address] [id number] [place] [address]- 0240 Jul, [facility] [place] [facility] [address] [id number] [place] [address]- 5951 Jul, [facility] [place] [facility] [address] [id number] [address]- 4180 Jul, [facility] [place] [facility] [address] [id number] [address]- 4846 Jun, [facility] [place] [facility] [address] [id number] [place] [address]- 6192 Jun, [facility] [place] [facility] [address] [id number] [place] [address]- 0038 Jun, [facility] [place] [facility] [address] [id number] [place] [address]- 4126 Jun, [facility] [place] [facility] [address] [address]- 0834 Mar, [facility] [address] 5003 Nov, [facility] [address] [address] 9266 Jun, [facility] [address] 5103 Jun, [facility] [id number] [place] [address] 485307- 7869 May, [facility] [id number] [place] [address] 696238- 9367 May, [facility] [id number] [place] [address] 368803- 6881 May, [facility] [id number] [place] [address] 586324- 2703 May, [facility] [address] [address]- 8262 May, [facility] [id number] 3402 May, [facility] [address] [address]- 6028 May, [facility] [address] 7730 May, IMMUNIZATIONS No Known Immunizations SOCIAL HISTORY Never Assessed REASON FOR VISIT pelvic pain , back pain , nausea x since last week -- jalen vidal PLAN OF CARE Activity Details Follow Up 2 - 3 Days, prn Reason: VITAL SIGNS Height 65 in 2017-07-18 Weight 157.0 lbs 2017-07-18 Temperature 97.0 degrees Fahrenheit 2017-07-18 BMI 26.12 kg/m2 2017-07-18 Blood pressure systolic 116 mmHg 2017-07-18 Blood pressure diastolic 68 mmHg 2017-07-18 MEDICATIONS Medication Instructions Dosage Frequency Start Date End Date Duration Status Knee Brace/Hinged L/XL 1 as directed Oct, Not-Taking Naprosyn 500 MG Orally every 12 hrs 1 tablet as needed 12h Oct, Not-Taking Naprosyn 500 mg Orally every 12 hrs 1 tablet with food or milk as needed 12h Jul, Active Zofran 4 MG Orally 3 times a day 1 tablet 8h 28 Oct, 2015 05 days Not- Taking Meclizine HCl 25 MG Orally 3 times a day 1 tablet as needed 8h Aug, 30 day(s) Not-Taking Zyrtec Allergy 10 MG as directed Aug, Not-Taking Ortho-Cyclen (28) 0.25-35 MG-MCG Orally Once a day 1 tablet 24h 28 Not-Taking RESULTS No Results PROCEDURES Procedure Date Ordered Result Body Site URINALYSIS, AUTO, W/O SCOPE Jul 18, 2017 CULTURE, BACTERIA, OTHER Jul 18, 2017 Bacterial Vaginosis In House Jul 18, 2017 TRICHOMONAS ASSAY W/OPTIC Jul 18, 2017 No Charge Jul 18, 2017 INSTRUCTIONS MEDICATIONS ADMINISTERED No Known Medications MEDICAL (GENERAL) HISTORY Type Description Date Medical History Kidney Stones Medical History Asthma Medical History Endometriosis Medical History PCOS Surgical History lithotripsy 2006 Surgical History 2013 Surgical History laparotomy with appendectomy & dilatation and curettage 03/17 Hospitalization History surgery Hospitalization History childbirth
--- OUTSIDE RECORDS SUMMARY | 2018-04-09 06:27 | XMS REPORT ---
Author Author JARRETT GARY [facility] Address [address] [place] [address] Care Team Providers Care Coil Assembler Name Role Phone GARY FARIAS Unavailable PROBLEMS Type Condition ICD9-CM Code [id number] Code Onset Dates Condition Status SNOMED Code Problem Endometriosis N80.9 Active 374468560 Problem Recurrent major depressive disorder, in full remission F33.42 Active 418431967 Problem New onset seizure R56.9 Active 72806804 Problem Missed period N92.6 Active 73350696 Problem Anxiety F41.9 Active 24737594 ALLERGIES Substance Reaction Event Type Date Status Penicillin V Potassium anaphylaxis Drug Allergy Apr, Active Amoxicillin anaphylaxis Drug Allergy Apr, Active ENCOUNTERS Encounter Location Date Diagnosis [facility] [id number] [place] [address] 63175- 5409 December, [facility] [address] 53395- 4029 December, [facility] [id number] [place] [address] 06453- 7020 Nov, care, subsequent in first trimester Z34.81 ; 6 weeks gestation of Z3A.01 and Recurrent major depressive disorder, in full remission F33.42 [facility] [id number] [place] [address] 29444- 2829 Nov, [facility] [address] 49972- 0952 Nov, [facility] [id number] [place] [address] 37271 -5429 Nov, Missed period N92.6 [facility] [id number] [place] [address] 50336- 4585 Oct, Acute pain of right knee M25.561 and Anxiety F41.9 [facility] [id number] [place] [address] 39018- 8829 Aug, [facility] [address] 39970- 5330 Jul, Anxiety F41.9 [facility] [address] 58183- 3216 Jul, New onset seizure R56.9 [facility] [address] 53657- 2801 Jul, Pelvic pain R10.2 [place] [address] 38605- 3166 Apr, Dental abscess K04.7 [place] [address] 51932- 9071 Oct, [facility] [address] 08420- 6436 Nov, [facility] [address] 62623- 3805 Oct, Knee pain M25.569 and Nausea & vomiting R11.2 [place] [address] 11718- 1988 18 Aug, 2015 Serous otitis media H65.90 and Dizziness R42 [facility] [address] 85965- 8107 28 Apr, 2015 Counseling for control, oral contraceptives V25.01 [place] [address] 92958- 9381 12 Mar, 2015 Dysuria 788.1 and Flank pain, acute 789.09 [facility] [address] 56466- 5729 14 Nov, 2014 [facility] [address] 56351- 0875 Nov, [facility] [address] [id number] [place] [address]- 7169 Aug, [facility] [place] [facility] [address] [id number] [place] [address]- 8925 Aug, [facility] [place] [facility] [address] [id number] [place] [address]- 3519 Aug, [facility] [place] [facility] [address] [id number] [place] [address]- 6837 Sep, [facility] [place] [facility] [address] [id number] [place] [address]- 7200 Sep, [facility] [place] [facility] [address] [id number] [place] [address]- 8102 Aug, [facility] [place] [facility] [address] [id number] [place] [address]- 8877 Aug, [facility] [place] [facility] [address] [id number] [place] [address]- 5425 Aug, [facility] [place] [facility] [address] [id number] [place] [address]- 3060 Aug, [facility] [place] [facility] [address] [id number] [place] [address]- 6610 Aug, [facility] [place] [facility] [address] [id number] [address]- 8514 Aug, [facility] [place] [facility] [address] [id number] [place] [address]- 8783 Aug, [facility] [place] [facility] [address] [id number] [place] [address]- 3006 Aug, [facility] [place] [facility] [address] [id number] [place] [address]- 0290 Jul, [facility] [place] [facility] [address] [id number] [place] [address]- 7354 Jul, [facility] [place] [facility] [address] [id number] [place] [address]- 1193 Jul, [facility] [address] [id number] [place] [address]- 9256 Jul, [facility] [place] [facility] [address] [id number] [place] [address]- 6627 Jun, [facility] [address] [id number] [place] [address]- 3708 Jun, [facility] [place] [facility] [address] [id number] [place] [address]- 9645 Jun, [facility] [id number] [place] [address], [place] [address]- 7855 Jun, [facility] [address] [id number] [place] [address]- 3972 Mar, [facility] [address] [id number] [place] [address]- 7822 Nov, [facility] [address] [id number] [place] [address]- 9273 Jun, [facility] [address] [id number] [place] [address]- 1936 Jun, [facility] [address] [facility] [id number] [place] [address]- 2517 May, [facility] [place] [facility] [address] [id number] [place] [address]- 2320 31 May, 2012 [facility] [address] [id number] [place] [address]- 5764 May, [facility] [place] [facility] [address] [id number] [place] [address]- 0492 May, [facility] [place] [facility] [address] [facility] [id number] [place] [address]- 6796 May, [facility] [place] [facility] [address] [facility] [id number] [place] 1911 May, [facility] [address] [facility] [id number] [place] 5845 May, [facility] [address] [facility] [id number] [place] [address]- 7628 May, IMMUNIZATIONS No Known Immunizations SOCIAL HISTORY Never Assessed REASON FOR VISIT Pain (acute)mouth--tcuppettRN, -Pt has appt with a dental clinic Monday at 3, but she is having severe pain. Possible tooth infection PLAN OF CARE Activity Details Follow Up prn (keep dental appointment) Reason: VITAL SIGNS Height 65 in 2017-05-05 Weight 157 lbs 2017-05-05 Temperature 98.2 degrees Fahrenheit 2017-05-05 Heart Rate 76 bpm 2017-05-05 Respiratory Rate 20 2017-05-05 BMI 26.12 kg/m2 2017-05-05 Blood pressure systolic 104 mmHg 2017-05-05 Blood pressure diastolic 70 mmHg 2017-05-05 MEDICATIONS Medication Instructions Dosage Frequency Start Date End Date Duration Status Clindamycin HCl 300 MG Orally every 8 hrs 1 capsule 8h Apr,May 07 days Active RESULTS No Results PROCEDURES No [...]
[2018-04-09] MEDS ORDERED: LIDOCAINE 2% VISCOUS 15 ML UDC PO ONE (06:30)
--- OUTSIDE RECORDS SUMMARY | 2018-04-09 06:31 | XMS REPORT | Continuity of Care Document ---
Author Author [facility] Address Unknown Phone Unavailable Allergies Active Description Code Type Severity Reaction Onset Reported/Identified Relationship to Patient Clinical Status Yes Penicillins Drug Allergy 11/01/2010 Yes Penicillins Drug Allergy N/A N/A 11/01/2010 Yes Amoxicillin Drug Allergy N/A N/A 03/13/2013 Yes amoxicillin [id number] Drug Allergy Unknown N/A 12/04/2014 Yes Penicillins [id number] Drug Allergy Unknown N/A 11/11/2017 Medications There is no data. Problems Date Dx Coded Attending Type Code Diagnosis Diagnosed By 02/14/2008 RTISTA MARTINS MD 599.0 URINARY TRACT INFECTION 02/14/2008 [...] STREPTOCOCCUS 03/15/2014 JAXON DUNLAP MD, Ot V06.1 [id number], COMBINED [ 03/15/2014 JAXON DUNLAP MD, Ot V27.0 DELIVER-SINGLE LIVEBORN 04/02/2014 ROBIN NOBLES, ARIK Anthony Ot 648.94 OTH CURR COND- 04/02/2014 ROBIN NOBLES, ARIK Anthony Ot 789.00 ABDOMINAL PAIN, UNSPECIFIED SITE 12/04/2014 DARLEEN MONTEZ TOLL TEST WORKER Ot 649.53 12/04/2014 DARLEEN MONTEZ APRN Ot [...] JAXON Johnson Ot V72.84 01/27/2015 FABIO PENDLETON TOLL TEST WORKER Ot 599.0 URIN TRACT INFECTION NOS 01/27/2015 FABIO PENDLETON TOLL TEST WORKER Ot 786.50 CHEST PAIN NOS 01/27/2015 FABIO PENDLETON TOLL TEST WORKER Ot 786.52 PAINFUL RESPIRATION 01/27/2015 DARLEEN MONTEZ TOLL TEST WORKER Ot 649.53 01/27/2015 DARLEEN MONTEZ TOLL TEST WORKER Ot V89.03 01/27/2015 FABI NOBLES, JAXON Johnson [...] KELLY MD Ot Y92.[address] IN [facility] (PRIVATE 06/01/2016 ARIK KELLY MD Ot [...] OTHER EXTERNAL CAUSE STATUS 10/10/2016 FABIO PENDLETON TOLL TEST WORKER Ot R06.02 SHORTNESS OF BREATH 10/10/2016 FABIO PENDLETON TOLL TEST WORKER Ot R07.81 PLEURODYNIA 10/11/2016 FABIO PENDLETON TOLL TEST WORKER Ot R06.02 SHORTNESS OF BREATH 10/11/2016 FABIO PENDLETON TOLL TEST WORKER Ot R07.81 PLEURODYNIA 10/13/2016 FABIO PENDLETON TOLL TEST WORKER Ot R06.02 SHORTNESS OF BREATH 10/13/2016 FABIO PENDLETON TOLL TEST WORKER Ot R07.81 PLEURODYNIA 03/13/2017 JAXON DUNLAP MD, Ot N93.8 OTHER SPECIFIED ABNORMAL UTERINE AND VAG 03/13/2017 JAXON DUNLAP MD Ot R10.2 PELVIC AND PERINEAL PAIN 03/13/2017 JAXON DUNLAP MD, Ot Z01.818 ENCOUNTER FOR OTHER PREPROCEDURAL EXAMIN 03/14/2017 JAXON DUNLPA MD, Ot N93.8 OTHER SPECIFIED ABNORMAL UTERINE [...] SPECIFIED ABNORMAL UTERINE AND VAG 03/22/2017 JAXON DULNAP MD, Ot N94.6 DYSMENORRHEA, UNSPECIFIED 03/22/2017 JAXON [...] COMP OF PREG, CHLDBR 10/24/2017 SCAR MEMBRENO L Ot Z88.0 ALLERGY STATUS TO PENICILLIN 11/13/2017 SCAR EMMBRENO Ot F32.9 MAJOR DEPRESSIVE DISORDER, SINGLE EPISOD 11/13/2017 SCAR MEMBRENO Ot J45.909 UNSPECIFIED ASTHMA, UNCOMPLICATED 11/13/2017 SCAR MEMBRENO Ot O20.0 THREATENED 11/13/2017 SCAR MEMBRENO Ot O99.341 OTH MENTAL DISORDERS COMPLICATING PREGNA 11/13/2017 SCAR MEMBRENO Ot O99.511 DISEASES OF THE RESP SYS COMP , 11/13/2017 SCAR MEMBRENO Ot R10.30 LOWER ABDOMINAL PAIN, UNSPECIFIED 11/13/2017 SCAR MEMBRENO Ot Z3A.00 WEEKS OF GESTATION OF NOT SPEC 11/13/2017 SCAR MEMBRENO Ot Z87.42 PERSONAL HISTORY OF OTH DISEASES OF THE 11/13/2017 SCAR MEMBRENO Ot Z87.442 PERSONAL HISTORY OF URINARY CALCULI 11/13/2017 SCAR MEMBRENO Ot Z87.59 PERSONAL HISTORY OF COMP OF PREG, CHLDBR 11/13/2017 SCAR MEMBRENO Ot Z88.0 ALLERGY STATUS TO PENICILLIN 11/17/2017 SCAR MEMBERNO Ot F32.9 MAJOR DEPRESSIVE DISORDER, SINGLE EPISOD 11/17/2017 SCAR MEMBRENO Ot J45.909 UNSPECIFIED ASTHMA, UNCOMPLICATED 11/17/2017 SCAR MEMBRENO Ot O20.0 THREATENED 11/17/2017 SCAR MEMBRENO Ot O99.341 OTH MENTAL DISORDERS COMPLICATING PREGNA 11/17/2017 SCAR MEMBRENO Ot O99.511 DISEASES OF THE RESP SYS COMP , 11/17/2017 SCAR MEMBRENO Ot R10.30 LOWER ABDOMINAL PAIN, UNSPECIFIED 11/17/2017 SCAR MEMBRENO Ot Z3A.00 WEEKS OF GESTATION OF NOT SPEC 11/17/2017 SCAR MEMBRENO Ot Z87.42 PERSONAL HISTORY OF OTH DISEASES OF THE 11/17/2017 SCAR MEMBRENO Ot Z87.442 PERSONAL HISTORY OF URINARY CALCULI 11/17/2017 SCAR MEMBRENO Ot Z87.59 PERSONAL HISTORY OF COMP OF PREG, CHLDBR 11/17/2017 SCAR MEMBRENO Ot Z88.0 ALLERGY STATUS TO PENICILLIN 12/06/2017 GARY FARIAS MD Ot Z34.81 ENCOUNTER FOR SUPRVSN OF NORMAL PREGNANC 12/06/2017 GARY FARIAS MD Ot Z3A.01 LESS THAN 8 WEEKS GESTATION OF 12/21/2017 GARY FARIAS MD Ot Z34.81 ENCOUNTER FOR SUPRVSN OF NORMAL PREGNANC 12/21/2017 GARY FARIAS MD Ot Z3A.01 LESS THAN 8 WEEKS GESTATION OF 02/26/2018 FABIO PENDLETON APRN Ot F32.9 MAJOR DEPRESSIVE DISORDER, SINGLE EPISOD 02/26/2018 FABIO PENDLETON APRN Ot J45.909 UNSPECIFIED ASTHMA, UNCOMPLICATED 02/26/2018 FABIO PENDLETON APRN Ot O23.42 UNSP INFCT OF URINARY TRACT IN 02/26/2018 FABIO PENDLETON APRN Ot O99.342 OTH MENTAL DISORDERS COMP , SEC 02/26/2018 FABIO PENDLETON APRN Ot O99.512 DISEASES OF THE RESP SYS COMP , 02/26/2018 FABIO PENDLETON APRN Ot O99.89 OTH DISEASES AND CONDITIONS COMPL PREG/C 02/26/2018 FABIO PENDLETON APRN Ot Z3A.19 19 WEEKS GESTATION OF 02/26/2018 FABIO PENDLETON APRN Ot Z87.442 PERSONAL HISTORY OF URINARY CALCULI 02/26/2018 FABIO PENDLETON APRN Ot Z87.448 PERSONAL HISTORY OF OTHER DISEASES OF UR 02/26/2018 FABIO PENDLETON APRN Ot Z87.59 PERSONAL HISTORY OF COMP OF PREG, CHLDBR 02/26/2018 FABIO PENDLETON APRN Ot Z88.0 ALLERGY STATUS TO PENICILLIN Procedures Code Description [place] [address] TRIGGER POINT INJ/1-2 MUS 06/06/2012 24366 STREP A (IN-HOUSE) 11/24/2012 52909 URINE TEST (IN- HOUSE) 07/25/2013 87202 US OB - EARLY <14 WEEKS 08/01/2013 86362 PERTUSSIS-STATE LAB 09/05/2013 72.9 03/13/2014 74.1 03/13/2014 [...] - 07/18/17 09:58 CULTURE, GENITAL SEE NOTE [facility] Comprehensive metabolic panel - 07/28/17 11:07 Serum [...] plasma albumin measurement (mass/volume) 4.4 g/dL 3.2-4.5 Complete urinalysis with reflex to culture - 11/11/17 11:40 Urine color determination YELLOW NRG Urine clarity determination CLEAR NRG Urine pH measurement by test strip 6 5-9 Specific gravity of urine by test strip 1.025 1.016- 1.022 Urine protein assay by test strip, semi-quantitative NEGATIVE NEGATIVE Urine glucose detection by automated test strip NEGATIVE NEGATIVE Erythrocytes detection in urine sediment by light microscopy NEGATIVE NEGATIVE Urine ketones detection by automated test strip NEGATIVE NEGATIVE Urine nitrite detection by test strip NEGATIVE NEGATIVE Urine total bilirubin detection by test strip NEGATIVE NEGATIVE Urine urobilinogen measurement by automated test strip (mass/volume) NORMAL NORMAL Urine leukocyte esterase detection by dipstick 1+ NEGATIVE Automated urine sediment erythrocyte count by microscopy (number/high power field) NONE NRG Automated urine sediment leukocyte count by microscopy (number/high power field ) NONE NRG Bacteria detection in urine sediment by light microscopy MODERATE NRG Squamous epithelial cells detection in urine sediment by light microscopy 2-5 NRG Crystals detection in urine sediment by light microscopy NONE NRG Casts detection in urine sediment by light microscopy NONE NRG Mucus detection in urine sediment by light microscopy NEGATIVE NRG Complete urinalysis with reflex to culture NO NRG Complete blood count (CBC) with automated white blood cell (WBC) differential - 11/11/17 12:00 Blood leukocytes automated count (number/volume) 9.1 10*3/uL 4.3-11.0 Blood erythrocytes automated count (number/volume) 4.23 10*6/uL 4.35-5.85 Venous blood hemoglobin measurement (mass/volume) 12.8 g/dL 11.5-16.0 Blood hematocrit (volume fraction) 37 % 35-52 Automated erythrocyte mean corpuscular volume 88 [foz_us] 80-99 Automated erythrocyte mean corpuscular hemoglobin (mass per erythrocyte) 30 pg 25-34 Automated erythrocyte mean corpuscular hemoglobin concentration measurement ( mass/volume) 35 g/dL 32-36 Automated erythrocyte distribution width ratio 11.8 % 10.0-14.5 Automated blood platelet count (count/volume) 251 10*3/uL 130-400 Automated blood platelet mean volume measurement 10.8 [foz_us] 7.4-10.4 Automated blood neutrophils/100 leukocytes 73 % 42-75 Automated blood lymphocytes/100 leukocytes 20 % 12-44 Blood monocytes/100 leukocytes 5 % 0-12 Automated blood eosinophils/100 leukocytes 2 % 0-10 Automated blood basophils/100 leukocytes 0 % 0-10 Blood neutrophils automated count (number/volume) 6.7 10*3 1.8-7.8 Blood lymphocytes automated count (number/volume) 1.8 10*3 1.0-4.0 Blood monocytes automated count (number/volume) 0.4 10*3 0.0-1.0 Automated eosinophil count 0.2 10*3/uL 0.0-0.3 Automated blood basophil count (count/volume) 0.0 10*3/uL 0.0-0.1 Serum or plasma choriogonadotropin measurement (units/volume) - 11/11/17 12:00 Serum or plasma choriogonadotropin measurement (units/volume) 338 m[ iU]/mL <5 CULTURE, URINE - 12/28/17 17:32 CULTURE, URINE, ROUTINE SEE NOTE NRG PENTA SCREEN - 02/13/18 14:31 Maternal Weight 163 lbs NRG Est'd Date of Delivery 07/20/2018 NRG ABDULLAHI Determined by LMP NRG Mother's Ethnic Origin NRG Number of Fetuses 1 NRG Insulin Depend Diabetic NO NRG Repeat Specimen NO NRG Hx Of Neural Tube Defects NO NRG Prev Down Synd NO NRG Donor Egg NO NRG Donor Age: Egg Retrieval NOT GIVEN NRG Cigarette smoker NOT GIVEN NRG INTERPRETATION: SEE NOTE NRG Risk for ONTD <1:5000 NRG Age Risk Down Syndrome 1:951 NRG TRAN Down Syndrome Risk <1:5000 <1:270 TRAN Trisomy 18 Risk <1:5000 <1:100 Calc'd Gestational Age 17.6 NRG AFP, Serum 35.5 ng/mL NRG AFP MoM 0.93 NRG hCG, Serum 32.5 IU/mL NRG hCG MoM 1.33 NRG Estriol, Free 1.45 ng/mL NRG Estriol MoM 1.33 NRG Inhibin A, Dimeric 100 pg/mL NRG Inhibin A MoM 0.63 NRG h-hCG, Serum 14.4 mcg/L NRG h-hCG MoM 0.70 NRG Date of 1990 NRG Collection Date 02/13/2018 NRG Complete urinalysis with reflex to culture - 02/22/18 10:30 Urine color determination YELLOW NRG Urine clarity determination CLEAR NRG Urine pH measurement by test strip 6 5-9 Specific gravity of urine by test strip 1.015 1.016- 1.022 Urine protein assay by test strip, semi-quantitative NEGATIVE NEGATIVE Urine glucose detection by automated test strip NEGATIVE NEGATIVE Erythrocytes detection in urine sediment by light microscopy NEGATIVE NEGATIVE Urine ketones detection by automated test strip NEGATIVE NEGATIVE Urine nitrite detection by test strip NEGATIVE NEGATIVE Urine total bilirubin detection by test strip NEGATIVE NEGATIVE Urine urobilinogen measurement by automated test strip (mass/volume) NORMAL NORMAL Urine leukocyte esterase detection by dipstick 3+ NEGATIVE Automated urine sediment erythrocyte count by microscopy (number/high power field) [HPF] NRG Automated urine sediment leukocyte count by microscopy (number/high power field ) [HPF] NRG Bacteria detection in urine sediment by light microscopy FEW NRG Squamous epithelial cells detection in urine sediment by light microscopy 25-50 NRG Crystals detection in urine sediment by light microscopy NONE NRG Casts detection in urine sediment by light microscopy NONE NRG Mucus detection in urine sediment by light microscopy NEGATIVE NRG Complete urinalysis with reflex to culture YES NRG Yeast detection in urine sediment by light microscopy FEW NRG Bacterial urine culture - 02/22/18 10:30 Bacterial urine culture SEE COMMEN NRG COLONY COUNT . NRG Complete blood count (CBC) with automated white blood cell (WBC) differential - 02/22/18 11:05 Blood leukocytes automated count (number/volume) 10.7 10*3/uL 4.3-11.0 Blood erythrocytes automated count (number/volume) 3.53 10*6/uL 4.35-5.85 Venous blood hemoglobin measurement (mass/volume) 10.6 g/dL 11.5-16.0 Blood hematocrit (volume fraction) 31 % 35-52 Automated erythrocyte mean corpuscular volume 87 [foz_us] 80-99 Automated erythrocyte mean corpuscular hemoglobin (mass per erythrocyte) 30 pg 25-34 Automated erythrocyte mean corpuscular hemoglobin concentration measurement ( mass/volume) 34 g/dL 32-36 Automated erythrocyte distribution width ratio 12.4 % 10.0-14.5 Automated blood platelet count (count/volume) 179 10*3/uL 130-400 Automated blood platelet mean volume measurement 10.7 [foz_us] 7.4-10.4 Automated blood neutrophils/100 leukocytes 82 % 42-75 Automated blood lymphocytes/100 leukocytes 14 % 12-44 Blood monocytes/100 leukocytes 4 % 0-12 Automated blood eosinophils/100 leukocytes 1 % 0-10 Automated blood basophils/100 leukocytes 0 % 0-10 Blood neutrophils automated count (number/volume) 8.8 10*3 1.8-7.8 Blood lymphocytes automated count (number/volume) 1.5 10*3 1.0-4.0 Blood monocytes automated count (number/volume) 0.4 10*3 0.0-1.0 Automated eosinophil count 0.1 10*3/uL 0.0-0.3 Automated blood basophil count (count/volume) 0.0 10*3/uL 0.0-0.1 Comprehensive metabolic panel - 02/22/18 11:05 Serum or plasma sodium measurement (moles/volume) 136 mmol/L 135-145 Serum or plasma potassium measurement (moles/volume) 3.6 mmol/L 3.6-5.0 Serum or plasma chloride measurement (moles/volume) 108 mmol/L 98-107 Carbon dioxide 23 mmol/L 21-32 Serum or plasma anion gap determination (moles/volume) 5 mmol/L 5-14 Serum or plasma urea nitrogen measurement (mass/volume) 5 mg/dL 7-18 Serum or plasma creatinine measurement (mass/volume) 0.60 mg/dL 0.60-1.30 Serum or plasma urea nitrogen/creatinine mass ratio 8 NRG Serum or plasma creatinine measurement with calculation of estimated glomerular filtration rate > NRG Serum or plasma glucose measurement (mass/volume) 81 mg/dL 70-105 Serum or plasma calcium measurement (mass/volume) 8.9 mg/dL 8.5-10.1 Serum or plasma total bilirubin measurement (mass/volume) 0.5 mg/dL 0.1-1.0 Serum or plasma alkaline phosphatase measurement (enzymatic activity/volume) 65 U/L 40-136 Serum or plasma aspartate aminotransferase measurement (enzymatic activity/ volume) 14 U/L 5-34 Serum or plasma alanine aminotransferase measurement (enzymatic activity/volume ) 11 U/L 0-55 Serum or plasma protein measurement (mass/volume) 6.2 g/dL 6.4-8.2 Serum or plasma albumin measurement (mass/volume) 3.7 g/dL 3.2-4.5 Encounters ACCT No. Visit Date/Time Discharge Status Pt. Type Provider Facility Loc./Unit Complaint [id number] 09/05/2013 14:05:00 09/05/2013 23:59:59 CLS Outpatient GARY FARIAS MD [id number] 08/01/2013 06:22:00 08/01/2013 23:59:59 CLS Outpatient [id number] 06/11/2013 09:48:00 06/11/2013 23:59:59 CLS Outpatient ARYAN CLAYTON APRN [id number] 06/06/2012 15:57:00 06/06/2012 23:59:59 CLS Outpatient TRISTA MARTINS MD [id number] 11/24/2012 12:41:00 Document Registration [id number] 02/22/2018 10:18:00 02/22/2018 11:50:00 DIS Outpatient FABIO PENDLETON APRN [facility] ER ABD CRAMPING,19 WEEKS PG [id number] 12/05/2017 12:47:00 12/05/2017 23:59:59 CLS Outpatient GARY FARIAS MD [facility] RAD Z34.81 CARE, FIRST TIRMESTER [id number] 11/11/2017 11:38:00 11/11/2017 13:25:00 DIS Outpatient SCAR MEMBRENO [facility] ER ABD PAIN,SPOTTING [id number] 10/18/2017 20:10:00 10/18/2017 22:10:00 DIS Emergency SCAR MEMBRENO [facility] ER RIGHT KNEE PAIN [id number] 07/28/2017 10:48:00 07/28/2017 23:59:59 CLS Outpatient TRISTA MARTINS MD [facility] RAD NEW ONSET SEIZURE [id number] 03/17/2017 10:40:00 03/17/2017 18:35:00 DIS Outpatient JAXON DUNLAP MD [facility] SDC DYSFUNCTIONAL UTERINE BLEEDING, CHRONIC PELVIC RYAN [id number] 03/13/2017 05:29:00 03/13/2017 15:13:00 DIS Outpatient JAXON DUNLAP MD [facility] PREOP DYSFUNCTIONAL UTERINE BLEEDING, CHRONIC PELVIC RYAN [id number] 10/10/2016 16:06:00 10/10/2016 17:59:00 DIS Emergency FABIO PENDLETON APRN [facility] ER SOB/CHEST PAIN [id number] 06/01/2016 04:47:00 06/01/2016 05:32:00 DIS Emergency ARIK KELLY MD [facility] ER LEFT EYE INJURY [id number] 04/09/2016 00:16:00 04/09/2016 01:10:00 DIS Emergency ROSIE REAGAN DO [facility] ER RT HAND PAIN [id number] 01/05/2016 00:56:00 01/05/2016 01:44:00 DIS Emergency NIKOLE HAMEED MD [facility] ER MIGRAINE [id number] 07/20/2015 06:12:00 07/20/2015 07:15:00 DIS Emergency JENNIFER COLLINS DO [facility] ER [id number] 07/12/2015 14:13:00 07/12/2015 15:26:00 DIS Emergency WYATT NOBLES, SOWMYA Parisi [facility] ER [id number] 07/11/2015 17:35:00 07/11/2015 18:03:00 DIS Emergency JENNIFER COLLINS DO [facility] ER [id number] 03/09/2015 18:33:00 03/09/2015 19:05:00 DIS Emergency ARIK KELLY MD [facility] ER [id number] 01/27/2015 20:45:00 01/27/2015 21:39:00 DIS Emergency FABIO PENDLETON TOLL TEST WORKER [facility] ER [id number] 12/04/2014 14:22:00 12/04/2014 17:26:00 DIS Emergency SCAR MEMBRENO [facility] ER [id number] 04/01/2014 22:28:00 04/02/2014 00:09:00 DIS Emergency ARIK KELLY MD [facility] ER [id number] 03/13/2014 10:09:00 03/15/2014 13:20:00 DIS Inpatient JAXON DUNLAP MD [facility] LD [id number] 03/07/2014 10:46:00 03/07/2014 23:59:59 CLS Outpatient JAXON DUNLAP MD [facility] PREOP [id number] 11/04/2013 15:04:00 11/04/2013 17:51:00 DIS Outpatient JAXON DUNLAP MD [facility] [id number] 10/03/2013 15:15:00 10/03/2013 18:00:00 DIS Outpatient JAXON DUNLAP MD [facility] [id number] 10/03/2013 02:10:00 10/03/2013 04:15:00 DIS Emergency ARIK KELLY MD [facility] ER [id number] 08/23/2013 18:32:00 08/23/2013 20:54:00 DIS Emergency FABIO PENDLETON TOLL TEST WORKER [facility] ER [id number] 08/14/2013 13:48:00 08/14/2013 23:59:59 CLS Outpatient DARLEEN MONTEZ TOLL TEST WORKER [facility] RAD [id number] 08/05/2013 13:38:00 08/05/2013 23:59:59 CLS Outpatient DARLEEN MONTEZ TOLL TEST WORKER [facility] RAD [id number] 06/05/2015 09:14:00 Document Registration [id number] 06/05/2015 09:14:00 Document Registration [id number] 06/05/2015 09:14:00 Document Registration [id number] 06/05/2015 09:14:00 Document Registration [id number] 06/05/2015 09:14:00 Document Registration [id number] 06/05/2015 09:14:00 Document Registration [id number] 06/05/2015 09:14:00 Document Registration [id number] 06/05/2015 09:14:00 Document Registration [id number] 06/05/2015 09:14:00 Document Registration [id number] 11/25/2012 11:03:00 Document Registration [id number] 03/29/2012 02:54:00 Document Registration [id number] 10/23/2011 22:38:00 Document Registration [id number] 03/02/2010 17:41:00 Document Registration [id number] 03/02/2010 17:36:00 Document Registration [id number] 02/16/2010 12:32:00 Document Registration [id number] 10/13/2006 12:26:00 Document Registration [id number] 03/01/2018 15:40:00 03/01/2018 23:59:59 CLS Outpatient LAKSHMI NOBLES, TRISTA [facility] [id number] 02/13/2018 13:40:00 Document Registration [id number] 12/28/2017 14:40:00 Document Registration [id number] 07/18/2017 16:40:00 Document Registration
[2018-04-09] MEDS ORDERED: CLIN150C17 PO (06:36)
--- NOTE | 2018-04-09 06:37 | ED EENT ---
History of Present Illness General Chief Complaint: Dental Problems/Pain Stated Complaint: DENTAL PAIN X2 DAYS Source: patient, other Exam Limitations: no limitations History of Present Illness Date Seen by Provider: Apr 09, 2018 Time Seen by Provider: 06:25 Initial Comments Patient and significant other report to the ER by private conveyance with chief complaint that she has had tooth pain for the last 2 days. She's been using Orajel and Tylenol. She's and has allergy to penicillin. She has not been on antibiotics. She says in 2 days she has a scheduled extraction with the dentist on Monday. She is having no fevers chills nausea vomiting. Allergies and Home Medications Allergies Coded Allergies: Penicillins (Unverified Allergy, Unknown, 11/11/17) Home Medications Bupropion HCl 300 Mg Tab.er.24h, 300 MG PO DAILY, (Reported) Cephalexin 500 Mg Capsule, 500 MG PO TID Prescribed by: FABIO PENDLETON on 02/22/18 1057 Meloxicam 15 Mg Tablet, 15 MG PO DAILY PRN for pain Prescribed by: SCAR CORDERO on 10/18/17 2146 Nitrofurantoin Monohyd/M-Cryst 100 Mg Capsule, 1 CAP PO BID Prescribed by: SCAR CORDERO on 11/11/17 1309 Oxycodone HCl/Acetaminophen 1 Each Tablet, 1-2 TAB PO Q4H PRN for PAIN Prescribed by: JAXON HARDY on 03/17/17 1304 Patient Home Medication List Home Medication List Reviewed: Yes Review of Systems Review of Systems Constitutional: No chills, No diaphoresis Eyes: Denies Blindness, Denies Blurred Vision Ears: Denies Dizziness, Denies Pain Nose: denies congestion, denies epistaxis Mouth: see HPI, pain; denies swelling, denies bloody discharge, denies clear discharge Throat: denies pain, denies neck stiffness Past Rupczhx-Qihhab-Dmjaxf Hx Patient Social History Alcohol Use: Occasionally Uses Alcohol Beverage of Choice: Beer Recreational Drug Use: No Smoking Status: Never a Smoker 2nd Hand Smoke Exposure: No Recent Foreign Travel: No Contact w/Someone Who Travel: No Recent Hopitalizations: No Immunizations Up To Date Tetanus Booster (TDap): Less than 5yrs Date of Influenza Vaccine: May 21, 2016 Seasonal Allergies Seasonal Allergies: Yes Past Medical History Surgeries: Yes (LITHOTRIPSY AND STONE BASKET REMOVAL) Section, Renal Respiratory: Yes Asthma Currently Using CPAP: No Currently Using BIPAP: No Cardiac: No Neurological: No Reproductive Disorders: Yes (DUB ) Female Reproductive Disorders: Endometriosis, Polycystic Ovarian Dis Genitourinary: No Kidney Stones Gastrointestinal: No Musculoskeletal: No Endocrine: No Loss of Vision: Denies Hearing Impairment: Denies Cancer: No Psychosocial: Yes Depression Integumentary: No Blood Disorders: No Adverse Reaction/Blood Tranf: No Family Medical History No Pertinent Family Hx Physical Exam Height, Weight, BMI Height: 5'6.00" Weight: 162lbs. 0oz. 73.510100sq; 25.8 BMI Method:Stated General Appearance: WD/WN, no apparent distress Eyes: bilateral eye normal inspection, bilateral eye PERRL, bilateral eye EOMI Ears: bilateral ear auricle normal, bilateral ear canal normal, bilateral ear TM normal Nose: normal inspection; No active bleeding, No discharge Mouth/Throat: other (dental caries without overt abscess) Neck: full range of motion, normal inspection Progress/Results/Core Measures Results/Orders My Orders Orders - DYLAN CADET Lidocaine 2% Viscous 15 Ml (Xylocaine Vi (04/09/18 06:30) Progress Progress Note : Time: 06:33 Progress Note Tylenol, Viscous Lidocaine and clindamycin. Departure Impression Primary Impression: Dental abscess Disposition: 01 HOME, SELF-CARE Condition: Stable Departure-Patient Inst. Decision time for Depature: 06:34 Referrals: [facility] (PCP/Family) Primary Care Physician Patient Instructions: Dental Pain (DC) Add. Discharge Instructions: Tylenol 1000 mg every 8 hours. 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 Take the antibiotics with food. All discharge instructions reviewed with patient and/or family. Voiced understanding. Scripts Clindamycin HCl (Clindamycin HCl) 150 Mg Capsule 450 MG PO TID for 7 Days, #63 CAP 0 Refills Prov: DYLAN CADET 04/09/18 DYLAN CADET Apr 09, 2018 06:37
[2018-04-09 06:38] VITALS: BP 111/65
== END 2018-04-09 06:47 | disposition home or self-care (01) ==
LOC: EDUNIT# 06:20 → ER 06:21
DX: O99.89 Other specified diseases and conditions complicating pregnancy, childbirth and the puerperium (principal); K04.7 Periapical abscess without sinus; K08.89 Other specified disorders of teeth and supporting structures; O99.519 Diseases of the respiratory system complicating pregnancy, unspecified trimester; J45.909 Unspecified asthma, uncomplicated; O99.340 Other mental disorders complicating pregnancy, unspecified trimester; F32.9 Major depressive disorder, single episode, unspecified; Z87.442 Personal history of urinary calculi; Z88.0 Allergy status to penicillin; Z98.890 Other specified postprocedural states; Z3A.00 Weeks of gestation of pregnancy not specified
CPT/HCPCS: 99283

== ENCOUNTER 2018-06-03 20:22 | Outpatient (CLI) | payer MEDICAID ==
[~2018-06-03] VITALS: Ht 167.6 cm; Wt 83.6 kg
[~2018-06-03 20:22] MED LIST changes: +CLIN150C17 PO
[2018-06-03 20:35] VITALS: BP 123/71
[2018-06-03] MEDS ORDERED: PREN-53 PO (21:44)
[2018-06-04] MEDS ORDERED: FLU QUADRIvalent (5+ YOA) 2018-2019 (AFLURIA) 0.5 ML IM ONE (07:30)
== END 2018-06-03 21:52 | disposition home or self-care (01) ==
LOC: WSo 20:22 → LDRP 20:23 → WSo 21:52
PROVIDERS: ATTEND Obstetrics & Gynecology
DX: N85.9 Noninflammatory disorder of uterus, unspecified (principal); Z3A.33 33 weeks gestation of pregnancy
CPT/HCPCS: 99213

== ENCOUNTER 2018-06-22 13:03 | Outpatient (CLI) | payer MEDICAID ==
[~2018-06-22] VITALS: Ht 167.6 cm; Wt 84.6 kg
[2018-06-22 12:54] VITALS: BP 111/60
[~2018-06-22 13:03] MED LIST changes: +PREN-53 PO
[2018-06-22 13:20] LABS: BILIRUBIN,URINE NEGATIVE (NEGATIVE); CLARITY,URINE CLEAR; COLOR,URINE YELLOW; GLUCOSE, URINE (UA) NEGATIVE (NEGATIVE); KETONES,URINE NEGATIVE (NEGATIVE); LEUKOCYTE ESTERASE ,URINE NEGATIVE (NEGATIVE); NITRITE,URINE NEGATIVE (NEGATIVE); PH,URINE 7 (5-9); PROTEIN,URINE NEGATIVE (NEGATIVE); UROBILINOGEN,URINE NORMAL (NORMAL)
[2018-06-22] MEDS ORDERED: FLU QUADRIvalent (5+ YOA) 2018-2019 (AFLURIA) 0.5 ML IM ONE (13:45)
[2018-06-22 13:46] LABS: BACTERIA,URINE FEW /HPF
--- NOTE | 2018-06-25 19:52 | Physician Query-Final Dx ---
YVES ASTORGA 06/25/18 1952: Clinic Account Progress/Dx Physician Query: Please give diagnosis Date of Service Jun 22, 2018 at 13:03 JAXON DUNLAP MD 06/26/18 0800: Clinic Account Progress/Dx DIAGNOSIS: Diagnosis False labor at 36 weeks gestation YVES ASTORGA Jun 25, 2018 19:52 JAXON DUNLAP MD Jun 26, 2018 08:00
== END 2018-06-22 14:45 | disposition home or self-care (01) ==
LOC: WSo 13:03 → LDRP 13:04 → WSo 14:45
PROVIDERS: ATTEND Obstetrics & Gynecology
DX: O47.03 False labor before 37 completed weeks of gestation, third trimester (principal); Z3A.36 36 weeks gestation of pregnancy
CPT/HCPCS: 81000; 99213

== ENCOUNTER 2018-06-27 05:33 | Outpatient (CLI) | payer MEDICAID ==
[~2018-06-27] VITALS: Ht 167.6 cm; Wt 84.6 kg
== END 2018-06-27 09:39 | disposition home or self-care (01) ==
LOC: PREOP 05:33
PROVIDERS: ATTEND Obstetrics & Gynecology
DX: Z01.818 Encounter for other preprocedural examination (principal)

== ENCOUNTER 2018-06-29 07:02 | Inpatient (IN) | payer MEDICAID ==
[~2018-06-29] VITALS: Ht 167.6 cm; Wt 85.8 kg
[2018-06-29 07:20] VITALS: BP 133/77
--- OUTSIDE RECORDS SUMMARY | 2018-06-29 07:20 | XMS REPORT ---
Author Author JARRETT GARY [facility] Address [address] [place] [address] Care Team Providers Care Court Specialist Name Role Phone GARY FARIAS Unavailable PROBLEMS Type Condition ICD9-CM Code [id number] Code Onset Dates Condition Status SNOMED Code Problem Second trimester Z34.92 Active 28004707 Problem Endometriosis N80.9 Active 763706177 Problem Anxiety F41.9 Active 33818045 Problem Recurrent major depressive disorder, in full remission F33.42 Active 717448199 Problem Missed period N92.6 Active 39777289 ALLERGIES No Information ENCOUNTERS Encounter Location Date Diagnosis [place] [id number] [address]67- [address] May, [facility] [address] [place] [address] [id number] [place] [address] 81002- 7055 Apr, [place] [address] 20444- 8268 Mar, [facility] [address] [address] [id number] [place] [address] 16466- 6202 Mar, Second trimester Z34.92 and 22 weeks gestation of Z3A.22 [place] [address] [address] [id number] [place] [address] 64838- 2916 Feb, care, subsequent in second trimester Z34.82 [facility] [id number] [place] [address] 48889- 3928 Feb, [facility] [address] 28362- 4472 Feb, [place] [address] 73533- 0619 Feb, Second trimester Z33.1 and 17 weeks gestation of Z3A.17 [facility] [address], [place] [address] 0560 Feb, care, subsequent in second trimester Z34.82 [facility] [id number] [address]- 4372 Jan, [facility] [address] [id number] [place] [address] 24781- 1064 Jan, [facility] [id number] [address] 0576 Jan, 12 weeks gestation of Z3A.12 and care, subsequent in first trimester Z34.81 [facility] [id number] [address]- 7781 Jan, [facility] [address] [address] [id number] [place] [address] 12704- 3989 December, [facility] [id number] [address]- 5644 December, Dysuria R30.0 [facility] [address] [address] [id number] [place] [address] 92468- 7102 December, [facility] [id number] [place] [address] 13045- 4630 Nov, care, subsequent in first trimester Z34.81 ; 6 weeks gestation of Z3A.01 and Recurrent major depressive disorder, in full remission F33.42 [facility] [address], [place] [address]- 5295 Nov, [facility] [address] [address] [id number] [place] [address] 15634- 6038 Nov, [facility] [address], [place] [address] Nov, Missed period N92.6 [facility] [address] [id number] [place] [address] 68760- 7494 Oct, Acute pain of right knee M25.561 and Anxiety F41.9 [facility] [address] 51369- 1556 Aug, [facility] [address] 40502- 6564 Jul, Anxiety F41.9 [facility] [address] 91615- 6626 Jul, New onset seizure R56.9 [facility] [address] 24475- 5773 Jul, Pelvic pain R10.2 [place] [address] 74326- 6264 Apr, Dental abscess K04.7 [place] [address] 42574- 4840 Oct, [facility] [address] 54382- 0859 Nov, [place] [address] 21501- 0863 Oct, Knee pain M25.569 and Nausea & vomiting R11.2 [place] [address] 69732- 7470 Aug, Serous otitis media H65.90 and Dizziness R42 [place] [address] 19269- 2434 Apr, Counseling for control, oral contraceptives V25.01 [place] [address] 32383- 3516 Mar, Dysuria 788.1 and Flank pain, acute 789.09 [facility] [address] 64723- 9810 14 Nov, 2014 [place] [address] [place] [address]- 2306 Nov, [facility] [address] [id number] [place] [address]- 2330 Aug, [facility] [place] [facility] [address] [id number] [place] [address]- 9876 Aug, [facility] [address] [id number] [place] [address]- 2655 Aug, [facility] [place] [facility] [address] [id number] [place] [address]- 5579 Sep, [facility] [place] [facility] [address] [id number] [place] [address]- 7590 Sep, [facility] [place] [facility] [address] [id number] [place] [address]- 1982 Aug, [facility] [place] [facility] [address] [id number] [place] [address]- 3539 Aug, [facility] [place] [facility] [address] [id number] [place] [address]- 4790 Aug, [facility] [place] [facility] [address] [id number] [place] [address]- 3777 Aug, [facility] [place] [facility] [address] [id number] [place] [address]- 6438 Aug, [facility] [place] [facility] [address] [id number] [place] [address]- 6624 Aug, [facility] [place] [facility] [address] [id number] [place] [address]- 1473 Aug, [facility] [place] [facility] [address] [id number] [place] [address]- 6533 Aug, [facility] [place] [facility] [address] [id number] [place] [address]- 6459 Jul, [facility] [place] [facility] [address] [id number] [place] [address]- 1254 Jul, [facility] [place] [facility] [address] [id number] [place] [address]- 6417 Jul, [facility] [place] [facility] [address] [id number] [place]- 2998 Jul, [facility] [place] [facility] [address] [id number] [place] [address]- 4418 Jun, [facility] [place] [facility] [address] [id number] [place] [address]- 5013 Jun, [facility] [address] [id number] [place] [address]- 7219 Jun, [facility] [place] [facility] [address] [id number] [place] [address]- 9258 Jun, [facility] [address] [id number] [place] [address]- 8994 Mar, [facility] [address] [id number] [place] [address]- 8105 Nov, [facility] [place] [facility] [address] [id number] [place] [address]- 6274 Jun, [facility] [place] [facility] [address] [id number] [place] [address]- 1674 Jun, [facility] [place] [facility] [address] [id number] [place] [address]- 3284 May, [facility] [place] [facility] [address] [id number], [place] [address]- 4452 31 May, 2012 [facility] [place] [facility] [address] [id number] [place] [address] May, [facility] [place] [facility] [address] [id number] [place] 9787 May, [facility] [place] [facility] [address] [id number] [place] [address]- 7294 17 May, 2012 [facility] [place] [facility] [address] [id number], [place] [address]- 4156 May, [facility] [address] [facility] [id number] [place] [address]- 5016 May, [facility] [address] [facility] [id number] [place] [address]- 9666 May, IMMUNIZATIONS No Known Immunizations SOCIAL HISTORY Never Assessed REASON FOR VISIT Requesting medication PLAN OF CARE VITAL SIGNS MEDICATIONS Medication Instructions Dosage Frequency Start Date End Date Duration Status Diclegis 10-10 MG Orally Once a day 2 tablets at bedtime on an empty stomach 24h Mar, 30 day(s) Active RESULTS No Results PROCEDURES No Known procedures INSTRUCTIONS MEDICATIONS ADMINISTERED No Known Medications MEDICAL (GENERAL) HISTORY Type Description Date Medical History Kidney Stones Medical History Asthma Medical History Endometriosis Medical History PCOS Surgical History lithotripsy 2006 Surgical History 2013 Surgical History laparotomy with appendectomy & dilatation and curettage 03/17 Hospitalization History surgery Hospitalization History childbirth
--- OUTSIDE RECORDS SUMMARY | 2018-06-29 07:20 | XMS REPORT ---
Author Author JARRETT GARY [facility] Address [address] [place] [address] Care Team Providers Care Hoop Maker Helper Machine Name Role Phone GARY FARIAS Unavailable PROBLEMS Type Condition ICD9-CM Code OMF85-FW Code Onset Dates Condition Status SNOMED Code Problem Second trimester Z34.92 Active 37006111 Problem Endometriosis N80.9 Active 754013788 Problem Anxiety F41.9 Active 98839748 Problem Recurrent major depressive disorder, in full remission F33.42 Active 903296675 Problem Missed period N92.6 Active 55921758 ALLERGIES No Information ENCOUNTERS Encounter Location Date Diagnosis [place] [id number] [address]007- 8434 May, [facility] [id number] [place] [address] 72444- 0150 Apr, [place] [address] 12585- 4923 Mar, [facility] [address] [id number] [place] [address] 45540- 5406 Mar, Second trimester Z34.92 and 22 weeks gestation of Z3A.22 [place] [address] [id number] [place] [address] 76450- 9036 Feb, care, subsequent in second trimester Z34.82 [facility] [id number] [place] [address] 39265- 8034 Feb, [facility] [address] 26880- 9862 Feb, [place] [address] 34401- 5865 Feb, Second trimester Z33.1 and 17 weeks gestation of Z3A.17 [facility] [address], [place] [address]- 1230 Feb, care, subsequent in second trimester Z34.82 [facility] [address] [address] [id number] [address]- 6297 Jan, [facility] [address] [id number] [place] [address] 25702- 0589 Jan, [facility] [address] [place] [address] [id number] [address]- 2547 Jan, 12 weeks gestation of Z3A.12 and care, subsequent in first trimester Z34.81 [facility] [address] [id number] [address]- 7871 Jan, [facility] [address] [id number] [place] [address] 23342- 9757 December, [facility] [address] [place] [id number] [address]- 1549 December, Dysuria R30.0 [facility] [address] [id number] [place] [address] 52323- 7021 December, [facility] [address] [place] [address] 11439- 4450 Nov, care, subsequent in first trimester Z34.81 ; 6 weeks gestation of Z3A.01 and Recurrent major depressive disorder, in full remission F33.42 [facility] [address], [place] [address]- 6833 Nov, [facility] [address] [place] [id number] [place] [address] 32922- 0866 Nov, [facility] [address], [place] [address] -0252 Nov, Missed period N92.6 [facility] [id number] [place] [address] 36239- 7244 Oct, Acute pain of right knee M25.561 and Anxiety F41.9 [facility] [address] 57388- 6749 Aug, [facility] [address] 49209- 9606 Jul, Anxiety F41.9 [facility] [address] 47888- 3665 Jul, New onset seizure R56.9 [facility] [address] 93132- 6895 Jul, Pelvic pain R10.2 [place] [address] 92179- 0519 Apr, Dental abscess K04.7 [place] [address] 00007- 7477 Oct, [facility] [address] 46925- 3154 Nov, [place] [address] 34945- 1407 Oct, Knee pain M25.569 and Nausea & vomiting R11.2 [place] [address] 36011- 1741 Aug, Serous otitis media H65.90 and Dizziness R42 [place] [address] 98795- 1595 Apr, Counseling for control, oral contraceptives V25.01 [place] [address] 86043- 0210 Mar, Dysuria 788.1 and Flank pain, acute 789.09 [facility] [address] 75095- 6947 14 Nov, 2014 [place] [address] [place] [address]- 0929 Nov, [facility] [address] [id number] [place] [address]- 9300 Aug, [facility] [place] [facility] [address] [id number] [place] [address]- 8237 Aug, [facility] [address] [id number] [place] [address]- 8371 Aug, [facility] [place] [facility] [address] [id number] [place] [address]- 0628 Sep, [facility] [place] [facility] [address] [id number] [place] [address]- 9638 Sep, [facility] [place] [facility] [address] [id number] [place] [address]- 6308 Aug, [facility] [place] [facility] [address] [id number] [place] [address]- 1634 Aug, [facility] [place] [facility] [address] [id number] [place] [address]- 6080 Aug, [facility] [place] [facility] [address] [id number] [place] [address]- 6015 Aug, [facility] [place] [facility] [address] [id number] [place] [address]- 6436 Aug, [facility] [place] [facility] [address] [id number] [place] [address]- 6757 Aug, [facility] [place] [facility] [address] [id number] [place] [address]- 9765 Aug, [facility] [place] [facility] [address] [id number] [place] [address]- 6780 Aug, [facility] [place] [facility] [address] [id number] [place] [address]- 6093 Jul, [facility] [place] [facility] [address] [id number] [place] [address]- 2439 Jul, [facility] [place] [facility] [address] [id number] [place] [address]- 1459 Jul, [facility] [place] [facility] [address] [id number] [place] 7083 Jul, [facility] [place] [facility] [address] [id number] [place] [address]- 8460 Jun, [facility] [place] [facility] [address] [id number] [place] [address]- 9738 Jun, [facility] [address] [id number] [place] [address]- 4102 Jun, [facility] [place] [facility] [address] [id number] [place] [address]- 6104 Jun, [facility] [address] [id number] [place] [address]- 7932 Mar, [facility] [address] [id number] [place] [address]- 3498 Nov, [facility] [place] [facility] [address] [id number] [place] [address]- 8767 Jun, [facility] [place] [facility] [address] [id number] [place] [address]- 9283 Jun, [facility] [place] [facility] [address] [id number] [place] [address]- 0395 May, [facility] [place] [facility] [address] [id number], [place] [address]- 3298 31 May, 2012 [facility] [place] [facility] [address] [id number] [place] 2992 May, [facility] [place] [facility] [address] [id number] [place] 0755 May, [facility] [place] [facility] [address] [id number] [place] [address]- 5871 17 May, 2012 [facility] [place] [facility] [address] [id number], [place] [address]- 1607 May, [facility] [address] [facility] [id number] [place] [address]- 5989 May, [facility] [address] [facility] [id number] [place] [address]- 2950 May, IMMUNIZATIONS No Known Immunizations SOCIAL HISTORY Never Assessed REASON FOR VISIT Prior Authorization- Diclegis PLAN OF CARE VITAL SIGNS MEDICATIONS Unknown [...]
--- OUTSIDE RECORDS SUMMARY | 2018-06-29 07:21 | XMS REPORT ---
Author Author JARRETT GARY [facility] Address [address] [place] [address] Care Team Providers Care Label Operator Name Role Phone GARY FARIAS Unavailable PROBLEMS Type Condition ICD9-CM Code XTS62-WE Code Onset Dates Condition Status SNOMED Code Problem Second trimester Z34.92 Active 86519813 Problem Endometriosis N80.9 Active 687812340 Problem Anxiety F41.9 Active 73289767 Problem Recurrent major depressive disorder, in full remission F33.42 Active 215147682 Problem Missed period N92.6 Active 04958256 ALLERGIES No Information ENCOUNTERS Encounter Location Date Diagnosis [place] [address] [address]- 8156 Apr, [facility] [id number] [place] [address] 02770- 6677 Apr, [place] [address] 11687- 2296 Mar, [facility] [id number] [place] [address] 72606- 3186 Mar, Second trimester Z34.92 and 22 weeks gestation of Z3A.22 [place] [address] [id number] [place] [address] 68557- 4719 Feb, care, subsequent in second trimester Z34.82 [facility] [id number] [place] [address] 05335- 4200 Feb, [facility] [address] 24377- 5665 Feb, [place] [address] [address] [id number] [place] [address] 84054- 1426 Feb, Second trimester Z33.1 and 17 weeks gestation of Z3A.17 [facility] [address], [place] [address]- 4013 Feb, care, subsequent in second trimester Z34.82 [facility] [address] [address] [id number] [address]- 3482 Jan, [facility] [address] [id number] [place] [address] 39933- 2515 Jan, [facility] [address] [address] [id number] [address]- 1620 Jan, 12 weeks gestation of Z3A.12 and care, subsequent in first trimester Z34.81 [facility] [address] [place] [id number], [place] [address]- 9823 Jan, [facility] [id number] [place] [address] 61897- 5366 December, [facility] [address] [id number], [place] [address]- 6212 December, Dysuria R30.0 [facility] [address] [id number] [place] [address] 70070- 3353 December, [facility] [address] [place] [address] 80577- 5800 Nov, care, subsequent in first trimester Z34.81 ; 6 weeks gestation of Z3A.01 and Recurrent major depressive disorder, in full remission F33.42 [facility] [address], [place] [address]- 2186 Nov, [facility] [address] [address] [id number] [place] [address] 39805- 9008 Nov, [facility] [address], [place] [address] -2680 Nov, Missed period N92.6 [facility] [id number] [place] [address] 68188- 7143 Oct, Acute pain of right knee M25.561 and Anxiety F41.9 [facility] [address] 36861- 2989 Aug, [facility] [address] 57724- 7061 Jul, Anxiety F41.9 [facility] [address] 66469- 7003 Jul, New onset seizure R56.9 [facility] [address] 38998- 8940 Jul, Pelvic pain R10.2 [place] [address] 82261- 8692 Apr, Dental abscess K04.7 [place] [address] 89876- 0639 Oct, [facility] [address] 63783- 3407 Nov, [place] [address] 46032- 2134 Oct, Knee pain M25.569 and Nausea & vomiting R11.2 [place] [address] 48771- 8672 Aug, Serous otitis media H65.90 and Dizziness R42 [place] [address] 79593- 9561 Apr, Counseling for control, oral contraceptives V25.01 [place] [address] 56039- 1248 Mar, Dysuria 788.1 and Flank pain, acute 789.09 [facility] [address] 43380- 2390 14 Nov, 2014 [place] [address] [place] [address]- 6575 Nov, [facility] [address] [id number] [place] [address]- 9084 Aug, [facility] [place] [facility] [address] [id number] [place] [address]- 5737 Aug, [facility] [address] [id number] [place] [address]- 7937 Aug, [facility] [place] [facility] [address] [id number] [place] [address]- 7863 Sep, [facility] [place] [facility] [address] [id number] [place] [address]- 2178 Sep, [facility] [place] [facility] [address] [id number] [place] [address]- 0518 Aug, [facility] [place] [facility] [address] [id number] [place] [address]- 5454 Aug, [facility] [place] [facility] [address] [id number] [place] [address]- 1719 Aug, [facility] [place] [facility] [address] [id number] [place] [address] Aug, [facility] [place] [facility] [address] [id number] [place] [address] Aug, [facility] [place] [facility] [address] [id number] [place] [address] Aug, [facility] [place] [facility] [address] [id number] [place] [address] Aug, [facility] [place] [facility] [address] [id number] [place] [address] Aug, [facility] [place] [facility] [address] [id number] [place] [address] Jul, [facility] [place] [facility] [address] [id number] [place] [address] Jul, [facility] [place] [facility] [address] [id number] [place] [address] Jul, [facility] [place] [facility] [address] [id number] [place] [address] Jul, [facility] [place] [facility] [address] [id number] [place] [address] Jun, [facility] [place] [facility] [address] [id number] [place] [address] Jun, [facility] [address] [id number] [place] [address] Jun, [facility] [place] [facility] [address] [id number] [place] [address] Jun, [facility] [address] [id number] [place] [address] Mar, [facility] [address] [id number] [place] [address] Nov, [facility] [place] [facility] [address] [id number] [place] [address] Jun, [facility] [place] [facility] [address] [id number] [place] [address] Jun, [facility] [place] [facility] [address] [id number] [place] [address] May, [facility] [place] [facility] [address] [id number], [place] [address] 31 May, 2012 [facility] [place] [facility] [address] [id number] [place] [address] May, [facility] [place] [facility] [address] [id number] [place] [address] [address] May, [facility] [place] [facility] [address] [id number] [place] [address] 17 May, 2012 [facility] [place] [facility] [address] [id number], [place] [address] May, [facility] [address] [facility] [id number] [place] [address] May, [facility] [address] [facility] [id number] [place] [address] May, IMMUNIZATIONS No Known Immunizations SOCIAL HISTORY [...]
--- OUTSIDE RECORDS SUMMARY | 2018-06-29 07:21 | XMS REPORT ---
Author Author JARRETT GARY [facility] Address [address] [place] [address] Care Team Providers Care Correspondence School Instructor Name Role Phone GARY FARIAS Unavailable PROBLEMS Type Condition ICD9-CM Code QJG72-QT Code Onset Dates Condition Status SNOMED Code Problem Second trimester Z34.92 Active 50834726 Problem Endometriosis N80.9 Active 336202248 Problem Anxiety F41.9 Active 09917714 Problem Recurrent major depressive disorder, in full remission F33.42 Active 265720634 Problem Missed period N92.6 Active 60850407 ALLERGIES No Information ENCOUNTERS Encounter Location Date Diagnosis [place] [id number] [address]- [address] Apr, [facility] [address] [place] [id number] [place] [address] 30568- 6874 Apr, [place] [address] [address]- 1938 Mar, [facility] [address] [id number] [place] [address] 74187- 1442 Mar, Second trimester Z34.92 and 22 weeks gestation of Z3A.22 [facility] [address] [place] [address] [id number] [place] [address] 66526- 7898 Feb, care, subsequent in second trimester Z34.82 [facility] [id number] [place] [address] 76991- 4301 Feb, [facility] [address] [address]- 5589 Feb, [place] [address] [place] [id number] [place] [address] 45932- 6654 Feb, Second trimester Z33.1 and 17 weeks gestation of Z3A.17 [facility] [address] [address] 46[address] Feb, care, subsequent in second trimester Z34.82 [facility] [id number] [address] 0[address] Jan, [facility] [address] [place] [id number] [place] [address] 05083- 1548 Jan, [facility] [id number] [address] 21[address] Jan, 12 weeks gestation of Z3A.12 and care, subsequent in first trimester Z34.81 [facility] [id number] [address] 1695 Jan, [facility] [address] [place] [address] [id number] [place] [address] 68824- 1198 December, [facility] [id number] [address] 1774 December, Dysuria R30.0 [facility] [address] [place] [id number] [place] [address] 71323- 1274 December, [facility] [id number] [place] [address] 43939- 7037 Nov, care, subsequent in first trimester Z34.81 ; 6 weeks gestation of Z3A.01 and Recurrent major depressive disorder, in full remission F33.42 [facility] [address], [place] [address] 2838 Nov, [facility] [address] [place] [id number] [place] [address] 57421- 4836 Nov, [facility] [address] [address] Nov, Missed period N92.6 [facility] [address] [place] [address] [id number] [place] [address] 86115- 0388 Oct, Acute pain of right knee M25.561 and Anxiety F41.9 [facility] [address] 19292- 7604 Aug, [facility] [address] 38900- 7100 Jul, Anxiety F41.9 [facility] [address] 31367- 1762 Jul, New onset seizure R56.9 [facility] [address] 17651- 0405 Jul, Pelvic pain R10.2 [place] [address] 15843- 3800 Apr, Dental abscess K04.7 [place] [address] 24635- 5013 Oct, [facility] [address] 51215- 8616 Nov, [place] [address] 04089- 7354 Oct, Knee pain M25.569 and Nausea & vomiting R11.2 [place] [address] 82632- 0228 Aug, Serous otitis media H65.90 and Dizziness R42 [place] [address] 30555- 4171 Apr, Counseling for control, oral contraceptives V25.01 [place] [address] 68101- 0390 Mar, Dysuria 788.1 and Flank pain, acute 789.09 [facility] [address] [address]- 1965 14 Nov, 2014 [place] [address] [place] [address] 7910 Nov, [facility] [address] [id number] [place] [address]- 2742 Aug, [facility] [place] [facility] [address] [id number] [place] [address]- 6728 Aug, [facility] [address] [id number] [place] [address]- 1330 Aug, [facility] [place] [facility] [address] [id number] [place] [address]- 5150 Sep, [facility] [place] [facility] [address] [id number] [place] [address]- 9211 Sep, [facility] [place] [facility] [address] [id number] [place] [address]- 6704 Aug, [facility] [place] [facility] [address] [id number] [place] [address]- 6584 Aug, [facility] [place] [facility] [address] [id number] [place] [address]- 5541 Aug, [facility] [place] [facility] [address] [id number] [place] [address]- 1710 Aug, [facility] [place] [facility] [address] [id number] [place] [address]- 7152 Aug, [facility] [place] [facility] [address] [id number] [place] [address]- 9201 Aug, [facility] [place] [facility] [address] [id number] [place] [address]- 7486 Aug, [facility] [place] [facility] [address] [id number] [place] [address]- 6619 Aug, [facility] [place] [facility] [address] [id number] [place] [address]- 9372 Jul, [facility] [place] [facility] [address] [id number] [place] [address]- 5023 Jul, [facility] [place] [facility] [address] [id number] [place] [address]- 5438 Jul, [facility] [place] [facility] [address] [id number] [place] [address] Jul, [facility] [place] [facility] [address] [id number] [place] [address]- 5160 Jun, [facility] [place] [facility] [address] [id number] [place] [address]- 4220 Jun, [facility] [address] [id number] [place] [address]- 0989 Jun, [facility] [place] [facility] [address] [id number] [place] [address]- 7935 Jun, [facility] [address] [id number] [place] [address]- 8044 Mar, [facility] [address] [id number] [place] [address]- 5330 Nov, [facility] [place] [facility] [address] [id number] [place] [address]- 7522 Jun, [facility] [place] [facility] [address] [id number] [place] [address]- 1562 Jun, [facility] [place] [facility] [address] [id number] [place] [address]- 8596 May, [facility] [place] [facility] [address] [id number] [address]- 2836 31 May, 2012 [facility] [place] [facility] [address] [id number] [place] [address]99 May, [facility] [place] [facility] [address] [id number] [place] [address] May, [facility] [place] [facility] [address] [id number] [place] [address]- 0955 17 May, 2012 [facility] [place] [facility] [address] [id number] [address]- 6186 May, [facility] [address] [facility] [id number] [place] [address]- 8582 May, [facility] [address] [facility] [id number] [place] [address]- 6174 May, IMMUNIZATIONS No Known Immunizations SOCIAL HISTORY Never Assessed REASON FOR VISIT Letter request PLAN OF CARE VITAL SIGNS MEDICATIONS Unknown [...]
--- OUTSIDE RECORDS SUMMARY | 2018-06-29 07:21 | XMS REPORT ---
Author Author JARRETT GARY [facility] Address [address] [place] [address] Care Team Providers Care Customer Relations Specialist Name Role Phone GARY FARIAS Unavailable PROBLEMS Type Condition ICD9-CM Code XDB24-CM Code Onset Dates Condition Status SNOMED Code Problem Second trimester Z34.92 Active 86540062 Problem Endometriosis N80.9 Active 982835357 Problem Anxiety F41.9 Active 60480144 Problem Recurrent major depressive disorder, in full remission F33.42 Active 915823248 Problem Missed period N92.6 Active 96593240 ALLERGIES No Information ENCOUNTERS Encounter Location Date Diagnosis [place] [address] [address]- [address] May, [facility] [address] [place] [id number] [place] [address] 24255- 2661 Apr, [place] [address] 88288- 9097 Mar, [facility] [address] [place] [id number] [place] [address] 04288- 5858 Mar, Second trimester Z34.92 and 22 weeks gestation of Z3A.22 [place] [address] [place] [id number] [place] [address] 74710- 4140 Feb, care, subsequent in second trimester Z34.82 [facility] [address] [place] [id number] [place] [address] 19452- 3299 Feb, [facility] [address] 11782- 8077 Feb, [place] [address] 53237- 5535 Feb, Second trimester Z33.1 and 17 weeks gestation of Z3A.17 [facility] [address], [place] [address]- 6711 Feb, care, subsequent in second trimester Z34.82 [facility] [address] [id number] [address]- 0976 Jan, [facility] [address] [place] [id number] [place] [address] 11429- 5768 Jan, [facility] [address] [id number] [address]- 6615 Jan, 12 weeks gestation of Z3A.12 and care, subsequent in first trimester Z34.81 [facility] [address] [place] [id number] [address]- 4905 Jan, [facility] [address] [place] [id number] [place] [address] 05669- 4595 December, [facility] [address] [address] [id number], [place] [address]- 5633 December, Dysuria R30.0 [facility] [address] [place] [id number] [place] [address] 60642- 1742 December, [facility] [address] [place] [address] 56734- 7948 Nov, care, subsequent in first trimester Z34.81 ; 6 weeks gestation of Z3A.01 and Recurrent major depressive disorder, in full remission F33.42 [facility] [address], [place] [address]- 0211 Nov, [facility] [address] [place] [id number] [place] [address] 94609- 2671 Nov, [facility] [address], [place] [address]259 Nov, Missed period N92.6 [facility] [address] [place] [id number] [place] [address] 46487- 5068 Oct, Acute pain of right knee M25.561 and Anxiety F41.9 [facility] [address] 60445- 3617 Aug, [facility] [address] 74307- 6170 Jul, Anxiety F41.9 [facility] [address] 26326- 7159 Jul, New onset seizure R56.9 [facility] [address] 88868- 0207 Jul, Pelvic pain R10.2 [place] [address] 96918- 4623 Apr, Dental abscess K04.7 [place] [address] 86473- 8327 Oct, [facility] [address] 24002- 6599 Nov, [place] [address] 13228- 0542 Oct, Knee pain M25.569 and Nausea & vomiting R11.2 [place] [address] 89524- 1256 Aug, Serous otitis media H65.90 and Dizziness R42 [place] [address] 67574- 5571 Apr, Counseling for control, oral contraceptives V25.01 [place] [address] 06029- 1780 Mar, Dysuria 788.1 and Flank pain, acute 789.09 [facility] [address] 15361- 9656 14 Nov, 2014 [place] [address] [place] [address]- 7175 Nov, [facility] [address] [id number] [place] [address]- 4317 Aug, [facility] [place] [facility] [address] [id number] [place] [address]- 6091 Aug, [facility] [address] [id number] [place] [address]- 0130 Aug, [facility] [place] [facility] [address] [id number] [place] [address]- 7949 Sep, [facility] [place] [facility] [address] [id number] [place] [address]- 8843 Sep, [facility] [place] [facility] [address] [id number] [place] [address]- 7309 Aug, [facility] [place] [facility] [address] [id number] [place] [address]- 0008 Aug, [facility] [place] [facility] [address] [id number] [place] [address]- 9633 Aug, [facility] [place] [facility] [address] [id number] [place] [address]- 0946 Aug, [facility] [place] [facility] [address] [id number] [place] [address]- 1671 Aug, [facility] [place] [facility] [address] [id number] [place] [address]- 0799 Aug, [facility] [place] [facility] [address] [id number] [place] [address]- 8635 Aug, [facility] [place] [facility] [address] [id number] [place] [address]- 8290 Aug, [facility] [place] [facility] [address] [id number] [place] [address]- 3840 Jul, [facility] [place] [facility] [address] [id number] [place] [address]- 2942 Jul, [facility] [place] [facility] [address] [id number] [place] [address]- 8788 Jul, [facility] [place] [facility] [address] [id number] [place] 7618 Jul, [facility] [place] [facility] [address] [id number] [place] [address]- 4796 Jun, [facility] [place] [facility] [address] [id number] [place] [address]- 1631 Jun, [facility] [address] [id number] [place] [address]- 4541 Jun, [facility] [place] [facility] [address] [id number] [place] [address]- 6404 Jun, [facility] [address] [id number] [place] [address]- 7341 Mar, [facility] [address] [id number] [place] [address]- 8931 Nov, [facility] [place] [facility] [address] [id number] [place] [address]- 0976 Jun, [facility] [place] [facility] [address] [id number] [place] [address]- 7534 Jun, [facility] [place] [facility] [address] [id number] [place] [address]- 2799 May, [facility] [place] [facility] [address] [id number], [place] [address]- 5102 31 May, 2012 [facility] [place] [facility] [address] [id number] [place] [address]351 May, [facility] [place] [facility] [address] [id number] [place] 9620 May, [facility] [place] [facility] [address] [id number] [place] [address]- 2336 17 May, 2012 [facility] [place] [facility] [address] [id number], [place] [address]- 3306 May, [facility] [address] [facility] [id number] [place] [address]- 2237 May, [facility] [address] [facility] [id number], [place] [address]- 5896 May, IMMUNIZATIONS No Known Immunizations SOCIAL HISTORY Never Assessed REASON FOR VISIT OB f/u 4 wk-awoods PLAN OF CARE Activity Details Follow Up 4 Weeks, 4 Weeks Reason: VITAL SIGNS Height 65 in 2018-03-20 Weight 172.4 lbs 2018-03-20 Temperature 98.8 degrees Fahrenheit 2018-03-20 Heart Rate 86 bpm 2018-03-20 Respiratory Rate 20 2018-03-20 BMI 28.689 kg/m2 2018-03-20 Blood pressure systolic 104 mmHg 2018-03-20 Blood pressure diastolic 58 mmHg 2018-03-20 MEDICATIONS Medication Instructions Dosage Frequency Start Date End Date Duration Status tylenol Active Vitamins - (Dis) Active RESULTS Name Result Date Reference Range UA OB DIP (IN HOUSE) 2018-03-20 Glucose neg Protein neg PROCEDURES Procedure Date Ordered Result Body Site URINE-NO MICRO Mar 20, 2018 INSTRUCTIONS MEDICATIONS ADMINISTERED No Known Medications MEDICAL (GENERAL) HISTORY Type Description Date Medical History Kidney Stones Medical History Asthma Medical History Endometriosis Medical History PCOS Surgical History lithotripsy 2006 Surgical History 2013 Surgical History laparotomy with appendectomy & dilatation and curettage 03/17 Hospitalization History surgery Hospitalization History childbirth
--- OUTSIDE RECORDS SUMMARY | 2018-06-29 07:22 | XMS REPORT ---
Author Author JARRETT GARY [facility] Address [address] [place] [address] Care Team Providers Care Hemmer Chainstitch Name Role Phone GARY FARIAS Unavailable PROBLEMS Type Condition ICD9-CM Code FDW41-LP Code Onset Dates Condition Status SNOMED Code Problem Second trimester Z34.92 Active 14292402 Problem Endometriosis N80.9 Active 992353117 Problem Anxiety F41.9 Active 87242781 Problem Recurrent major depressive disorder, in full remission F33.42 Active 420512016 Problem Missed period N92.6 Active 67170144 ALLERGIES No Information ENCOUNTERS Encounter Location Date Diagnosis [place] [address] [address] Apr, [place] [address] [place] [id number] [place] [address]54- 6074 Mar, [place] [address] [address] Mar, Second trimester Z34.92 and 22 weeks gestation of Z3A.22 [place] [address] [place] [id number] [place] [address] 12925- 5559 Feb, care, subsequent in second trimester Z34.82 [place] [address] [place] [id number] [place] [address] 33809- 0800 Feb, [place] [address] [place] [id number] [place] [address] 59704- 3185 Feb, [place] [address] [place] [id number] [place] [address] 00567- 2209 Feb, Second trimester Z33.1 and 17 weeks gestation of Z3A.17 [place] [address] [place] [id number] [place] [address] 20440- 4310 Feb, care, subsequent in second trimester Z34.82 [facility] [address] [place] [id number] [place] [address] 01043- 2586 Jan, [facility] [address] [place] [id number] [place] [address] 17975- 3826 Jan, [facility] [address] [place] [id number] [place] [address] 36316- 0690 Jan, 12 weeks gestation of Z3A.12 and care, subsequent in first trimester Z34.81 [facility] [address] [place] [id number] [place] [address] 56873- 3308 Jan, [facility] [address] [place] [id number] [place] [address] 52230- 7628 December, [facility] [address] [place] [id number] [place] [address] 42400- 6069 December, Dysuria R30.0 [facility] [address] [place] [id number] [place] [address] 38070- 9561 December, [facility] [address] [place] [id number] [place] [address] 51240- 5979 Nov, care, subsequent in first trimester Z34.81 ; 6 weeks gestation of Z3A.01 and Recurrent major depressive disorder, in full remission F33.42 [facility] [address] [place] [id number] [place] [address] 55886- 5750 Nov, [facility] [id number] [place] [address] 76825- 0603 Nov, [facility] [address] [place] [id number] [place] [address]79 -7045 Nov, Missed period N92.6 [facility] [address] [place] [id number] [place] [address] 00195- 6737 Oct, Acute pain of right knee M25.561 and Anxiety F41.9 [facility] [address] [place] [id number] [place] [address] 92990- 3151 Aug, [facility] [address] 58806- 0541 Jul, Anxiety F41.9 [facility] [address] 81783- 0039 Jul, New onset seizure R56.9 [facility] [address] 13429- 4626 Jul, Pelvic pain R10.2 [place] [address] 55698- 3867 29 Apr, 2017 Dental abscess K04.7 [facility] [address] 58485- 0031 Oct, [place] [address] 78976- 3842 Nov, [facility] [address] 21404- 8528 Oct, Knee pain M25.569 and Nausea & vomiting R11.2 [place] [address] 12342- 5044 18 Aug, 2015 Serous otitis media H65.90 and Dizziness R42 [place] [address] 21926- 2074 28 Apr, 2015 Counseling for control, oral contraceptives V25.01 [facility] [address] [place] [id number] [place] [address] 34720- 5960 12 Mar, 2015 Dysuria 788.1 and Flank pain, acute 789.09 [place] [address] 73251- 3034 14 Nov, 2014 [facility] [address] 88804- 1377 13 Nov, 2014 [facility] [address] [place] [address] Aug, [facility] [address] [id number] [place] [address]- 4763 Aug, [facility] [place] [facility] [address] [id number] [place] [address]- 7740 Aug, [facility] [address] [id number] [place] [address]- 6795 Sep, [facility] [place] [facility] [address] [id number] [place] [address]- 1065 Sep, [facility] [place] [facility] [address] [id number] [place] [address]- 2175 Aug, [facility] [place] [facility] [address] [id number] [place] [address]- 3740 Aug, [facility] [address] [id number] [place] [address]- 0340 Aug, [facility] [address] [id number] [place] [address]- 0667 Aug, [facility] [place] [facility] [address] [id number] [place] [address]- 7140 Aug, [facility] [place] [facility] [address] [id number] [place] [address]- 4826 Aug, [facility] [place] [facility] [address] [id number] [place] [address]- 1834 Aug, [facility] [place] [facility] [address] [id number] [place] [address]- 7737 Aug, [facility] [place] [facility] [address] [id number] [place] [address]- 3775 Jul, [facility] [place] [facility] [address] [id number] [place] [address]- 8269 Jul, [facility] [place] [facility] [address] [id number] [place] [address]- 5911 Jul, [facility] [place] [facility] [address] [id number] [place] [address]- 3768 Jul, [facility] [place] [facility] [address] [id number] [place] [address]- 6021 Jun, [facility] [place] [facility] [address] [id number] [place] [address]- 3908 Jun, [facility] [place] [facility] [address] [id number] [place] [address]- 1031 Jun, [facility] [place] [facility] [address] [id number] [place] [address]- 3727 Jun, [facility] [place] [facility] [address] [id number] [place] [address]- 0912 Mar, [facility] [address] [id number] [place] [address]- 3989 Nov, [facility] [address] [id number] [place] [address]- 3403 Jun, [facility] [place] [facility] [address] [id number] [place] [address]- 5265 Jun, [facility] [place] [facility] [address] [id number] [place] [address] May, [facility] [place] [facility] [address] [id number] [place] [address]- 7392 May, [facility] [place] [facility] [address] [id number], [place] [address]- 0168 May, [facility] [place] [facility] [address] [id number] [place] [address] May, [facility] [place] [facility] [address] [id number] [place] [address]- 5514 May, [facility] [place] [facility] [address] [id number] [place] [address]- 4318 May, [facility] [place] [facility] [address] [id number], [place] [address]- 4216 May, [facility] [address] [facility] [id number] [place] [address]- 5286 May, IMMUNIZATIONS No Known Immunizations SOCIAL HISTORY Never Assessed REASON FOR VISIT OB f/u-awoods PLAN OF CARE Activity Details Follow Up 4 Weeks, 4 Weeks Reason: VITAL SIGNS Height 65 in 2018-02-13 Weight 163.2 lbs 2018-02-13 Temperature 97.9 degrees Fahrenheit 2018-02-13 Heart Rate 82 bpm 2018-02-13 Respiratory Rate 20 2018-02-13 BMI 27.158 kg/m2 2018-02-13 Blood pressure systolic 101 mmHg 2018-02-13 Blood pressure diastolic 60 mmHg 2018-02-13 MEDICATIONS Medication Instructions Dosage Frequency Start Date End Date Duration Status tylenol Active Vitamins - (Dis) Active Diclegis 10-10 MG Orally Once a day 2 tablets at bedtime on an empty stomach 24h December, 30 day(s) Not-Taking RESULTS No Results PROCEDURES Procedure Date Ordered Result Body Site URINE-NO MICRO February 13, 2018 CHEMILUMINESCENT ASSAY February 13, 2018 VENIPUNCT, ROUTINE* February 13, 2018 INHIBIN A February 13, 2018 ALPHA-FETOPROTEIN, SERUM February 13, 2018 CHORIONIC GONADOTROPIN TEST February 13, 2018 ASSAY OF ESTRIOL February 13, 2018 INSTRUCTIONS MEDICATIONS ADMINISTERED No Known Medications MEDICAL (GENERAL) HISTORY Type Description Date Medical History Kidney Stones Medical History Asthma Medical History Endometriosis Medical History PCOS Surgical History lithotripsy 2006 Surgical History 2013 Surgical History laparotomy with appendectomy & dilatation and curettage 03/17 Hospitalization History surgery Hospitalization History childbirth
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
[2018-06-29] MEDS ORDERED: metroNIDAZOLE 500MG/100ML IVPB 100 ML IV ONE (07:30)
[2018-06-29] MEDS ORDERED: ceFAZolin 2 GM IV Premixed 50 ML IV ONE (07:30)
[2018-06-29] MEDS ORDERED: CITRIC ACID/SOB CIT (BICITRA) 30 ML UDC PO ONE (07:45)
[2018-06-29] MEDS ORDERED: FAMOTIDINE 20MG/2ML IV (PEPCID) IV ONE (07:45)
[2018-06-29] MEDS ORDERED: METOCLOPRAMIDE INJ 10 MG/2 ML (REGLAN) IV ONE (07:45)
[2018-06-29] MEDS ORDERED: CATHETER FLUSH 10 ML SYR IV PRN (07:45)
[2018-06-29] MEDS: LACTATED RINGERS 1,000 ML IV PRN ×2 (07:50→09:15)
[2018-06-29 08:00] LABS: BASOPHILS % (AUTO) 0 % (0-10); EOSINOPHILS # (AUTO) 0.1 10^3/uL (0.0-0.3); EOSINOPHILS % (AUTO) 1 % (0-10); HEMATOCRIT 32 % (35-52); HEMOGLOBIN 10.1 G/DL (11.5-16.0); LYMPHOCYTES # (AUTO) 1.5 X 10^3 (1.0-4.0); LYMPHOCYTES % (AUTO) 15 % (12-44); MEAN CORPUSCULAR HEMOGLOBIN 28 PG (25-34); MEAN CORPUSCULAR HGB CONC 32 G/DL (32-36); MEAN CORPUSCULAR VOLUME 87 FL (80-99); MEAN PLATELET VOLUME 11.4 FL (7.4-10.4); MONOCYTES # (AUTO) 0.7 X 10^3 (0.0-1.0); MONOCYTES % (AUTO) 7 % (0-12); NEUTROPHILS # (AUTO) 7.7 X 10^3 (1.8-7.8); NEUTROPHILS % (AUTO) 76 % (42-75); PLATELET COUNT 185 10^3/uL (130-400); RED BLOOD COUNT 3.64 10^6/uL (4.35-5.85); RED CELL DISTRIBUTION WIDTH 12.6 % (10.0-14.5); WHITE BLOOD COUNT 10.1 10^3/uL (4.3-11.0)
[2018-06-29] MEDS ORDERED: CLINDAMYCIN 900 MG/50 ML IVPB 50 ML IV ONE ×2 (09:25→09:30)
[2018-06-29] MEDS ORDERED: FLU QUADRIvalent (5+ YOA) 2018-2019 (AFLURIA) 0.5 ML IM ONE (09:30)
[2018-06-29] MEDS ORDERED: fentaNYL INJECTION 100 MCG/2 ML AMP ONE (09:31)
[2018-06-29] MEDS ORDERED: BUPIVACAINE SPINAL 0.75% (SENSORCAINE) 2 ML AMP ONE (09:34)
[2018-06-29] MEDS ORDERED: LIDOCAINE PF 2% 5 ML (XYLOCAINE) VIAL ONE (09:34)
[2018-06-29] MEDS ORDERED: OXYTOCIN/NORMAL SALINE 500 ML IV SCH (09:37)
--- NOTE | 2018-06-29 09:37 | History & Physical ---
History and Physical Date Seen by Provider: Jun 29, 2018 Time Seen by Provider: 09:35 This patient is a 27-year-old 1 white female with an EDC of 12 1418 putting her now at 37 weeks gestation. She presents for repeat delivery at 37 weeks gestation. She was noted on ultrasound 3 days ago to have an JORGITO of 33 which was a very significant decrease from her level at 29 weeks gestation. She is not reporting any vaginal discharge or bleeding. She denies contraction. testing on that date was reassuring however with a low JORGITO decision made to go ahead with repeat . Allergies are to penicillin which causes hives the patient masses it also causes anaphylaxis Medications are vitamins Medical social and surgical histories are present HEENT exam is normal Neck supple no lymphadenopathy no thyromegaly soft nontender nondistended Extremities no clubbing cyanosis. The is no Homans sign. Pelvic exam is deferred Laboratory Tests 06/29/18 07:50 Assessment and plan 37 week gestation previous and was oligohydramnios. Plan is for repeat delivery. 37 week gestation with previous and severe oligohydramnios Allergies and Home Medications Allergies Coded Allergies: Penicillins (Unverified Allergy, Severe, ANAPHYLAXIS, 06/27/18) Home Medications [id number]/Iron Fumarate/FA/Dss 1 Each Tablet, 1 EACH PO DAILY, (Reported) Patient Home Medication List Home Medication List Reviewed: Yes Clinical Quality Measures DVT/VTE Risk/Contraindication: Risk Factor Score Per Nursin RFS Level Per Nursing on Admit: 1=Low/No VTE PPX JAXON DUNLAP MD Jun 29, 2018 9:37 am
[2018-06-29] MEDS ORDERED: IBUP-1780 PO ×2 (09:42)
[2018-06-29] MEDS ORDERED: DOCU100C37 PO ×2 (09:42)
[2018-06-29] MEDS ORDERED: OXYC1TAB12 PO ×2 (09:42)
--- NOTE | 2018-06-29 09:43 | Discharge Instructions ---
Discharge Instructions Discharge Medications New, Converted or Re-Newed RX: RX on Chart Patient Instructions Patient Instructions: As directed Return to The Hospital For: As directed Activity & Diet Discharge Diet: No Restrictions Activity as Tolerated: No Orders-Post D/C & Referrals Follow Up Appt: RTC 1 week for incision check. Call to make follow up appt. for patient in 4 weeks. Wound Care: Remove yasmani, apply benzoin and steri strips. Activity Per routine post instructions. Please call in RX to patient pharmacy. Diet as tolerated Patient may shower or tub bathe as desired. Continue home meds JAXON DUNLAP MD Jun 29, 2018 9:43 am
[2018-06-29] MEDS ORDERED: PROMETHAZINE INJ 25 MG/ML (PHENERGAN) AMP IM PRN (09:45)
[2018-06-29] MEDS ORDERED: D5 LR IV SOLUTION 1,000 ML IV ONE (09:45)
[2018-06-29] MEDS ORDERED: ONDANSETRON 4 MG/2 ML (SDV) Z0FRAN IVP PRN (09:45)
[2018-06-29] MEDS ORDERED: MEASLES,MUMPS,RUBELLA 1 EA INJ SC ONE (09:45)
[2018-06-29] MEDS ORDERED: TETANUS,DIPTH,PERTUSS P/F (BOOSTRIX) 0.5 ML VIAL IM ONE (09:45)
[2018-06-29] MEDS ORDERED: MEPERIDINE (DEMEROL) INJ 100 MG/ML IM PRN (09:45)
[2018-06-29] MEDS ORDERED: KETAMINE HCL 100 MG/ML 5 ML VIAL ONE (09:50)
[2018-06-29] MEDS ORDERED: ONDANSETRON 4 MG/2 ML (SDV) Z0FRAN ONE (10:15)
[2018-06-29] MEDS ORDERED: BUPIVACAINE 0.5% 30 ML (SENSORCAINE) VIAL ONE (11:06)
[2018-06-29] MEDS: KETOROLAC 30 MG/ML VIAL IVP SCH ×2 (12:35→18:55)
[2018-06-29 12:40] VITALS: BP 122/70
[2018-06-29 16:20] VITALS: BP 101/57
[2018-06-29] MEDS: oxyCODONE/APAP 10/325MG (PERCOCET 10) TABLET PO PRN (16:20)
--- NOTE | 2018-06-29 18:27 | OPERATIVE REPORT ---
DATE OF SERVICE: 06/29/2018 PREOPERATIVE DIAGNOSIS: Term at 37 weeks gestation with severe oligohydramnios and previous section. POSTOPERATIVE DIAGNOSIS: Term at 37 weeks gestation with severe oligohydramnios and previous section. OPERATIVE PROCEDURE: Repeat low transverse delivery of a viable female infant with Apgars of 8 and 8 at 1 and 5 minutes respectively, weight of 6 pounds and 12 ounces. Cord blood pH was 7.3 and a time of 10:12. OPERATIVE DESCRIPTION: With the patient in the supine position under satisfactory spinal analgesia, she was prepped and draped in usual fashion for abdominal surgery. Cai catheter was placed in the urinary bladder and left to dependent drainage. A repeat Pfannenstiel incision was made through the skin by removing the patient's previous Pfannenstiel incisional scar. The abdomen was then entered in the usual manner. Bladder retractor placed into position and clean scalpel was used to make a 4 cm hysterotomy incision transversely across the lower uterine segment that was extended by blunt dissection as well. A small amount of amniotic fluid was released and that fluid was clear. The uterine incision was extended bluntly and then Moreno forceps were applied to facilitate the delivery of a vigorous viable female infant with Apgars as noted above and other stats as noted above. The infant was bulb suctioned on delivery of the head and again on completion of delivery. The umbilical cord was doubly clamped and cut and infant passed to the pediatric nurse in attendance for delivery. Cord bloods were obtained. The placenta delivered spontaneously Mcgee. It was normal with a 3-vessel cord. The uterus was exteriorized and interior wiped clean with a wet laparotomy sponge. Uterine incision was then closed with a running locked suture of 2-0 Vicryl. Hemostasis was complete. The uterus was returned to the abdominal cavity. It was noted there were numerous subserosal uterine fibroids of up to a 1.5 to 2 cm on the surface of the uterus. With the uterus restored to its original position, all blood clot and debris evacuated. The anterior parietal peritoneum was closed with running suture of 2-0 Vicryl. Rectus muscles were closed with that same suture. Rectus fascia was closed with 2-0 Vicryl, subcutaneous tissue with 2-0 Vicryl and then the skin was stapled. Sponge and needle counts were correct on completion of the procedure. Estimated blood loss was around 350 mL. The patient tolerated the procedure well and was transferred to the recovery room in stable condition. The had been taken stable to the full term nursery. Job ID: [id number] DocumentID: [id number] Dictated Date: 06/29/2018 10:33:46 Stockroom Supervisor Date: 06/29/2018 18:27:00 Dictated By: JAXON DUNLAP MD
[2018-06-29 20:39] VITALS: BP 110/59
[2018-06-29] MEDS: DOCUSATE SODIUM 100 MG (COLACE) CAP PO SCH (20:39)
[2018-06-30] MEDS ORDERED: IBUPROFEN 800 MG (MOTRIN) TAB PO ONE (00:07)
[2018-06-30 00:09] VITALS: BP 108/70
[2018-06-30] MEDS: IBUPROFEN 800 MG (MOTRIN) TAB PO SCH ×5 (00:09→23:57)
[2018-06-30] MEDS: oxyCODONE/APAP 10/325MG (PERCOCET 10) TABLET PO PRN ×4 (00:09→15:10)
[2018-06-30 04:45] VITALS: BP 104/63
[2018-06-30] MEDS: KETOROLAC 30 MG/ML VIAL IVP SCH ×2 (04:55→04:58)
--- NOTE | 2018-06-30 08:32 | Progress Note-Standard ---
Standard Progress Note Progress Notes/Assess & Plan Date Seen by a Provider: Jun 30, 2018 Time Seen by a Provider: 08:30 Progress/Assessment & Plan This patient is without complaint. She is ambulating, voiding, tolerating oral intake well has good pain control. Patient denies chest pain, denies shortness of breath, denies nausea vomiting, denies headache. Vital Signs 06/30/18 04:45 Temp 96.6 Pulse 91 Resp 18 B/P (MAP) 104/63 (77) Pulse Ox 98 O2 Delivery Room Air Vital signs are stable. Patient is afebrile. The abdomen is benign. The surgical incision is clean dry and intact. Extremities show no clubbing or cyanosis. There is no Homans sign. Assessment and plan postoperative day number 1 status post repeat delivery doing well. Plan is for routine convalescence care today and consider discharge home tomorrow JAXON DUNLAP MD Jun 30, 2018 8:32 am
[2018-06-30 08:40] VITALS: BP 107/65
[2018-06-30] MEDS: DOCUSATE SODIUM 100 MG (COLACE) CAP PO SCH ×2 (08:53→20:54)
[2018-06-30 13:10] VITALS: BP 99/62
[2018-06-30] MEDS: HYDROCORTISONE 2.5% CREAM (ANUSOL-HC) 30 GM TOP SCH ×2 (13:18→21:33)
--- NOTE | 2018-06-30 18:45 | Anesthesia-Regional Post-Op ---
Regional Patient Condition Mental Status: Alert, Oriented x3 Circulation: Same as Pre-Op Headache: Absent Sensation: Full Recovery Motor Block: Absent Post Op Complications Complications None Follow Up Care/Instructions Patient Instructions None needed. Anesthesia/Patient Condition Patient is doing well, no complaints, stable vital signs, no apparent adverse anesthesia problems. No complications reported per nursing. TERRIE JIMENEZ CRNA Jun 30, 2018 18:45
[2018-06-30 19:25] VITALS: BP 113/75
[2018-07-01 02:00] VITALS: BP 103/71
[2018-07-01] MEDS: IBUPROFEN 800 MG (MOTRIN) TAB PO SCH ×2 (06:13→11:20)
--- NOTE | 2018-07-01 08:21 | Progress Note-Standard ---
Standard Progress Note Progress Notes/Assess & Plan Date Seen by a Provider: Jul 01, 2018 Time Seen by a Provider: 08:20 Progress/Assessment & Plan This patient is without complaint. She is ambulating, voiding, tolerating oral intake well has good pain control. Patient denies chest pain, denies shortness of breath, denies nausea vomiting, denies headache. Vital Signs 06/30/18 04:45 Temp 96.6 Pulse 91 Resp 18 B/P (MAP) 104/63 (77) Pulse Ox 98 O2 Delivery Room Air Vital signs are stable. Patient is afebrile. The abdomen is benign. The surgical incision is clean dry and intact. Extremities show no clubbing or cyanosis. There is no Homans sign. Assessment and plan postoperative day number 1 status post repeat delivery doing well. Plan is for routine convalescence care today and consider discharge home tomorrow July 01, 2018 Patient without complaint. She is ambulating, voiding, tolerating oral intake well, has good pain control, and is requesting discharge home. Vital Signs 07/01/18 02:00 Temp 97.7 Pulse 83 Resp 18 B/P (MAP) 103/71 (82) Pulse Ox 98 O2 Delivery Room Air Vital signs are stable. Patient is afebrile. Abdomen is benign. The surgical incision is clean dry and intact. Extremities show no clubbing cyanosis. There is no Homans sign. Assessment and plan postoperative day number 2 status post repeat delivery at 37 weeks gestation due to severe oligohydramnios. Patient is doing well and will be discharged home with follow-up in clinic. Final Diagnosis 37 week repeat delivery JAXON DUNLAP MD Jul 01, 2018 8:21 am
[2018-07-01] MEDS: DOCUSATE SODIUM 100 MG (COLACE) CAP PO SCH (08:57)
[2018-07-01] MEDS: oxyCODONE/APAP 10/325MG (PERCOCET 10) TABLET PO PRN (08:58)
[2018-07-01 09:00] VITALS: BP 116/70
== END 2018-07-01 11:50 | disposition home or self-care (01) | DRG 788 ==
LOC: LDRP 07:02
PROVIDERS: ADMIT Obstetrics & Gynecology; ATTEND Obstetrics & Gynecology
PROC: 10D00Z1 Extraction of Products of Conception, Low, Open Approach (ICD-10-PCS; principal; 2018-06-29 09:39)
DX: O41.03X0 Oligohydramnios, third trimester, not applicable or unspecified (principal); O34.211 Maternal care for low transverse scar from previous cesarean delivery; Z3A.37 37 weeks gestation of pregnancy; Z37.0 Single live birth
CPT/HCPCS: 36415; 85025; 86850; 86900; 86901; 87081; 90471; 94664

== ENCOUNTER 2018-12-17 12:59 | Emergency (ER) | payer MEDICAID ==
[~2018-12-17] VITALS: Ht 167.6 cm; Wt 70.8 kg
[~2018-12-17 12:59] MED LIST changes: +DOCU100C37 PO; -HYDR-3454 PO; +HYDR-3455 PO; +IBUP-1780 PO
--- NOTE | 2018-12-17 13:27 | ED Back Pain ---
General Chief Complaint: Back Problems Stated Complaint: BACK PAIN Nursing Triage Note: PT STATES TAKING TRASH OUT MONDAY AND ONSET OF LOW BACK PAIN. PT DENIES LOSS OF BOWEL OR BLADDER. Nursing Sepsis Screen: No Definite Risk Source of Information: Patient Exam Limitations: No Limitations History of Present Illness Date Seen by Provider: December 17, 2018 Time Seen by Provider: 13:25 Initial Comments To ER complaint by her 2 children and mother with reports of left lower back pain present for about 48 hours that began after taking the trash out. She had some immediate pain after taking out the trash. No fevers or chills, no falls or other trauma, no loss of sensation of genitals or loss of control of bowel or bladder. She does not have any urinary frequency but does have some burning upon urination. No nausea. Pain does not radiate. Location: Lumbar Spine, Paraspinous Muscles Timing/Duration: 1-2 Days Severity: Moderate Pain/Injury Location: Back Associated Symptoms: lower back pain Allergies and Home Medications Allergies Coded Allergies: Penicillins (Unverified Allergy, Severe, ANAPHYLAXIS, 06/27/18) Home Medications Docusate Sodium 100 Mg Capsule, 100 MG PO BID Prescribed by: JAXON HARDY on 06/29/18 0942 Ibuprofen 800 Mg Tablet, 800 MG PO Q6H Prescribed by: JAXON HARDY on 06/29/18 0942 Methocarbamol 750 Mg Tablet, 750 MG PO Q4H PRN for PAIN-MODERATE TO SEVERE Prescribed by: FABIO PENDLETON on 12/17/18 1329 Naproxen 500 Mg Tablet, 500 MG PO BID PRN for PAIN-MODERATE TO SEVERE Prescribed by: FABIO PENDLETON on 12/17/18 1329 Oxycodone HCl/Acetaminophen 1 Each Tablet, 1 TAB PO Q4HR PRN for PAIN-MODERATE TO SEVERE Prescribed by: JAXON HARDY on 06/29/18 0942 Yca356/Iron Fumarate/FA/Dss 1 Each Tablet, 1 EACH PO DAILY, (Reported) Patient Home Medication List Home Medication List Reviewed: Yes Review of Systems Constitutional: see HPI; No chills, No fever EENTM: see HPI Respiratory: no symptoms reported Cardiovascular: no symptoms reported Genitourinary: see HPI, dysuria Musculoskeletal: see HPI, back pain Skin: no symptoms reported Psychiatric/Neurological: No Symptoms Reported Past Nsssrpg-Doeanl-Gyljlp Hx Patient Social History Alcohol Use: Denies Use Alcohol Beverage of Choice: Beer Recreational Drug Use: No Smoking Status: Never a Smoker 2nd Hand Smoke Exposure: No Recent Foreign Travel: No Contact w/Someone Who Travel: No Recent Infectious Disease Expo: No Recent Hopitalizations: No Physical Abuse: No Sexual Abuse: No Mistreated: No Fear: No Immunizations Up To Date Tetanus Booster (TDap): Less than 5yrs PED Vaccines UTD: No Date of Influenza Vaccine: May 22, 2017 Seasonal Allergies Seasonal Allergies: Yes Past Medical History Surgeries: Yes (LITHOTRIPSY AND STONE BASKET REMOVAL) Section, Renal Respiratory: Yes Asthma Currently Using CPAP: No Currently Using BIPAP: No Cardiac: No Neurological: Yes (HX SEIZURE-2018 (STRESS INDUCED)) Reproductive Disorders: Yes (DUB ) Female Reproductive Disorders: Menstrual Problems, Endometriosis, Polycystic Ovarian Dis Sexually Transmitted Disease: No HIV/AIDS: Yes Genitourinary: Yes Kidney Stones Gastrointestinal: Yes Gastroesophageal Reflux Musculoskeletal: No Endocrine: No HEENT: No Loss of Vision: Denies Hearing Impairment: Denies Cancer: No Psychosocial: Yes Anxiety, Depression Integumentary: No Blood Disorders: No Adverse Reaction/Blood Tranf: No (N/A) Family Medical History No Pertinent Family Hx Physical Exam Vital Signs Vital Signs - First Documented 12/17/18 13:05 Temp 97.6 Pulse 81 Resp 16 B/P (MAP) 105/65 (78) Pulse Ox 98 O2 Delivery Room Air Capillary Refill : Less Than 3 Seconds Height, Weight, BMI Height: 5'6.00" Weight: 156lbs. 2.0oz. 70.966801ix; 30.5 BMI Method:Stated General Appearance: No Apparent Distress, WD/WN Neck: Full Range of Motion, Normal Inspection Respiratory: Normal Breath Sounds, No Accessory Muscle Use, No Respiratory Distress Back: Normal Inspection, Other (tenderness to palpation over the left sacroiliac joint) Neurologic/Psychiatric: Alert, Oriented x3 Skin: Normal Color, Warm/Dry Progress/Results/Core Measures Results/Orders Lab Results Laboratory Tests Test 12/17/18 13:30 Range/Units Urine Color YELLOW Urine Clarity CLEAR Urine pH 5 5-9 Urine Specific [place] 1.020 1.016-1.022 Urine Protein NEGATIVE NEGATIVE Urine Glucose (UA) NEGATIVE NEGATIVE Urine Ketones NEGATIVE NEGATIVE Urine Nitrite NEGATIVE NEGATIVE Urine Bilirubin NEGATIVE NEGATIVE Urine Urobilinogen NORMAL NORMAL MG/DL Urine Leukocyte Esterase NEGATIVE NEGATIVE Urine RBC (Auto) 1+ H NEGATIVE Urine RBC RARE /HPF Urine WBC 2-5 /HPF Urine Squamous Epithelial Cells 5-10 /HPF Urine Crystals NONE /LPF Urine Bacteria FEW H /HPF Urine Casts NONE /LPF Urine Mucus SMALL H /LPF Urine Culture Indicated NO My Orders Orders - FABIO PENDLETON APRN Ua Culture If Indicated (12/17/18 13:23) Urine Bedside (12/17/18 13:23) Vital Signs/I&O 12/17/18 12/17/18 13:05 14:15 Temp 97.6 97.6 Pulse 81 81 Resp 16 18 B/P (MAP) 105/65 (78) 105/65 (78) Pulse Ox 98 99 O2 Delivery Room Air Blood Pressure Mean: 78 Departure Impression Primary Impression: Low back pain Qualified Codes: M54.5 - Low back pain Disposition: 01 HOME, SELF-CARE Condition: Stable Departure-Patient Inst. Decision time for Depature: 13:27 Referrals: [facility] (PCP/Family) Primary Care Physician Patient Instructions: Low Back Pain (DC) Add. Discharge Instructions: 1. Return to ER for any concerns 2. Follow-up with your doctor next week 3. Medication as directed. No lifting for about one week. All discharge instructions reviewed with patient and/or family. Voiced understanding. Scripts Naproxen (Naprosyn) 500 Mg Tablet 500 MG PO BID PRN for PAIN-MODERATE TO SEVERE, #30 TAB 0 Refills Prov: FABIO PENDLETON APRN 12/17/18 Methocarbamol (Robaxin-750) 750 Mg Tablet 750 MG PO Q4H PRN for PAIN-MODERATE TO SEVERE, #14 TAB Prov: FABIO PENDLETON APRN 12/17/18 FABIO PENDLETON APRN December 17, 2018 13:27
[2018-12-17] MEDS ORDERED: METH-313 PO (13:29)
[2018-12-17] MEDS ORDERED: NAPR-1071 PO (13:29)
[2018-12-17 13:44] LABS: BILIRUBIN,URINE NEGATIVE (NEGATIVE); CLARITY,URINE CLEAR; COLOR,URINE YELLOW; GLUCOSE, URINE (UA) NEGATIVE (NEGATIVE); KETONES,URINE NEGATIVE (NEGATIVE); LEUKOCYTE ESTERASE ,URINE NEGATIVE (NEGATIVE); NITRITE,URINE NEGATIVE (NEGATIVE); PH,URINE 5 (5-9); PROTEIN,URINE NEGATIVE (NEGATIVE); UROBILINOGEN,URINE NORMAL (NORMAL)
[2018-12-17 13:57] LABS: BACTERIA,URINE FEW /HPF; RBC,URINE RARE /HPF
[2018-12-17 14:15] VITALS: BP 105/65
--- OUTSIDE RECORDS SUMMARY | 2018-12-17 14:49 | XMS REPORT ---
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 Name Role Phone Migration, Doctor Unavailable Unavailable PROBLEMS Type Condition ICD9-CM Code GVH22-JB Code Onset Dates Condition Status SNOMED Code Problem Endometriosis N80.9 Active 083498962 Problem Second trimester Z34.92 Active 58833779 Problem Anxiety F41.9 Active 96050602 Problem Missed period N92.6 Active 56029892 Problem Recurrent major depressive disorder, in full remission F33.42 Active 038990289 ALLERGIES No Information ENCOUNTERS Encounter Location Date Diagnosis [facility] [id number] [place] [address]- [address]17 Apr, [facility] [id number] [place] [address] 69696- 7665 Mar, [facility] [id number] [place] [address] 89589- 3663 Mar, Second trimester Z34.92 and 22 weeks gestation of Z3A.22 [facility] [id number] [place] [address] 35305- 0247 Feb, care, subsequent in second trimester Z34.82 [facility] [id number] [place] [address] 26099- 3117 Feb, [facility] [id number] [place] [address] 73590- 8993 Feb, [facility] [id number] [place] [address] 09789- 8279 Feb, Second trimester Z33.1 and 17 weeks gestation of Z3A.17 [facility] [id number] [place] [address] 01886- 7664 05 Feb, 2018 care, subsequent in second trimester Z34.82 [place] [id number], [place] [address] Jan, [facility] [id number] [place] [address] 80237- 1238 Jan, [facility] [address], [place] [address] Jan, 12 weeks gestation of Z3A.12 and care, subsequent in first trimester Z34.81 [facility] [address], [place] [address] Jan, [facility] [id number] [place] [address] 60664- 3105 December, [facility] [id number] [place] [address] 26833- 9468 December, Dysuria R30.0 [facility] [id number] [place] [address] 68566- 0985 December, [facility] [id number] [place] [address] 66953- 9725 Nov, care, subsequent in first trimester Z34.81 ; 6 weeks gestation of Z3A.01 and Recurrent major depressive disorder, in full remission F33.42 [facility] [address], [place] [address] Nov, [facility] [id number] [place] [address] 31905- 6442 Nov, [facility] [address], [place] [address] Nov, Missed period N92.6 [facility] [id number] [place] [address] 18695- 9778 Oct, Acute pain of right knee M25.561 and Anxiety F41.9 [facility] [id number] [place] [address] 55209- 0675 Aug, [facility] [id number] [place] [address] 98230- 4372 Jul, Anxiety F41.9 [facility] [address] [address]994- 7145 Jul, New onset seizure R56.9 [facility] [id number] [place] [address] 38554- 3425 Jul, Pelvic pain R10.2 [facility] [address] 8[address]99- 3741 29 Apr, 2017 Dental abscess K04.7 [place] [address] [address]- 49[address] Oct, [facility] [id number] [place] [address] 44168- 2452 Nov, [facility] [address] 07333- 2840 Oct, Knee pain M25.569 and Nausea & vomiting R11.2 [place] [id number] [place] [address] 56914- 8692 Aug, Serous otitis media H65.90 and Dizziness R42 [facility] [id number] [place] [address] 04145- 7616 28 Apr, 2015 Counseling for control, oral contraceptives V25.01 [facility] [id number] [place] [address] 13222- 0335 Mar, Dysuria 788.1 and Flank pain, acute 789.09 [facility] [id number] [place] [address] 59946- 6340 14 Nov, 2014 [facility] [id number] [place] [address] 36801- 0984 Nov, [facility] [id number] [place] [address] 46224- 9998 Aug, [facility] [id number] [place] [address] 29 Aug, 2014 [facility] [address] [id number] [place] [address] 6438 Aug, [facility] [address] [id number] [place] [address]- 9736 14 Sep, 2013 [facility] [address] [id number] [place] [address] 3546 Sep, [facility] [address] [id number] [place] [address] 5907 Aug, [facility] [address] [id number] [place] [address]- 4545 Aug, [facility] [address] [id number] [place] [address]- 2322 Aug, [facility] [address] [id number] [place] [address]- 1696 Aug, [facility] [address] [id number] [place] [address]- 7449 Aug, [facility] [address] [id number] [place] [address]- 0229 Aug, [facility] [address] [id number] [place] [address]- 5667 Aug, [facility] [address] [id number] [place] [address]- 2734 Aug, [facility] [address] [id number] [place] [address]- 9133 Jul, [facility] [place] [facility] [address] [id number] [place] [address]- 4411 Jul, [facility] [address] [id number] [place] [address]- 2868 Jul, [facility] [address] [id number] [place] [address]- 4683 Jul, [facility] [place] [facility] [address] [id number] [place] [address]- 2191 Jun, [facility] [place] [facility] [address] [id number] [place] [address]- 0787 Jun, [facility] [place] [facility] [address] [id number] [place] [address]- 4104 Jun, [facility] [place] [facility] [address] [id number] [place] [address]- 9039 Jun, [facility] [place] [facility] [address] [id number] [place] [address]- 0872 Mar, [facility] [place] [facility] [address] [id number] [place] [address]- 7290 Nov, [facility] [place] [facility] [address] [id number] [place] [address]- 4628 Jun, [facility] [place] [facility] [address] [id number] [place] [address]- 9022 Jun, [facility] [place] [facility] [address] [id number] [place] [address]- 2817 May, [facility] [place] [facility] [address] [id number] [place] [address]- 4439 May, [facility] [place] [facility] [address] [id number], [place] [address] May, [facility] [place] [facility] [address] [id number], [place] [address]- 8809 May, [facility] [place] [facility] [address] [id number] [place] [address]- 8576 May, [facility] [place] [facility] [address] [id number] [place] [address]- 8969 May, [facility] [place] [facility] [address] [id number] [place] 16 May, 2012 [facility] [place] [facility] [address] [id number] [place] [address]- 7106 May, IMMUNIZATIONS No Known Immunizations SOCIAL HISTORY Never Assessed REASON FOR VISIT EMR-[facility] PLAN OF CARE VITAL SIGNS MEDICATIONS Unknown [...]
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
== END 2018-12-17 14:17 | disposition home or self-care (01) ==
LOC: EDUNIT# 12:59 → ER 13:00
DX: M54.5 Low back pain (principal); J45.909 Unspecified asthma, uncomplicated; K21.9 Gastro-esophageal reflux disease without esophagitis; F32.9 Major depressive disorder, single episode, unspecified; F41.9 Anxiety disorder, unspecified; Z87.448 Personal history of other diseases of urinary system; Z88.0 Allergy status to penicillin; Z87.442 Personal history of urinary calculi; Z98.890 Other specified postprocedural states
CPT/HCPCS: 81000; 84703; 99282

== ENCOUNTER 2019-04-22 06:27 | Outpatient (CLI) | payer MEDICAID ==
[~2019-04-22] VITALS: Ht 167.7 cm; Wt 72.6 kg
[~2019-04-22 06:27] MED LIST changes: +METH-313 PO; +NAPR-1071 PO
[2019-04-22] MEDS ORDERED: NORG1TAB14 PO (10:47)
[2019-04-24] MEDS ORDERED: IBUP-1780 PO (13:17)
[2019-04-24] MEDS ORDERED: OXYC1TAB87 PO (13:17)
== END 2019-04-22 10:53 | disposition home or self-care (01) ==
LOC: PREOP 06:27
PROVIDERS: ATTEND Obstetrics & Gynecology
DX: Z01.818 Encounter for other preprocedural examination (principal)

== ENCOUNTER 2019-09-09 14:58 | Emergency (ER) | payer MEDICAID ==
[~2019-09-09] VITALS: Ht 167.7 cm; Wt 76.2 kg
[~2019-09-09 14:58] MED LIST changes: +NORG1TAB14 PO; +OXYC1TAB87 PO
--- NOTE | 2019-09-09 15:54 | NUR ---
TO ROOM WITH FAMILY. REPORTS HAS BEEN DX WITH FLU B ON SAT CON'T TO NOT FEEL WELL C/O SORE THROAT AND LI IN CHEST WHEN SHE TAKE A DEEP BREATH
[2019-09-09] MEDS ORDERED: KETOROLAC 30 MG/ML VIAL IVP ONE (16:00)
--- NOTE | 2019-09-09 16:13 | ED Cough/URI ---
General Chief Complaint: Respiratory Problems Stated Complaint: CHEST PAIN;SOA Nursing Triage Note: PT AMBULATE TO TRIAGE WITH C/O SOB AND MEDIAL CHEST PAIN STARTING YESTERDAY. PT REPORTS PAIN IN THROAT. PT REPORTS PAIN WORSE ON INSPIRATION. PT STATES SHE WAS SEEN IN THE CLINIC ON MONDAY AND DX WITH FLU B. Sepsis Screen: No Definite Risk Source: patient Exam Limitations: no limitations History of Present Illness Date Seen by Provider: Sep 09, 2019 Time Seen by Provider: 16:11 Initial Comments to ER with reports of shortness of breath and medial chest pain began yesterday. She has influenza B diagnosed 2 days ago. Chest pain is worse with deep breathing, also has a sore throat. Timing/Duration: constant Severity/Quality: moderate Associated Symptoms: cough, shortness of breath Allergies and Home Medications Allergies Coded Allergies: Penicillins (Unverified Allergy, Severe, ANAPHYLAXIS, 06/27/18) Home Medications Ibuprofen 800 Mg Tablet, 800 MG PO Q6H PRN for PAIN Prescribed by: JAXON HARDY on 04/24/19 1317 Norgestimate-Ethinyl Estradiol 1 Each Tablet, 1 EACH PO DAILY, (Reported) Oxycodone HCl/Acetaminophen 1 Each Tablet, 1 TAB PO Q4H Prescribed by: JAXON HARDY on 04/24/19 1317 Patient Home Medication List Home Medication List Reviewed: Yes Review of Systems Review of Systems Constitutional: see HPI EENTM: see HPI, throat pain Respiratory: see HPI, cough Cardiovascular: no symptoms reported, see HPI, chest pain Genitourinary: no symptoms reported Musculoskeletal: no symptoms reported Skin: no symptoms reported Psychiatric/Neurological: No Symptoms Reported Hematologic/Lymphatic: No Symptoms Reported Past Owcgdub-Hjdmjo-Ujiutn Hx Patient Social History Alcohol Use: Occasionally Uses Number of Drinks Today: AA Alcohol Beverage of Choice: Beer Recreational Drug Use: No Smoking Status: Never a Smoker 2nd Hand Smoke Exposure: No Recent Foreign Travel: No Contact w/Someone Who Travel: No Recent Infectious Disease Expo: No Recent Hopitalizations: No Physical Abuse: No Sexual Abuse: No Mistreated: No Fear: No Immunizations Up To Date Tetanus Booster (TDap): Less than 5yrs PED Vaccines UTD: No Date of Influenza Vaccine: May 22, 2017 Seasonal Allergies Seasonal Allergies: Yes Past Medical History Surgeries: Yes (LITHOTRIPSY AND STONE BASKET REMOVAL, D&C, dxls, c/s x2) Appendectomy, Section, Renal Respiratory: Yes Asthma Currently Using CPAP: No Currently Using BIPAP: No Cardiac: No Neurological: Yes (SEIZURE x2 -2018 (STRESS INDUCED)) Reproductive Disorders: Yes (DUB ) Female Reproductive Disorders: Menstrual Problems, Endometriosis, Polycystic Ovarian Dis Sexually Transmitted Disease: No HIV/AIDS: No Genitourinary: Yes Kidney Stones Gastrointestinal: Yes Gastroesophageal Reflux Musculoskeletal: No Endocrine: No HEENT: No Loss of Vision: Denies Hearing Impairment: Denies Cancer: No Psychosocial: Yes Anxiety, Depression Integumentary: No Blood Disorders: No Adverse Reaction/Blood Tranf: No (N/A) Family Medical History No Pertinent Family Hx Physical Exam Vital Signs - First Documented 09/09/19 15:12 Temp 36.8 Pulse 83 Resp 18 B/P (MAP) 121/71 (88) O2 Delivery Room Air Capillary Refill : Less Than 3 Seconds Height: 5'6.00" Weight: 156lbs. 2.0oz. 70.854804dl; 27.00 BMI Method:Stated General Appearance: WD/WN, no apparent distress Eyes: Bilateral Eye Normal Inspection, Bilateral Eye PERRL, Bilateral Eye EOMI HEENT: PERRL/EOMI, normal ENT inspection Neck: non-tender, full range of motion Respiratory: no respiratory distress, no accessory muscle use Gastrointestinal: normal bowel sounds, non tender, soft Extremities: normal range of motion, non-tender Neurologic/Psychiatric: alert, normal mood/affect, oriented x 3 Skin: normal color, warm/dry Progress/Results/Core Measures Suspected Sepsis Recent Fever Within 48 Hours: No Infection Criteria Present: None New/Unexplained Altered Menta: No Sepsis Screen: No Definite Risk SIRS Temperature: Pulse: 83 Respiratory Rate: 18 Blood Pressure 121 /71 Mean: 88 Results/Orders My Orders Orders - FABIO PENDLETON APRN Ekg Tracing (09/09/19 16:00) Troponin I (09/09/19 16:00) Chest 1 View, Ap/Pa Only (09/09/19 16:00) Ketorolac Injection (Toradol Injection) (09/09/19 16:00) Hcg,Qualitative Serum (09/09/19 16:00) Vital Signs/I&O 09/09/19 15:12 Temp 36.8 Pulse 83 Resp 18 B/P (MAP) 121/71 (88) O2 Delivery Room Air Capillary Refill : Less Than 3 Seconds Blood Pressure Mean: 88 Departure Impression Primary Impression: Pleuritic chest pain Additional Impression: Influenza B Disposition: 01 HOME, SELF-CARE Condition: Stable Departure-Patient Inst. Decision time for Depature: 16:13 Referrals: [facility] (PCP/Family) Primary Care Physician Patient Instructions: Flu, Adult (DC) Add. Discharge Instructions: 1. Tylenol and ibuprofen for fevers or pain 2. Drink plenty of fluids to stay hydrated. All discharge instructions reviewed with patient and/or family. Voiced understanding. FABIO PENDLETON APRN Sep 09, 2019 16:13
--- NOTE | 2019-09-09 16:55 | Diagnostic Imaging Report ---
EXAMINATION: Chest 1 view HISTORY: Shortness of breath COMPARISON: 01/24/2017 FINDINGS: The lungs are clear without edema or pneumonia. No pleural effusion or pneumothorax. Heart size is normal. IMPRESSION: 1. Clear lungs. Dictated by: Dictated on workstation # [id number]
[2019-09-09 17:05] VITALS: BP 121/71
== END 2019-09-09 17:04 | disposition home or self-care (01) ==
LOC: EDUNIT# 14:58 → ER 14:59
DX: J10.1 Influenza due to other identified influenza virus with other respiratory manifestations (principal); Z88.0 Allergy status to penicillin; Z87.09 Personal history of other diseases of the respiratory system
CPT/HCPCS: 36415; 71045; 84484; 84703; 93005

== ENCOUNTER → 2019-12-25 | Outpatient (CLI) | payer MEDICAID ==
--- NOTE | 2019-12-25 15:11 | Diagnostic Imaging Report ---
PROCEDURE: CT head without contrast. TECHNIQUE: Multiple contiguous axial images were obtained through the brain without the use of intravenous contrast. Auto Exposure Controls were utilized during the CT exam to meet ALARA standards for radiation dose reduction. INDICATION: Sudden vision loss and blurred vision. Correlation is made with prior CT from 07/28/2017. FINDINGS: The ventricles and sulci are within normal limits. No sulcal effacement or midline shift is detected. No acute intra-axial or extra-axial hemorrhage is detected. Cisterns are patent. Visualized paranasal sinuses are clear. IMPRESSION: No acute intracranial process is detected. Dictated by: Dictated on workstation # [id number]
== END ==
LOC: RAD 13:50
PROVIDERS: ATTEND Internal Medicine
DX: H54.3 Unqualified visual loss, both eyes (principal)
CPT/HCPCS: 70450

== ENCOUNTER 2020-02-25 05:39 | Outpatient (RCR) | payer MEDICAID ==
[~2020-02-25] VITALS: Ht 167.7 cm; Wt 78.2 kg
== END 2020-02-25 13:26 | disposition home or self-care (01) ==
LOC: PREOP 05:39
PROVIDERS: ATTEND Obstetrics & Gynecology
DX: Z01.818 Encounter for other preprocedural examination (principal); Z01.812 Encounter for preprocedural laboratory examination; N80.9 Endometriosis, unspecified; Z20.828 Contact with and (suspected) exposure to other viral communicable diseases
CPT/HCPCS: 87635

== ENCOUNTER 2020-02-28 10:53 | Day surgery (SDC) | payer MEDICAID ==
[~2020-02-28] VITALS: Ht 167.7 cm; Wt 78.2 kg
[2020-02-28] VITALS (14 sets, daily range): BP systolic 105–114; BP diastolic 64–84
[2020-02-28] MEDS ORDERED: LACTATED RINGERS 1,000 ML IV PRN ×2 (10:57→11:25)
[2020-02-28] MEDS ORDERED: LEVOFLOXACIN 250 MG/50 ML IVPB 50 ML IV ONE (11:00)
[2020-02-28 11:26] LABS: BASOPHILS % (AUTO) 0 % (0-10); EOSINOPHILS # (AUTO) 0.1 10^3/uL (0.0-0.3); EOSINOPHILS % (AUTO) 1 % (0-10); HEMATOCRIT 40 % (35-52); HEMOGLOBIN 13.4 G/DL (11.5-16.0); LYMPHOCYTES # (AUTO) 1.3 X 10^3 (1.0-4.0); LYMPHOCYTES % (AUTO) 23 % (12-44); MEAN CORPUSCULAR HEMOGLOBIN 30 PG (25-34); MEAN CORPUSCULAR HGB CONC 33 G/DL (32-36); MEAN CORPUSCULAR VOLUME 90 FL (80-99); MEAN PLATELET VOLUME 11.3 FL (7.4-10.4); MONOCYTES # (AUTO) 0.3 X 10^3 (0.0-1.0); MONOCYTES % (AUTO) 5 % (0-12); NEUTROPHILS % (AUTO) 70 % (42-75); PLATELET COUNT 231 10^3/uL (130-400); WHITE BLOOD COUNT 5.6 10^3/uL (4.3-11.0)
[2020-02-28] MEDS ORDERED: FAMOTIDINE 20MG/2ML IV (PEPCID) IV ONE (11:30)
[2020-02-28] MEDS ORDERED: CATHETER FLUSH 10 ML SYR IV PRN (11:30)
[2020-02-28] MEDS ORDERED: ONDANSETRON 4 MG/2 ML (SDV) Z0FRAN IV ONE (11:30)
[2020-02-28] MEDS ORDERED: proPOfol 200 MG/20 ML (DIPRIVAN) VIAL IV ONE (11:45)
[2020-02-28] MEDS ORDERED: LIDOCAINE PF 2% 5 ML (XYLOCAINE) VIAL ONE ×2 (11:45→13:47)
[2020-02-28] MEDS ORDERED: NEOSTIGMINE 3 MG/3 ML VIAL ONE (11:45)
[2020-02-28] MEDS ORDERED: SEVOFLURANE (ULTANE) 15 ML INHAL SOLN ONE (11:45)
[2020-02-28] MEDS ORDERED: ROCURONIUM 10 MG/ML 5 ML SYRINGE IV ONE (11:45)
[2020-02-28] MEDS ORDERED: GLYCOPYRROLATE 0.2 MG/ML (ROBINUL) 2 ML VIAL ONE (11:45)
[2020-02-28] MEDS ORDERED: ONDANSETRON 4 MG/2 ML (SDV) Z0FRAN ONE (11:45)
[2020-02-28] MEDS ORDERED: MIDAZOLAM 2 MG/2 ML (VERSED) VIAL ONE (11:46)
[2020-02-28] MEDS ORDERED: fentaNYL INJECTION 100 MCG/2 ML AMP ONE (11:46)
[2020-02-28] MEDS ORDERED: BUP/EPI 0.5% 1:200,000 (MARCAINE) 10ML VIAL IJ ONE (12:07)
--- NOTE | 2020-02-28 12:28 | Progress Note-Pre Operative ---
Pre-Operative Progress Note H&P Reviewed The H&P was reviewed, patient examined and no changes noted. Date Seen by Provider: Feb 28, 2020 Time Seen by Provider: : Date H&P Reviewed: Feb 28, 2020 Time H&P Reviewed: : Pre-Operative Diagnosis: CPP/Hx endometriosis JAXON DUNLAP MD Feb 28, 2020 12:28
[2020-02-28] MEDS ORDERED: D5 LR IV SOLUTION 1,000 ML IV SCH (12:29)
--- NOTE | 2020-02-28 12:29 | Progress Note-Post Operative ---
Post-Operative Progess Note Surgeon (s)/Valuation Consultant (s) Surgeon JAXON DUNLAP MD Valuation Consultant: RN Pre-Operative Diagnosis CPP/Hx endometriosis Post-Operative Diagnosis same with recurrent endometriosis Procedure & Operative Findings Date of Procedure 02/28/20 Procedure Performed/Findings LS tx endometriosis and laparoscopic adhesiolysis Anesthesia Type GETA Estimated Blood Loss Estimated blood loss (mL): Minimal Specimens/Packing Specimens Removed Portion of each uterosacral ligament JAXON DUNLAP MD Feb 28, 2020 12:29
[2020-02-28] MEDS ORDERED: oxyCODONE/APAP 5/325MG (PERCOCET 5) TABLET PO PRN (12:30)
[2020-02-28] MEDS ORDERED: ONDANSETRON 4 MG/2 ML (SDV) Z0FRAN IVP PRN (12:30)
[2020-02-28] MEDS ORDERED: MEPERIDINE (DEMEROL) INJ 100 MG/ML IM ONE (12:30)
[2020-02-28] MEDS ORDERED: PROMETHAZINE INJ 25 MG/ML (PHENERGAN) AMP IM ONE (12:30)
[2020-02-28] MEDS ORDERED: KETOROLAC 30 MG/ML VIAL IVP ONE (12:30)
[2020-02-28] MEDS ORDERED: IBUP-1780 PO (12:31)
[2020-02-28] MEDS ORDERED: OXYC1TAB87 PO (12:31)
--- NOTE | 2020-02-28 12:32 | Discharge Inst-Surgical ---
Discharge Inst-Surgical Depart Medication/Instructions New, Converted or Re-Newed RX: RX on Chart Consults/Follow Up Patient Instructions: as directed Orders & Referrals Follow Up Appt: Call to make follow up appt. for patient in 1 weeks. , next monday morning Activity: Rest for 24 hours, than as tolerated. Wound Care: May remove Band-Aid tomorrow. Replace as desired. Keep incisions clean and dry. Wash daily with soap and water. Please call in RX to patient pharmacy. Diet: As tolerated-Clear Liquids only if nauseated. Tomorrow, may shower or tub bathe as desired. No driving for 24 hours, no alcoholic beverages for 24 hours, and nothing per vagina (no tampons, douching, or intercourse) for 2 weeks. Patient to return to the clinic as soon as possible for: Temperature greater than 101F, Severe Pain, Foul discharge from incision or vagina, Excessive Bleeding (more than a period). Activity Activity as Tolerated: No Diet Discharge Diet: No Restrictions JAXON DUNLAP MD Feb 28, 2020 12:32
[2020-02-28] MEDS ORDERED: fentaNYL INJECTION 100 MCG/2 ML AMP IVP ONE (13:00)
[2020-02-28] MEDS ORDERED: morphine INJ 10 MG/ML 1ML (SYR OR VIAL) IVP ONE (13:00)
[2020-02-28] MEDS ORDERED: MEPERIDINE (DEMEROL) INJ 50 MG/ML IVP ONE (13:00)
[2020-02-28] MEDS ORDERED: morphine INJ 10 MG/ML 1ML (SYR OR VIAL) ONE (13:27)
[2020-02-28] MEDS: ONDANSETRON 4 MG/2 ML (SDV) Z0FRAN IVP PRN ×2 (13:57→14:24)
[2020-02-28] MEDS ORDERED: KETOROLAC 30 MG/ML VIAL ONE (14:01)
--- NOTE | 2020-02-28 15:14 | Anesthesia-General Post-Op ---
General Patient Condition Mental Status/LOC: Same as Preop Cardiovascular: Satisfactory Nausea/Vomiting: Absent Respiratory: Satisfactory Pain: Controlled Complications: Absent Post Op Complications Complications None Follow Up Care/Instructions Patient Instructions None needed. Anesthesia/Patient Condition Patient Condition Patient is doing well, no complaints, stable vital signs, no apparent adverse anesthesia problems. No complications reported per nursing. LAWRENCE RILEY CRNA Feb 28, 2020 15:14
[2020-02-28] MEDS ORDERED: ONDANSETRON 4 MG (ZOFRAN) ORAL DISSOLVE TAB ONE (16:11)
[2020-02-28] MEDS ORDERED: ONDANSETRON 4 MG (ZOFRAN) ORAL DISSOLVE TAB PO ONE (16:45)
--- NOTE | 2020-02-28 16:45 | NUR ---
PATIENT STATES NAUSEA HAS SUBSIDED, DC INSTRUCTIONS GONE OVER, SITTING UP ON SIDE OF BED, APPEARS A LITTLE ANXIOUS. UP IN W/C FOR DISCHARGE WITH MOTHER.
--- NOTE | 2020-02-28 17:00 | NUR ---
PATIENT STARTED TO GET IN TO CAR AND BECAME PALE, ANXIOUS, WANTED TO GO TO BATHROOM, C/O CHEST PAIN AND HOLLERING "SOMETHINGS WRONG!" MOM BECAME VERY ANXIOUS AND SAID "TAKE HER BACK UPSTAIRS, SOMETHINGS WRONG", [place] [facility] [place] VITALS 98.1-96-18-106/64 WITH SAT'S 98%, O2 PLACED ON PATIENT VIA N/C, STATES PAIN HAS SUBSIDED, DR. DUNLAP NOTIFIED WITH ORDERS RECIEVED.
--- NOTE | 2020-02-28 17:25 | NUR ---
HYDROXYZINE GIVEN ORDERED. APPEARS CALMER WITH NO C/O.
[2020-02-28] MEDS ORDERED: hydrOXYzine (VISTARIL/ATARAX) 25 MG capsule/tablet PO ONE (17:30)
--- NOTE | 2020-02-29 00:01 | OPERATIVE REPORT ---
DATE OF SERVICE: 02/28/2020 PREOPERATIVE DIAGNOSES: Chronic pelvic pain, history of endometriosis. POSTOPERATIVE DIAGNOSES: Chronic pelvic pain, history of endometriosis with recurrent endometriosis with pelvic adhesions. OPERATIVE PROCEDURE: Laparoscopic destruction and removal of endometriosis and laparoscopic adhesiolysis. OPERATIVE DESCRIPTION: With the patient in supine position under satisfactory general anesthesia, she was repositioned in dorsal lithotomy position in the [facility] and prepped and draped in the usual fashion for abdominal and vaginal surgery. Urinary bladder was drained with a straight catheter. Weighted speculum placed in posterior fornix of vagina, cervix exposed and grasped anteriorly with single tooth tenaculum. Uterus sounded to 9 cm with uterine sound. Cervix was then serially dilated with Juan Alberto dilators to accommodate a uterine manipulator, which was placed and the bulb filled with 4 mL of air. The tenaculum and speculum were removed. The patient brought in low dorsal lithotomy position. A 5 mm incision was made in the patient's left upper quadrant, another 5 mm incision in the inferior margin of the umbilicus and started on the midportion of the patient's Pfannenstiel incision. All incision sites were infiltrated with 0.25% Marcaine with epinephrine prior to incision. Veress needle was placed through the umbilical incision. Correct placement confirmed with water drop test and the abdomen insufflated with 2.4 liters of carbon dioxide. Veress needle was removed and a 5 mm Optiview laparoscopic port placed in the left upper quadrant under direct vision. The patient was then placed in Trendelenburg and the abdominal wall transilluminated and 5 mm ports were placed through the umbilical and suprapubic incisions as well. The pelvis was examined. There were dense adhesions of the left ovary to the left ovarian fossa. There were endometriosis implants in both ovarian fossa. There were filmy adhesions of the uterus to the cul-de-sac and filmy adhesions of the right ovary to the ovarian fossa on the right. The laparoscope was turned and the cecum was examined. The appendix was surgically absent. There was no abnormal pathology. Laparoscope was brought back to the pelvis. The uterus was examined. It was somewhat large and bulky uterus, was very mottled in appearance consistent with extensive adenomyosis. The adhesions previously noted around both ovaries and in the cul-de-sac were taken free, allowing the ovaries to be elevated and the ovarian fossa examined more fully. Endometriosis implants in both ovarian fossa were destroyed. There was an Hosea-Masters window in the right portion of the cul-de-sac of Srinivas that was cauterized and destroyed endometriosis implant noted there. The uterosacral ligament on the right was grasped; 1 cm portion of the ureterosacral ligament removed from the midpoint and urologic structures. The same procedure was done on the left eventually disrupting the uterosacral ligaments for control and improvement of the patient's pelvis obtained. The pelvis was now examined. There was no significant bleeding. There was no remaining abnormal pathology. The procedure at this point was terminated. The operative instruments removed under direct vision. No bleeding was noted. The ports were removed. No bleeding was noted from both sites. The abdomen was evacuated of insufflating gas in the process of removing the ports. Skin incisions were closed with interrupted sutures of 3-0 nylon. The uterine manipulator bulb was drained. The instruments were removed from the vagina and a speculum placed in vagina, cervix exposed and found to be completely hemostatic. Sponge and needle counts correct and hemostasis assured. ESTIMATED BLOOD LOSS: Minimal. The patient was uneventfully awakened from her general anesthesia and transferred to recovery room in stable condition with plans for discharge home PAR. Job ID: [id number] DocumentID: [id number] Dictated Date: 02/28/2020 13:29:56 Group Burner Machine Date: 02/28/2020 21:24:22 Dictated By: JAXON DUNLAP MD
== END 2020-02-28 17:48 | disposition home or self-care (01) ==
LOC: SDC 10:53
PROVIDERS: ATTEND Obstetrics & Gynecology
DX: N80.0 Endometriosis of uterus (principal); N80.1 Endometriosis of ovary; N80.3 Endometriosis of pelvic peritoneum; N73.6 Female pelvic peritoneal adhesions (postinfective); J45.909 Unspecified asthma, uncomplicated; F32.9 Major depressive disorder, single episode, unspecified; F41.9 Anxiety disorder, unspecified; K21.9 Gastro-esophageal reflux disease without esophagitis; Z87.442 Personal history of urinary calculi; Z79.3 Long term (current) use of hormonal contraceptives
CPT/HCPCS: 36415; 84703; 85025; 87081; 94664

== ENCOUNTER 2020-06-21 14:16 | Emergency (ER) | payer MEDICAID ==
--- NOTE | 2020-06-21 15:00 | NUR ---
attempt to call pt multiple times at this time with no answer.
--- NOTE | 2020-06-21 15:10 | NUR ---
pt is not in waiting room or outside ED entrance.
== END 2020-06-21 15:12 | disposition left against medical advice (07) ==
LOC: EDUNIT# 14:16 → ER 14:17
DX: R43.8 Other disturbances of smell and taste (principal); Z20.828 Contact with and (suspected) exposure to other viral communicable diseases

== ENCOUNTER 2020-08-21 08:27 | Emergency (ER) | payer MEDICAID ==
[~2020-08-21] VITALS: Ht 167.7 cm; Wt 79.4 kg
[~2020-08-21 08:27] MED LIST changes: +BUPR-168 PO; +ETHY1TAB4 PO
[2020-08-21 08:46] LABS: BILIRUBIN,URINE NEGATIVE (NEGATIVE); CLARITY,URINE CLEAR; COLOR,URINE YELLOW; GLUCOSE, URINE (UA) NEGATIVE (NEGATIVE); KETONES,URINE NEGATIVE (NEGATIVE); LEUKOCYTE ESTERASE ,URINE NEGATIVE (NEGATIVE); NITRITE,URINE NEGATIVE (NEGATIVE); PROTEIN,URINE TRACE (NEGATIVE)
[2020-08-21 08:57] LABS: BACTERIA,URINE FEW /HPF
--- NOTE | 2020-08-21 08:58 | ED GU-Female ---
General Chief Complaint: Female Reproductive Stated Complaint: VAGINAL BLEEDING,CRAMPING, NAUSEA Nursing Triage Note: PT AMB TO [facility] WITH COMPLAINT OF HEAVY VAGINAL BLEEDING THAT STARTED THIS AM. STATES SHE IS ALSO HAVING BACK PAIN, ABD CRAMPING, AND NAUSEA. STATES SKIPPED HER PERIOD LAST MONTH, LMP 06/26/2020. HAS TAKEN MULTIPLE HOME TESTS THAT WERE NEGATIVE. STATES IS HAVING PROCEDURE FOR ENDOMETRIOSIS ON MONDAY BY DR PERAZA. Nursing Sepsis Screen: No Definite Risk Source: patient Exam Limitations: no limitations History of Present Illness Date Seen by Provider: Aug 21, 2020 Time Seen by Provider: 08:34 Initial Comments Patient presents ER by private conveyance with chief complaint this morning she started having some low pelvic cramping pain bilaterally right worse than left and heavy vaginal bleeding. Her last menstrual period was June 26, 2020. She has had 5 - tests starting 2 weeks ago. She has PCOS and endometriosis. Next Monday [address] Peraza plans to take her for a D&C related to her endometriosis and irregular bleeding. She has had 3 other laparoscopic surgeries for endometriosis. She is having no fever nausea dysuria diarrhea or constipation. No other abdominal surgeries. Normal bowel movement today. Usually she takes Tylenol for her pain. She rates it as a 9 out of 10 and does not want anything for it right now. She is having nausea but no vomiting. Last intercourse was several weeks ago. Allergies and Home Medications Allergies Coded Allergies: Penicillins (Unverified Allergy, Severe, ANAPHYLAXIS, 06/27/18) tramadol (Verified Allergy, Unknown, Hives, 08/20/20) Home Medications Bupropion HCl 75 Mg Tablet, 75 MG PO BID, (Reported) Ethynodiol D-Ethinyl Estradiol 1 Each Tablet, 1 TAB PO DAILY, (Reported) Patient Home Medication List Home Medication List Reviewed: Yes Review of Systems Review of Systems Constitutional: No chills, No diaphoresis, No fever EENTM: No ear discharge, No ear pain, No blurred vision Respiratory: No cough, No short of breath Cardiovascular: No Hx of Intervention, No palpitations Gastrointestinal: abdominal pain; No constipation, No diarrhea; nausea; No vomiting Genitourinary: denies burning, denies discharge Musculoskeletal: No back pain, No joint pain Skin: No pruritus, No rash Psychiatric/Neurological: Denies Headache, Denies Numbness All Other Systemes Reviewed Negative Unless Noted: Yes Past Wpgnvzi-Serbsy-Hqcxii Hx Patient Social History Alcohol Use: Occasionally Uses Number of Drinks Today: AA Alcohol Beverage of Choice: Beer Smoking Status: Never a Smoker 2nd Hand Smoke Exposure: No Recent Infectious Disease Expo: No Recent Hopitalizations: No Immunizations Up To Date Tetanus Booster (TDap): Less than 5yrs PED Vaccines UTD: No Date of Influenza Vaccine: May 22, 2017 Seasonal Allergies Seasonal Allergies: Yes Past Medical History Surgeries: Yes (LITHOTRIPSY AND STONE BASKET REMOVAL, D&C, dxls x2, c/s x2) Appendectomy, Section, Renal Respiratory: Yes Asthma Currently Using CPAP: No Currently Using BIPAP: No Cardiac: No Neurological: Yes (SEIZURE x2 -2018 (STRESS INDUCED)) Reproductive Disorders: Yes (DUB ) Female Reproductive Disorders: Menstrual Problems, Endometriosis, Polycystic Ovarian Dis Sexually Transmitted Disease: No HIV/AIDS: No Genitourinary: Yes Kidney Stones Gastrointestinal: Yes Gastroesophageal Reflux Musculoskeletal: No Endocrine: No HEENT: No Loss of Vision: Denies Hearing Impairment: Denies Cancer: No Psychosocial: Yes Anxiety, Depression Integumentary: No Blood Disorders: No Adverse Reaction/Blood Tranf: No (N/A) Family Medical History No Pertinent Family Hx Physical Exam Vital Signs Vital Signs - First Documented 08/21/20 08:33 Temp 36.1 Pulse 76 Resp 20 B/P (MAP) 116/75 (89) Pulse Ox 97 O2 Delivery Room Air Capillary Refill : Less Than 3 Seconds Height, Weight, BMI Height: 5'6.00" Weight: 156lbs. 2.0oz. 70.874711zt; 28.00 BMI Method:Stated General Appearance: WD/WN, mild distress HEENT: PERRL/EOMI, pharynx normal Cardiovascular: normal peripheral pulses, regular rate, rhythm Respiratory: no respiratory distress, no accessory muscle use Gastrointestinal: normal bowel sounds, soft Pelvic: normal external exam, other (Vaginal vault with a small amount of blood-tinged mucus. Parous cervical os without mass and some bloody tinged mucus. No discharge or lacerations. No tumors) Extremities: normal inspection, no pedal edema, normal capillary refill Neurologic/Psychiatric: alert, normal mood/affect, oriented x 3 Skin: normal color, warm/dry Progress/Results/Core Measures Suspected Sepsis Recent Fever Within 48 Hours: No Infection Criteria Present: None New/Unexplained Altered Menta: No Sepsis Screen: No Definite Risk SIRS Temperature: Pulse: 76 Respiratory Rate: 20 Laboratory Tests 08/21/20 08:55: White Blood Count 5.8 Blood Pressure 116 /75 Mean: 89 Laboratory Tests 08/21/20 08:55: Creatinine 0.83, Platelet Count 243, Total Bilirubin 0.5 Results/Orders Lab Results Laboratory Tests Test 08/21/20 08:40 08/21/20 08:55 Range/Units Urine Color YELLOW Urine Clarity CLEAR Urine pH 7.0 5-9 Urine Specific [place] 1.020 1.016-1.022 Urine Protein TRACE H NEGATIVE Urine Glucose (UA) NEGATIVE NEGATIVE Urine Ketones NEGATIVE NEGATIVE Urine Nitrite NEGATIVE NEGATIVE Urine Bilirubin NEGATIVE NEGATIVE Urine Urobilinogen 0.2 < = 1.0 MG/DL Urine Leukocyte Esterase NEGATIVE NEGATIVE Urine RBC (Auto) 1+ H NEGATIVE Urine RBC NONE /HPF Urine WBC 2-5 /HPF Urine Squamous Epithelial Cells 2-5 /HPF Urine Crystals NONE /LPF Urine Bacteria FEW H /HPF Urine Casts NONE /LPF Urine Mucus MODERATE H /LPF Urine Culture Indicated YES White Blood Count 5.8 4.3-11.0 10^3/uL Red Blood Count 4.27 3.80-5.11 10^6/uL Hemoglobin 12.9 11.5-16.0 g/dL Hematocrit 39 35-52 % Mean Corpuscular Volume 90 80-99 fL Mean Corpuscular Hemoglobin 30 25-34 pg Mean Corpuscular Hemoglobin Concent 33 32-36 g/dL Red Cell Distribution Width 11.9 10.0-14.5 % Platelet Count 243 130-400 10^3/uL Mean Platelet Volume 10.8 9.0-12.2 fL Immature Granulocyte % (Auto) 1 % Neutrophils (%) (Auto) 65 42-75 % Lymphocytes (%) (Auto) 28 12-44 % Monocytes (%) (Auto) 5 0-12 % Eosinophils (%) (Auto) 2 0-10 % Basophils (%) (Auto) 0 0-10 % Neutrophils # (Auto) 3.8 1.8-7.8 10^3/uL Lymphocytes # (Auto) 1.6 1.0-4.0 10^3/uL Monocytes # (Auto) 0.3 0.0-1.0 10^3/uL Eosinophils # (Auto) 0.1 0.0-0.3 10^3/uL Basophils # (Auto) 0.0 0.0-0.1 10^3/uL Immature Granulocyte # (Auto) 0.0 0.0-0.1 10^3/uL Sodium Level 138 135-145 MMOL/L Potassium Level 4.0 3.6-5.0 MMOL/L Chloride Level 106 98-107 MMOL/L Carbon Dioxide Level 21 21-32 MMOL/L Anion Gap 11 5-14 MMOL/L Blood Urea Nitrogen 10 7-18 MG/DL Creatinine 0.83 0.60-1.30 MG/DL Estimat Glomerular Filtration Rate > 60 BUN/Creatinine Ratio 12 Glucose Level 107 H 70-105 MG/DL Calcium Level 9.5 8.5-10.1 MG/DL Corrected Calcium 9.5 8.5-10.1 MG/DL Total Bilirubin 0.5 0.1-1.0 MG/DL Aspartate Amino Transf (AST/SGOT) 16 5-34 U/L Alanine Aminotransferase (ALT/SGPT) 18 0-55 U/L Alkaline Phosphatase 63 40-136 U/L Total Protein 6.8 6.4-8.2 GM/DL Albumin 4.0 3.2-4.5 GM/DL My Orders Orders - DYLAN CADET Ua Culture If Indicated (08/21/20 08:41) Urine Bedside (08/21/20 08:41) Us Non Ob Transvaginal [id number] (08/21/20 08:51) Cbc With Automated Diff (08/21/20 08:51) Comprehensive Metabolic Panel (08/21/20 08:51) Ondansetron Oral Dissolve Tab (Zofran (08/21/20 09:00) Urine Culture (08/21/20 08:40) Fentanyl Injection (Sublimaze Injection (08/21/20 09:30) Iv/Invasive Line Insertion .IV start (08/21/20 09:16) Medications Given in ED Current Medications Medications Dose Ordered Sig/Berlin Route Start Time Stop Time Status Last Admin Dose Admin Fentanyl Citrate 50 mcg ONCE ONCE IV 08/21/20 09:30 08/21/20 09:31 DC 08/21/20 10:23 50 MCG Ondansetron HCl 4 mg ONCE ONCE PO 08/21/20 09:00 08/21/20 09:01 DC 08/21/20 08:58 4 MG Vital Signs/I&O 08/21/20 08:33 Temp 36.1 Pulse 76 Resp 20 B/P (MAP) 116/75 (89) Pulse Ox 97 O2 Delivery Room Air Capillary Refill : Less Than 3 Seconds Blood Pressure Mean: 89 Progress Note : Time: 08:59 Progress Note Plan to do a pelvic exam looking for lacerations. Ultrasound to rule out possible torsion however most likely source of her pain is from her endometriosis. Labs and ondansetron. She declined anything for pain at this time. Diagnostic Imaging Diagonstic Imaging: Ultrasound Plain Films/CT/US/NM/MRI: pelvis Comments NAME: [facility] REC#: [id number] PT STATUS: REG ER : 1990 PHYSICIAN: DYLAN CADET MD ADMIT DATE: 08/21/20/ER Signed Date of Exam:08/21/20 US NON OB TRANSVAGINAL [id number] PROCEDURE: US NONOB transvaginal. TECHNIQUE: Multiple real-time grayscale images were obtained of the pelvis in various projections endovaginally. Transabdominal images were also performed. INDICATION: Pelvic cramping and bleeding. History of endometriosis. COMPARISON: 03/16/2018. FINDINGS: Transabdominal: The uterus and adnexa have a unremarkable transabdominal appearance. Transvaginal images were obtained for additional characterization. Transvaginal: The uterus is retroverted and measures 7.3 x 4.1 x 5.4 cm. The endometrial stripe measures 0.2 cm and has a normal appearance. The right ovary is well visualized measuring 3.4 x 2.4 x 3.2 cm and demonstrating normal color Doppler flow. A dominant follicle/cyst is seen in the right ovary measuring 2.1 x 1.9 x 2.7 cm. The left ovary is well-visualized measuring 2.5 x 1.7 x 2.1 cm with normal color Doppler flow. No adnexal masses. Trace free fluid is seen in the pelvis. IMPRESSION: 1. No focal/cysts in the right ovary. Trace physiologic free fluid is seen in the pelvis. No adnexal masses are seen. No evidence of ovarian torsion. 2. Unremarkable appearance of the uterus. Dictated by: Dictated on workstation # [id number] Dict: 08/21/20 1020 Trans: 08/21/20 1028 [id number] Interpreted by: ARIS PEARCE DO Electronically signed by: ARIS PEARCE DO 08/21/20 1028 Reviewed: Reviewed by Me Consults Consults : Consulting Physician: JAXON PERAZA MD Consults Notes Discussed the case with Dr. Peraza who is familiar with her and says potentially she could have an infection so we will get a GC and chlamydia and he will follow up with her. Departure Impression Primary Impression: Acute pain in female pelvis Additional Impression: Abnormal uterine bleeding Disposition: HOME, SELF-CARE Condition: Stable Departure-Patient Inst. Decision time for Depature: 12:07 Referrals: [facility] [place] Primary Care Physician Patient Instructions: Pelvic Pain (DC) Add. Discharge Instructions: Uncertain origin of your pelvis pain so were getting some test sent out for infection. Should have the results by Monday. Either the ER or Dr. Peraza will call with results and if necessary treat you appropriately with antibiotics. Keep your scheduled follow-up with Dr. Peraza. Return to the ER for intractable pain despite Tylenol and heating pads. All discharge instructions reviewed with patient and/or family. Voiced understanding. Scripts Hydrocodone/Acetaminophen (Hydrocodone-Acetamin 5-325 mg) 1 Each Tablet 1 EACH PO Q6H PRN for PAIN-BREAKTHROUGH, #10 TAB 0 Refills Prov: DYLAN CADET 08/21/20 DYLAN CADET Aug 21, 2020 08:58
[2020-08-21] MEDS ORDERED: ONDANSETRON 4 MG (ZOFRAN) ORAL DISSOLVE TAB PO ONE (09:00)
[2020-08-21 09:03] LABS: BASOPHILS % (AUTO) 0 % (0-10); EOSINOPHILS # (AUTO) 0.1 10^3/uL (0.0-0.3); EOSINOPHILS % (AUTO) 2 % (0-10); HEMATOCRIT 39 % (35-52); HEMOGLOBIN 12.9 g/dL (11.5-16.0); LYMPHOCYTES # (AUTO) 1.6 10^3/uL (1.0-4.0); LYMPHOCYTES % (AUTO) 28 % (12-44); MEAN CORPUSCULAR HEMOGLOBIN 30 pg (25-34); MEAN CORPUSCULAR HGB CONC 33 g/dL (32-36); MEAN CORPUSCULAR VOLUME 90 fL (80-99); MEAN PLATELET VOLUME 10.8 fL (9.0-12.2); MONOCYTES # (AUTO) 0.3 10^3/uL (0.0-1.0); MONOCYTES % (AUTO) 5 % (0-12); NEUTROPHILS # (AUTO) 3.8 10^3/uL (1.8-7.8); NEUTROPHILS % (AUTO) 65 % (42-75); PLATELET COUNT 243 10^3/uL (130-400); WHITE BLOOD COUNT 5.8 10^3/uL (4.3-11.0)
[2020-08-21 09:12] LABS: CHLORIDE 106 MMOL/L (98-107); SODIUM 138 MMOL/L (135-145)
[2020-08-21 09:13] LABS: CALCIUM 9.5 MG/DL (8.5-10.1)
[2020-08-21 09:15] LABS: GLUCOSE 107 MG/DL (70-105); TOTAL PROTEIN 6.8 GM/DL (6.4-8.2)
[2020-08-21 09:16] LABS: CARBON DIOXIDE 21 MMOL/L (21-32)
[2020-08-21 09:17] LABS: BILIRUBIN,TOTAL 0.5 MG/DL (0.1-1.0)
[2020-08-21 09:18] LABS: ALKALINE PHOSPHATASE 63 U/L (40-136); CREATININE SERUM 0.83 MG/DL (0.60-1.30); GFR ESTIMATED > 60
[2020-08-21 09:19] LABS: BUN/CREATININE RATIO 12
[2020-08-21 09:21] LABS: ALANINE AMINOTRANSFERASE 18 U/L (0-55)
[2020-08-21] MEDS ORDERED: fentaNYL INJECTION 100 MCG/2 ML AMP IV ONE (09:30)
--- NOTE | 2020-08-21 10:27 | Diagnostic Imaging Report ---
PROCEDURE: US NONOB transvaginal. TECHNIQUE: Multiple real-time grayscale images were obtained of the pelvis in various projections endovaginally. Transabdominal images were also performed. INDICATION: Pelvic cramping and bleeding. History of endometriosis. COMPARISON: 03/16/2018. FINDINGS: Transabdominal: The uterus and adnexa have a unremarkable transabdominal appearance. Transvaginal images were obtained for additional characterization. Transvaginal: The uterus is retroverted and measures 7.3 x 4.1 x 5.4 cm. The endometrial stripe measures 0.2 cm and has a normal appearance. The right ovary is well visualized measuring 3.4 x 2.4 x 3.2 cm and demonstrating normal color Doppler flow. A dominant follicle/cyst is seen in the right ovary measuring 2.1 x 1.9 x 2.7 cm. The left ovary is well-visualized measuring 2.5 x 1.7 x 2.1 cm with normal color Doppler flow. No adnexal masses. Trace free fluid is seen in the pelvis. IMPRESSION: 1. No focal/cysts in the right ovary. Trace physiologic free fluid is seen in the pelvis. No adnexal masses are seen. No evidence of ovarian torsion. 2. Unremarkable appearance of the uterus. Dictated by: Dictated on workstation # [id number]
[2020-08-21] MEDS ORDERED: ACHD5005 PO (12:08)
[2020-08-21 12:37] VITALS: BP 118/79
== END 2020-08-21 12:37 | disposition home or self-care (01) ==
LOC: EDUNIT# 08:27 → ER 08:28
DX: N93.9 Abnormal uterine and vaginal bleeding, unspecified (principal); F32.9 Major depressive disorder, single episode, unspecified; Z88.0 Allergy status to penicillin; Z88.5 Allergy status to narcotic agent
CPT/HCPCS: 36415; 76830; 80053; 81000; 84703; 85025; 86780; 87088; 87491; 87591

== ENCOUNTER 2020-08-24 05:29 | Outpatient (RCR) | payer MEDICAID ==
[~2020-08-24] VITALS: Ht 167.7 cm; Wt 79.5 kg
[~2020-08-24 05:29] MED LIST changes: +ACHD5005 PO
== END 2020-08-24 09:55 | disposition home or self-care (01) ==
LOC: PREOP 05:29
PROVIDERS: ATTEND Obstetrics & Gynecology
DX: Z01.812 Encounter for preprocedural laboratory examination (principal); N93.9 Abnormal uterine and vaginal bleeding, unspecified; Z20.822 Contact with and (suspected) exposure to COVID-19
CPT/HCPCS: 87635

== ENCOUNTER 2020-08-26 10:37 | Day surgery (SDC) | payer MEDICAID ==
[~2020-08-26] VITALS: Ht 167.7 cm; Wt 79.4 kg
[2020-08-26] VITALS (11 sets, daily range): BP systolic 105–123; BP diastolic 64–85
--- NOTE | 2020-08-26 09:40 | Progress Note-Pre Operative ---
Pre-Operative Progress Note H&P Reviewed The H&P was reviewed, patient examined and no changes noted. Date Seen by Provider: Aug 26, 2020 Time Seen by Provider: 12:42 Date H&P Reviewed: Aug 26, 2020 Time H&P Reviewed: 12:42 Pre-Operative Diagnosis: severe chronic pelvic pain / history of endometriosis JAXON DUNLAP MD Aug 26, 2020 09:40
--- NOTE | 2020-08-26 09:41 | Progress Note-Post Operative ---
Post-Operative Progess Note Surgeon (s)/Online Content Coordinator (s) Surgeon JAXON DUNLAP MD Online Content Coordinator: Danielle Pre-Operative Diagnosis history of endometriosis/chronic pelvic pain Post-Operative Diagnosis Same with recurrent endometriosis Procedure & Operative Findings Date of Procedure 08/26/20 Procedure Performed/Findings Laparoscopic treatment of endometriosis And hemostatic stitch that is placed in the cervix Anesthesia Type GETA Estimated Blood Loss Estimated blood loss (mL): Minimal Specimens/Packing Specimens Removed None JAXON DUNLAP MD Aug 26, 2020 09:41
--- NOTE | 2020-08-26 09:45 | Discharge Inst-Surgical ---
Discharge Inst-Surgical Depart Medication/Instructions New, Converted or Re-Newed RX: RX on Chart Consults/Follow Up Patient Instructions: As directed Orders & Referrals Follow Up Appt: Call to make follow up appt. for patient in 1 weeks. Activity: Rest for 24 hours, than as tolerated. Wound Care: May remove Band-Aid tomorrow. Replace as desired. Keep incisions clean and dry. Wash daily with soap and water. Please call in RX to patient pharmacy. Diet: As tolerated-Clear Liquids only if nauseated. Tomorrow, may shower or tub bathe as desired. No driving for 24 hours, no alcoholic beverages for 24 hours, and nothing per vagina (no tampons, douching, or intercoarse) for 2 weeks. Patient to return to the clinic as soon as possible for: Temperature greater than 101F, Severe Pain, Foul discharge from incision or vagina, Excessive Bleeding (more than a period). Activity Activity as Tolerated: No Diet Discharge Diet: No Restrictions JAXON DUNLAP MD Aug 26, 2020 09:45
[~2020-08-26 10:37] MED LIST changes: -CLIN150C17 PO; +CLIN150C18 PO; +D5 LR IV SOLUTION 1,000 ML IV SCH; +KETOROLAC 30 MG/ML VIAL IVP ONE; +ONDANSETRON 4 MG/2 ML (SDV) Z0FRAN IVP PRN; +fentaNYL INJECTION 100 MCG/2 ML AMP IVP PRN; +oxyCODONE/APAP 5/325MG (PERCOCET 5) TABLET PO PRN
[2020-08-26] MEDS ORDERED: LEVOFLOXACIN 250 MG/50 ML IVPB 50 ML IV ONE (11:15)
[2020-08-26] MEDS ORDERED: GLYCOPYRROLATE 0.2 MG/ML (ROBINUL) 2 ML VIAL ONE (11:20)
[2020-08-26] MEDS ORDERED: LIDOCAINE PF 2% 5 ML (XYLOCAINE) VIAL ONE (11:20)
[2020-08-26] MEDS ORDERED: NEOSTIGMINE 3 MG/3 ML VIAL ONE (11:20)
[2020-08-26] MEDS ORDERED: ROCURONIUM 10 MG/ML 5 ML SYRINGE IV ONE (11:20)
[2020-08-26] MEDS ORDERED: ONDANSETRON 4 MG/2 ML (SDV) Z0FRAN ONE (11:20)
[2020-08-26] MEDS ORDERED: proPOfol 200 MG/20 ML (DIPRIVAN) VIAL IV ONE (11:20)
[2020-08-26] MEDS ORDERED: MIDAZOLAM 2 MG/2 ML (VERSED) VIAL ONE (11:20)
[2020-08-26] MEDS: LACTATED RINGERS 1,000 ML IV PRN ×2 (11:20→13:25)
[2020-08-26] MEDS ORDERED: fentaNYL INJECTION 100 MCG/2 ML AMP ONE (11:20)
[2020-08-26 11:38] LABS: BASOPHILS % (AUTO) 0 % (0-10); EOSINOPHILS # (AUTO) 0.1 10^3/uL (0.0-0.3); EOSINOPHILS % (AUTO) 1 % (0-10); HEMATOCRIT 37 % (35-52); HEMOGLOBIN 12.4 g/dL (11.5-16.0); LYMPHOCYTES # (AUTO) 1.3 10^3/uL (1.0-4.0); LYMPHOCYTES % (AUTO) 21 % (12-44); MEAN CORPUSCULAR HEMOGLOBIN 30 pg (25-34); MEAN CORPUSCULAR HGB CONC 33 g/dL (32-36); MEAN CORPUSCULAR VOLUME 90 fL (80-99); MEAN PLATELET VOLUME 11.3 fL (9.0-12.2); MONOCYTES # (AUTO) 0.4 10^3/uL (0.0-1.0); MONOCYTES % (AUTO) 6 % (0-12); NEUTROPHILS # (AUTO) 4.5 10^3/uL (1.8-7.8); NEUTROPHILS % (AUTO) 72 % (42-75); PLATELET COUNT 210 10^3/uL (130-400); WHITE BLOOD COUNT 6.4 10^3/uL (4.3-11.0)
[2020-08-26] MEDS ORDERED: LEVOFLOXACIN 250 MG/50 ML IVPB 50 ML ONE (11:42)
[2020-08-26] MEDS ORDERED: LIDOCAINE/EPI 1%-1:100,000 (XYLOCAINE) 50 ML ONE (12:12)
[2020-08-26] MEDS ORDERED: SEVOFLURANE (ULTANE) 15 ML INHAL SOLN ONE (13:04)
[2020-08-26] MEDS ORDERED: MEPERIDINE (DEMEROL) INJ 50 MG/ML IVP ONE (13:15)
[2020-08-26] MEDS ORDERED: fentaNYL INJECTION 100 MCG/2 ML AMP IVP ONE (13:15)
[2020-08-26] MEDS ORDERED: morphine INJ 10 MG/ML 1ML (SYR OR VIAL) IVP ONE (13:15)
[2020-08-26] MEDS ORDERED: KETOROLAC 30 MG/ML VIAL ONE (13:50)
[2020-08-26] MEDS: ONDANSETRON 4 MG/2 ML (SDV) Z0FRAN IVP PRN ×2 (13:54→14:46)
[2020-08-26] MEDS ORDERED: oxyCODONE/APAP 5/325MG (PERCOCET 5) TABLET ONE (15:25)
--- NOTE | 2020-08-26 21:06 | OPERATIVE REPORT ---
DATE OF SERVICE: 08/26/2020 PREOPERATIVE DIAGNOSES: Severe pelvic pain with a history of endometriosis. POSTOPERATIVE DIAGNOSES: Severe pelvic pain with a history of endometriosis with recurrent endometriosis. OPERATIVE PROCEDURE: Laparoscopic treatment of endometriosis and aspiration of a right ovarian cyst as well as placement of a suture in the cervix for hemostasis. OPERATIVE DESCRIPTION: With the patient in the supine position under satisfactory general anesthesia, she was repositioned in dorsal lithotomy position in the [facility] and prepped and draped in the usual fashion for abdominal and vaginal surgery. Weighted speculum placed in posterior fornix of vagina, cervix exposed and grasped anteriorly with single tooth tenaculum. Uterus was sounded to 8 to 9.5 cm with uterine sound. The cervix was then serially dilated with Juan Alberto dilators to accommodate a uterine manipulator, which was placed and then the balloon was filled with 4 mL of air. The tenaculum and speculum were removed from the vagina. The patient brought in low dorsal lithotomy position. A 5 mm incision was made in the left upper quadrant near Urbano's point. Veress needle was placed through that incision. Correct placement confirmed with water drop test and the abdomen insufflated with 2.4 liters of carbon dioxide. Veress needle was removed and a 5 mm Optiview laparoscopic port placed under direct vision. The patient was placed in Trendelenburg and then ports of 5 mm were placed in the inferior margin of the umbilicus and just superior to the midline of her Pfannenstiel incision. All three port sites were infiltrated with 0.25% Marcaine with epinephrine prior to incision and port placement. With the patient in Trendelenburg, the bowel was spilled up out of the pelvis. The uterus was elevated. There was obvious endometriosis in the cul-de-sac and both ovarian fossae on both ovaries and causing clubbing of the right fallopian tube. There was a follicular cyst on the right ovary of approximately 2 cm. The laparoscope was rotated. The appendix was surgically absent. There was a small area of adhesions, but that looked suspicious for endometriosis, well that was touched with electrocautery to destroy in fact loose the adhesions. Attention was brought back to the right side of the pelvis. The fallopian tube and ovary were grasped and elevated. The cyst on the right ovary was fenestrated with electrocautery allowing some straw fluid to drain out, which was removed. The endometriosis implants on the ovary were touched with electrocautery to destroy them as were the implants in the ovarian fossae on the uterosacral ligaments and in the cul-de-sac. Attention was turned to the left pelvis. There were some adhesions of the sigmoid to the left pelvic brim. These were taken free with taking care to avoid thermal or traumatic injury to the bowel or to adjacent vascular structures. With that freed, the IP ligament could be examined. There was some endometriosis just lateral to that, that was destroyed carefully with electrocautery. The endometriosis implants on the left ovary was destroyed after first freeing the ovary from adhesions in the ovarian fossae. The ovary was somewhat densely adherent to the ovarian fossa. With that freed, the endometriosis implants that could be identified were destroyed. Both ureters were seemed to peristalse and were away from the areas of dissection or where it was closed the cautery was used sparingly and carefully to avoid insult to the ureters. The cul-de-sac was examined again, there were a couple more spots of endometriosis that were destroyed the ovarian fossa were now cleaned. There were no obvious implants in the cul-de-sac. There were several implants on the back surface of the uterus. These were touched with electrocautery to destroy them. The uterus appeared to have numerous small leiomyoma subserosal over its surface. There was also the appearance of adenomyosis based on the boggy and mottled appearance and the nature of the uterus. The anterior lower uterine segment was examined. The patient had some adhesions of the peritoneum due to her . The adhesions of the peritoneum was freed. There was a couple of spots of endometriosis, particularly near the insertion of the right round ligament. These were destroyed with electrocautery as well. The pelvis was now examined a final time. There was no remaining abnormal pathology, no adhesions of any significance. No obvious endometriosis. At this point, the procedure was complete and terminated. The operative instruments were removed under direct vision as were the ports. The abdomen was evacuated of insufflating gas and the skin incisions were closed with yasmani after confirming no bleeding from the port sites. Speculum was placed in the vagina, cervix exposed. There was some pulsatile bleeding from one of the puncture sites from the tenaculum. Silver nitrate failed to halt that so a single suture of 2-0 Vicryl was placed in a [id number] fashion to effect hemostasis on the cervix. With sponge and needle counts now correct, hemostasis assured. The patient was uneventfully awakened from her general anesthesia and transferred to recovery room in stable condition with plans for discharge home PAR. Estimated blood loss was minimal. Job ID: [id number] DocumentID: [id number] Dictated Date: 08/26/2020 13:34:25 Mixologist Date: 08/26/2020 21:06:13 Dictated By: JAXON DUNLAP MD
--- NOTE | 2020-08-31 15:51 | Anesthesia-General Post-Op ---
General Significant Intra-Op Events Notes postop addendum for 08/26/19 at 1415 Patient Condition Mental Status/LOC: Same as Preop Cardiovascular: Satisfactory Nausea/Vomiting: Absent Respiratory: Satisfactory Pain: Controlled Complications: Absent Post Op Complications Complications None Follow Up Care/Instructions Patient Instructions None needed. Anesthesia/Patient Condition Patient Condition Patient is doing well, no complaints, stable vital signs, no apparent adverse anesthesia problems. No complications reported per nursing. LAWRENCE RILEY CRNA Aug 31, 2020 15:51
== END 2020-08-26 15:40 | disposition home or self-care (01) ==
LOC: SDC 10:37
PROVIDERS: ATTEND Obstetrics & Gynecology
DX: N80.0 Endometriosis of uterus (principal); N83.201 Unspecified ovarian cyst, right side; F41.9 Anxiety disorder, unspecified; F32.9 Major depressive disorder, single episode, unspecified; K21.9 Gastro-esophageal reflux disease without esophagitis; J45.909 Unspecified asthma, uncomplicated; G89.29 Other chronic pain; Z79.899 Other long term (current) drug therapy; Z88.0 Allergy status to penicillin; Z88.5 Allergy status to narcotic agent; Z80.49 Family history of malignant neoplasm of other genital organs
CPT/HCPCS: 36415; 84703; 85025; 87081

== ENCOUNTER 2020-09-06 16:55 | Emergency (ER) | payer MEDICAID ==
[~2020-09-06] VITALS: Ht 167.7 cm; Wt 78.6 kg
[~2020-09-06 16:55] MED LIST changes: -D5 LR IV SOLUTION 1,000 ML IV SCH; -KETOROLAC 30 MG/ML VIAL IVP ONE; -ONDANSETRON 4 MG/2 ML (SDV) Z0FRAN IVP PRN; -fentaNYL INJECTION 100 MCG/2 ML AMP IVP PRN; -oxyCODONE/APAP 5/325MG (PERCOCET 5) TABLET PO PRN
[2020-09-06] MEDS ORDERED: NS IV 500 ML 500 ML IV ONE (17:15)
[2020-09-06] MEDS ORDERED: ONDANSETRON 4 MG/2 ML (SDV) Z0FRAN IVP ONE (17:15)
[2020-09-06] MEDS ORDERED: KETOROLAC 30 MG/ML VIAL IVP ONE (17:15)
--- NOTE | 2020-09-06 17:15 | ED Abdominal Pain ---
General Stated Complaint: DIFFICULTY WALKING, N/V, Source of Information: Patient Exam Limitations: No Limitations (DYLAN CADET) History of Present Illness Date Seen by Provider: Sep 06, 2020 Time Seen by Provider: 17:00 Initial Comments Patient presents the ER by private conveyance with chief complaint that she had endometriosis surgery by Dr. Peraza 1 to 2 weeks ago. He had okayed her to go back to light exercise and so she worked out on Monday and had some pain in her left groin and lower quadrant abdomen. It was intermittent and mild and she did not take anything for it. Today while bowling with her family however she had a sudden pain of extreme pain radiating down into her anterior left thigh from her left groin and making it impossible to bear weight on her left leg. She has no other abdominal surgeries. She has no fever chills dysuria discharge diarrhea or constipation. She does not take anything for pain and rates it as a 10 out of 10. This most recent pain has been constant started about an hour ago and was accompanied by waves of nausea but no vomiting. (DYLAN CADET) Allergies and Home Medications Allergies Coded Allergies: Penicillins (Unverified Allergy, Severe, ANAPHYLAXIS, 06/27/18) tramadol (Verified Allergy, Unknown, Hives, 08/20/20) Home Medications Bupropion HCl 75 Mg Tablet, 75 MG PO BID, (Reported) Ethynodiol D-Ethinyl Estradiol 1 Each Tablet, 1 TAB PO DAILY, (Reported) Hydrocodone/Acetaminophen 1 Each Tablet, 1 EACH PO Q4-6 HOURS PRN for PAIN Prescribed by: JENNIFER JOSÉ on 09/06/202012 Ibuprofen 800 Mg Tablet, 800 MG PO Q6H PRN for PAIN Prescribed by: JAXON HARDY on 08/26/20 0944 Ketorolac Tromethamine 10 Mg Tablet, 10 MG PO Q6H Prescribed by: JENNIFER JOSÉ on 09/06/202012 Ondansetron 4 Mg Tab.rapdis, 4 MG PO Q4H Prescribed by: JENNIFER JOSÉ on 09/06/202013 Oxycodone HCl/Acetaminophen 1 Each Tablet, 1 TAB PO Q4H Prescribed by: JAXON HARDY on 08/26/20 0944 Patient Home Medication List Home Medication List Reviewed: Yes (DYLAN CADET) Review of Systems Review of Systems Constitutional: No chills, No diaphoresis EENTM: No Blurred Vision, No Double Vision Respiratory: Denies Cough, Denies Shortness of Air Cardiovascular: Denies Chest Pain, Denies Lightheadedness Gastrointestinal: Abdominal Pain (Left lower quadrant abdomen); Denies Constipated, Denies Diarrhea; Nausea Genitourinary: See HPI; Denies Burning, Denies Discharge; Pain (Left pelvis) Musculoskeletal: No back pain, No joint pain (DYLAN CADET) All Other Systems Reviewed Negative Unless Noted: Yes (DYLAN CADET) Past Vkbtbea-Jedzfy-Ekggyi Hx Patient Social History Alcohol Use: Occasionally Uses Alcohol Beverage of Choice: Beer, Wine Smoking Status: Never a Smoker 2nd Hand Smoke Exposure: No Recent Hopitalizations: No (DYLAN CADET) Immunizations Up To Date Tetanus Booster (TDap): Less than 5yrs PED Vaccines UTD: No Date of Influenza Vaccine: May 22, 2017 (DYLAN CADET) Seasonal Allergies Seasonal Allergies: Yes (DYLAN CADET) Past Medical History Surgeries: Yes (LITHOTRIPSY AND STONE BASKET REMOVAL, D&C, dxls x2, c/s x2) Appendectomy, Section, Renal Respiratory: Yes Asthma Currently Using CPAP: No Currently Using BIPAP: No Cardiac: No Neurological: Yes (SEIZURE x2 -2018 (STRESS INDUCED)) Reproductive Disorders: Yes (DUB ) Female Reproductive Disorders: Menstrual Problems, Endometriosis, Polycystic Ovarian Dis Sexually Transmitted Disease: No HIV/AIDS: No Genitourinary: Yes Kidney Stones Gastrointestinal: Yes Gastroesophageal Reflux Musculoskeletal: No Endocrine: No HEENT: No Loss of Vision: Denies Hearing Impairment: Denies Cancer: No Psychosocial: Yes Anxiety, Depression Integumentary: No Blood Disorders: No Adverse Reaction/Blood Tranf: No (N/A) (DYLAN CADET) Family Medical History No Pertinent Family Hx (DYLAN CADET) Physical Exam Vital Signs Vital Signs - First Documented 09/06/20 09/06/20 16:59 20:17 Temp 36.1 Pulse 97 Resp 18 B/P (MAP) 127/76 (93) Pulse Ox 98 O2 Delivery Room Air (DENNIS,JENNIFER K DO) Vital Signs Capillary Refill : (DYLAN CADET) Height/Weight/BMI Height: 5'6.00" Weight: 156lbs. 2.0oz. 70.995631yb; 28.23 BMI Method:Stated General Appearance: WD/WN, moderate distress HEENT: PERRL/EOMI, pharynx normal Neck: full range of motion, normal inspection Respiratory: lungs clear, normal breath sounds, no respiratory distress, no accessory muscle use Cardiovascular: normal peripheral pulses, regular rate, rhythm Peripheral Pulses: 2+ Radial Pulses (R), 2+ Radial Pulses (L) Gastrointestinal: normal bowel sounds, guarding (Left lower quadrant abdomen and pelvis), tenderness (Left inguinal region with positive left-sided psoas sign) Extremities: normal inspection, normal capillary refill Neurologic/Psychiatric: alert, normal mood/affect, oriented x 3 Skin: normal color, warm/dry (DYLAN CADET) Progress/Results/Core Measures Results/Orders Lab Results Laboratory Tests Test 09/06/20 17:12 09/06/20 17:23 Range/Units White Blood Count 8.4 4.3-11.0 10^3/uL Red Blood Count 4.06 3.80-5.11 10^6/uL Hemoglobin 12.2 11.5-16.0 g/dL Hematocrit 36 35-52 % Mean Corpuscular Volume 89 80-99 fL Mean Corpuscular Hemoglobin 30 25-34 pg Mean Corpuscular Hemoglobin Concent 34 32-36 g/dL Red Cell Distribution Width 12.2 10.0-14.5 % Platelet Count 260 130-400 10^3/uL Mean Platelet Volume 11.1 9.0-12.2 fL Immature Granulocyte % (Auto) 0 % Neutrophils (%) (Auto) 69 42-75 % Lymphocytes (%) (Auto) 24 12-44 % Monocytes (%) (Auto) 6 0-12 % Eosinophils (%) (Auto) 1 0-10 % Basophils (%) (Auto) 1 0-10 % Neutrophils # (Auto) 5.8 1.8-7.8 10^3/uL Lymphocytes # (Auto) 2.0 1.0-4.0 10^3/uL Monocytes # (Auto) 0.5 0.0-1.0 10^3/uL Eosinophils # (Auto) 0.1 0.0-0.3 10^3/uL Basophils # (Auto) 0.1 0.0-0.1 10^3/uL Immature Granulocyte # (Auto) 0.0 0.0-0.1 10^3/uL Sodium Level 141 135-145 MMOL/L Potassium Level 3.9 3.6-5.0 MMOL/L Chloride Level 108 H 98-107 MMOL/L Carbon Dioxide Level 21 21-32 MMOL/L Anion Gap 12 5-14 MMOL/L Blood Urea Nitrogen 12 7-18 MG/DL Creatinine 0.79 0.60-1.30 MG/DL Estimat Glomerular Filtration Rate > 60 BUN/Creatinine Ratio 15 Glucose Level 95 70-105 MG/DL Calcium Level 9.6 8.5-10.1 MG/DL Corrected Calcium 9.4 8.5-10.1 MG/DL Total Bilirubin 0.4 0.1-1.0 MG/DL Aspartate Amino Transf (AST/SGOT) 15 5-34 U/L Alanine Aminotransferase (ALT/SGPT) 15 0-55 U/L Alkaline Phosphatase 57 40-136 U/L C-Reactive Protein High Sensitivity 0.15 0.00-0.50 MG/DL Total Protein 6.8 6.4-8.2 GM/DL Albumin 4.3 3.2-4.5 GM/DL Urine Color YELLOW Urine Clarity CLEAR Urine pH 6.0 5-9 Urine Specific [place] >=1.030 1.016-1.022 Urine Protein NEGATIVE NEGATIVE Urine Glucose (UA) NEGATIVE NEGATIVE Urine Ketones NEGATIVE NEGATIVE Urine Nitrite NEGATIVE NEGATIVE Urine Bilirubin NEGATIVE NEGATIVE Urine Urobilinogen 0.2 < = 1.0 MG/DL Urine Leukocyte Esterase NEGATIVE NEGATIVE Urine RBC (Auto) NEGATIVE NEGATIVE Urine RBC NONE /HPF Urine WBC 2-5 /HPF Urine Squamous Epithelial Cells 2-5 /HPF Urine Crystals NONE /LPF Urine Bacteria TRACE /HPF Urine Casts PRESENT /LPF Urine Hyaline Casts 5-10 H /LPF Urine Mucus NEGATIVE /LPF Urine Culture Indicated NO (JENNIFER JOSÉ DO) My Orders Orders - JENNIFER JOSÉ DO Us Pelvic (Non Ob)11557 (09/06/20 18:46) (JENNIFER JOSÉ DO) Medications Given in ED Current Medications Medications Dose Ordered Sig/[place] Route Start Time Stop Time Status Last Admin Dose Admin Fentanyl Citrate 50 mcg ONCE ONCE IVP 09/06/20 18:00 09/06/20 18:01 DC 09/06/20 18:16 50 MCG Iohexol 100 ml ONCE ONCE IV 09/06/20 18:00 09/06/20 20:13 DC 09/06/20 18:08 98 ML Ketorolac Tromethamine 30 mg ONCE ONCE IVP 09/06/20 17:15 09/06/20 17:16 DC 09/06/20 17:33 30 MG Ondansetron HCl 4 mg ONCE ONCE IVP 09/06/20 17:15 09/06/20 17:16 DC 09/06/20 17:32 4 MG Sodium Chloride 10 ml NEEDED PRN IV 09/06/20 18:00 09/06/20 20:24 DC 09/06/20 18:08 10 ML Sodium Chloride 100 ml ONCE ONCE IV 09/06/20 18:00 09/06/20 20:13 DC 09/06/20 18:08 80 ML Sodium Chloride 500 ml @ 0 mls/hr Q0M ONCE IV 09/06/20 17:15 09/06/20 17:16 DC 09/06/20 17:33 500 MLS/HR (JENNIFER JOSÉ DO) Vital Signs/I&O 09/06/20 09/06/20 16:59 20:17 Temp 36.1 36.2 Pulse 97 80 Resp 18 18 B/P (MAP) 127/76 (93) 117/68 (93) Pulse Ox 98 99 O2 Delivery Room Air (DENNISJENNIFER DO) Progress Progress Note #1: Time: 17:14 Progress Note The patient has a significantly tender abdomen with recent abdominal surgery and unremarkable incision wounds. Her pain came on rather suddenly along with nausea so differential includes ovarian torsion, adhesions, endometriosis less likely, tubo-ovarian abscess, ectopic . Ultrasound is not available emergently unless her symptoms are less than 24 hours. This could be an intermittent ovarian torsion. We will get a CT with IV contrast give her half a liter of fluids and Toradol for pain. Ondansetron for nausea. Urinalysis with . Progress Note #2: Time: 18:01 Progress Note The patient's pain is now 8 out of 10 after the Toradol. She wants something else so we will give her 50 mcg of fentanyl. We do not have emergent ultrasound available at this moment so were going to order a CT with IV contrast to evaluate the abdomen for cysts, appendicitis colitis etc. If this is unrevealing then we have discussed the case with Dr. José and she is going to assume care of the patient at shift change. She agrees that at that time we will then pursue ultrasound or other appropriate imaging as necessary. Labs are unremarkable however the patient's exam is largely unchanged. (DYLAN CADET) Progress Note : Progress Note ASSUMED CARE FROM DR. CADET AT SHIFT CHANGE. ABLE TO ORDER PELVIC ULTRASOUND TO RULE OUT TORSION OR ACUTE PELVIC ABNORMALITY, CT IS ESSENTIALLY NORMAL. PT FEELING MUCH BETTER AT DISMISSAL NO DETERIORATION IN PT'S CONDITION DURING ER STAY PT STATES SHE ONLY HAS 2 PAIN PILLS LEFT, ADVISED HER I WILL WRITE FOR SMALL NUMBER OF HYDROCODONE, UNTIL SHE CAN FOLLOW UP WITH DR. PERAZA THIS WEEK WALKS UPRIGHT AND MOVES WITHOUT DIFFICULTY AT DISMISSAL (JENNIFER JOSÉ DO) Diagnostic Imaging Diagonstic Imaging: CT (With IV contrast) Plain Films/CT/US/NM/MRI: abdomen, pelvis Reviewed: Reviewed by Me (DYLAN CADET) Comments CT ABDOMEN/PELVIS--PER RADIOLOGIST REPORT AT 1833 FINDINGS: The heart is unremarkable. The included lung bases are clear. The liver, spleen, pancreas, adrenal glands and kidneys have a normal appearance. There is no pathologically enlarged mesenteric or retroperitoneal adenopathy. The bowel loops are nondilated. There is no free air. No acute osseous abnormality. The urinary bladder is decompressed. Small amount of physiologic free fluid is seen in the pelvis. There is no free air, loculated collection or adenopathy in the pelvis. IMPRESSION: 1. No bowel obstruction or free air. 2. Small amount of physiologic free fluid in the pelvis. PELVIC ULTRASOUND--PER RADIOLOGIST REPORT AT 2007 IMPRESSION: 1. No evidence of adnexal mass or ovarian torsion. Trace physiologic free fluid is seen in the pelvis. 2. No focal uterine masses are seen. (JENNIFER JOSÉ DO) Transfer of Care Time: 18:02 Care transferred to: Dr. José (DYLAN CADET) Departure Impression Primary Impression: LLQ pain Additional Impression: RECENT LAPAROSCOPIC SURGERY FOR PELVIC PAIN/ENDOMETRIOSIS Disposition: 01 HOME, SELF-CARE Condition: Improved Departure-Patient Inst. Referrals: [facility] [place] ([place]P/Family) Primary Care Physician JAXON PERAZA MD Patient Instructions: Pelvic Pain (DC), Severe Abdominal Pain, Adult (DC) Add. Discharge Instructions: HOME, REST LOTS OF CLEAR LIQUIDS FOLLOW UP WITH DR. PERAZA IN 2-3 DAYS FOR FURTHER CARE Scripts Ondansetron (Ondansetron Odt) 4 Mg Tab.rapdis 4 MG PO Q4H for Nausea/Vomiting, #10 TAB Prov: JENNIFER JOSÉ DO 09/06/20 Hydrocodone/Acetaminophen (Hydrocodone-Acetamin 5-325 mg) 1 Each Tablet 1 EACH PO Q4-6 HOURS PRN for PAIN, #10 TAB Prov: JENNIFER JOSÉ DO 09/06/20 Ketorolac Tromethamine (Ketorolac Tromethamine) 10 Mg Tablet 10 MG PO Q6H for Pain, #15 TAB Prov: JENNIFER JOSÉ DO 09/06/20 DYLAN CADET Sep 06, 2020 17:15 JENNIFER JOSÉ DO Sep 06, 2020 20:13
[2020-09-06 17:20] LABS: BASOPHILS # (AUTO) 0.1 10^3/uL (0.0-0.1); BASOPHILS % (AUTO) 1 % (0-10); EOSINOPHILS # (AUTO) 0.1 10^3/uL (0.0-0.3); EOSINOPHILS % (AUTO) 1 % (0-10); HEMATOCRIT 36 % (35-52); HEMOGLOBIN 12.2 g/dL (11.5-16.0); LYMPHOCYTES % (AUTO) 24 % (12-44); MEAN CORPUSCULAR HEMOGLOBIN 30 pg (25-34); MEAN CORPUSCULAR HGB CONC 34 g/dL (32-36); MEAN CORPUSCULAR VOLUME 89 fL (80-99); MEAN PLATELET VOLUME 11.1 fL (9.0-12.2); MONOCYTES # (AUTO) 0.5 10^3/uL (0.0-1.0); MONOCYTES % (AUTO) 6 % (0-12); NEUTROPHILS # (AUTO) 5.8 10^3/uL (1.8-7.8); NEUTROPHILS % (AUTO) 69 % (42-75); PLATELET COUNT 260 10^3/uL (130-400); WHITE BLOOD COUNT 8.4 10^3/uL (4.3-11.0)
[2020-09-06 17:28] LABS: ALBUMIN 4.3 GM/DL (3.2-4.5); CHLORIDE 108 MMOL/L (98-107); POTASSIUM 3.9 MMOL/L (3.6-5.0); SODIUM 141 MMOL/L (135-145)
[2020-09-06 17:29] LABS: CALCIUM 9.6 MG/DL (8.5-10.1)
[2020-09-06 17:30] LABS: GLUCOSE 95 MG/DL (70-105); TOTAL PROTEIN 6.8 GM/DL (6.4-8.2)
[2020-09-06 17:31] LABS: CARBON DIOXIDE 21 MMOL/L (21-32)
[2020-09-06 17:32] LABS: BILIRUBIN,TOTAL 0.4 MG/DL (0.1-1.0)
[2020-09-06 17:34] LABS: BILIRUBIN,URINE NEGATIVE (NEGATIVE); CLARITY,URINE CLEAR; COLOR,URINE YELLOW; GLUCOSE, URINE (UA) NEGATIVE (NEGATIVE); KETONES,URINE NEGATIVE (NEGATIVE); LEUKOCYTE ESTERASE ,URINE NEGATIVE (NEGATIVE); NITRITE,URINE NEGATIVE (NEGATIVE); PROTEIN,URINE NEGATIVE (NEGATIVE)
[2020-09-06 17:34] LABS: ALKALINE PHOSPHATASE 57 U/L (40-136); CREATININE SERUM 0.79 MG/DL (0.60-1.30); GFR ESTIMATED > 60
[2020-09-06 17:35] LABS: BUN/CREATININE RATIO 15
[2020-09-06 17:37] LABS: ALANINE AMINOTRANSFERASE 15 U/L (0-55)
[2020-09-06 17:45] LABS: BACTERIA,URINE TRACE /HPF
--- NOTE | 2020-09-06 17:58 | NUR ---
TO ROOM FLUIDS CON'T TO INFUSE
[2020-09-06] MEDS ORDERED: CATHETER FLUSH 10 ML SYR IV PRN (18:00)
[2020-09-06] MEDS ORDERED: fentaNYL INJECTION 100 MCG/2 ML AMP IVP ONE (18:00)
[2020-09-06] MEDS ORDERED: HOLD METFORMIN - RECEIVED CONTRAST 20 ML VIAL IV SCH (18:00)
[2020-09-06] MEDS ORDERED: NS 100 ML (IVPB) BAG IV ONE (18:00)
[2020-09-06] MEDS ORDERED: IOHEXOL 350 MG/ML 100 ML (OMNIPAQUE 350) VIAL IV ONE (18:00)
--- NOTE | 2020-09-06 18:23 | Diagnostic Imaging Report ---
EXAMINATION: CT abdomen and pelvis with intravenous contrast. TECHNIQUE: Multiple contiguous axial images were obtained through the abdomen and pelvis after the uneventful administration of intravenous contrast. All CT scans use one or more of the following dose optimizing techniques: automated exposure control, MA and/or KvP adjustment based on patient size and exam type or iterative reconstruction. HISTORY: Left lower quadrant pain. History of endometriosis. COMPARISON: None available. FINDINGS: The heart is unremarkable. The included lung bases are clear. The liver, spleen, pancreas, adrenal glands and kidneys have a normal appearance. There is no pathologically enlarged mesenteric or retroperitoneal adenopathy. The bowel loops are nondilated. There is no free air. No acute osseous abnormality. The urinary bladder is decompressed. Small amount of physiologic free fluid is seen in the pelvis. There is no free air, loculated collection or adenopathy in the pelvis. IMPRESSION: 1. No bowel obstruction or free air. 2. Small amount of physiologic free fluid in the pelvis. Dictated by: Dictated on workstation # [id number]
--- NOTE | 2020-09-06 20:04 | Diagnostic Imaging Report ---
PROCEDURE: US pelvic (non-OB). TECHNIQUE: Multiple real-time grayscale images were obtained over the pelvis in various projections, transabdominally and endovaginally. INDICATION: Left lower quadrant pain. History of endometriosis. COMPARISON: CT abdomen and pelvis on 09/06/2020. FINDINGS: Transabdominal: The uterus and adnexa have a unremarkable transabdominal appearance. Transvaginal images were obtained for additional characterization. Transvaginal: The uterus is retroverted and measures 10.5 x 6.1 x 3.6 cm. The endometrial stripe measures 0.5 cm and has a normal appearance. The right ovary is well visualized measuring 3.4 x 2.0 x 2.9 cm and demonstrating normal color Doppler flow. The left ovary is well-visualized measuring 3.7 x 2.2 x 2.6 cm with normal color Doppler flow. Bilateral follicles are noted in the ovaries. No adnexal masses. Trace free fluid is seen in the pelvis. IMPRESSION: 1. No evidence of adnexal mass or ovarian torsion. Trace physiologic free fluid is seen in the pelvis. 2. No focal uterine masses are seen. Dictated by: Dictated on workstation # [id number]
[2020-09-06] MEDS ORDERED: ACHD5005 PO (20:13)
[2020-09-06] MEDS ORDERED: KETO10TA PO (20:13)
[2020-09-06] MEDS ORDERED: ONDA4TAB11 PO (20:14)
[2020-09-06 20:17] VITALS: BP 117/68
== END 2020-09-06 20:24 | disposition home or self-care (01) ==
LOC: EDUNIT# 16:55 → ER 16:57
DX: R10.32 Left lower quadrant pain (principal); F32.9 Major depressive disorder, single episode, unspecified; Z88.0 Allergy status to penicillin; Z88.5 Allergy status to narcotic agent
CPT/HCPCS: 36415; 74177; 76856; 80053; 81000; 84703; 85025; 86141

== ENCOUNTER 2020-09-18 05:38 | Outpatient (RCR) | payer MEDICAID ==
[~2020-09-18 05:38] MED LIST changes: +KETO10TA PO; +ONDA4TAB11 PO
== END 2020-09-27 13:00 | disposition home or self-care (01) ==
LOC: PREOP 05:38
PROVIDERS: ATTEND Obstetrics & Gynecology
DX: Z01.818 Encounter for other preprocedural examination (principal)

== ENCOUNTER 2020-11-25 05:37 | Outpatient (CLI) | payer MEDICAID ==
[~2020-11-25] VITALS: Ht 167.7 cm; Wt 75.8 kg
== END 2020-11-25 13:13 | disposition home or self-care (01) ==
LOC: PREOP 05:37
PROVIDERS: ATTEND Obstetrics & Gynecology
DX: Z01.818 Encounter for other preprocedural examination (principal)

== ENCOUNTER 2021-05-13 15:47 | Emergency (ER) | payer MEDICAID ==
[~2021-05-13] VITALS: Ht 170 cm; Wt 79.0 kg
[~2021-05-13 15:47] MED LIST changes: -CLIN150C18 PO; +CLIN150C20 PO; +DOCU-239 PO
[2021-05-13] MEDS ORDERED: LACTATED RINGERS 1,000 ML IV STA (16:18)
--- NOTE | 2021-05-13 16:27 | ED Cardiac General ---
History of Present Illness General Chief Complaint: Respiratory Problems Stated Complaint: SOB,GTZ Nursing Triage Note: THE PT IS AMBULATORY TO THE ROOM WITHOUT DIFFICULTY. NO DISTRESS IS SEEN ON ARRIVAL. LOC IS NORMAL FOR THE PT. THE PT C/O OF CHEST TIGHTNESS. Source: patient Exam Limitations: no limitations History of Present Illness Date Seen by Provider: May 13, 2021 Time Seen by Provider: 16:09 Initial Comments Here with report of central chest pain that started about an hour ago and associated with shortness of breath. States the pain came on centrally and then worsened. This also caused her anxiety to worsen. She has had central chest discomfort over the last week. She was seen in [facility] last week and had a shot of pain medicine as well as a Klonopin which helped a little bit but did not make it go away persistently. Denies nausea, vomiting, fever or chills. She has not been vaccinated for Covid and denies any upper respiratory symptoms. She has not been around anybody with COVID-19. Admits that she may be a bit dehydrated as she has not been drinking fluids well. 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 Does have history of thyroid dysfunction but does no longer take thyroid medicines. Timing/Duration: 1 hour, 1 week (Mild constant central chest burning), changing over time Severity: moderate Location: central Prior CP/Workup: no prior cardiac workup Modifying Factors: improves with rest NTG SL FIELD PLACEMENT DIRECTOR: No ASA po FIELD PLACEMENT DIRECTOR: No Associated Systoms: Chest Pain; No Cough, No Fever/Chills, No Nausea/Vomiting; Shortness of Air; No Weakness Allergies and Home Medications Allergies Coded Allergies: Penicillins (Verified Allergy, Severe, ANAPHYLAXIS, 12/02/20) tramadol (Verified Allergy, Unknown, Hives, 12/02/20) Patient Home Medication List Home Medication List Reviewed: Yes Bupropion HCl (Bupropion HCl) 75 Mg Tablet, 75 MG PO BID, (Reported) Entered as Reported by: ESTRADA DAI on 08/20/20 1203 Docusate Sodium (Dok) 100 Mg Capsule, 100 MG PO BID Prescribed by: JAXON HARDY on 12/02/20 1147 Ethynodiol D-Ethinyl Estradiol (Zovia 1-50E Tablet) 1 Each Tablet, 1 TAB PO DAILY, (Reported) Entered as Reported by: ESTRADA DAI on 08/20/20 1203 Ibuprofen (Ibuprofen) 800 Mg Tablet, 800 MG PO Q6HR Prescribed by: JAXON HARDY on 12/02/20 1147 Oxycodone HCl/Acetaminophen (Percocet 5-325 mg Tablet) 1 Each Tablet, 1 TAB PO Q4H PRN for PAIN-MODERATE (5-7) Prescribed by: JAXON HARDY on 12/02/20 1147 Review of Systems Review of Systems Constitutional: see HPI; No chills, No fever EENTM: No Nose Pain, No Throat Pain Respiratory: Denies Cough; Shortness of Air Cardiovascular: Chest Pain; Denies Palpitations Gastrointestinal: Denies Abdominal Pain, Denies Diarrhea, Denies Nausea, Denies Vomiting Genitourinary: No Symptoms Reported Musculoskeletal: no symptoms reported Skin: no symptoms reported Psychiatric/Neurological: See HPI, Anxiety; Denies Weakness All Other Systems Reviewed Negative Unless Noted: Yes Past [place] Hx Patient Social History Tobacco Use?: No Substance use?: No Alcohol Use?: Yes Alcohol Frequency: Rarely Immunizations Up To Date Tetanus Booster (TDap): Less than 5yrs PED Vaccines UTD: No Seasonal Allergies Seasonal Allergies: No Past Medical History Surgeries: Yes (LITHOTRIPSY AND STONE BASKET REMOVAL, D&C, dxls x2, c/s x2) Appendectomy, Section, Hysterectomy, Renal Respiratory: Yes Asthma Currently Using CPAP: No Currently Using BIPAP: No Cardiac: No Neurological: Yes (SEIZURE x2 -2018 (STRESS INDUCED)) Reproductive Disorders: Yes (DUB ) Female Reproductive Disorders: Menstrual Problems, Endometriosis, Polycystic Ovarian Dis Sexually Transmitted Disease: No HIV/AIDS: No Genitourinary: Yes Kidney Stones Gastrointestinal: Yes Gastroesophageal Reflux Musculoskeletal: No Endocrine: No HEENT: No Loss of Vision: Denies Hearing Impairment: Denies Cancer: No Psychosocial: Yes Anxiety, Bipolar, Depression Integumentary: No Blood Disorders: No Adverse Reaction/Blood Tranf: No (N/A) Family Medical History Reviewed and Corrections made No Pertinent Family Hx Physical Exam Vital Signs Vital Signs - First Documented 05/13/21 15:58 Temp 36.8 Pulse 84 Resp 16 B/P (MAP) 116/75 (89) Pulse Ox 98 Capillary Refill : Less Than 3 Seconds Height, Weight, BMI Height: 5'6.00" Weight: 156lbs. 2.0oz. [id number]; 27.00 BMI Method:Stated General Appearance: No Apparent Distress, WD/WN HEENT: PERRL/EOMI, Pharynx Normal Neck: Non Tender, Supple Respiratory: Lungs Clear, Normal Breath Sounds Cardiovascular: Regular Rate, Rhythm, No Murmur Gastrointestinal: Non Tender, Soft Extremity: Normal Inspection, Normal Range of Motion, Non Tender, No Calf Tenderness Neurologic/Psychiatric: Alert, Oriented x3 Skin: Normal Color, Warm/Dry Progress/Results/Core Measures Results/Orders Lab Results Laboratory Tests Test 05/13/21 16:32 Range/Units White Blood Count 9.7 4.3-11.0 10^3/uL Red Blood Count 4.33 3.80-5.11 10^6/uL Hemoglobin 13.1 11.5-16.0 g/dL Hematocrit 39 35-52 % Mean Corpuscular Volume 89 80-99 fL Mean Corpuscular Hemoglobin 30 25-34 pg Mean Corpuscular Hemoglobin Concent 34 32-36 g/dL Red Cell Distribution Width 11.8 10.0-14.5 % Platelet Count 260 130-400 10^3/uL Mean Platelet Volume 10.9 9.0-12.2 fL Immature Granulocyte % (Auto) 0 % Neutrophils (%) (Auto) 70 42-75 % Lymphocytes (%) (Auto) 24 12-44 % Monocytes (%) (Auto) 5 0-12 % Eosinophils (%) (Auto) 1 0-10 % Basophils (%) (Auto) 0 0-10 % Neutrophils # (Auto) 6.8 1.8-7.8 10^3/uL Lymphocytes # (Auto) 2.3 1.0-4.0 10^3/uL Monocytes # (Auto) 0.4 0.0-1.0 10^3/uL Eosinophils # (Auto) 0.1 0.0-0.3 10^3/uL Basophils # (Auto) 0.0 0.0-0.1 10^3/uL Immature Granulocyte # (Auto) 0.0 0.0-0.1 10^3/uL D-Dimer < 0.27 0.00-0.49 UG/ML Sodium Level 137 135-145 MMOL/L Potassium Level 3.8 3.6-5.0 MMOL/L Chloride Level 105 98-107 MMOL/L Carbon Dioxide Level 21 21-32 MMOL/L Anion Gap 11 5-14 MMOL/L Blood Urea Nitrogen 9 7-18 MG/DL Creatinine 0.82 0.60-1.30 MG/DL Estimat Glomerular Filtration Rate 82 BUN/Creatinine Ratio 11 Glucose Level 79 70-105 MG/DL Calcium Level 9.2 8.5-10.1 MG/DL Corrected Calcium 9.2 8.5-10.1 MG/DL Total Bilirubin 0.3 0.1-1.0 MG/DL Aspartate Amino Transf (AST/SGOT) 24 5-34 U/L Alanine Aminotransferase (ALT/SGPT) 28 0-55 U/L Alkaline Phosphatase 61 40-136 U/L Troponin I < 0.028 <0.028 NG/ML Total Protein 6.7 6.4-8.2 GM/DL Albumin 4.0 3.2-4.5 GM/DL TSH Alexander Testing 1.25 0.35-4.94 UIU/ML My Orders Orders - MICAH SCHMID MD Cbc With Automated Diff (05/13/21 16:18) Comprehensive Metabolic Panel (05/13/21 16:18) Fibrin Degradation Products (05/13/21 16:18) Thyroid Analyzer (05/13/21 16:18) Troponin I (05/13/21 16:18) Ed Iv/Invasive Line Start (05/13/21 16:18) Ekg Tracing (05/13/21 16:18) Chest Pa/Lat (2 View) (05/13/21 16:18) Lactated Ringers (Lr 1000 Ml Iv Solution (05/13/21 16:18) Ketorolac Injection (Toradol Injection) (05/13/21 17:39) Vital Signs/I&O 05/13/21 15:58 Temp 36.8 Pulse 84 Resp 16 B/P (MAP) 116/75 (89) Pulse Ox 98 Blood Pressure Mean: 89 Progress Progress Note : Progress Note Seen and evaluated. IV, labs, EKG, chest x-ray, normal saline 1 L bolus ordered. Fluids due to concerns for dehydration. We will also do thyroid studies given her history. Monitor patient. 0539: Lab and x-ray to this point are negative. We are still pending D-dimer. I believe she is low risk since she is not hypoxic and she is not tachycardic. Overall she is actually feeling better and breathing more normal. We will give Toradol 30 mg IV for chest wall discomfort. D-dimer lab has to be reprocessed so we have resent blood tube. 08/14/2003: Overall much improved. D-dimer negative. Discharged home with return precautions. Patient verbalized understanding instructions and agreement with plan. Initial ECG Impression Date: May 13, 2021 Initial ECG Impression Time: 16:22 Initial ECG Rate: 68 Initial ECG Rhythm: Normal Sinus Initial ECG Impression: Normal Initial ECG Comparisson: Unchanged (09/09/2019) Comment Sinus rhythm with left atrial abnormality. Normal axis. No evidence of ST elevation NM. Interpreted by me. Diagnostic Imaging Diagonstic Imaging: Xray Plain Films/CT/US/NM/MRI: chest Comments [facility] [place] NAME: JIM RAMON [facility] REC#: [id number] PT STATUS: REG ER : 1990 PHYSICIAN: MICAH SCHMID MD ADMIT DATE: 05/13/21/ER Draft Date of Exam:05/13/21 CHEST PA/LAT (2 VIEW) EXAMINATION: PA and lateral chest at 5:16 p.m. INDICATION: Chest pain. COMPARISON: 10/10/2016. FINDINGS: The heart size is stable when compared to the prior exam. The lungs are clear. There is no evidence for failure, pneumonia or for a pleural effusion. The mediastinum is not widened. The osseous structures are intact. IMPRESSION: There is no evidence for active disease. Dictated on workstation # [id number] Dict: 05/13/21 1713 Trans: 05/13/21 171 [id number] Interpreted by: ALEJANDRA MAXWELL MD Electronically signed by: Reviewed: Reviewed by Me Departure Impression Primary Impression: Chest wall pain Additional Impression: Anxiety Disposition: 01 HOME, SELF-CARE Condition: Improved Departure-Patient Inst. Decision time for Depature: 18:05 Referrals: [facility] (PCP/Family) Primary Care Physician Patient Instructions: Costochondritis (DC), Chest Pain, Adult ED, Anxiety, Adult ED Add. Discharge Instructions: All discharge instructions reviewed with patient and/or family. Voiced understanding. You may take [id number] Pepcid or the generic famotidine 20 mg daily as needed for stomach upset or concerns about acid reflux. You may take [id number] ibuprofen 400 mg every 8 hours as needed for pain. You may take Tylenol/acetaminophen 1000 mg every 8 hours as needed for pain. Drink plenty of fluids. Avoid caffeinated or acidic foods. Follow-up with your doctor next week for recheck. Return for worse pain, fever, vomiting, weakness, breathing problems or other concerns as needed. MICAH SCHMID MD May 13, 2021 16:27
[2021-05-13 16:41] LABS: BASOPHILS % (AUTO) 0 % (0-10); EOSINOPHILS # (AUTO) 0.1 10^3/uL (0.0-0.3); EOSINOPHILS % (AUTO) 1 % (0-10); HEMATOCRIT 39 % (35-52); HEMOGLOBIN 13.1 g/dL (11.5-16.0); LYMPHOCYTES # (AUTO) 2.3 10^3/uL (1.0-4.0); LYMPHOCYTES % (AUTO) 24 % (12-44); MEAN CORPUSCULAR HEMOGLOBIN 30 pg (25-34); MEAN CORPUSCULAR HGB CONC 34 g/dL (32-36); MEAN CORPUSCULAR VOLUME 89 fL (80-99); MEAN PLATELET VOLUME 10.9 fL (9.0-12.2); MONOCYTES # (AUTO) 0.4 10^3/uL (0.0-1.0); MONOCYTES % (AUTO) 5 % (0-12); NEUTROPHILS # (AUTO) 6.8 10^3/uL (1.8-7.8); NEUTROPHILS % (AUTO) 70 % (42-75); PLATELET COUNT 260 10^3/uL (130-400); WHITE BLOOD COUNT 9.7 10^3/uL (4.3-11.0)
[2021-05-13 16:55] LABS: CHLORIDE 105 MMOL/L (98-107); POTASSIUM 3.8 MMOL/L (3.6-5.0); SODIUM 137 MMOL/L (135-145)
[2021-05-13 16:56] LABS: CALCIUM 9.2 MG/DL (8.5-10.1)
[2021-05-13 16:57] LABS: GLUCOSE 79 MG/DL (70-105); TOTAL PROTEIN 6.7 GM/DL (6.4-8.2)
[2021-05-13 16:58] LABS: CARBON DIOXIDE 21 MMOL/L (21-32)
[2021-05-13 16:59] LABS: BILIRUBIN,TOTAL 0.3 MG/DL (0.1-1.0)
[2021-05-13 17:00] LABS: ALKALINE PHOSPHATASE 61 U/L (40-136)
[2021-05-13 17:01] LABS: CREATININE SERUM 0.82 MG/DL (0.60-1.30); GFR ESTIMATED 82
[2021-05-13 17:02] LABS: BUN/CREATININE RATIO 11
[2021-05-13 17:03] LABS: ALANINE AMINOTRANSFERASE 28 U/L (0-55)
--- NOTE | 2021-05-13 17:17 | Diagnostic Imaging Report ---
EXAMINATION: PA and lateral chest at 5:16 p.m. INDICATION: Chest pain. COMPARISON: 10/10/2016. FINDINGS: The heart size is stable when compared to the prior exam. The lungs are clear. There is no evidence for failure, pneumonia or for a pleural effusion. The mediastinum is not widened. The osseous structures are intact. IMPRESSION: There is no evidence for active disease. Dictated by: Dictated on workstation # [id number]
[2021-05-13 17:23] LABS: TSH (THYROID ANALYZER) 1.25 UIU/ML (0.35-4.94)
[2021-05-13] MEDS ORDERED: KETOROLAC 30 MG/ML VIAL IVP STA (17:39)
[2021-05-13 18:20] VITALS: BP 116/75
== END 2021-05-13 18:22 | disposition home or self-care (01) ==
LOC: EDUNIT# 15:47 → ER 15:49
DX: R07.89 Other chest pain (principal); F41.9 Anxiety disorder, unspecified; J45.909 Unspecified asthma, uncomplicated; F32.9 Major depressive disorder, single episode, unspecified; Z79.899 Other long term (current) drug therapy
CPT/HCPCS: 36415; 71046; 80053; 84443; 84484; 85025; 85379; 93005

== ENCOUNTER 2021-06-04 04:21 | Emergency (ER) | payer MEDICAID ==
[~2021-06-04] VITALS: Ht 168 cm; Wt 60.3 kg
[2021-06-04 04:30] VITALS: BP 117/76
[2021-06-04] MEDS ORDERED: CLONAZEPAM (04:35)
[2021-06-04] MEDS ORDERED: ONDANSETRON 4 MG (ZOFRAN) ORAL DISSOLVE TAB SL STA (05:03)
[2021-06-04] MEDS ORDERED: ACETAMINOPHEN 500 MG TAB (TYLENOL) PO STA (05:03)
[2021-06-04] MEDS ORDERED: HYDROcodone/APAP 5 MG/325 MG (LORTAB) TAB PO ONE (05:15)
--- NOTE | 2021-06-04 05:32 | ED Head Injury ---
General Chief Complaint: Head/Cervical Problems Stated Complaint: GTZ,PRESSURE,N/V,DIZZINESS- HIT HEAD Nursing Triage Note: headache, nausea since 1800. reports striking head on cabinet approx. 1800. denies loc. woke up approx. 0230 with continued gtz/nausea Source: patient Exam Limitations: no limitations History of Present Illness Date Seen by Provider: Jun 04, 2021 Time Seen by Provider: 04:48 Initial Comments Here with report of head injury occurring at 6 PM last night. She states that she had bent over and then stood up and hit her head on the cabinet. Denies loss of consciousness. She has had some nausea and persistent headache since. She did take Tylenol last night and went to bed. She woke up about 2:30 AM with headache and nausea. Denies vomiting, seizures or other injuries. Occurred: yesterday Severity: moderate Location: occipital Method of Injury: direct blow Loss of Consciousness: no loss of consciousness Associated Systoms: Headaches, Nausea/Vomiting Allergies and Home Medications Allergies Coded Allergies: Penicillins (Verified Allergy, Severe, ANAPHYLAXIS, 12/02/20) tramadol (Verified Allergy, Unknown, Hives, 12/02/20) Patient Home Medication List Home Medication List Reviewed: Yes Bupropion HCl (Bupropion HCl) 75 Mg Tablet, 75 MG PO BID, (Reported) Entered as Reported by: ESTRADA DAI on 08/20/201202 Last Action: Last Taken Edited Docusate Sodium (Dok) 100 Mg Capsule, 100 MG PO BID Prescribed by: JAXON HARDY on 12/02/20 1147 Last Action: Last Taken Edited Ethynodiol D-Ethinyl Estradiol (Zovia 1-50E Tablet) 1 Each Tablet, 1 TAB PO DAILY, (Reported) Entered as Reported by: ESTRADA DAI on 08/20/20 1203 Last Action: Last Taken Edited Ibuprofen (Ibuprofen) 800 Mg Tablet, 800 MG PO Q6HR Prescribed by: JAXON HARDY on 12/02/20 1147 Last Action: Last Taken Edited [Clonazepam] , (Reported) Entered as Reported by: GUILHERME POWER on 06/04/21 7465 Last Action: New Order Discontinued Medications Oxycodone HCl/Acetaminophen (Percocet 5-325 mg Tablet) 1 Each Tablet, 1 TAB PO Q4H PRN for PAIN-MODERATE (5-7) Discontinued Reason: No Longer Taking Prescribed by: JAXON HARDY on 12/02/20 1147 Last Action: Discontinued Review of Systems Review of Systems Constitutional: see HPI; No chills, No fever Eyes: No Symptoms Reported Ears, Nose, Mouth, Throat: no symptoms reported Respiratory: no symptoms reported Gastrointestinal: nausea; No vomiting Musculoskeletal: No muscle pain, No neck pain Skin: No change in color, No lesions Psychiatric/Neurological: Headache (Posterior left side); Denies Weakness Past Heff[place]-Nffznb-Hfqqsb Hx Patient Social History Tobacco Use?: No Substance use?: No Alcohol Use?: Yes Alcohol Frequency: Once in a while Pt feels they are or have been: No Immunizations Up To Date Tetanus Booster (TDap): Less than 5yrs PED Vaccines UTD: No Seasonal Allergies Seasonal Allergies: No Past Medical History Surgery/Hospitalization HX: lithotripsy, appy, c-sect, hysto, asthma, pcos, anx/dep, bipolar Surgeries: Yes (LITHOTRIPSY AND STONE BASKET REMOVAL, D&C, dxls x2, c/s x2) Appendectomy, Section, Hysterectomy, Renal Respiratory: Yes Asthma Currently Using CPAP: No Currently Using BIPAP: No Cardiac: No Neurological: Yes (SEIZURE x2 -2018 (STRESS INDUCED)) Reproductive Disorders: Yes (DUB ) Female Reproductive Disorders: Menstrual Problems, Endometriosis, Polycystic Ovarian Dis Sexually Transmitted Disease: No HIV/AIDS: No Genitourinary: Yes Kidney Stones Gastrointestinal: Yes Gastroesophageal Reflux Musculoskeletal: No Endocrine: No HEENT: No Loss of Vision: Denies Hearing Impairment: Denies Cancer: No Psychosocial: Yes Anxiety, Bipolar, Depression Integumentary: No Blood Disorders: No Adverse Reaction/Blood Tranf: No (N/A) Family Medical History Reviewed Nursing Family Hx No Pertinent Family Hx Physical Exam Vital Signs Vital Signs - First Documented 06/04/21 04:30 Temp 36.0 Pulse 77 Resp 16 B/P (MAP) 117/76 (90) Pulse Ox 97 O2 Delivery Room Air Capillary Refill : Less Than 3 Seconds Height, Weight, BMI Height: 5'6.00" Weight: 156lbs. 2.0oz. 70.163615sq; 21.00 BMI Method:Stated General Appearance: WD/WN, no apparent distress HEENT: PERRL/EOMI, TMs normal, pharynx normal Neck: non-tender, full range of motion, supple, normal inspection Cardiovascular: regular rate, rhythm, no murmur Respiratory: lungs clear, normal breath sounds [place] Nerves: normal speech, PERRL Coordination/Gait: normal gait Motor/Sensory: no motor deficit, no sensory deficit Skin: normal color, warm/dry Progress/Results/Core Measures Results/Orders My Orders Orders - MICAH SCHMID MD Acetaminophen Tablet (Tylenol Tablet) (06/04/21 05:03) Hydrocodone/Apap 5/325 Tablet (Lortab 5 (06/04/21 05:15) Ondansetron Oral Dissolve Tab (Zofran (06/04/21 05:03) Medications Given in ED Current Medications Medications Dose Ordered Sig/[place] Route Start Time Stop Time Status Last Admin Dose Admin Acetaminophen/ Hydrocodone Bitart 1 ea ONCE ONCE PO 06/04/21 05:15 06/04/21 05:16 DC 06/04/21 05:10 1 EA Vital Signs/I&O 06/04/21 06/04/21 06/04/21 04:30 05:10 05:10 Temp 36.0 36.0 36.0 Pulse 77 Resp 16 B/P (MAP) 117/76 (90) Pulse Ox 97 O2 Delivery Room Air Blood Pressure Mean: 90 Progress Progress Note : Progress Note Seen and evaluated. Findings consistent with concussion. Patient does not have findings that would necessitate CT scan of the head and this is discussed with the patient including no mobile scalp bony lesion or deformity, no significant hematoma. No persistent vomiting, no loss of consciousness and no history of seizures. She does have headache and nausea consistent with concussion. Hydrocodone 5/325, Tylenol 500 mg p.o. and Zofran 4 mg p.o. given. 0530: Patient has not vomited and otherwise doing okay with headache remaining. Disc harged home with return precautions. Patient verbalized understanding of instructions and agreement with plan. I did discuss with her the importance of rest. Patient has family member with her that will help with the kids and she has her fianc that will also help with the kids so that she will be able to rest over the next day or 2. Departure Impression Primary Impression: Concussion without loss of consciousness Qualified Codes: S06.0X0A - Concussion without loss of consciousness, initial encounter Disposition: 01 HOME, SELF-CARE Condition: Stable Departure-Patient Inst. Decision time for Depature: 05:31 Referrals: [facility] (PCP) Primary Care Physician TRISTA MARTINS MD (Family) Primary Care Physician Patient Instructions: Concussion, Adult (DC) Add. Discharge Instructions: All discharge instructions reviewed with patient and/or family. Voiced understanding. You may take Tylenol/acetaminophen 1000 mg every 6-8 hours as needed for pain. You may take ibuprofen 600 mg every 8 hours as needed for breakthrough pain. It is very important that you get rest. You should rest for the next 1 to 2 days and then as needed. Return for worse pain, vomiting 3 times in 12 hours, weakness, vision or balance problems or other concerns as needed. Follow-up with your doctor in a few days for recheck as needed. MICAH SCHMID MD Jun 04, 2021 05:32
== END 2021-06-04 05:35 | disposition home or self-care (01) ==
LOC: EDUNIT# 04:21 → ER 04:24
DX: S06.0X0A Concussion without loss of consciousness, initial encounter (principal); J45.909 Unspecified asthma, uncomplicated; F41.9 Anxiety disorder, unspecified; F32.9 Major depressive disorder, single episode, unspecified; Z79.899 Other long term (current) drug therapy; W22.8XXA Striking against or struck by other objects, initial encounter
CPT/HCPCS: 99283

== ENCOUNTER 2021-06-14 08:05 | Emergency (ER) | payer MEDICAID ==
[~2021-06-14] VITALS: Ht 167 cm; Wt 79.0 kg
[~2021-06-14 08:05] MED LIST changes: +CLONAZEPAM
--- NOTE | 2021-06-14 08:35 | ED Headache ---
General Chief Complaint: Head/Cervical Problems Stated Complaint: NAUSEA, BLURRED VISION Source: patient Exam Limitations: no limitations History of Present Illness Date Seen by Provider: Jun 14, 2021 Time Seen by Provider: 08:25 Initial Comments Patient is a 31-year-old female who presents to the emergency room with a chief complaint of left-sided headache and left-sided left eye blurry vision. Patient describes a "head injury" about a week and a half ago when she stood up cleaning a cabinet and hit her head on a cabinet. She states that she did not have a loss of consciousness. She states that her symptoms have continued to worsen since the head injury. Patient describes some nausea and blurry vision that progresses as she goes about her activities of daily living. She states that she will wake up with basically normal vision and then it continues to worsen. She has been taking Tylenol and Aleve for headaches without much relief of symptoms. Patient states that she does not do a whole lot of computer work and is not on her phone a lot. Patient states that she is kind of fatigued. She states she saw her primary care doctor last and he was supposed to schedule her for a CT but has not called her to do so. She feels like she has issues with balance and coordination and that when she stands up she may fall down. No recent illnesses such as fevers, chills, cough or congestion. All other review of systems reviewed and negative except as stated. Timing/Duration: 1 week, constant, increasing Severity/Quality: moderate, constant, pressure Location: occipital, parietal (left, radiates into her neck) Modifying Factors: worse with movement Associated Symptoms: nausea/vomiting (nausea without vomiting) Allergies and Home Medications Allergies Coded Allergies: Penicillins (Verified Allergy, Severe, ANAPHYLAXIS, 12/02/20) tramadol (Verified Allergy, Unknown, Hives, 12/02/20) Patient Home Medication List Home Medication List Reviewed: Yes Bupropion HCl (Bupropion HCl) 75 Mg Tablet, 75 MG PO BID, (Reported) Entered as Reported by: ESTRADA DAI on 08/20/20 1203 Docusate Sodium (Dok) 100 Mg Capsule, 100 MG PO BID Prescribed by: JAXON HARDY on 12/02/20 1147 Ethynodiol D-Ethinyl Estradiol (Zovia 1-50E Tablet) 1 Each Tablet, 1 TAB PO DAILY, (Reported) Entered as Reported by: ESTRADA DAI on 08/20/20 1203 Ibuprofen (Ibuprofen) 800 Mg Tablet, 800 MG PO Q6HR Prescribed by: JAXON HARDY on 12/02/20 1147 [Clonazepam] , (Reported) Entered as Reported by: GUILHERME POWER on 06/04/21 0435 Review of Systems Review of Systems Constitutional: see HPI Eyes: Blurred Vision (left lateral visual field) Ears, Nose, Mouth, Throat: no symptoms reported Respiratory: no symptoms reported Cardiovascular: no symptoms reported Gastrointestinal: nausea Genitourinary: no symptoms reported Musculoskeletal: no symptoms reported Skin: no symptoms reported Psychiatric/Neurological: Headache, Other (dizziness) Past Cxszmlr-Kzmxdp-Yovhjt Hx Patient Social History Tobacco Use?: No Substance use?: No Alcohol Use?: Yes Alcohol Frequency: Once in a while Immunizations Up To Date Tetanus Booster (TDap): Less than 5yrs PED Vaccines UTD: No Seasonal Allergies Seasonal Allergies: No Past Medical History Surgery/Hospitalization HX: lithotripsy, appy, c-sect, hysto, asthma, pcos, anx/dep, bipolar Surgeries: Yes (LITHOTRIPSY AND STONE BASKET REMOVAL, D&C, dxls x2, c/s x2) Appendectomy, Section, Hysterectomy, Renal Respiratory: Yes Asthma Currently Using CPAP: No Currently Using BIPAP: No Cardiac: No Neurological: Yes (SEIZURE x2 -2018 (STRESS INDUCED)) Reproductive Disorders: Yes (DUB ) Female Reproductive Disorders: Menstrual Problems, Endometriosis, Polycystic Ovarian Dis Sexually Transmitted Disease: No HIV/AIDS: No Genitourinary: Yes Kidney Stones Gastrointestinal: Yes Gastroesophageal Reflux Musculoskeletal: No Endocrine: No HEENT: No Loss of Vision: Denies Hearing Impairment: Denies Cancer: No Psychosocial: Yes Anxiety, Bipolar, Depression Integumentary: No Blood Disorders: No Adverse Reaction/Blood Tranf: No (N/A) Family Medical History No Pertinent Family Hx Physical Exam Vital Signs Vital Signs - First Documented 06/14/21 08:28 Temp 36.2 Pulse 83 Resp 18 B/P (MAP) 139/84 (102) Pulse Ox 98 Capillary Refill : Height, Weight, BMI Height: 5'6.00" Weight: 156lbs. 2.0oz. 70.645180ed; 21.00 BMI Method:Stated General Appearance: WD/WN, no apparent distress HEENT: PERRL/EOMI, normal ENT inspection, TMs normal, pharynx normal Neck: full range of motion, supple, normal inspection Cardiovascular: regular rate, rhythm Respiratory: lungs clear, normal breath sounds, no respiratory distress, no accessory muscle use Gastrointestinal: normal bowel sounds, non tender, soft Extremities: normal range of motion, non-tender, normal inspection, no pedal edema Psychiatric: alert, oriented x 3 Crainal Nerves: normal hearing, normal speech, PERRL Coordination/Gait: negative Romberg's sign, other (normal heel to ewing) Motor/Sensory: no motor deficit, no sensory deficit, no pronator drift Skin: normal color, warm/dry Progress/Results/Core Measures Results/Orders My Orders Orders - KODI DE MD Ct Head Wo (06/14/21 08:35) Vital Signs/I&O 06/14/21 08:28 Temp 36.2 Pulse 83 Resp 18 B/P (MAP) 139/84 (102) Pulse Ox 98 Diagnostic Imaging Diagonstic Imaging: CT Comments NAME: JIM RAMON [facility] REC#: [id number] PT STATUS: REG ER : 1990 PHYSICIAN: KODI DE MD ADMIT DATE: 06/14/21/ER Draft Date of Exam:06/14/21 CT HEAD WO EXAMINATION: CT head without contrast. TECHNIQUE: Multiple contiguous axial images were obtained through the brain without the use of intravenous contrast. All CT scans use one or more of the following dose optimizing techniques: automated exposure control, MA and/or KvP adjustment based on patient size and exam type or iterative reconstruction. HISTORY: headache after head injury COMPARISON: 12/25/2019 FINDINGS: The ventricles and sulci are normal. No abnormal attenuation of brain parenchyma is present. No acute intracranial hemorrhage or abnormal extra-axial fluid collections are present. No hyperdense vessel. The calvarium is intact. The mastoid air cells are clear. The visualized paranasal sinuses are clear. The orbits are normal. IMPRESSION: 1. No acute intracranial abnormality. Dictated on workstation # [id number] Dict: 06/14/21 09 Trans: 06/14/21905 [facility] [id number] Interpreted by: GUILHERME CANALES DO Electronically signed by: Departure Impression Primary Impression: Post concussion syndrome Disposition: 01 HOME, SELF-CARE Condition: Stable Departure-Patient Inst. Decision time for Depature: 09:08 Referrals: [facility] (PCP) Primary Care Physician TRISTA MARTINS MD (Family) Primary Care Physician Patient Instructions: Postconcussion Syndrome (DC) Add. Discharge Instructions: Drink plenty of fluids to stay well-hydrated. Always take naproxen or ibuprofen with food. Take the naproxen twice daily, 2 tablets which is 500 mg as needed for headache. I have sent a prescription for Zofran which you can take for nausea as needed every 8 hours. Please call and follow-up with with your primary care physician. Your symptoms should slowly start to improve over the course of the next week or so. Return to the emergency department for any new, concerning or emergent complaints. Scripts Ondansetron (Ondansetron Odt) 4 Mg Tab.rapdis 4 MG PO Q8H PRN for nausea, #15 TAB Prov: KODI DE MD 06/14/21 Copy Copies To 1: TRISTA MARTINS MD, KATHRYN M MD Jun 14, 2021 08:35
--- NOTE | 2021-06-14 09:06 | Diagnostic Imaging Report ---
EXAMINATION: CT head without contrast. TECHNIQUE: Multiple contiguous axial images were obtained through the brain without the use of intravenous contrast. All CT scans use one or more of the following dose optimizing techniques: automated exposure control, MA and/or KvP adjustment based on patient size and exam type or iterative reconstruction. HISTORY: headache after head injury COMPARISON: 12/25/2019 FINDINGS: The ventricles and sulci are normal. No abnormal attenuation of brain parenchyma is present. No acute intracranial hemorrhage or abnormal extra-axial fluid collections are present. No hyperdense vessel. The calvarium is intact. The mastoid air cells are clear. The visualized paranasal sinuses are clear. The orbits are normal. IMPRESSION: 1. No acute intracranial abnormality. Dictated by: Dictated on workstation # [id number]
[2021-06-14] MEDS ORDERED: ONDA4TAB11 PO (09:10)
[2021-06-14 09:16] VITALS: BP 138/82
== END 2021-06-14 09:16 | disposition home or self-care (01) ==
LOC: EDUNIT# 08:05 → ER 08:09
DX: F07.81 Postconcussional syndrome (principal)
CPT/HCPCS: 70450; 99281

== ENCOUNTER 2023-02-16 19:16 | Emergency (ER) | payer MEDICAID ==
[~2023-02-16] VITALS: Ht 167.7 cm; Wt 74.0 kg
[2023-02-16] MEDS ORDERED: IBUPROFEN 800 MG (MOTRIN) TAB PO ONE (19:30)
--- NOTE | 2023-02-16 19:35 | ED Lower Extremity ---
General Chief Complaint: Lower Extremity Stated Complaint: FALL|RIGHT FOOT PAIN Nursing Triage Note: FELL TWISTING RIGHT MEDIAL ANKLE/FOOT APPROX. 1800. DENIES OTHER INJURIES. Source: patient Exam Limitations: no limitations (TARI WHITEHEAD APRN) History of Present Illness Date Seen by Provider: Feb 16, 2023 Time Seen by Provider: 19:25 Initial Comments 32-year-old female presents to the ER with a right foot injury. She states that she was at the pool, and fell off the concrete into the rocks at approximately 6 PM. She complains of allover right foot pain and ankle pain. (TARI WHITEHEAD APRN) Allergies and Home Medications Allergies Coded Allergies: Penicillins (Verified Allergy, Severe, ANAPHYLAXIS, 12/02/20) tramadol (Verified Allergy, Unknown, Hives, 12/02/20) Patient Home Medication List Home Medication List Reviewed: Yes (TARI WHITEHEAD APRN) Bupropion HCl (Bupropion HCl) 75 Mg Tablet, 75 MG PO BID, (Reported) Entered as Reported by: ESTRADA DAI on 08/20/20 1203 Docusate Sodium (Dok) 100 Mg Capsule, 100 MG PO BID Prescribed by: JAXON HARDY on 12/02/20 1147 Ethynodiol D-Ethinyl Estradiol (Zovia 1-50E Tablet) 1 Each Tablet, 1 TAB PO DAILY, (Reported) Entered as Reported by: ESTRADA DAI on 08/20/20 1203 Ibuprofen (Ibuprofen) 800 Mg Tablet, 800 MG PO Q6HR Prescribed by: JAXON HARDY on 12/02/20 1147 Ondansetron (Ondansetron Odt) 4 Mg Tab.rapdis, 4 MG PO Q8H PRN for nausea Prescribed by: KODI DE on 06/14/21 0910 [Clonazepam] , (Reported) Entered as Reported by: GUILHERME POWER on 06/04/21 0435 Review of Systems Constitutional: see HPI Musculoskeletal: see HPI (TARI WHITEHEAD APRN) Past Ccbbdji-Vukifb-Djbsjf Hx Patient Social History Tobacco Use?: No Substance use?: No Alcohol Use?: Yes Alcohol Frequency: Once in a while Pt feels they are or have been: No (TARI WHITEHEAD APRN) Immunizations Up To Date Tetanus Booster (TDap): Less than 5yrs PED Vaccines UTD: No First/Initial COVID19 Vaccinat: NA ([facility]) Seasonal Allergies Seasonal Allergies: No ([facility]) Past Medical History Surgery/Hospitalization HX: lithotripsy, appy, c-sect, hysto, asthma, pcos, anx/dep, bipolar, D&C Surgeries: Yes (LITHOTRIPSY AND STONE BASKET REMOVAL, D&C, dxls x2, c/s x2) Appendectomy, Section, Hysterectomy, Renal Respiratory: Yes Asthma Currently Using CPAP: No Currently Using BIPAP: No Cardiac: No Neurological: Yes (SEIZURE x2 -2018 (STRESS INDUCED)) Reproductive Disorders: Yes (DUB ) Female Reproductive Disorders: Menstrual Problems, Endometriosis, Polycystic Ovarian Dis Sexually Transmitted Disease: No HIV/AIDS: No Genitourinary: Yes Kidney Stones Gastrointestinal: Yes Gastroesophageal Reflux Musculoskeletal: No Endocrine: No HEENT: No Loss of Vision: Denies Hearing Impairment: Denies Cancer: No Psychosocial: Yes Anxiety, Bipolar, Depression Integumentary: No Blood Disorders: No Adverse Reaction/Blood Tranf: No (N/A) ([facility]) Family Medical History No Pertinent Family Hx ([facility]) Physical Exam Vital Signs Vital Signs - First Documented 02/16/23 19:20 Temp 36.9 Pulse 88 Resp 16 B/P (MAP) 112/73 (86) Pulse Ox 99 O2 Delivery Room Air (DENNIS,JENNIFER K DO) Vital Signs Capillary Refill : Less Than 3 Seconds ([facility]) Height, Weight, BMI Height: 5'6.00" Weight: 156lbs. 2.0oz. 70.195476ei; 26.00 BMI Method:Stated General Appearance: WD/WN, no apparent distress Neck: supple, normal inspection Cardiovascular: regular rate, rhythm Respiratory: lungs clear, normal breath sounds, no respiratory distress, no accessory muscle use Ankles: right ankle pain Feet: right foot pain, right foot other (Cap refill less than 2 seconds, sensation intact distally, pulses intact. No swelling or deformity noted) Neurologic/Psychiatric: alert, normal mood/affect Skin: normal color, warm/dry (TARI WHITEHEAD APRN) Progress/Results/Core Measures Results/Orders Vital Signs/I&O 02/16/23 02/16/23 19:20 20:20 Temp 36.9 36.9 Pulse 88 88 Resp 16 16 B/P (MAP) 112/73 (86) 112/73 Pulse Ox 99 99 O2 Delivery Room Air Room Air (JENNIFER COLLINS DO) Blood Pressure Mean: 86 Progress Progress Note : Progress Note Patient seen and evaluated, resting in wheelchair, no acute distress. Based on exam and symptoms, x-ray of right foot and ankle ordered. Ibuprofen ordered. 2017 imaging reviewed. Negative for acute fracture. Results discussed with patient. Patient has a pair crutches that she can borrow from a friend. Will discharge with Jj bandage. Discharge instructions and return precautions provided. (TARI WHITEHEAD APRN) Departure Impression Primary Impression: Contusion of foot Qualified Codes: S90.31XA - Contusion of right foot, initial encounter Disposition: HOME, SELF-CARE Condition: Stable Departure-Patient Inst. Decision time for Depature: 20:17 (TARI WHITEHEAD APRN) [facility]errals: [facility] [place] (PCP/Family) Primary Care Physician Patient Instructions: Contusion (DC) Add. Discharge Instructions: Use your crutches as needed to keep weight off of your foot. Wear Jj bandage for compression and support. Take 800 mg of ibuprofen every 8 hours with food as needed for pain. You may also take 1000 mg of Tylenol every 8 hours as needed for pain. You may apply ice for 20 minutes at a time several times a day. Return for any new, concerning, or worsening symptoms. All discharge instructions reviewed with patient and/or family. Voiced understanding. ATTENDING PHYSICIAN NOTE: I WAS PHYSICALLY PRESENT ER PHYSICIAN, BUT I WAS NOT INVOLVED IN ANY DECISION MAKING OR ANY CARE OF THIS PATIENT, AND I AM NOT COLLABORATING PHYSICIAN. (JENNIFER COLLINS DO) TARI WHITEHEAD APRN Feb 16, 2023 19:35 JENNIFER COLLINS DO Feb 17, 2023 23:10
--- NOTE | 2023-02-16 19:47 | Diagnostic Imaging Report ---
INDICATION: Right foot pain post injury. AP, oblique, and lateral views of the right foot are obtained. No fracture or acute bony abnormality seen. Joint spaces are unremarkable. IMPRESSION: Negative right foot. Dictated by: Dictated on workstation # [id number]
--- NOTE | 2023-02-16 19:47 | Diagnostic Imaging Report ---
INDICATION: Right ankle pain post injury. AP, oblique, and lateral views of the right ankle are obtained. No fracture or acute bony abnormality seen. IMPRESSION: Negative right ankle. Dictated by: Dictated on workstation # [id number]
[2023-02-16 20:20] VITALS: BP 112/73
== END 2023-02-16 20:20 | disposition home or self-care (01) ==
LOC: EDUNIT# 19:16 → ER 19:18
DX: S90.31XA Contusion of right foot, initial encounter (principal); Z28.310 Unvaccinated for COVID-19; Z88.6 Allergy status to analgesic agent; W18.30XA Fall on same level, unspecified, initial encounter; X50.1XXA Overexertion from prolonged static or awkward postures, initial encounter; Y92.89 Other specified places as the place of occurrence of the external cause
CPT/HCPCS: 73610; 73630

== ENCOUNTER 2023-05-16 08:47 | Emergency (ER) | payer MEDICAID ==
[~2023-05-16] VITALS: Ht 167 cm; Wt 74.0 kg
--- NOTE | 2023-05-16 10:02 | ED Neurological Problem ---
General Chief Complaint: Head/Cervical Problems Stated Complaint: MIGRAINE Nursing Triage Note: PT STATES MIGRAINE FOR 12 DAYS, WAS SENT HERE FROM [facility], MEDS GIVEN AT [facility] MONDAY DID NOT HELP SO WHEN SHE WENT THERE TODAY THEY SENT HER HERE, NO FLUIDS GIVEN. NO HX OF HEADACHES, DENIES INJURY, HAS BLURRED VISION, PAIN IN LT NECK, LT SHOULDER TO HAND GOING NUMB OFF AND ON, TINGLING ALL THE TIME, BRAIN FOG FORGETTING THINGS Source: patient Exam Limitations: no limitations History of Present Illness Date Seen by Provider: May 16, 2023 Time Seen by Provider: 09:10 Initial Comments This 32-year-old young lady presents to the emergency as a referral from the [facility] clinic with concerns about persistent headache for about 12 days as well as left sided neurologic symptoms. The pain is focused around the left frontal region and radiates into the temporal area and down toward the neck. She has also had some pain in the occipital region. She was seen at [facility] on May 14 and received a Toradol injection and muscle relaxer. This did not alleviate her symptoms. She has had a pain, numbness, and tingling radiating down into her left arm. Yesterday she developed true numbness and was unable to feel a pinch on her left upper extremity from the shoulder down to her fingers. Sensation has returned but she still has a sensation of numbness and tingling. She has not noted any muscle weakness but a slight differential between the strength of the left extremities is noted on exam with the left extremities being slightly weaker than the right. Patient is right-handed. She has posterior neck muscle tenderness as well. She denies any balance or speech deficits or any other vision changes or muscle weakness. Allergies and Home Medications Allergies Coded Allergies: Penicillins (Verified Allergy, Severe, ANAPHYLAXIS, 12/02/20) tramadol (Verified Allergy, Unknown, Hives, 12/02/20) Patient Home Medication List Home Medication List Reviewed: Yes Bupropion HCl (Bupropion HCl) 75 Mg Tablet, 75 MG PO BID, (Reported) Entered as Reported by: ESTRADA DAI on 08/20/20 1203 Docusate Sodium (Dok) 100 Mg Capsule, 100 MG PO BID Prescribed by: JAXON HARDY on 12/02/20 1147 Ethynodiol D-Ethinyl Estradiol (Zovia 1-50E Tablet) 1 Each Tablet, 1 TAB PO DAILY, (Reported) Entered as Reported by: ESTRADA DAI on 08/20/20 1203 Ibuprofen (Ibuprofen) 800 Mg Tablet, 800 MG PO Q6HR Prescribed by: JAXON HARDY on 12/02/20 1147 Ondansetron (Ondansetron Odt) 4 Mg Tab.rapdis, 4 MG PO Q8H PRN for nausea Prescribed by: KODI DE on 06/14/21 0910 [Clonazepam] , (Reported) Entered as Reported by: GUILHERME POWER on 06/04/21 0435 Review of Systems Review of Systems Constitutional: no symptoms reported Eyes: No Symptoms Reported Ears, Nose, Mouth, Throat: no symptoms reported Respiratory: no symptoms reported Cardiovascular: no symptoms reported Gastrointestinal: no symptoms reported Genitourinary: no symptoms reported : No Musculoskeletal: see HPI Skin: no symptoms reported Psychiatric/Neurological: See HPI Endocrine: No Symptoms Reported Hematologic/Lymphatic: No Symptoms Reported Past Onklifc-Wykevb-Aouggf Hx Patient Social History Tobacco Use?: No Substance use?: No Alcohol Use?: No Immunizations Up To Date Tetanus Booster (TDap): Less than 5yrs PED Vaccines UTD: No First/Initial COVID19 Vaccinat: NO Seasonal Allergies Seasonal Allergies: No Past Medical History Surgery/Hospitalization HX: lithotripsy, appy, c-sect, hysto, asthma, pcos, anx/dep, bipolar, D&C Surgeries: Yes (LITHOTRIPSY AND STONE BASKET REMOVAL, D&C, dxls x2, c/s x2) Appendectomy, Section, Hysterectomy, Renal (Lithotripsy) Respiratory: Yes Asthma Currently Using CPAP: No Currently Using BIPAP: No Cardiac: No Neurological: Yes (SEIZURE x2 -2018 (STRESS INDUCED)) Reproductive Disorders: Yes (DUB ) Female Reproductive Disorders: Menstrual Problems, Endometriosis, Polycystic Ovarian Dis Sexually Transmitted Disease: No HIV/AIDS: No Genitourinary: Yes Kidney Stones Gastrointestinal: Yes Gastroesophageal Reflux Musculoskeletal: No Endocrine: No HEENT: No Loss of Vision: Denies Hearing Impairment: Denies Cancer: No Psychosocial: Yes Anxiety, Bipolar, Depression Integumentary: No Blood Disorders: No Adverse Reaction/Blood Tranf: No (N/A) Family Medical History No Pertinent Family Hx Physical Exam Vital Signs Vital Signs - First Documented 05/16/23 08:54 Temp 36.2 Pulse 82 Resp 18 B/P (MAP) 126/80 (95) Pulse Ox 100 O2 Delivery Room Air Capillary Refill : Less Than 3 Seconds Height, Weight, BMI Height: 5'6.00" Weight: 156lbs. 2.0oz. 70.849443io; 26.00 BMI Method:Stated General Appearance: WD/WN, no apparent distress HEENT: PERRL/EOMI, normal ENT inspection, TMs normal, pharynx normal, other (Tenderness noted superior to the left brow and into the left temporal region. Temporal artery was not palpable on my exam. Left mastoid was also tender to palpation.) Neck: normal inspection, other (No cervical spine tenderness. 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0 10^3/uL Red Blood Count 4.44 3.80-5.11 10^6/uL Hemoglobin 13.3 11.5-16.0 g/dL Hematocrit 40 35-52 % Mean Corpuscular Volume 91 80-99 fL Mean Corpuscular Hemoglobin 30 25-34 pg Mean Corpuscular Hemoglobin Concent 33 32-36 g/dL Red Cell Distribution Width 11.8 10.0-14.5 % Platelet Count 270 130-400 10^3/uL Mean Platelet Volume 11.2 9.0-12.2 fL Immature Granulocyte % (Auto) 1 % Neutrophils (%) (Auto) 74 42-75 % Lymphocytes (%) (Auto) 20 12-44 % Monocytes (%) (Auto) 4 0-12 % Eosinophils (%) (Auto) 1 0-10 % Basophils (%) (Auto) 1 0-10 % Neutrophils # (Auto) 5.4 1.8-7.8 10^3/uL Lymphocytes # (Auto) 1.5 1.0-4.0 10^3/uL Monocytes # (Auto) 0.3 0.0-1.0 10^3/uL Eosinophils # (Auto) 0.1 0.0-0.3 10^3/uL Basophils # (Auto) 0.0 0.0-0.1 10^3/uL Immature Granulocyte # (Auto) 0.0 0.0-0.1 10^3/uL Erythrocyte Sedimentation Rate 5 0-20 MM/HR Sodium Level 139 135-145 MMOL/L Potassium Level 4.3 3.6-5.0 MMOL/L Chloride Level 109 H 98-107 MMOL/L Carbon Dioxide Level 21 21-32 MMOL/L Anion Gap 9 5-14 MMOL/L Blood Urea Nitrogen 8 7-18 MG/DL Creatinine 0.84 0.60-1.30 MG/DL Estimat Glomerular Filtration Rate 95 BUN/Creatinine Ratio 10 Glucose Level 100 70-105 MG/DL Calcium Level 9.0 8.5-10.1 MG/DL Corrected Calcium 8.8 8.5-10.1 MG/DL Magnesium Level 2.2 1.6-2.4 MG/DL Total Bilirubin 0.4 0.1-1.0 MG/DL Aspartate Amino Transf (AST/SGOT) 21 5-34 U/L Alanine Aminotransferase (ALT/SGPT) 23 0-55 U/L Alkaline Phosphatase 65 40-136 U/L C-Reactive Protein High Sensitivity 0.27 0.00-0.50 MG/DL Total Protein 7.0 6.4-8.2 GM/DL Albumin 4.2 3.2-4.5 GM/DL My Orders Orders - ARIK KELLY MD Ct Head/Cervical Spine Wo (05/16/23 09:58) Cbc And Automated Diff (05/16/23 09:58) Comprehensive Metabolic Panel (05/16/23 09:58) Magnesium (05/16/23 09:58) Ed Iv/Invasive Line Start (05/16/23 09:58) Hs C Reactive Protein (05/16/23 09:58) Erythrocyte Sedimentation Rate (05/16/23 09:58) Mri Brain W/O Contrast (05/16/23 11:08) Mri Cervical Spine W/O Contras (05/16/23 11:08) Ketorolac Injection (Ketorolac Injection (05/16/23 11:15) Acetaminophen Tablet (Acetaminophen Ta (05/16/23 15:30) Medications Given in ED Current Medications Medications Dose Ordered Sig/Berlin Route Start Time Stop Time Status Last Admin Dose Admin Acetaminophen 1,000 mg ONCE ONCE PO 05/16/23 15:30 05/16/23 15:32 DC 05/16/23 15:37 1,000 MG Ketorolac Tromethamine 30 mg ONCE ONCE IVP 05/16/23 11:15 05/16/23 11:16 DC 05/16/23 11:16 30 MG Vital Signs/I&O 05/16/23 05/16/23 05/16/23 05/16/23 08:54 11:16 15:37 18:44 Temp 36.2 36.2 36.2 36.2 Pulse 82 79 Resp 18 18 B/P (MAP) 126/80 (95) 124/78 Pulse Ox 100 100 O2 Delivery Room Air Room Air Blood Pressure Mean: 95 Progress Progress Note #1: Time: 15:42 Progress Note Patient was interviewed and examined. Labs were obtained, reviewed, and interpreted by me. CBC, CMP, and magnesium were all unremarkable. Toradol was given for headache. CT of the head and cervical spine was obtained. Radiologist's report as noted below was unremarkable. Patient was offered follow-up imaging with MRI. MRI without contrast of the brain and cervical spine was also obtained. There was suspicion of vasculitis versus demyelinating process on the MRI of the brain. There was very minimal canal narrowing on MRI of the cervical spine. Vasculitis is thought to be very unlikely as patient has inflammatory markers that are in the low normal range. Demyelinating process s uch as multiple sclerosis seems more likely given the clinical presentation and lab results. I have consulted neurology at [facility] to help with further direction and to arrange follow-up. I am currently awaiting a call back from Dr. Almeida. Progress Note #2: Time: 16:36 Progress Note I discussed the case with Dr. Almeida, neurologist at [facility]. She explains that an expedited work-up is preferable. However, outpatient availability in the clinic is booked out through August. She offered admission to expedite a work-up for MS which would include additional MRI imaging of the remaining spine and MRI with contrast imaging of the brain as well as LP. Patient is agreeable to transfer, but [facility] currently has no bed availability. She would be put on a wait list with an indefinite length of time pending transfer. I discussed options with the patient included discharge to outpatient follow-up with the primary care provider, wait listing with [facility], or trying to consult with another facility. Patient wishes to consult with another facility. Her jason has family in the [place] area. She would like to try consultation with [facility]. I have given report to the [facility] transfer center and am awaiting a callba ck. Imaging has been clouded to [facility]. [facility] does not have in-house neurology which makes a [place] location the next best option for her. Patient will likely be able to transfer by private vehicle. She has had no decompensation since being here. Her pain has been treated with Toradol followed by Tylenol. Progress Note #3: Time: 18:30 Progress Note I worked with the [facility] triage coordinator. Images were reviewed and triage coordinator consulted with Dr. Erick Heath, neurologist. After review of the case and imaging studies, transfer was not deemed necessary. Patient was advised to contact the neurology clinic in an effort to establish an outpatient consultation. Patient was given the phone number. She was also advised to try working with her primary care office to expedite a consultation. In the meantime, she was advised to present to an emergency room at a facility with neurology services if symptoms worsen. Patient was agreeable to this plan. See discharge instructions for further discussion. Diagnostic Imaging Diagonstic Imaging: CT Plain Films/CT/US/NM/MRI: c-spine, head Comments NAME: JIM RAMON MED REC#: [id number] PT STATUS: REG ER : 1990 PHYSICIAN: ARIK KELLY MD ADMIT DATE: 05/16/23/ER Draft Date of Exam:05/16/23 CT HEAD/CERVICAL SPINE WO PROCEDURE: CT head and CT cervical spine without contrast. TECHNIQUE: Multiple contiguous axial images were obtained through the brain and cervical spine without the use of intravenous contrast. Sagittal and coronal reformations through the cervical spine were then performed. Auto Exposure Controls were utilized during the CT exam to meet ALARA standards for radiation dose reduction. INDICATION: Migraine headache. Blurred vision. Left-sided neck pain. Paresthesias. COMPARISON: None FINDINGS: CT head: Ventricles and cortical sulci are normal in size and contour. There is no midline shift or mass-effect. No acute intra-axial hemorrhage is seen. There are no abnormal areas of increased or decreased density to suggest acute hemorrhage or edema. No extra-axial masses or collections are present. The bony calvarium is intact. The visualized paranasal sinuses are unremarkable. The mastoid air cells are clear. CT cervical spine: Evaluation of static alignment shows reversal of normal lordotic curvature epicentered at the C6 level. This may be related to patient positioning, as well as underlying spasm. There is no significant anteroretrolisthesis. Exam is degraded by motion artifact, but vertebral body heights are maintained. There is no enhancing evidence of acute fracture. No bony fragments are seen within the spinal canal. No significant degenerative changes are identified. Pre and paravertebral soft tissue structures are unremarkable. Included portions lung apices are clear. IMPRESSION: 1. No acute intracranial abnormality. No CT evidence of mass, acute infarct or intracranial hemorrhage. 2. No acute fracture or dislocation of the cervical spine. Dictated on workstation # [id number] Dict: 05/16/23 1021 Trans: 05/16/23 1027 [facility] [id number] Interpreted by: MELECIO REED MD Diagonstic Imaging: MRI Plain Films/CT/US/NM/MRI: head Comments NAME: JIM RAMON [facility] REC#: [id number] PT STATUS: REG ER : 1990 PHYSICIAN: ARIK KELLY MD ADMIT DATE: 05/16/23/ER Draft Date of Exam:05/16/23 MRI BRAIN W/O CONTRAST PROCEDURE: MR imaging of the brain without contrast. TECHNIQUE: Multiplanar, multisequence MR imaging of the brain was performed without contrast. INDICATION: Headache. Right upper extremity numbness and weakness. COMPARISON: CT head 05/16/2023. FINDINGS: Several T2 hyperintensities in the supratentorial, periventricular and subcortical white matter. No restricted water diffusion. No hemosiderin deposition or evidence of intracranial hemorrhage. Normal morphology including the major midline structures, sella, posterior fossa and cerebellar pontine angle. Normal intracranial flow voids. No hydrocephalus or extra-axial fluid collections. The orbits are negative. Mucosal thickening in the left maxillary sinus. Mastoids are clear. IMPRESSION: 1. Abnormal T2 hyperintensities in the supratentorial white matter primarily subcortical with a few oriented perpendicular to the lateral ventricles. Findings are suspicious for a demyelinating process. Vasculitis could have a similar appearance. 2. No evidence of acute infarction or hemorrhage. Dictated on workstation # [id number] Dict: 05/16/23 1204 Trans: 05/16/23 1209 CV [id number] Interpreted by: MARY REEVES MD Diagonstic Imaging: CT Plain Films/CT/US/NM/MRI: c-spine Comments NAME: JIM RAMON [facility] REC#: [id number] PT STATUS: REG ER : 1990 PHYSICIAN: ARIK KELLY MD ADMIT DATE: 05/16/23/ER Draft Date of Exam:05/16/23 MRI CERVICAL SPINE W/O CONTRAS PROCEDURE: MR imaging cervical spine without contrast. TECHNIQUE: Multiplanar, multisequence MR imaging of the cervical spine was performed without contrast. INDICATION: Left arm numbness with head pain. CORRELATED with an earlier CT. No previous MR. There is straightening of normal cervical curvature with slight reversal of lordosis inferiorly but no listhesis. The vertebral statures are normal. The marrow signal intensity normal. The facet relationships normal. No ligamentous injury. No paravertebral mass, hemorrhage or fluid collection. The cervical spinal cord itself has a normal volume morphology and a normal signal intensity. No cord compression. No acute epidural pathology. No paravertebral mass, hemorrhage or fluid collection. The craniocervical relationship, the C1-C2, the C2-C3 and the C3-C4 levels and discs normal. No stenosis. C4-C5: Very slight anterior osteophyte disc material at this level results in no stenosis. C5-C6: There is disc desiccation, stature loss, circumferential bulge and mild uncovertebral joint spurring. Findings result in a mild degree of spinal canal and mild left greater than right foraminal narrowing. C6-C7: Disc desiccation, bulge and endplate osteophytes efface the ventral thecal sac. There is a very mild degree of canal stenosis and mild left foraminal narrowing. C7-T1: This level and disc normal, no stenosis. IMPRESSION: 1. Straightening and slight reversal of cervical curvature with intact ligamentous structures and no acute bony pathology or listhesis. 2. Normal spinal cord. 3. Mild lower cervical disc bulges with very mild degrees of canal and foraminal narrowing. Dictated on workstation # [id number] Dict: 05/16/23 1232 Trans: 05/16/23 1509 [facility] [id number] Interpreted by: BING GARCIA Departure Impression Primary Impression: Headache Qualified Codes: R51.9 - Headache, unspecified Additional Impressions: Left-sided weakness Left arm numbness Abnormal brain MRI Abnormal MRI, cervical spine Disposition: 01 HOME, SELF-CARE Condition: Stable Transfer Transfer Reason: Exceeds level of care Method of Transfer: Private Vehicle Departure-Patient Inst. Decision time for Depature: 18:35 Referrals: [facility] [place] Primary Care Physician Patient Instructions: Headache, Adult ED, Paresthesia (DC) Add. Discharge Instructions: Follow-up with your primary care office and a neurologist as soon as possible. [facility] invited you to call the neurology clinic at [phone] to try to expedite an appointment. You may call and/or work with your primary care provider to obtain a referral. In the meantime, you may treat your headaches with ibuprofen up to 600 mg every 6 hours as needed and or Tylenol (acetaminophen) up to 1000 mg every 6 hours as needed. Caffeine such as a cup of coffee or glass of tea may also help with your headaches. If you have progressive symptoms of headache or other neurologic symptoms such as numbness, weakness, speech difficulties, or vision changes, please present to an emergency room promptly. If possible, present to an emergency room with neurology services such as [facility] in [place]. Do not delay care in an effort to present to a facility with neurology services. If needed, present to the nearest emergency room. All discharge instructions reviewed with patient and/or family. Voiced understanding. Copy Copies To 1: [facility]/ARIK BRONSON MD May 16, 2023 10:02
[2023-05-16 10:04] LABS: BASOPHILS % (AUTO) 1 % (0-10); EOSINOPHILS # (AUTO) 0.1 10^3/uL (0.0-0.3); EOSINOPHILS % (AUTO) 1 % (0-10); HEMATOCRIT 40 % (35-52); HEMOGLOBIN 13.3 g/dL (11.5-16.0); LYMPHOCYTES # (AUTO) 1.5 10^3/uL (1.0-4.0); LYMPHOCYTES % (AUTO) 20 % (12-44); MEAN CORPUSCULAR HEMOGLOBIN 30 pg (25-34); MEAN CORPUSCULAR HGB CONC 33 g/dL (32-36); MEAN CORPUSCULAR VOLUME 91 fL (80-99); MEAN PLATELET VOLUME 11.2 fL (9.0-12.2); MONOCYTES # (AUTO) 0.3 10^3/uL (0.0-1.0); MONOCYTES % (AUTO) 4 % (0-12); NEUTROPHILS # (AUTO) 5.4 10^3/uL (1.8-7.8); NEUTROPHILS % (AUTO) 74 % (42-75); PLATELET COUNT 270 10^3/uL (130-400); WHITE BLOOD COUNT 7.3 10^3/uL (4.3-11.0)
[2023-05-16 10:13] LABS: ALBUMIN 4.2 GM/DL (3.2-4.5); POTASSIUM 4.3 MMOL/L (3.6-5.0)
[2023-05-16 10:17] LABS: BILIRUBIN,TOTAL 0.4 MG/DL (0.1-1.0)
[2023-05-16 10:19] LABS: CREATININE SERUM 0.84 MG/DL (0.60-1.30)
[2023-05-16 10:22] LABS: MAGNESIUM 2.2 MG/DL (1.6-2.4)
--- NOTE | 2023-05-16 10:28 | Diagnostic Imaging Report ---
PROCEDURE: CT head and CT cervical spine without contrast. TECHNIQUE: Multiple contiguous axial images were obtained through the brain and cervical spine without the use of intravenous contrast. Sagittal and coronal reformations through the cervical spine were then performed. Auto Exposure Controls were utilized during the CT exam to meet ALARA standards for radiation dose reduction. INDICATION: Migraine headache. Blurred vision. Left-sided neck pain. Paresthesias. COMPARISON: None FINDINGS: CT head: Ventricles and cortical sulci are normal in size and contour. There is no midline shift or mass-effect. No acute intra-axial hemorrhage is seen. There are no abnormal areas of increased or decreased density to suggest acute hemorrhage or edema. No extra-axial masses or collections are present. The bony calvarium is intact. The visualized paranasal sinuses are unremarkable. The mastoid air cells are clear. CT cervical spine: Evaluation of static alignment shows reversal of normal lordotic curvature epicentered at the C6 level. This may be related to patient positioning, as well as underlying spasm. There is no significant anteroretrolisthesis. Exam is degraded by motion artifact, but vertebral body heights are maintained. There is no enhancing evidence of acute fracture. No bony fragments are seen within the spinal canal. No significant degenerative changes are identified. Pre and paravertebral soft tissue structures are unremarkable. Included portions lung apices are clear. IMPRESSION: 1. No acute intracranial abnormality. No CT evidence of mass, acute infarct or intracranial hemorrhage. 2. No acute fracture or dislocation of the cervical spine. Dictated by: Dictated on workstation # [id number]
[2023-05-16 10:30] LABS: ERYTHROCYTE SEDIMENTATION RATE 5 MM/HR (0-20)
[2023-05-16] MEDS ORDERED: KETOROLAC INJ 30 MG/ML VIAL IVP ONE (11:15)
--- NOTE | 2023-05-16 12:10 | Diagnostic Imaging Report ---
PROCEDURE: MR imaging of the brain without contrast. TECHNIQUE: Multiplanar, multisequence MR imaging of the brain was performed without contrast. INDICATION: Headache. Right upper extremity numbness and weakness. COMPARISON: CT head 05/16/2023. FINDINGS: Several T2 hyperintensities in the supratentorial, periventricular and subcortical white matter. No restricted water diffusion. No hemosiderin deposition or evidence of intracranial hemorrhage. Normal morphology including the major midline structures, sella, posterior fossa and cerebellar pontine angle. Normal intracranial flow voids. No hydrocephalus or extra-axial fluid collections. The orbits are negative. Mucosal thickening in the left maxillary sinus. Mastoids are clear. IMPRESSION: 1. Abnormal T2 hyperintensities in the supratentorial white matter primarily subcortical with a few oriented perpendicular to the lateral ventricles. Findings are suspicious for a demyelinating process. Vasculitis could have a similar appearance. 2. No evidence of acute infarction or hemorrhage. Dictated by: Dictated on workstation # [id number]
--- NOTE | 2023-05-16 15:10 | Diagnostic Imaging Report ---
PROCEDURE: MR imaging cervical spine without contrast. TECHNIQUE: Multiplanar, multisequence MR imaging of the cervical spine was performed without contrast. INDICATION: Left arm numbness with head pain. CORRELATED with an earlier CT. No previous MR. There is straightening of normal cervical curvature with slight reversal of lordosis inferiorly but no listhesis. The vertebral statures are normal. The marrow signal intensity normal. The facet relationships normal. No ligamentous injury. No paravertebral mass, hemorrhage or fluid collection. The cervical spinal cord itself has a normal volume morphology and a normal signal intensity. No cord compression. No acute epidural pathology. No paravertebral mass, hemorrhage or fluid collection. The craniocervical relationship, the C1-C2, the C2-C3 and the C3-C4 levels and discs normal. No stenosis. C4-C5: Very slight anterior osteophyte disc material at this level results in no stenosis. C5-C6: There is disc desiccation, stature loss, circumferential bulge and mild uncovertebral joint spurring. Findings result in a mild degree of spinal canal and mild left greater than right foraminal narrowing. C6-C7: Disc desiccation, bulge and endplate osteophytes efface the ventral thecal sac. There is a very mild degree of canal stenosis and mild left foraminal narrowing. C7-T1: This level and disc normal, no stenosis. IMPRESSION: 1. Straightening and slight reversal of cervical curvature with intact ligamentous structures and no acute bony pathology or listhesis. 2. Normal spinal cord. 3. Mild lower cervical disc bulges with very mild degrees of canal and foraminal narrowing. Dictated by: Dictated on workstation # [id number]
[2023-05-16] MEDS ORDERED: ACETAMINOPHEN 500 MG TABLET PO ONE (15:30)
[2023-05-16 18:44] VITALS: BP 124/78
== END 2023-05-16 18:44 | disposition home or self-care (01) ==
LOC: EDUNIT# 08:47 → ER 08:49
DX: R51.9 Headache, unspecified (principal); R53.1 Weakness; R20.0 Anesthesia of skin; R94.02 Abnormal brain scan; R93.7 Abnormal findings on diagnostic imaging of other parts of musculoskeletal system; Z28.310 Unvaccinated for COVID-19
CPT/HCPCS: 36415; 70450; 70551; 72125; 72141; 80053; 83735; 85025; 85652; 86141

== ENCOUNTER 2023-07-18 08:52 | Emergency (ER) | payer MEDICAID ==
[~2023-07-18] VITALS: Ht 167.7 cm; Wt 76.5 kg
--- NOTE | 2023-07-18 09:56 | ED General ---
General Chief Complaint: Allergic Reaction Stated Complaint: REACTION TO MEDICATION | HIVES AND SWELLING Source of Information: Patient, Family, Old Records Exam Limitations: No Limitations History of Present Illness Date Seen by Provider: Jul 18, 2023 Time Seen by Provider: 09:30 Initial Comments This 33 year old young lady presents to the ER via private vehicle with concerns about possible allergic reaction. She was recently diagnosed with MS and has been started on many new medications. She most recently started Naproxen yesterday. She has been on high-dose prednisone. Today she developed itchy hives and swelling around the lips and face. She had a sensation of swelling in the throat. She took Benadryl 50 mg between 0700 and 0830. She also complains of some sore throat. She denies any other symptoms of acute illness such as f ever, cough, vomiting, etc. Her primary care provider is Dr. Izquierdo at [facility]. Her specialists are at [facility]. Allergies and Home Medications Allergies Coded Allergies: Penicillins (Verified Allergy, Severe, ANAPHYLAXIS, 12/02/20) naproxen (Verified Allergy, Intermediate, Hives, 07/18/23) Hives. Lip and mouth swelling. tramadol (Verified Allergy, Unknown, Hives, 12/02/20) Patient Home Medication List Home Medication List Reviewed: Yes Bupropion HCl (Bupropion HCl) 75 Mg Tablet, 75 MG PO BID, (Reported) Entered as Reported by: ESTRADA DAI on 08/20/20 1203 Docusate Sodium (Dok) 100 Mg Capsule, 100 MG PO BID Prescribed by: JAXON HARDY on 12/02/20 1147 Epinephrine (Epipen 2-Jaime) 0.3 Mg/0.3 Ml Auto.injct, 0.3 MG IJ q15 min PRN for anaphylaxis Prescribed by: YOHAN BONE on 07/18/23 1907 Ethynodiol D-Ethinyl Estradiol (Zovia 1-50E Tablet) 1 Each Tablet, 1 TAB PO DAILY, (Reported) Entered as Reported by: ESTRADA DAI on 08/20/20 1203 Ibuprofen (Ibuprofen) 800 Mg Tablet, 800 MG PO Q6HR Prescribed by: JAXON HARDY on 12/02/20 1147 Ondansetron (Ondansetron Odt) 4 Mg Tab.rapdis, 4 MG PO Q8H PRN for nausea Prescribed by: KODI DE on 06/14/21 0910 [Clonazepam] , (Reported) Entered as Reported by: GUILHERME POWER on 06/04/21 0435 Review of Systems Review of Systems Constitutional: no symptoms reported EENTM: see HPI Respiratory: no symptoms reported Cardiovascular: no symptoms reported Gastrointestinal: no symptoms reported Genitourinary: no symptoms reported : No Musculoskeletal: no symptoms reported Skin: see HPI Psychiatric/Neurological: No Symptoms Reported Hematologic/Lymphatic: No Symptoms Reported Immunological/Allergic: see HPI Past [id number] Hx Immunizations Up To Date Tetanus Booster (TDap): Less than 5yrs PED Vaccines UTD: No First/Initial COVID19 Vaccinat: NO Seasonal Allergies Seasonal Allergies: No Past Medical History Surgery/Hospitalization HX: lithotripsy, appy, c-sect, hysto, asthma, pcos, anx/dep, bipolar, D&C Surgeries: Yes (LITHOTRIPSY AND STONE BASKET REMOVAL, D&C, dxls x2, c/s x2) Appendectomy, Section, Hysterectomy, Renal Respiratory: Yes Asthma Currently Using CPAP: No Currently Using BIPAP: No Cardiac: No Neurological: Yes (SEIZURE x2 -2018 (STRESS INDUCED)) Multiple Sclerosis Reproductive Disorders: Yes (DUB ) Female Reproductive Disorders: Menstrual Problems, Endometriosis, Polycystic Ovarian Dis Sexually Transmitted Disease: No HIV/AIDS: No Genitourinary: Yes Kidney Stones Gastrointestinal: Yes Gastroesophageal Reflux Musculoskeletal: No Endocrine: No HEENT: No Loss of Vision: Denies Hearing Impairment: Denies Cancer: No Psychosocial: Yes Anxiety, Bipolar, Depression Integumentary: No Blood Disorders: No Adverse Reaction/Blood Tranf: No (N/A) Family Medical History No Pertinent Family Hx Physical Exam Vital Signs Vital Signs - First Documented 07/18/23 09:00 Temp 36.7 Pulse 69 Resp 18 B/P (MAP) 136/96 (109) Pulse Ox 98 O2 Delivery Room Air Capillary Refill : Height, Weight, BMI Height: 5'6.00" Weight: 156lbs. 2.0oz. [id number]; 26.00 BMI Method:Stated General Appearance: No Apparent Distress, WD/WN HEENT: PERRL/EOMI, TMs Normal, Normal ENT Inspection, Pharynx Normal Neck: Normal Inspection Respiratory: Lungs Clear, Normal Breath Sounds, No Accessory Muscle Use Cardiovascular: Regular Rate, Rhythm, No Edema, No Murmur Extremity: Normal Inspection Neurologic/Psychiatric: Alert, Oriented x3, No Motor/Sensory Deficits, Normal Mood/Affect Skin: Warm/Dry, Rash (scant rash on the neck and chest) Progress/Results/Core Measures Suspected Sepsis SIRS Temperature: Pulse: Respiratory Rate: Blood Pressure / Mean: Results/Orders Lab Results Laboratory Tests Test 07/18/23 09:42 Range/Units Influenza Type A (RT-PCR) Not Detected Not Detecte Influenza Type B (RT-PCR) Not Detected Not Detecte SARS-CoV-2 RNA (RT-PCR) Not Detected Not Detecte Group A Streptococcus Screen Not Detected NotDetected My Orders Orders - ARIK KELLY MD Rapid Strep A Screen (07/18/23 09:53) Covid 19 Inhouse Test (07/18/23 09:53) Influenza A And B By Pcr (07/18/23 09:53) Famotidine Tablet (Famotidine Tablet) (07/18/23 10:00) Medications Given in ED Current Medications Medications Dose Ordered Sig/[place] Route Start Time Stop Time Status Last Admin Dose Admin Famotidine 40 mg ONCE ONCE PO 07/18/23 10:00 07/18/23 10:01 DC 07/18/23 10:15 40 MG Vital Signs/I&O 07/18/23 07/18/23 09:00 11:22 Temp 36.7 Pulse 69 62 Resp 18 18 B/P (MAP) 136/96 (109) 139/78 Pulse Ox 98 96 O2 Delivery Room Air Room Air Capillary Refill : Progress Note : Progress Note Symptoms were starting to resolve after taking Benadryl. Pepcid 40 mg was added. Swabs for rapid strep, flu and COVID were collected to evaluate the sore throat. All were negative. No evidence of thrush on exam . See discharge instructions for further discussion. Departure Impression Primary Impression: Allergic reaction Qualified Codes: T78.40XA - Allergy, unspecified, initial encounter Disposition: HOME, SELF-CARE Condition: Improved Departure-Patient Inst. Decision time for Depature: 11:15 Referrals: TARI IZQUIERDO MD,RESIDENT (PCP/Family) Primary Care Physician Patient Instructions: Allergic Reaction ED Add. Discharge Instructions: Based on timing of your medications, it is likely that you had an allergic re action to naproxen (Naprosyn). Avoid taking this medication in the future. If you take any other medications in the NSAID family such as aspirin, ibuprofen, or Toradol, please use caution and be aware there may be a cross allergy with other NSAIDs. Be prepared to treat an allergic reaction when you take these medications for the first time. You should keep Benadryl (diphenhydramine) with you for the next few weeks. If you have a rebound reaction, you may take up to 50 mg of diphenhydramine every 4 hours as needed. If the reaction is severe or involves the tongue, throat, or breathing, please return to the emergency room or call 911. Please also take Pepcid (famotidine) 20 mg twice daily for the next several days. This may be purchased [id number]. Return to care in the ER if you have any other urgent problems or concerns. All discharge instructions reviewed with patient and/or family. Voiced understanding. Copy Copies To 1: TARI IZQUIERDO MD,RESIDENT ARIK KELLY MD Jul 18, 2023 09:56
[2023-07-18] MEDS ORDERED: FAMOTIDINE 20 MG TABLET PO ONE (10:00)
[2023-07-18 11:22] VITALS: BP 139/78
[2023-07-18] MEDS ORDERED: EPIN0.3P3 IJ (19:07)
== END 2023-07-18 11:25 | disposition home or self-care (01) ==
LOC: EDUNIT# 08:52 → ER 08:54
DX: T78.40XA Allergy, unspecified, initial encounter (principal); X58.XXXA Exposure to other specified factors, initial encounter
CPT/HCPCS: 87430; 87636